=== PATIENT | female | born 1960 | race Caucasian/White ===

== ENCOUNTER 2020-05-02 01:11 | Outpatient (CLI) | payer OTHER, SELFPAY ==
[2020-05-02 18:35] LABS: SARS-CoV-2 RNA PCR Negative
== END 2020-05-02 01:12 | disposition home or self-care (01) ==
LOC: ANHCOVIDDT 01:11
PROVIDERS: PCP Family Medicine; Visit Provider Internal Medicine Gastroenterology
DX: Z01.812 Encounter for preprocedural laboratory examination (principal); Z20.828 Contact with and (suspected) exposure to other viral communicable diseases
CPT/HCPCS: 87635; C9803; U0003

== ENCOUNTER 2020-05-04 01:49 | Day surgery (SDC) | payer OTHER, SELFPAY ==
[2020-04-25 16:12] VITALS: BMI 20.9
[2020-05-04 10:18] VITALS: BP 100/63; PULSE 77; RESP 16; TEMP 36.6; O2SAT 100
--- NOTE | 2020-05-04 10:29 | P.HP_ITS ---
H&P: HPI History of Present Illness Date/Time: 05/04/20 10:29 Chief complaint: Diverticular Disease Of Colon Narrative: Reason for visit is colonoscopy. This very pleasant lady's being seen at the request of the primary physician. The patient examined and chart review. Impression: Colon cancer and polyp screening and surveillance. 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 She is status post resection. Hypertension. Recommendation: Colonoscopy. History: This very pleasant lady presented a year ago with GI bleeding. She was found to have a neuroendocrine tumor of the terminal ileum. She subsequently underwent ileocolonic resection. She had 1 positive lymph node. She is here for screening and surveillance. GI review of systems unremarkable. Physical examination: General: very pleasant patient in no acute distress. HEENT: Head was normocephalic sclerae is clear mouth without masses neck was supple. Heart: Rate rhythm regular without S3 or S4. Lungs: CTA. Abdomen: Soft with no guarding or rigidity. Bowel sounds were active. Neurologic: Cranial nerves 2 through 12 intact. No focal defects. No clonus. Musculoskeletal system: Revealed no joint tenderness or swelling no muscle atrophy. Extremities: Reveal no significant edema. Skin: Warm and dry with normal turgor. Mental status: intact. Patient is alert and oriented. Review of Systems Review of Systems: All systems reviewed & are unremarkable except as noted in HPI and below [facility] Family History Family History (Updated 11/10/18 @ 10:27 by DOCTOR UNKNOWN) Father Family history of malignant neoplasm of kidney Family history of congestive heart failure Other Cerebrovascular accident Family history of liver disease Family history of thyroid disease Hypertension Social History Social History Smoking status: Never smoker Alcohol intake: never Meds Home Medications and Allergies Home Medications Medication Instructions Recorded Confirmed Type biotin 1 mg PO DAILY 04/25/20 05/04/20 History lisinopril 10 mg PO DAILY 04/25/20 05/04/20 History rk-vs-RN-vit X-pobof-wxz-coQ10 1 cap PO DAILY 04/25/20 05/04/20 History [Daily Multivitamin] Allergies Allergy/AdvReac Type Severity Reaction Status Date / Time Iodinated Contrast Media Allergy Unknown VOMITING Verified 05/04/20 10:17 iodine Allergy Unknown Vomiting Verified 05/04/20 10:17 shellfish derived Allergy Unknown Vomiting Verified 05/04/20 10:17 Vital Signs Vital Signs - 24 hr 05/04/20 10:18 Temperature 36.6 C Pulse Rate 77 Respiratory Rate 16 Blood Pressure 100/63 Pulse Oximetry 100
[2020-05-04] MEDS: LACTATED RINGERS 1,000 ML 150 ML IV CONT (10:32)
--- NOTE | 2020-05-04 10:33 | WPDANESEPPF ---
Anes - Initial Pre Proc Eval Procedure: Operation Date: 05/04/20 11:00 Proposed Procedures p Colonoscopy - Marek Hernandes DO Date/Time: 05/04/20 10:33 Surgeon: Marek Hernandes DO Pre Op Diagnosis: Diverticular Disease Of Colon Patient Data Age: 60 Gender: F Height: 5 ft 2 in Weight: 51.9 kg Last Vital Signs Temp 36.6 C 05/04/20 10:18 Pulse 77 05/04/20 10:18 Resp 16 05/04/20 10:18 BP 100/63 05/04/20 10:18 Pulse Ox 100 05/04/20 10:18 Allergies Allergy/AdvReac Type Severity Reaction Status Date / Time Iodinated Contrast Media Allergy Unknown VOMITING Verified 05/04/20 10:17 iodine Allergy Unknown Vomiting Verified 05/04/20 10:17 shellfish derived Allergy Unknown Vomiting Verified 05/04/20 10:17 Home Medications Medication Instructions Recorded Confirmed Type biotin 1 mg PO DAILY 04/25/20 05/04/20 History lisinopril 10 mg PO DAILY 04/25/20 05/04/20 History oa-ng-MT-vit M-mbjav-lyz-coQ10 1 cap PO DAILY 04/25/20 05/04/20 History [Daily Multivitamin] Patient hx anesthesia problems: none Family hx anesthesia problems: none PMFSH Past Medical History Medical History (Updated 05/04/20 @ 10:38 by Parminder Santos MD) Carcinoid tumor of small intestine HTN (hypertension) Surgical History Surgical History (Updated 05/04/20 @ 10:38 by Parminder Santos MD) S/P laparoscopic surgery Family History Family History Father Family history of malignant neoplasm of kidney Family history of congestive heart failure Other Cerebrovascular accident Family history of liver disease Family history of thyroid disease Hypertension Social History Social History Smoking status: Never smoker Alcohol intake: never Anes - Eval Final PreProcedure Day of Procedure 05/04/20 10:33 Patient weight: normal Heart: regular rate and rhythm Lungs: clear to auscultation Airway: Mallampati scale class II Neurological: alert and oriented Last oral intake: >/= 8 hours ASA classification: II Emergent: no Anesthetic plan: proceed Anesthesia type and monitoring: general GIVS and standard monitoring Informed Consent: The patient's anesthetic plan and its attendant risks and benefits were discussed with the patient/family/POA. Questions were solicited and answers provided to the satisfaction of the patient/family/POA.
[2020-05-04 11:35] VITALS: BP 81/51; PULSE 73; RESP 17; O2SAT 99
[2020-05-04 11:45] VITALS: BP 82/55; PULSE 65; RESP 19; O2SAT 100
[2020-05-04 11:55] VITALS: BP 99/67; PULSE 62; RESP 22; O2SAT 100
== END 2020-05-04 12:11 | disposition home or self-care (01) ==
PROVIDERS: PCP Family Medicine; Visit Provider Internal Medicine Gastroenterology
PROC: 0DJD8ZZ Inspection of Lower Intestinal Tract, Via Natural or Artificial Opening Endoscopic (ICD-10-PCS; CPT 45378; principal; 2020-05-04 11:00)
DX: Z12.11 Encounter for screening for malignant neoplasm of colon (principal); K57.30 Diverticulosis of large intestine without perforation or abscess without bleeding; Z85.060 Personal history of malignant carcinoid tumor of small intestine; Z98.0 Intestinal bypass and anastomosis status; Z90.49 Acquired absence of other specified parts of digestive tract; I10 Essential (primary) hypertension
CPT/HCPCS: 45378; J2001; J2704; J7120

== ENCOUNTER 2020-08-15 06:52 | Outpatient (NON) | payer OTHER, SELFPAY ==
[2020-08-16 02:00] LABS: SARS-CoV-2 RNA PCR Positive
== END 2020-08-15 06:53 ==
LOC: ANHCOVIDDT 07:14
PROVIDERS: PCP Family Medicine; Visit Provider Family Medicine
DX: U07.1 COVID-19 (principal)
CPT/HCPCS: 87635; C9803; U0003

== ENCOUNTER 2021-08-02 11:22 | Emergency (ER) | payer OTHER, SELFPAY ==
[2021-08-02 11:28] VITALS: BP 143/97; PULSE 70; RESP 18; TEMP 35.8; O2SAT 100
--- NOTE | 2021-08-02 11:39 | ECG_ITS ---
Measurements Intervals [place] Rate: 63 P: 59 NM: 157 QRS: -15 QRSD: 96 T: 42 QT: 380 QTc: 391 Interpretive Statements SINUS RHYTHM POSSIBLE LEFT ATRIAL ENLARGEMENT INCOMPLETE RIGHT BUNDLE BRANCH BLOCK BASELINE ARTIFACT- I, II, AVR BORDERLINE ECG Electronically Signed On 08-02-2021 19:38:57 ADULT SECONDARY EDUCATION INSTRUCTOR by Antonio Tejada D.O.
[2021-08-02 12:22] LABS: Basophils Percent Auto 0.6 % (0.2-1.2); Eosinophils Absolute Auto 0.1 K/mm3 (0-0.3); Eosinophils Percent Auto 2.2 % (0-4.4); Hematocrit 41.9 % (37.0-47.0); Immature Granulocyte Absolute 0.02 K/mm3 (0.00-0.031); Immature Granulocyte Percent A 0.3 % (0-0.5); Lymphocytes Absolute Auto 1.63 K/mm3 (0.9-3.2); Lymphocytes Percent Auto 25.7 % (18.3-44.2); Mean Corpuscular HGB Conc 33.4 g/dl (32-36); Mean Corpuscular Hemoglobin 30.6 pg (26-34); Mean Corpuscular Volume 91.7 fl (80-100); Mean Platelet Volume 9.5 fl (7.4-10.4); Monocytes Absolute Auto 0.5 K/mm3 (0.1-0.6); Monocytes Percent Auto 7.4 % (2.6-8.5); Neutrophils Percent Auto 63.8 % (45.5-73.1); Platelet Count Result 296 k/mm3 (150-375); Red Blood Count 4.57 M/mm3 (4.2-5.4); Red Cell Distribution Width 12.3 % (11.5-14.5); White Blood Count 6.3 K/mm3 (4.5-10.0)
[2021-08-02 12:36] LABS: Anion Gap 7 mmol/L (8-16); Blood Urea Nitrogen 26 mg/dL (7-17); Calcium 9.6 mg/dL (8.4-10.2); Carbon Dioxide 26 mmol/L (22-30); Chloride 106 mmol/L (98-107); Estimated CRCL calculation 56 ml/min; Estimated Glomerular Filt Rate > 60; Glucose 99 mg/dL (65-110); Potassium 4.2 mmol/L (3.4-5.0); Sodium 139 mmol/L (137-145)
--- NOTE | 2021-08-02 12:54 | PC.NURSE ---
patient refuses iv
--- NOTE | 2021-08-02 12:56 | ED.DIZZY ---
HPI - Dizziness General Chief Complaint: Dizziness Stated Complaint: dizzy Time Seen by Provider: 08/02/21 12:32 Source: patient History of Present Illness HPI Narrative: Patient presents with dizziness and not feeling well. Reports on she was drinking with her and spent some time in the hot tub when going to bed she went to the bathroom felt dizzy and fell to the ground. She does report a history of vertigo she did feel like the room was spinning. Since then she reports she has been feeling a little bit off she has had increased dizziness not completely resolved with vertigo reports some nausea parents she went to work over the past 2 days and today was feeling the worst she has had general to come to the ER for evaluation. She was concerned that her blood pressure was elevated she had intermittent headaches and wanted to be evaluated Related Data Home Medications Medication Instructions Recorded Confirmed biotin 1 mg PO DAILY 04/25/20 05/04/20 lisinopril 10 mg PO DAILY 04/25/20 05/04/20 nx-qs-UP-vit L-fzxmi-rvf-coQ10 1 cap PO DAILY 04/25/20 05/04/20 [Daily Multivitamin] Allergies Allergy/AdvReac Type Severity Reaction Status Date / Time Iodinated Contrast Media Allergy Unknown VOMITING Verified 05/04/20 10:17 iodine Allergy Unknown Vomiting Verified 05/04/20 10:17 shellfish derived Allergy Unknown Vomiting Verified 05/04/20 10:17 Review of Systems Review of Systems: CONSTITUTIONAL: Denies fever, chills, or sweats. EYES: Denies visual changes, redness, or discharge. ENT: Denies rhinorrhea, congestion, sore throat, or otalgia. CARDIOVASCULAR: Denies chest pain, palpitations, or edema. RESPIRATORY: Denies cough or dyspnea. GASTROINTESTINAL: Denies abdominal pain, nausea, vomiting, or diarrhea. GENITOURINARY: Denies dysuria or hematuria. SKIN: Denies rash or itching. MUSCULOSKELETAL: Denies back pain, joint pain, or myalgia. NEUROLOGIC: Denies numbness, or weakness. PSYCHIATRIC: Denies anxiety or depression. All systems reviewed & are unremarkable except as noted in HPI and below PMFSH Past Medical History Medical History Carcinoid tumor of small intestine HTN (hypertension) Surgical History Surgical History S/P laparoscopic surgery Family History Family History Father Family history of malignant neoplasm of kidney Family history of congestive heart failure Other Cerebrovascular accident Family history of liver disease Family history of thyroid disease Hypertension Social History Social History Smoking status: Never smoker Alcohol intake: never Exam Narrative: GENERAL: Well-appearing, well-nourished, and in no acute distress. HEAD: Normocephalic, hematoma noted on the left occiput EYES: PERRLA and EOMI. ENT: Nares clear, no rhinorrhea or epistaxis. Mucous membranes moist. NECK: Supple. No masses. No JVD CHEST: Clear to auscultation. No respiratory distress. No wheezes rales or rhonchi HEART: Regular rate and rhythm. No murmur heard. Normal peripheral pulses. ABDOMEN: Soft, nontender, nondistended, normal active bowel sounds. EXTREMITIES: Normal range of motion. No edema. SKIN: Warm, dry, no rash. NEURO: Cranial nerves II through XII are intact patient has 5 out of 5 strength in all extremities sensation intact to light touch no dysdiadochokinesia. alert and oriented x3. PSYCH: Normal mood and affect. Course Vital Signs Vital signs: Vital Signs Temperature 35.8 C L 08/02/21 11:28 Pulse Rate 70 08/02/21 11:28 Respiratory Rate 18 08/02/21 11:28 Blood Pressure 143/97 H 08/02/21 11:28 Pulse Oximetry 100 08/02/21 11:28 Temperature 35.8 C L 08/02/21 11:28 Pulse Rate 70 08/02/21 11:28 Respiratory Rate 18 08/02/21 11:28 Blood Pre
== END 2021-08-02 13:09 | disposition home or self-care (01) ==
PROVIDERS: Emergency Provider Emergency Medicine; PCP Family Medicine
DX: S06.0X1A Concussion with loss of consciousness of 30 minutes or less, initial encounter (principal); R42 Dizziness and giddiness; I10 Essential (primary) hypertension; W19.XXXA Unspecified fall, initial encounter
CPT/HCPCS: 36415; 80048; 85025; 93005; 99284

== ENCOUNTER → 2021-10-03 15:38 | Outpatient (CLI) | payer OTHER, SELFPAY ==
--- NOTE | ~2021-10-03 | XR_ITS ---
EXAMINATION:XR cervical spine 4-5V DATE: 10/03/2021 16:06 INDICATION: Neck pain TECHNIQUE: AP, lateral in neutral, flexion, and extension, and odontoid views of the cervical spine a re provided. COMPARISON: 12/17/2010 FINDINGS: There are 2 mm of retrolisthesis of C6 on C7. No laxity is present with flexion or extensio n. The odontoid is intact. No fracture is identified. There is severe loss of intervertebral disc spa ce height at C5-6 and moderate loss of intervertebral disc space height at C6-7 with interval worseni ng. Prevertebral soft tissues are normal. There is moderate facet and uncovertebral joint osteoarthri tis at C5-6 and C6-7. IMPRESSION: 1. Severe cervical spondylosis at C5-6 and moderate spondylosis at C6-7 with interval worsening. Reviewed, dictated and finalized at location F. ER PACKER IMPRESSION: 1. Severe cervical spondylosis at C5-6 and moderate spondylosis at C6-7 with in terval worsening.
--- NOTE | ~2021-10-03 | XR_ITS ---
EXAMINATION: XR lumbar spine 2-3V DATE: 10/03/2021 16:06 INDICATION: Low back pain TECHNIQUE: Anteroposterior and lateral views of the lumbar spine, and cone-down lateral view of the l umbosacral junction were obtained. COMPARISON: CT, 11/02/2018 FINDINGS: There is no fracture, dislocation, or subluxation. There is unchanged mild loss of interver tebral disc space height at L1-2 and L2-3. The vertebral body heights are maintained. The bowel gas p attern is normal. IMPRESSION: 1. Mild lumbar spondylosis without acute findings or significant interval change. Reviewed, dictated and finalized at location F. TRUCTION SERVICES TECHNICIAN IMPRESSION: 1. Mild lumbar spondylosis without acute findings or significant interval david dockery
--- NOTE | ~2021-10-03 | XR_ITS ---
EXAMINATION: XR thoracic spine 2V DATE: 10/03/2021 16:06 INDICATION: Back pain TECHNIQUE: AP, lateral and lateral swimmer's views of the thoracic spine were obtained. COMPARISON: 12/17/2010 FINDINGS: There is no fracture, dislocation, or subluxation. The vertebral body heights are maintaine d. There is mild loss of intervertebral disc space height at a few levels in the thoracic spine. IMPRESSION: 1. Mild thoracic spondylosis without acute findings. Reviewed, dictated and finalized at location F. CTOR CPG
== END ==
PROVIDERS: Visit Provider Chiropractor
DX: M47.815 Spondylosis without myelopathy or radiculopathy, thoracolumbar region (principal); M47.813 Spondylosis without myelopathy or radiculopathy, cervicothoracic region
CPT/HCPCS: 72050; 72070; 72100

== ENCOUNTER → 2022-12-04 11:08 | Outpatient (CLI) | payer OTHER, SELFPAY ==
--- NOTE | ~2022-12-04 | DEXA_ITS ---
Bone Density Report Name: LACEY MCDONALD Age: 62 Sex: Female Ethnicity: White Date of : 1960 Indication: postmenopausal; screening for osteoporosis; parental hip fracture; Referring Provider: DAMIAN, ARIEL Rizvi Study: Bone densitometry was performed. Exam Date: December 04, 2022 Accession number: [id number] Bone Density: Region BMD T-score Z-score Classification AP Spine (L1-L4) 0.782 -2.4 -1.0 Osteopenia Femoral Neck (Left) 0.627 -2.0 -0.7 Osteopenia Total Hip (Left) 0.761 -1.5 -0.5 Osteopenia Femoral Neck (Right) 0.626 -2.0 -0.7 Osteopenia Total Hip (Right) 0.804 -1.1 -0.2 Osteopenia Total Hip Mean 0.783 -1.3 -0.4 Osteopenia World Health Organization criteria for BMD impression classify patients as: Normal (T-score at or above -1.0), Osteopenia (T-score between -1.0 and -2.5), or Osteoporosis (T-score at or below -2.5). 10-year Fracture Risk(1): Major Osteoporotic Fracture 18% Hip Fracture 1.2% Reported Risk Factors: [place] (), Neck BMD=0.626, BMI=24.0, parental fracture (1) FRAX(R) Version 3.08. Fracture probability calculated for an untreated patient. Fracture probability may be lower if the patient has received treatment. Clinical Information Provided by Patient: Parent has had a hip fracture Patient maximum height was 61.25 Menopause Age: 52 No regular weight bearing exercise Does not regularly consume dairy products Drinks caffeinated beverages Onset of menses at age 15 Number of children 3 Impression: The patient has low bone mass, based on the Total Spine T-score. The patient has an estimated ten-year risk of hip fracture of 1.2% and an estimated ten-year risk of major fracture of 18%, based on the WHO FRAX algorithm. The patient has risk factors, including: parental hip fracture. Discussion: BONE DENSITY IS LOW AT ONE OR MORE SKELETAL SITES. This patient's lowest T-score is low at one or more skeletal sites. It meets the World Health Organization's (WHO) criteria for ?low bone mass? (T-score between -1.0 and -2.5). The patient's 10-year risk of fracture as calculated by FRAX is less than the threshold where pharmacological therapy is recommended by the National Osteoporosis Foundation (NOF). However, all treatment decisions require clinical judgment and consideration of individual patient factors, including patient preferences, comorbidities, previous drug use, risk factors not captured in the FRAX model (e.g., frailty, falls, vitamin D deficiency, increased bone turnover, interval significant decline in bone density) and possible under or overestimation of fracture risk by FRAX. The patient should follow a healthful lifestyle (good nutrition with adequate calcium and vitamin D, and appropriate weight-bearing exercise). Follow-Up: Consider repeating this study in 2 to 3 ye
== END ==
PROVIDERS: PCP Family Medicine; Visit Provider Nurse Practitioner
DX: Z13.820 Encounter for screening for osteoporosis (principal); Z78.0 Asymptomatic menopausal state; M85.89 Other specified disorders of bone density and structure, multiple sites
CPT/HCPCS: 77080

== ENCOUNTER 2022-12-09 06:49 | Day surgery (SDC) | payer OTHER, SELFPAY ==
[2022-10-21 11:26] VITALS: BMI 23.6
[2022-11-28 11:21] VITALS: BMI 22.8
--- NOTE | 2022-12-06 14:27 | PM.HPGS ---
History of Present Illness History of Present Illness Consent: Risks, benefits, and alternatives have been discussed and questions answered. Patient agrees to proceed with procedure. Chief complaint: Neoplasm Screening Narrative: Aimee Ramon is a 62 year old female who was undergoing colonoscopy for screening because of a 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 Review of Systems Review of Systems: All systems reviewed & are unremarkable except as noted in HPI and below PMFSH Past Medical History Medical History (Updated 12/09/22 @ 07:42 by Aneudy Chavis DO) Carcinoid tumor of small intestine Fibroid HTN (hypertension) PFO (patent foramen ovale) Surgical History Surgical History (Updated 12/09/22 @ 07:43 by Aneudy Chavis DO) History of appendectomy History of bowel resection S/P laparoscopic surgery Family History Family History Father Family history of malignant neoplasm of kidney Family history of congestive heart failure Other Cerebrovascular accident Family history of liver disease Family history of thyroid disease Hypertension Social History Social History Smoking status: Never smoker Alcohol intake: current Drinks per week: 3 Substance use: never Substance use type: does not use Living arrangements: with family Spiritual care concerns: No Meds Home Medications and Allergies Home Medications Medication Instructions Recorded Confirmed Type biotin 1 mg capsule 1 mg PO DAILY 04/25/20 12/09/22 History lisinopril 10 mg tablet 10 mg PO DAILY 04/25/20 12/09/22 History adlfdwri-dgp-LB 200 mcg-vit K 100 1 cap PO DAILY 04/25/20 12/09/22 History mcg-lycop 500 nfg-tnmnbt-C68 capsule (Daily Multivitamin) Allergies Allergy/AdvReac Type Severity Reaction Status Date / Time Iodinated Contrast Media Allergy Unknown VOMITING Verified 12/09/22 07:55 iodine Allergy Unknown Vomiting Verified 12/09/22 07:55 shellfish derived Allergy Unknown Vomiting Verified 12/09/22 07:55 Exam Const: General: alert Orientation/consciousness: patient oriented x3 Resp: Auscultation: clear to auscultation bilaterally Cardio: Rhythm: regular rhythm GI: GI Palp: Yes Soft to palpation and No Tenderness to palpation present (GI) Neuro: General: patient oriented x3 Assessment and Plan Assessment and plan (1) History of malignant neuroendocrine tumor: Code(s): Z85.9 - Personal history of malignant neoplasm, unspecified Status: Acute Assessment and Plan: Colonoscopy with possible biopsy or polypectomy or cautery or injection of substances.
--- NOTE | 2022-12-09 07:41 | WPDANESEPPF ---
Anes - Initial Pre Proc Eval Procedure: Operation Date: 12/09/22 09:00 Proposed Procedures p Screening Colonoscopy - Anthony Yi MD Date/Time: 12/09/22 07:41 Surgeon: Anthony Yi MD Pre Op Diagnosis: Neoplasm Screening Patient Data Age: 62 Gender: F Height: 1.55 m Weight: 55 kg Allergies Allergy/AdvReac Type Severity Reaction Status Date / Time Iodinated Contrast Media Allergy Unknown VOMITING Verified 12/09/22 07:55 iodine Allergy Unknown Vomiting Verified 12/09/22 07:55 shellfish derived Allergy Unknown Vomiting Verified 12/09/22 07:55 Home Medications Medication Instructions Recorded Confirmed Type biotin 1 mg capsule 1 mg PO DAILY 04/25/20 12/09/22 History lisinopril 10 mg tablet 10 mg PO DAILY 04/25/20 12/09/22 History xsqnhsik-kzc-FE 200 mcg-vit K 100 1 cap PO DAILY 04/25/20 12/09/22 History mcg-lycop 500 gtj-tizlye-B03 capsule (Daily Multivitamin) Patient hx anesthesia problems: none Family hx anesthesia problems: none Results Review: All pre-operative results and documents have been reviewed as part of the pre-operative evaluation. [facility] Past Medical History Medical History (Updated 12/09/22 @ 07:42 by Aneudy Chavis DO) Carcinoid tumor of small intestine Fibroid HTN (hypertension) PFO (patent foramen ovale) Surgical History Surgical History (Updated 12/09/22 @ 07:43 by Aneudy Chavis DO) History of appendectomy History of bowel resection S/P laparoscopic surgery Family History Family History Father Family history of malignant neoplasm of kidney Family history of congestive heart failure Other Cerebrovascular accident Family history of liver disease Family history of thyroid disease Hypertension Social History Social History Smoking status: Never smoker Alcohol intake: current Drinks per week: 3 Substance use: never Substance use type: does not use Living arrangements: with family Spiritual care concerns: No Anes - Eval Final PreProcedure Day of Procedure 12/09/22 07:41 Patient weight: normal Heart: regular rate and rhythm Lungs: clear to auscultation and normal air movement Airway: Mallampati scale class II Neurological: alert and oriented Last oral intake: >/= 8 hours ASA classification: III Emergent: no Anesthetic plan: proceed Anesthesia type and monitoring: general GIVS and standard monitoring Results Review: All pre-operative results and documents have been reviewed as part of the pre-operative evaluation. Informed Consent: The patient's anesthetic plan and its attendant risks and benefits were discussed with the patient/family/POA. Questions were solicited and answers provided to the satisfaction of the patient/family/POA.
[2022-12-09 07:50] VITALS: BP 127/90; PULSE 80; RESP 16; TEMP 36.1; O2SAT 99
[2022-12-09] MEDS: LACTATED RINGERS 1,000 ML 150 ML IV CONT (07:58)
[2022-12-09 09:18] VITALS: BP 111/82; PULSE 81; RESP 16; O2SAT 98
[2022-12-09 09:28] VITALS: BP 103/77; PULSE 79; RESP 16; O2SAT 100
[2022-12-09 09:38] VITALS: BP 117/88; PULSE 72; RESP 16; O2SAT 99
--- NOTE | 2022-12-09 09:42 | SUR.PHASEII ---
PT AWAKE AND ALERT. DENIES PAIN. STATES SLIGHT CRAMPING TO LOW ABDOMEN BUT TOLERABLE.
--- NOTE | 2022-12-09 12:04 | WPDANESPN ---
Anes - Prog Note Post-Op Date/Time: 12/09/22 12:04 Cardiovascular status: normal Respiratory status: normal Airway patency: baseline Mental status: baseline Post-Op hydration status: normal Vital Signs: Last Vital Signs Temp 36.1 C L 12/09/22 07:50 Pulse 72 12/09/22 09:38 Resp 16 12/09/22 09:38 BP 117/88 12/09/22 09:38 Pulse Ox 99 12/09/22 09:38 O2 Del Method Room Air 12/09/22 09:38 Pain Score (VAS): 0 I/O: Intake & Output 12/08/22 12/09/22 12/09/22 23:59 07:59 15:59 Intake Total 450 Balance 450 Post-procedural complaints: none Patient Feedback: Patient satisfied with anesthetic care. Other Findings: Patient vital signs back to baseline. Patient denies nausea and vomiting. Patient's pain under control. Patient OK for discharge.
== END 2022-12-09 10:02 | disposition home or self-care (01) ==
PROVIDERS: PCP Family Medicine; Visit Provider Internal Medicine Gastroenterology
PROC: 0DJD8ZZ Inspection of Lower Intestinal Tract, Via Natural or Artificial Opening Endoscopic (ICD-10-PCS; CPT 45378; principal; 2022-12-09 09:00)
DX: K57.30 Diverticulosis of large intestine without perforation or abscess without bleeding (principal)
CPT/HCPCS: 45378

== ENCOUNTER 2022-12-25 02:58 | Inpatient (IN) | payer OTHER, SELFPAY ==
[2022-12-25] VITALS (31 sets, daily range): BP systolic 100–132; BP diastolic 59–85; PULSE 64–112; RESP 12–24; TEMP 36.6–37.2; O2SAT 94–100; BMI 22.4
--- NOTE | ~2022-12-25 | CT_ITS ---
EXAMINATION: CT abdomen pelvis wo con DATE: 12/29/2022 17:45 INDICATION: fever, abdominal pain TECHNIQUE: Computed tomography (CT) of the abdomen and pelvis was performed without intravenous contr ast. Automated exposure control and iterative reconstruction technique were employed. The dose-length product was 248.65 mGy-cm. COMPARISON: 12/25/2022. FINDINGS: Lower thorax: Small bilateral pleural fluid collections. Dependent scar and atelectasis. Small hiatal hernia. Liver: Normal. Biliary/Gallbladder: Gallbladder is normal. No bile duct dilation. Pancreas: No mass or duct dilation. Spleen: Normal. Adrenals:No mass. Kidneys: Bilateral punctate nonobstructing calculi. No suspicious mass or hydronephrosis. GI tract: No small or large bowel dilation. Uncomplicated appearing ileocolic anastomosis. Appendix s urgically absent. Sigmoid diverticulosis. Increasing inflammatory stranding in the deep pelvis and burns rrounding a loop of mid sigmoid colon. There is a thin soft tissue bridge between this loop of colon and the adjacent distal sigmoid colon (sagittal image 69/137). 3.9 x 2.0 cm fluid and gas collection in the right pelvis between the uterus and the involved portion of sigmoid. Several foci of extralumi nal gas in the deep pelvis. Mesentery/Peritoneum: No ascites, mass, or free air. Retroperitoneum: No mass. Pelvis: Inflammatory changes of the urinary bladder likely related to the adjacent inflammatory hernandez es described above. Soft Tissues: Soft tissues and body wall unremarkable. Bones: No acute osseous finding. IMPRESSION: Small bilateral pleural effusions. Complicated sigmoid diverticulosis with evidence of microperforati on and a 3.9 cm abscess in the deep right pelvis. 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 Reviewed, dictated and finalized at location K. IMPRESSION: Small bilateral pleural effusions. Complicated sigmoid diverticulosis with evid ence of microperforation and a 3.9 cm abscess in the deep right pelvis. Possibl e colo-colonic fistula between the involved portion of the mid sigmoid and the distal sigmoid.
--- NOTE | ~2022-12-25 | CT_ITS ---
EXAMINATION: CT abdomen pelvis wo con DATE: 12/25/2022 04:40 INDICATION: Lower abdominal pain. TECHNIQUE: Computed tomography (CT) of the abdomen and pelvis was performed without intravenous contr ast. Automated exposure control and iterative reconstruction technique were employed. The dose-length product was 254.64 mGy-cm. COMPARISON: 11/02/2018 FINDINGS: Mild atelectasis at the basilar lingula and right middle lobe. Heart size is normal. No pericardial o r pleural effusion. Small to moderate-sized sliding-type hiatal hernia. Liver, gallbladder, pancreas, spleen and bilateral adrenal glands are normal. 2 mm nonobstructing stones at the mid left and right kidneys. There is mild sigmoid diverticulosis with inflammatory stranding surrounding a diverticulum at the mid sigmoid colon. There are couple tiny foci of . Be extraluminal gas in the immediately adj acent mesenteric fat consistent with microperforation. No abscess or more remote free intraperitoneal gas or fluid. Postoperative changes in the right lower quadrant suggestive of prior resection of the cecum with ileocolic anastomosis. No dilated bowel to suggest obstruction. Bladder, anteverted uteru s and bilateral adnexa are unremarkable. No pathologically enlarged abdominal or pelvic lymphadenopat hy. Bones are unremarkable. IMPRESSION: 1. Sigmoid diverticulitis with a few tiny foci of likely adjacent extraluminal gas consistent with mi croperforation but without evident abscess or more remote free intraperitoneal gas or fluid. 2. Bilateral nonobstructing nephrolithiasis. 3. Small to moderate-sized sliding-type hiatal hernia. Reviewed, dictated and finalized at location A. IMPRESSION: 1. Sigmoid diverticulitis with a few tiny foci of likely adjacent extraluminal gas consistent with microperforation but without evident abscess or more remote free intraperitoneal gas or fluid. 2. Bilateral nonobstructing nephrolithiasis. 3. Small to moderate-sized sliding-type hiatal hernia.
[2022-12-25 03:18] LABS: Hematocrit 40.9 % (37.0-47.0); Hemoglobin 13.7 g/dL (12.0-15.0); Mean Corpuscular HGB Conc 33.5 g/dl (32-36); Mean Corpuscular Volume 92.5 fl (80-100); Mean Platelet Volume 9.6 fl (7.4-10.4); Platelet Count Result 352 k/mm3 (150-375); Red Blood Count 4.42 M/mm3 (4.2-5.4); Red Cell Distribution Width 12.9 % (11.5-14.5); White Blood Count 22.8 K/mm3 (4.5-10.0)
[2022-12-25 03:31] LABS: Alanine Aminotransferase 22 U/L (6-35); Albumin Level 4.4 g/dL (3.5-5.1); Alkaline Phosphatase 78 U/L (38-126); Anion Gap 13 mmol/L (8-16); Aspartate Amino Transferase 27 U/L (14-36); Bilirubin,Total 0.7 mg/dL (0.2-1.3); Blood Urea Nitrogen 25 mg/dL (7-17); Calcium 9.7 mg/dL (8.4-10.2); Carbon Dioxide 17 mmol/L (22-30); Chloride 107 mmol/L (98-107); Estimated CRCL calculation 56 ml/min; Estimated Glomerular Filt Rate > 60; Glucose 139 mg/dL (65-110); Lipase 74 U/L (23-300); Potassium 3.7 mmol/L (3.4-5.0); Sodium 137 mmol/L (137-145)
[2022-12-25 03:57] LABS: Band Neutrophils Percent 13 % (0-6); Basophils Absolute Manual 0.22 K/mm3 (0.0-0.1); Basophils Percent Manual 1 % (0-1); Large Platelets Present; Lymphocytes Absolute Manual 1.14 K/mm3 (1.1-4.5); Metamyelocytes Percent 1 %; Monocytes Absolute Manual 0.22 K/mm3 (0.1-0.90); Monocytes Percent Manual 1 % (3-9); Neutrophils Absolute Manual 20.97 K/mm3 (1.7-7.2); Neutrophils Percent Manual 79 % (46-73); Platelet Estimate Adequate (Adequate); Poikilocytosis 1+ (NORMAL); Schistocytes 1+ (NORMAL); Total Cells Counted 100
[2022-12-25 03:58] LABS: Crenated RBC 1+ (NORMAL); Smudge Cells PRESENT
--- NOTE | 2022-12-25 04:10 | ED.GENADULT ---
HPI - General Adult General Chief complaint: Abdominal Pain Stated complaint: abd pain Time Seen by Provider: 12/25/22 03:36 History of Present Illness HPI narrative: This is a 8-year-old female presenting to ED with chief complaint of abdominal pain. Pain started approximately 8 hours ago it is a stabbing pain across her lower abdomen that is 10 out 10 intensity and constant. Says she felt this way in the past after she had and abdominal surgery. There are no alleviating or exacerbating factors. Patient last had diarrhea last night. She has not passed gas since then. She denies nausea vomiting fever chills chest pain or difficulty breathing. She denies urinary symptoms. Related Data Home Medications Medication Instructions Recorded Confirmed biotin 1 mg capsule 1 mg PO DAILY 04/25/20 12/09/22 lisinopril 10 mg tablet 10 mg PO DAILY 04/25/20 12/09/22 eqconfix-gqq-KS 200 mcg-vit K 100 1 cap PO DAILY 04/25/20 12/09/22 mcg-lycop 500 lcm-vxumyj-W14 capsule (Daily Multivitamin) Allergies Allergy/AdvReac Type Severity Reaction Status Date / Time Iodinated Contrast Media Allergy Unknown VOMITING Verified 12/09/22 07:55 iodine Allergy Unknown Vomiting Verified 12/09/22 07:55 shellfish derived Allergy Unknown Vomiting Verified 12/09/22 07:55 PMFSH Past Medical History Medical History Carcinoid tumor of small intestine Fibroid HTN (hypertension) PFO (patent foramen ovale) Surgical History Surgical History History of appendectomy History of bowel resection S/P laparoscopic surgery Family History Family History Father Family history of malignant neoplasm of kidney Family history of congestive heart failure Other Cerebrovascular accident Family history of liver disease Family history of thyroid disease Hypertension Social History Social History Smoking status: Never smoker Alcohol intake: current Drinks per week: 3 Substance use: never Substance use type: does not use Living arrangements: with family Spiritual care concerns: No Exam Narrative: APPEARANCE: No apparent distress. Head: atraumatic. EYES: EOMI, NOSE: Atraumatic NECK: Trachea midline RESPIRATORY: No increased rate of breathing , clear to auscultation CARDIOVASCULAR: RRR, peripheral edema ABDOMINAL: Tenderness to palpation in the right lower quadrant, suprapubic area and left lower quadrant. No tenderness in the upper quadrants. No guarding or rebound. No tenderness on percussion of the soles of the feet. MUSCULOSKELETAl: No obvious deformities NEURO: Alert. Moving 4/4 extremities SKIN:: Warm, dry. Normal color PSYCHIATRIC: Normal affect Course Vital Signs Vital signs: Vital Signs Temperature 97.8 F 12/25/22 03:01 Pulse Rate 112 H 12/25/22 03:01 Respiratory Rate 20 12/25/22 03:01 Blood Pressure 100/59 L 12/25/22 03:01 Pulse Oximetry 98 12/25/22 03:01 Temperature 97.8 F 12/25/22 03:01 Pulse Rate 93 12/25/22 05:00 Respiratory Rate 24 H 12/25/22 05:00 Blood Pressure 104/71 12/25/22 04:01 Pulse Oximetry 100 12/25/22 05:15 Medical Decision Making [facility] Narrative Medical decision making narrative: -Presentation: 8-year-old female presenting with abdominal pain. Patient has not had a bowel movement or passed gas since yesterday. 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
[2022-12-25] MEDS: HYDROmorphone HCL INJ (*CRX) 1 MG/ML SYR 0.5 MG IV PUSH ×5 (04:23→20:30)
[2022-12-25] MEDS: SODIUM CHLORIDE 0.9% IV 2,000 ML 999 ML IV CONT (04:24)
[2022-12-25 05:46] LABS: Appearance Urine Cloudy (Clear); Bacteria Urine None Seen /hpf; Bilirubin Urine Negative (Negative); Blood Urine Negative (Negative); Color Urine Yellow (Yellow); Glucose Urine UA Negative (Negative); Ketones Urine Negative (Negative); Leukocyte Esterase Ur 1+ LEU/UL (Negative); Nitrate Urine Negative (Negative); Non Pathogenic Casts 0-2; Protein Urine Negative (Negative); RBC Urine 0-2 /hpf (0-2); Specific Grav Ur 1.015 (1.001-1.035); Squamous Epithelial Cell Urine Few /hpf (Few); Urobilinogen Urine 0.2 mg/dL (<2.0); pH Urine 7.5 (5.0-9.0)
[2022-12-25 06:01] LABS: Add Urine Microscopic? YES
[2022-12-25] MEDS: PIPERACILLN/TAZ 3.375GM/NS50ML 3.375 GM/50 ML BAG IVPB ×3 (06:58→17:00)
[2022-12-25] MEDS: LACTATED RINGERS 1,000 ML 150 ML IV CONT (06:58)
--- NOTE | 2022-12-25 08:27 | ADMGEN ---
This patient, Aimee Ramon, was admitted to Medical Room 340-01. Patient/family oriented to hospital policies and general routines including ID bracelet, bed and alarms, visiting hours, pain management, procedures, bathroom and other care routines, personal items, smoking policy, room service/diet, and visiting hours. Information on how to activate the Rapid Response Team has been discussed. Patient/Family are encouraged to report perceived risks to care and to ask questions if they do not understand what they are told or what they should do.
[2022-12-25] MEDS: PANTOPRAZOLE SODIUM IV 40 MG VIAL IV PUSH (10:18)
--- NOTE | 2022-12-25 12:01 | PM.IMHP ---
H&P: HPI History of Present Illness Date/Time: 12/25/22 12:01 Chief Complaint: This is a 8-year-old female presenting to ED with chief complaint of abdominal pain.? Pain started approximately 8 hours ago it is a stabbing pain across her lower abdomen that is 10 out 10 intensity and constant.? Says she felt this way in the past after she had? and abdominal surgery.? There are no alleviating or exacerbating factors.? Patient last had diarrhea last night.? She has not passed gas since then.? She denies nausea vomiting fever chills chest pain or difficulty breathing.? She denies urinary symptoms. PMF Past Medical History Medical History Carcinoid tumor of small intestine Fibroid HTN (hypertension) PFO (patent foramen ovale) Surgical History Surgical History History of appendectomy History of bowel resection S/P laparoscopic surgery Family History Family History Father Family history of malignant neoplasm of kidney Family history of congestive heart failure Other Cerebrovascular accident Family history of liver disease Family history of thyroid disease Hypertension Social History Social History Smoking status: Never smoker Alcohol intake: current Drinks per week: 2 Substance use: never Substance use type: does not use Lack of Transportation: No Lack of Food: Never True Current Housing: Decline to Answer Concerned About Future Housing: Decline to Answer Difficulty Paying Gas/Electric Bills: Decline to Answer Difficulty Paying for Meds: Decline to Answer Currently Unemployed: Decline to Answer Education: Decline to Answer Difficulty w/ Childcare or Family Care: Decline to Answer Living arrangements: with family Spiritual care concerns: No Meds Home Medications and Allergies Home Medications Medication Instructions Recorded Confirmed Type biotin 1 mg capsule 1 mg PO DAILY 04/25/20 12/25/22 History lisinopril 10 mg tablet 10 mg PO DAILY 04/25/20 12/25/22 History [id number] 200 mcg-vit K 100 1 cap PO DAILY 04/25/20 12/25/22 History mcg-lycop 500 [id number] capsule (Daily Multivitamin) Allergies Allergy/AdvReac Type Severity Reaction Status Date / Time Iodinated Contrast Media Allergy Unknown VOMITING Verified 12/09/22 07:55 iodine Allergy Unknown Vomiting Verified 12/09/22 07:55 shellfish derived Allergy Unknown Vomiting Verified 12/09/22 07:55 Vital Signs Vital Signs - 24 hr 12/25/22 03:01 12/25/22 03:25 12/25/22 03:27 Temperature 97.8 F Pulse Rate 112 H 88 91 Respiratory Rate 20 20 20 Blood Pressure 100/59 L 109/63 Pulse Oximetry 98 98 98 Oxygen Delivery 12/25/22 03:30 12/25/22 03:31 12/25/22 03:45 Temperature Pulse Rate 87 91 84 Respiratory Rate 17 20 Blood Pressure 105/70 Pulse Oximetry 96 96 96 Oxygen Delivery 12/25/22 03:46 12/25/22 04:00 12/25/22 04:01 Temperature Pulse Rate 85 95 87 Respiratory Rate 16 19 19 Blood Pressure 114/63 104/71 Pulse Oximetry 98 98 99 Oxygen Delivery 12/25/22 04:22 12/25/22 04:38 12/25/22 04:49 Temperature Pulse Rate 82 83 91 Respiratory Rate 15 16 17 Blood Pressure Pulse Oximetry 96 94 98 Oxygen Delivery 12/25/22 05:00 12/25/22 05:15 12/25/22 05:33 Temperature Pulse Rate 93 Respiratory Rate 24 H 18 Blood Pressure Pulse Oximetry 99 100 100 Oxygen Delivery 12/25/22 05:45 12/25/22 06:00 12/25/22 06:15 Temperature Pulse Rate 100 97 Respiratory Rate 18 16 14 Blood Pressure Pulse Oximetry 99 96 97 Oxygen Delivery 12/25/22 06:30 12/25/22 06:45 12/25/22 07:00 Temperature Pulse Rate 92 95 88 Respiratory Rate 14 19 18 Blood Pressure Pulse Oximetry 98 100 96 Oxygen Delivery 12/25
--- NOTE | 2022-12-25 15:24 | WPDGICN ---
Assessment and Plan Assessment and plan (1) Diverticulitis: Code(s): K57.92 - Diverticulitis of intestine, part unspecified, without perforation or abscess without bleeding Status: Acute Assessment and Plan: first episode of diverticulitis, CT reviewed and microperforation will consult surgery but most likely medical management will be enough she had a recent colonoscopy by Dr Yi continue with antibiotics (2) Leukocytosis: Code(s): D72.829 - Elevated white blood cell count, unspecified Status: Acute Assessment and Plan: from diverticulitis monitor on abx (3) Nausea: Code(s): R11.0 - Nausea Status: Acute (4) Lower abdominal pain: Code(s): R10.30 - Lower abdominal pain, unspecified Status: Acute Assessment and Plan: requiring pain meds monitor (5) History of malignant neuroendocrine tumor: Code(s): Z85.9 - Personal history of malignant neoplasm, unspecified Status: Acute GI Consult Note Consult date/time: 12/25/22 15:24 Reason for consult: diverticulitis HPI: Aimee Ramon is a 62 year old female who had a colonoscopy 12/09/[address] Yi for screening because of a 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 She was found to have left sided diverticulosis, no colitis, no polyps and recommendation to repeat in 3 years. She came here with new onset of severe lower abdominal pain with cramping, also had diarrhea two times yesterday, had?stabbing pain across her lower abdomen that is 10 out 10 intensity and constant, when pain was severe also had nausea. CT scan reviewed and showed sigmoid diverticulitis with a few tiny foci of likely adjacent extraluminal gas consistent with microperforation but without evident abscess or more remote free intraperitoneal gas or fluid. WBC 22k, started on antibiotics. Review of Systems Constitutional: Constitutional: Denies chills Eyes: Eyes: Denies blurry vision ENT: Reports Normal hearing present Cardiovascular: Cardiovascular: Denies chest pain Respiratory: Respiratory: Denies cough Gastrointestinal: Gastrointestinal: Reports abdominal pain and Reports nausea Genitourinary: Genitourinary: Denies hematuria Musculoskeletal: Musculoskeletal: Denies arthralgias Integumentary/Breasts: Skin/Breast: Denies rash Neurologic: Denies Abnormal speech present Psychiatric: Psychiatric: Denies behavioral changes [facility] Past Medical History Medical History (Updated 12/25/22 @ 15:28 by Stephan Warren MD) Carcinoid tumor of small intestine Fibroid HTN (hypertension) Lower abdominal pain Nausea PFO (patent foramen ovale) Surgical History Surgical History History of appendectomy History of bowel resection S/P laparoscopic surgery Family History Family History Father Family history of malignant neoplasm of kidney Family history of congestive heart failure Other Cerebrovascular accident Family history of liver disease Family history of thyroid disease Hypertension Social History Social History Smoking status: Never smoker Alcohol intake: current Drinks per week: 2 Substance use: never Substance use type: does not use Lack of Transportation: No Lack of Food: Never True Current Housing: Decline to Answer Concerned About Future Housing: Decline to Answer Difficulty Paying Gas/Electric Bills: Decline to Answer Difficulty Paying for Meds: Decline to Answer Currently Unemployed: Decline to Answer Education: Decline to Answer Difficulty w/ Childcare or Family Care: Decline to Answer Living arrangements: with family Spiritual care concerns: No Meds Home Medications and Allergies Home Medications Medication Instructions Recorded Confir
--- NOTE | 2022-12-25 16:08 | PM.CNGS ---
Assessment and Plan Assessment and plan (1) Diverticulitis: Code(s): K57.92 - Diverticulitis of intestine, part unspecified, without perforation or abscess without bleeding Status: Acute Assessment and Plan: CT reviewed and discussed with the patient in detail. There is evidence of sigmoid diverticulitis with micro perforation. No abscess or large amount of free intraperitoneal air. White blood cell count 22,000 on admission. She is still having a fair amount of abdominal pain and tenderness. We would recommend continuing conservative treatment with IV Zosyn, bowel rest, IV fluids, and analgesics. We will keep her NPO with ice chips tonight. Repeat labs tomorrow. I discussed with the patient that hopefully this will continue to improve with IV antibiotics. Although, if the patient worsens with conservative treatment, then she could require surgery in the acute phase, which we try to avoid as it comes with a higher risk of a colostomy. Continue to monitor with serial abdominal exams. (2) History of malignant neuroendocrine tumor: Code(s): Z85.9 - Personal history of malignant neoplasm, unspecified Status: Acute Assessment and Plan: S/p laparoscopic ileocecal resection in 2019. Has followed with Oncology for surveillance since surgery without any evidence of recurrent or metastatic disease. She had an MRI of the abdomen yesterday at [facility] ordered through her oncologist. She has not yet received the results. (3) PFO (patent foramen ovale): Code(s): Q21.12 - Patent foramen ovale Status: Acute (4) HTN (hypertension): Code(s): I10 - Essential (primary) hypertension Status: Acute Plan I have discussed the patient's case and plan of care with Dr. pratt. Thank you for allowing us to see the patient in consultation and we will continue to follow along with you. History of Present Illness Consult details Consult date: 12/25/22 Reason for consult: other (Diverticulitis with microperforation) Requesting physician: Stephan Warren MD Narrative: This is a 62-year-old female who presented to the ER early this morning with complaints of lower abdominal pain. She deals with constipation chronically, but has felt more constipated since having a colonoscopy on 12/09/2022. Her colonoscopy showed diverticulosis and ileocolonic anastomosis without any abnormalities. She has not been taking anything [id number] for her constipation, but states she could go almost a week without a bowel movement. Yesterday, she developed lower abdominal pain that was cramping in nature along with associated bloating. She reports her abdomen became more distended throughout the day and her abdominal pain continued to worsen. She has had associated nausea as her pain became more severe, but no vomiting. Denies any fever or chills. During the day, she began to have diarrhea. Reporting multiple liquid stools yesterday. Denies any blood or mucous in her stool. Her pain kept her awake through the night and got to the point that she was unable to get up on her own due to the severity of her pain. Therefore, she was brought into the ER for evaluation. Labs showed a white blood cell count [id number]. She was tachycardic with a heart rate of 112 on arrival to the ER. CT scan of the abdomen and pelvis showed sigmoid diverticulitis with microperforation. No evidence of abscess. The patient has been admitted to the hospitalist service. She was made NPO. She has been started on IV Zosyn and received IV fluids in the ER. Her tachycardia resolved quickly in the ER after receiving fluids. Our service has been consulted for the diverticulitis with microperforation. She is now seen on the medical floor. She denies a history of diverticulitis or similar pain in the past. 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 She
[2022-12-25] MEDS: LACTATED RINGERS 1,000 ML 100 ML IV CONT (16:56)
[2022-12-26] MEDS: HYDROmorphone HCL INJ (*CRX) 1 MG/ML SYR 0.5 MG IV PUSH ×5 (00:01→21:13)
[2022-12-26] MEDS: PIPERACILLN/TAZ 3.375GM/NS50ML 3.375 GM/50 ML BAG IVPB ×5 (00:01→23:45)
[2022-12-26] MEDS: LACTATED RINGERS 1,000 ML 100 ML IV CONT ×2 (03:54→17:13)
[2022-12-26 05:25] VITALS: BP 105/62; PULSE 90; RESP 18; TEMP 36.5; O2SAT 97
[2022-12-26 05:40] LABS: Basophils Percent Auto 0.3 % (0.2-1.2); Eosinophils Percent Auto 0.3 % (0-4.4); Hematocrit 34.6 % (37.0-47.0); Hemoglobin 11.4 g/dL (12.0-15.0); Immature Granulocyte Absolute 0.04 K/mm3 (0.00-0.031); Immature Granulocyte Percent A 0.3 % (0-0.5); Lymphocytes Percent Auto 9.6 % (18.3-44.2); Mean Corpuscular HGB Conc 32.9 g/dl (32-36); Mean Corpuscular Hemoglobin 31.6 pg (26-34); Mean Corpuscular Volume 95.8 fl (80-100); Mean Platelet Volume 9.3 fl (7.4-10.4); Monocytes Absolute Auto 0.6 K/mm3 (0.1-0.6); Monocytes Percent Auto 4.2 % (2.6-8.5); Neutrophils Absolute Auto 11.6 K/mm3 (1.3-6.7); Neutrophils Percent Auto 85.3 % (45.5-73.1); Platelet Count Result 224 k/mm3 (150-375); Red Blood Count 3.61 M/mm3 (4.2-5.4); White Blood Count 13.6 K/mm3 (4.5-10.0)
[2022-12-26 05:54] LABS: Anion Gap 3 mmol/L (8-16); Blood Urea Nitrogen 11 mg/dL (7-17); Calcium 7.9 mg/dL (8.4-10.2); Carbon Dioxide 26 mmol/L (22-30); Chloride 106 mmol/L (98-107); Estimated CRCL calculation 49 ml/min; Estimated Glomerular Filt Rate > 60; Glucose 91 mg/dL (65-110); Potassium 3.4 mmol/L (3.4-5.0); Sodium 135 mmol/L (137-145)
[2022-12-26] MEDS: PANTOPRAZOLE SODIUM IV 40 MG VIAL IV PUSH (08:10)
--- NOTE | 2022-12-26 10:08 | PM.PNGS ---
Progress Note: A&P Assessment and Plan (1) Diverticulitis: Code(s): K57.92 - Diverticulitis of intestine, part unspecified, without perforation or abscess without bleeding Status: Acute Assessment and Plan: Clinically improving. No diffuse peritoneal signs. WBC down to 13.6 today. Still having a fair amount of abdominal pain, will add ketorolac. Continue IV Zosyn. Advance to clear liquids Repeat labs tomorrow Plan I have discussed the patient's case and plan of care with Dr. Chávez. Subjective Subjective Date/Time Seen: 12/26/22 10:08 Patient reports: no new complaints, still having pain, no flatus, no bowel movement and afebrile Interval history: Patient reports still having lower abdominal pain requiring IV Dilaudid about every 3-4 hours through the night. She feels it has improved slightly since coming into the ER. Still feels bloated, but no nausea or vomiting. She denies any flatus and has not had a BM since 2 days ago. No other acute changes overnight or other complaints. Review of Systems Review of Systems: ROS unchanged Exam Const: General: comfortable, no acute distress and awake Nutritional Appearance: average body habitus Orientation/consciousness: patient oriented x3 GI: Inspection: non-distended GI Palp: Yes Soft to palpation, Yes Tenderness to palpation present (GI) (still with diffuse tenderness but more focally in the lower abdomen today), No Guarding due to palpation present (GI) and No Rebound tenderness present Auscultation: normal bowel sounds Extrem: General: no edema Psych: Mental Status: mental status grossly normal Insight: Good insight present (Psych) Objective Data Vital Signs Vital Signs: Vital Signs - 24 hr 12/25/22 10:39 12/25/22 15:28 12/25/22 16:08 Temperature 97.9 F 99.0 F 99 F Pulse Rate 85 64 Respiratory Rate 18 16 Blood Pressure 120/69 132/85 Pulse Oximetry 97 95 Oxygen Delivery 12/25/22 16:38 12/25/22 20:29 12/25/22 20:30 Temperature 98.4 F 98.1 F Pulse Rate 79 79 Respiratory Rate 18 18 Blood Pressure 109/71 Pulse Oximetry 98 98 Oxygen Delivery Room Air 12/26/22 05:25 Temperature 97.7 F Pulse Rate 90 Respiratory Rate 18 Blood Pressure 105/62 Pulse Oximetry 97 Oxygen Delivery Intake/Output Intake/Output: Intake & Output 12/23/22 12/24/22 12/25/22 12/26/22 23:59 23:59 23:59 23:59 Intake Total 2550 1250 Output Total 1100 900 Balance 1450 350 Meds/Results Medications: Active Medications Generic Name Dose Route Start Last Admin Trade Name Freq PRN Reason Stop Dose Admin Hydromorphone HCl 0.5 mg 12/25/22 16:28 12/26/22 08:11 Hydromorphone Hcl Inj (*Crx) 1 Mg/Ml Syr IV PUSH 0.5 mg Q3H PRN Administration Pain Rated 7-10 Piperacillin/Tazobactam/Dextrose 3.375 gm in 50 mls @ 100 mls/hr 12/25/22 12:00 12/26/22 06:05 Zosyn 3.375 Gm/Ns 50 Ml IVPB Infused Q6HR MAYO Infusion Lactated Ringer's 1,000 mls @ 100 mls/hr 12/25/22 16:30 12/26/22 03:54 Lr - Lactated Ringers Iv IV CONT 100 mls/hr .Q10H MAYO Administration Ondansetron HCl 4 mg 12/25/22 06:49 Ondansetron Inj 4 Mg/2 Ml Vial IV PUSH Q4H PRN Nausea Pantoprazole Sodium 40 mg 12/26/22 09:00 12/26/22 08:10 Pantoprazole Sodium Iv 40 Mg Vial IV PUSH 40 mg QAM MAYO Administration Promethazine HCl 12.5 mg 12/25/22 06:49 Promethazine Hcl 25 Mg/Ml Ampul IV PUSH Q6H PRN Nausea Radiology Results: ITS Impressions Abdomen/Pelvis CT 12/25/22 06:46 IMPRESSION: 1. Sigmoid diverticulitis with a few tiny foci of likely adjacent extraluminal gas consistent with microperforation but without evident abscess or more remote free intraperitoneal gas or fluid. 2. Bilateral nonobstructing nephrolithiasis. 3. Small to moderate-sized sliding-type hiatal hernia. Labs Labs: Laboratory Results - last 24 hr 12/26/22 12/26/22 05:32 05:32 WBC 13.6 H RBC 3.61 L H
--- NOTE | 2022-12-26 10:40 | PM.IMPN ---
Progress Note: A&P Assessment and Plan (1) Diverticulitis: Code(s): K57.92 - Diverticulitis of intestine, part unspecified, without perforation or abscess without bleeding Status: Acute Assessment and Plan: Continue IV antibiotics. Appreciate gi and surgery input feeling better, ? change in diet - defer to surgery (2) Leukocytosis: Code(s): D72.829 - Elevated white blood cell count, unspecified Status: Acute Assessment and Plan: 2/2 above improved Subjective Date/time seen: 12/26/22 10:40 Feeling better Exam Narrative: General: alert and oriented Psych: appropriate mood nad affect Eyes: PERRLA Neck: Trachea midline, no new lesions Skin: no changes Lungs: CTA Cardiac: Normal S1,S2, no MGR ABD: soft, nd, nt, nbs Ext: no new lesions, no cce Vasc: Pulses intact Objective Data Vital Signs Vital Signs: Vital Signs - 24 hr 12/25/22 15:28 12/25/22 16:08 12/25/22 16:38 Temperature 99.0 F 99 F 98.4 F Pulse Rate 64 Respiratory Rate 16 Blood Pressure 132/85 Pulse Oximetry 95 Oxygen Delivery 12/25/22 20:29 12/25/22 20:30 12/26/22 05:25 Temperature 98.1 F 97.7 F Pulse Rate 79 79 90 Respiratory Rate 18 18 18 Blood Pressure 109/71 105/62 Pulse Oximetry 98 98 97 Oxygen Delivery Room Air Intake/Output Intake/Output: Intake & Output 12/23/22 12/24/22 12/25/22 12/26/22 23:59 23:59 23:59 23:59 Intake Total 2550 1250 Output Total 1100 900 Balance 1450 350 Meds/Results Medications: Active Medications Generic Name Dose Route Start Last Admin Trade Name Freq PRN Reason Stop Dose Admin Hydromorphone HCl 0.5 mg 12/25/22 16:28 12/26/22 08:11 Hydromorphone Hcl Inj (*Crx) 1 Mg/Ml Syr IV PUSH 0.5 mg Q3H PRN Administration Pain Rated 7-10 Piperacillin/Tazobactam/Dextrose 3.375 gm in 50 mls @ 100 mls/hr 12/25/22 12:00 12/26/22 06:05 Zosyn 3.375 Gm/Ns 50 Ml IVPB Infused Q6HR MAYO Infusion Lactated Ringer's 1,000 mls @ 100 mls/hr 12/25/22 16:30 12/26/22 03:54 Lr - Lactated Ringers Iv IV CONT 100 mls/hr .Q10H MAYO Administration Acetaminophen 1,000 mg in 100 mls @ 400 mls/hr 12/26/22 10:13 Ofirmev 1,000 Mg Ivpb IVPB 12/27/22 10:12 Q6H PRN Pain Rated 1-3 Ketorolac Tromethamine 15 mg 12/26/22 10:13 Ketorolac 15 Mg/Ml Vial (*Bkc) IV PUSH Q6H PRN Pain Rated 4-6 Ondansetron HCl 4 mg 12/25/22 06:49 Ondansetron Inj 4 Mg/2 Ml Vial IV PUSH Q4H PRN Nausea Pantoprazole Sodium 40 mg 12/26/22 09:00 12/26/22 08:10 Pantoprazole Sodium Iv 40 Mg Vial IV PUSH 40 mg QAM MAYO Administration Promethazine HCl 12.5 mg 12/25/22 06:49 Promethazine Hcl 25 Mg/Ml Ampul IV PUSH Q6H PRN Nausea Radiology Results: ITS Impressions Abdomen/Pelvis CT 12/25/22 06:46 IMPRESSION: 1. Sigmoid diverticulitis with a few tiny foci of likely adjacent extraluminal gas consistent with microperforation but without evident abscess or more remote free intraperitoneal gas or fluid. 2. Bilateral nonobstructing nephrolithiasis. 3. Small to moderate-sized sliding-type hiatal hernia. Labs Labs: Laboratory Results - last 24 hr 12/26/22 12/26/22 05:32 05:32 WBC 13.6 H RBC 3.61 L Hgb 11.4 L Hct 34.6 L MCV 95.8 MCH 31.6 MCHC 32.9 RDW 13.0 Plt Count 224 MPV 9.3 Immature Gran % (Auto) 0.3 Neut % (Auto) 85.3 H Lymph % (Auto) 9.6 L Foard % (Auto) 4.2 Eos % (Auto) 0.3 Baso % (Auto) 0.3 Lymph # (Auto) 1.30 Foard # (Auto) 0.6 Eos # (Auto) 0.0 Baso # (Auto) 0.0 Abs Immat Gran (auto) 0.04 H Absolute Neuts (auto) 11.6 H Absolute Nucleated RBC 0.0 Nucleated RBC % 0.0 Sodium 135 L Potassium 3.4 Chloride 106 Carbon Dioxide 26 Anion Gap 3 L BUN 11 D Creatinine 0.80 Estim Creat Clear Calc 49 Estimated GFR > 60 Glucose 91 Calcium 7.9 L
[2022-12-26] MEDS: KETOROLAC 15 MG/ML VIAL (*BKC) IV PUSH ×2 (11:06→17:12)
--- NOTE | 2022-12-26 13:09 | WPDGIPROGNO ---
Progress Note: A&P Assessment and Plan (1) Diverticulitis: Code(s): K57.92 - Diverticulitis of intestine, part unspecified, without perforation or abscess without bleeding Status: Acute Assessment and Plan: Patient with diverticulitis. Clinically still active. CT scan imaging reveals localized perforation. This appears contain. Plan to continue IV antibiotics. She does not appear to have an ileus. Surgery is following clinically at this time. Agree with allowing liquids and advancing diet as tolerated. Increase activity if possible. Continue to monitor at this point. (2) Leukocytosis: Code(s): D72.829 - Elevated white blood cell count, unspecified Status: Acute Assessment and Plan: Patient remains on antibiotics. White count is decreasing which is encouraging. Continue to monitor closely. (3) History of malignant neuroendocrine tumor: Code(s): Z85.9 - Personal history of malignant neoplasm, unspecified Status: Acute Assessment and Plan: Patient has a history of a bowel resection because of neuroendocrine tumor. Currently felt to be in active in cured. Subjective Date/time seen: 12/26/22 13:09 Interval history: Patient alert this morning. Still complains rather diffuse abdominal pain. Not Hungry. not passing stool. Review of Systems Review of Systems: Review of systems noncontributory. Exam Narrative: Physical exam reveals patient be alert afebrile and anicteric. Vital signs stable. HEENT exam reveals no icterus. Lungs are clear. Heart without murmur. Abdomen bowel sounds are present. abdomen is soft. She has mild diffuse tenderness. Objective Data Vital Signs Vital Signs: Vital Signs - 24 hr 12/25/22 15:28 12/25/22 16:08 12/25/22 16:38 Temperature 99.0 F 99 F 98.4 F Pulse Rate 64 Respiratory Rate 16 Blood Pressure 132/85 Pulse Oximetry 95 Oxygen Delivery 12/25/22 20:29 12/25/22 20:30 12/26/22 05:25 Temperature 98.1 F 97.7 F Pulse Rate 79 79 90 Respiratory Rate 18 18 18 Blood Pressure 109/71 105/62 Pulse Oximetry 98 98 97 Oxygen Delivery Room Air Intake/Output Intake/Output: Intake & Output 12/23/22 12/24/22 12/25/22 12/26/22 23:59 23:59 23:59 23:59 Intake Total 2550 1250 Output Total 1100 900 Balance 1450 350 Meds/Results Medications: Active Medications Generic Name Dose Route Start Last Admin Trade Name Freq PRN Reason Stop Dose Admin Hydromorphone HCl 0.5 mg 12/25/22 16:28 12/26/22 12:41 Hydromorphone Hcl Inj (*Crx) 1 Mg/Ml Syr IV PUSH 0.5 mg Q3H PRN Administration Pain Rated 7-10 Piperacillin/Tazobactam/Dextrose 3.375 gm in 50 mls @ 100 mls/hr 12/25/22 12:00 12/26/22 11:09 Zosyn 3.375 Gm/Ns 50 Ml IVPB 100 mls/hr Q6HR MAYO Administration Lactated Ringer's 1,000 mls @ 100 mls/hr 12/25/22 16:30 12/26/22 03:54 Lr - Lactated Ringers Iv IV CONT 100 mls/hr .Q10H MAYO Administration Acetaminophen 1,000 mg in 100 mls @ 400 mls/hr 12/26/22 10:13 Ofirmev 1,000 Mg Ivpb IVPB 12/27/22 10:12 Q6H PRN Pain Rated 1-3 Ketorolac Tromethamine 15 mg 12/26/22 10:13 12/26/22 11:06 Ketorolac 15 Mg/Ml Vial (*Bkc) IV PUSH 15 mg Q6H PRN Administration Pain Rated 4-6 Ondansetron HCl 4 mg 12/25/22 06:49 Ondansetron Inj 4 Mg/2 Ml Vial IV PUSH Q4H PRN Nausea Pantoprazole Sodium 40 mg 12/26/22 09:00 12/26/22 08:10 Pantoprazole Sodium Iv 40 Mg Vial IV PUSH 40 mg QAM MAYO Administration Promethazine HCl 12.5 mg 12/25/22 06:49 Promethazine Hcl 25 Mg/Ml Ampul IV PUSH Q6H PRN Nausea Radiology Results: ITS Impressions Abdomen/Pelvis CT 12/25/22 06:46 IMPRESSION: 1. Sigmoid diverticulitis with a few tiny foci of likely adjacent extraluminal gas consistent with microperforation but without evident abscess or more remote free intraperitoneal gas or fluid. 2. Bilateral nonobstructing neph
[2022-12-26 14:00] VITALS: BP 113/65; PULSE 77; RESP 16; O2SAT 97
[2022-12-26 19:33] VITALS: BP 114/62; PULSE 75; RESP 18; TEMP 36.8; O2SAT 98
[2022-12-27] MEDS: LACTATED RINGERS 1,000 ML 100 ML IV CONT (05:08)
[2022-12-27] MEDS: HYDROmorphone HCL INJ (*CRX) 1 MG/ML SYR 0.5 MG IV PUSH (05:10)
[2022-12-27 06:03] VITALS: BP 110/57; PULSE 81; RESP 16; TEMP 36.9; O2SAT 97
[2022-12-27] MEDS: PIPERACILLN/TAZ 3.375GM/NS50ML 3.375 GM/50 ML BAG IVPB ×3 (06:06→18:00)
[2022-12-27 06:35] LABS: Hematocrit 32.9 % (37.0-47.0); Hemoglobin 10.6 g/dL (12.0-15.0); Mean Corpuscular HGB Conc 32.2 g/dl (32-36); Mean Corpuscular Hemoglobin 30.7 pg (26-34); Mean Corpuscular Volume 95.4 fl (80-100); Mean Platelet Volume 10.3 fl (7.4-10.4); Platelet Count Result 241 k/mm3 (150-375); Red Blood Count 3.45 M/mm3 (4.2-5.4); Red Cell Distribution Width 12.6 % (11.5-14.5); White Blood Count 12.1 K/mm3 (4.5-10.0)
[2022-12-27 06:41] LABS: Anion Gap 4 mmol/L (8-16); Blood Urea Nitrogen 10 mg/dL (7-17); Calcium 8.1 mg/dL (8.4-10.2); Carbon Dioxide 29 mmol/L (22-30); Chloride 106 mmol/L (98-107); Estimated CRCL calculation 49 ml/min; Estimated Glomerular Filt Rate > 60; Glucose 89 mg/dL (65-110); Potassium 3.6 mmol/L (3.4-5.0); Sodium 139 mmol/L (137-145)
[2022-12-27] MEDS: PANTOPRAZOLE SODIUM IV 40 MG VIAL IV PUSH (08:19)
[2022-12-27 08:20] VITALS: PULSE 81; RESP 16; O2SAT 97
--- NOTE | 2022-12-27 08:43 | PM.PNGS ---
Progress Note: A&P Assessment and Plan (1) Diverticulitis: Code(s): K57.92 - Diverticulitis of intestine, part unspecified, without perforation or abscess without bleeding Status: Acute Assessment and Plan: Clinically improving. WBC trending down. Continue IV Zosyn. Advance diet as tolerated to low fiber Repeat labs tomorrow Plan I have discussed the patient's case and plan of care with Dr. Chávez. Subjective Subjective Date/Time Seen: 12/27/22 08:43 Patient reports: no new complaints, still having pain, flatus and afebrile Interval history: Reports her abdominal pain is slowly improving. SHe is still having some cramping lower abdominal pain that she felt was aggravated by the liquids. This is better today. She is not eating much due to the bloating after eating. No nausea or vomiting. She is passing flatus and had a BM yesterday. Review of Systems Review of Systems: ROS unchanged Exam Const: General: no acute distress and awake Orientation/consciousness: patient oriented x3 GI: Inspection: non-distended GI Palp: Yes Soft to palpation, Yes Tenderness to palpation present (GI) (LLQ, RLQ), No Guarding due to palpation present (GI) and No Rebound tenderness present Auscultation: normal bowel sounds Objective Data Vital Signs Vital Signs: Vital Signs - 24 hr 12/26/22 14:00 12/26/22 19:33 12/26/22 20:00 Temperature 98.2 F Pulse Rate 77 75 Respiratory Rate 16 18 Blood Pressure 113/65 114/62 Pulse Oximetry 97 98 Oxygen Delivery Room Air 12/27/22 06:03 Temperature 98.5 F Pulse Rate 81 Respiratory Rate 16 Blood Pressure 110/57 L Pulse Oximetry 97 Oxygen Delivery Intake/Output Intake/Output: Intake & Output 12/24/22 12/25/22 12/26/22 12/27/22 23:59 23:59 23:59 23:59 Intake Total 2550 5950 1050 Output Total 1100 4000 250 Balance 1450 1950 800 Meds/Results Medications: Active Medications Generic Name Dose Route Start Last Admin Trade Name Freq PRN Reason Stop Dose Admin Hydromorphone HCl 0.5 mg 12/25/22 16:28 12/27/22 05:10 Hydromorphone Hcl Inj (*Crx) 1 Mg/Ml Syr IV PUSH 0.5 mg Q3H PRN Administration Breakthrough Pain Piperacillin/Tazobactam/Dextrose 3.375 gm in 50 mls @ 100 mls/hr 12/25/22 12:00 12/27/22 06:06 Zosyn 3.375 Gm/Ns 50 Ml IVPB 100 mls/hr Q6HR MAYO Administration Acetaminophen 1,000 mg in 100 mls @ 400 mls/hr 12/26/22 10:13 Ofirmev 1,000 Mg Ivpb IVPB 12/27/22 10:12 Q6H PRN Pain Rated 1-3 Ketorolac Tromethamine 15 mg 12/26/22 10:13 12/26/22 17:12 Ketorolac 15 Mg/Ml Vial (*Bkc) IV PUSH 15 mg Q6H PRN Administration Pain Rated 4-10 Ondansetron HCl 4 mg 12/25/22 06:49 Ondansetron Inj 4 Mg/2 Ml Vial IV PUSH Q4H PRN Nausea Pantoprazole Sodium 40 mg 12/26/22 09:00 12/27/22 08:19 Pantoprazole Sodium Iv 40 Mg Vial IV PUSH 40 mg QAM MAYO Administration Promethazine HCl 12.5 mg 12/25/22 06:49 Promethazine Hcl 25 Mg/Ml Ampul IV PUSH Q6H PRN Nausea Radiology Results: ITS Impressions Abdomen/Pelvis CT 12/25/22 06:46 IMPRESSION: 1. Sigmoid diverticulitis with a few tiny foci of likely adjacent extraluminal gas consistent with microperforation but without evident abscess or more remote free intraperitoneal gas or fluid. 2. Bilateral nonobstructing nephrolithiasis. 3. Small to moderate-sized sliding-type hiatal hernia. Labs Labs: Laboratory Results - last 24 hr 12/27/22 12/27/22 05:52 05:52 WBC 12.1 H RBC 3.45 L Hgb 10.6 L Hct 32.9 L MCV 95.4 MCH 30.7 MCHC 32.2 RDW 12.6 Plt Count 241 MPV 10.3 Sodium 139 Potassium 3.6 Chloride 106 Carbon Dioxide 29 Anion Gap 4 L BUN 10 Creatinine 0.80 Estim Creat Clear Calc 49 Estimated GFR > 60 Glucose 89 Calcium 8.1 L
--- NOTE | 2022-12-27 09:48 | PCDIET ---
Physician consult for Low vs high fiber diet education. See Nutritional Teaching Intervention.
--- NOTE | 2022-12-27 11:18 | WPDGIPROGNO ---
Progress Note: A&P Assessment and Plan (1) Diverticulitis: Code(s): K57.92 - Diverticulitis of intestine, part unspecified, without perforation or abscess without bleeding Status: Acute Assessment and Plan: Clinically patient improving. Continue IV antibiotics for now. May advance diet slowly. Continue supportive care for now. (2) History of malignant neuroendocrine tumor: Code(s): Z85.9 - Personal history of malignant neoplasm, unspecified Status: Acute Subjective Date/time seen: 12/27/22 11:18 Interval history: Patient continues to improve clinically. Notes decrease in pain. Passing some flatus and stool. No bleeding noted. No fever noted. Review of Systems Review of Systems: Review of systems noncontributory. Exam Narrative: Physical exam reveals patient to be alert. She is afebrile and anicteric. HEENT exam reveals no icterus. Lungs are clear. Heart without murmur. Abdomen bowel sounds present soft. Mild discomfort present lower abdomen. Objective Data Vital Signs Vital Signs: Vital Signs - 24 hr 12/26/22 14:00 12/26/22 19:33 12/26/22 20:00 Temperature 98.2 F Pulse Rate 77 75 Respiratory Rate 16 18 Blood Pressure 113/65 114/62 Pulse Oximetry 97 98 Oxygen Delivery Room Air 12/27/22 06:03 12/27/22 08:20 Temperature 98.5 F Pulse Rate 81 81 Respiratory Rate 16 16 Blood Pressure 110/57 L Pulse Oximetry 97 97 Oxygen Delivery Room Air Intake/Output Intake/Output: Intake & Output 12/24/22 12/25/22 12/26/22 12/27/22 23:59 23:59 23:59 23:59 Intake Total 2550 5950 1050 Output Total 1100 4000 250 Balance 1450 1950 800 Meds/Results Medications: Active Medications Generic Name Dose Route Start Last Admin Trade Name Freq PRN Reason Stop Dose Admin Hydromorphone HCl 0.5 mg 12/25/22 16:28 12/27/22 05:10 Hydromorphone Hcl Inj (*Crx) 1 Mg/Ml Syr IV PUSH 0.5 mg Q3H PRN Administration Breakthrough Pain Piperacillin/Tazobactam/Dextrose 3.375 gm in 50 mls @ 100 mls/hr 12/25/22 12:00 12/27/22 06:06 Zosyn 3.375 Gm/Ns 50 Ml IVPB 100 mls/hr Q6HR MAYO Administration Ketorolac Tromethamine 15 mg 12/26/22 10:13 12/26/22 17:12 Ketorolac 15 Mg/Ml Vial (*Bkc) IV PUSH 15 mg Q6H PRN Administration Pain Rated 4-10 Ondansetron HCl 4 mg 12/25/22 06:49 Ondansetron Inj 4 Mg/2 Ml Vial IV PUSH Q4H PRN Nausea Pantoprazole Sodium 40 mg 12/26/22 09:00 12/27/22 08:19 Pantoprazole Sodium Iv 40 Mg Vial IV PUSH 40 mg QAM MAYO Administration Promethazine HCl 12.5 mg 12/25/22 06:49 Promethazine Hcl 25 Mg/Ml Ampul IV PUSH Q6H PRN Nausea Radiology Results: ITS Impressions Abdomen/Pelvis CT 12/25/22 06:46 IMPRESSION: 1. Sigmoid diverticulitis with a few tiny foci of likely adjacent extraluminal gas consistent with microperforation but without evident abscess or more remote free intraperitoneal gas or fluid. 2. Bilateral nonobstructing nephrolithiasis. 3. Small to moderate-sized sliding-type hiatal hernia. Labs Labs: Laboratory Results - last 24 hr 12/27/22 12/27/22 05:52 05:52 WBC 12.1 H RBC 3.45 L Hgb 10.6 L Hct 32.9 L MCV 95.4 MCH 30.7 MCHC 32.2 RDW 12.6 Plt Count 241 MPV 10.3 Sodium 139 Potassium 3.6 Chloride 106 Carbon Dioxide 29 Anion Gap 4 L BUN 10 Creatinine 0.80 Estim Creat Clear Calc 49 Estimated GFR > 60 Glucose 89 Calcium 8.1 L Amg [facility]up [facility]illing [facility] Follow-up Hospital Follow-up: [id number] [facility]
--- NOTE | 2022-12-27 12:03 | PM.IMPN ---
Progress Note: A&P Assessment and Plan (1) Diverticulitis: Code(s): K57.92 - Diverticulitis of intestine, part unspecified, without perforation or abscess without bleeding Status: Acute Assessment and Plan: Continue IV antibiotics. Appreciate gi and surgery input feeling better Advance diet slowly. (2) Leukocytosis: Code(s): D72.829 - Elevated white blood cell count, unspecified Status: Acute Assessment and Plan: 2/2 above improved Subjective Date/time seen: 12/27/22 12:03 No complaints Exam Narrative: General: alert and oriented Psych: appropriate mood nad affect Eyes: PERRLA Neck: Trachea midline, no new lesions Skin: no changes Lungs: CTA Cardiac: Normal S1,S2, no MGR ABD: soft, nd, nt, nbs Ext: no new lesions, no cce Vasc: Pulses intact Objective Data Vital Signs Vital Signs: Vital Signs - 24 hr 12/26/22 14:00 12/26/22 19:33 12/26/22 20:00 Temperature 98.2 F Pulse Rate 77 75 Respiratory Rate 16 18 Blood Pressure 113/65 114/62 Pulse Oximetry 97 98 Oxygen Delivery Room Air 12/27/22 06:03 12/27/22 08:20 Temperature 98.5 F Pulse Rate 81 81 Respiratory Rate 16 16 Blood Pressure 110/57 L Pulse Oximetry 97 97 Oxygen Delivery Room Air Intake/Output Intake/Output: Intake & Output 12/24/22 12/25/22 12/26/22 12/27/22 23:59 23:59 23:59 23:59 Intake Total 2550 5950 1050 Output Total 1100 4000 250 Balance 1450 1950 800 Meds/Results Medications: Active Medications Generic Name Dose Route Start Last Admin Trade Name Freq PRN Reason Stop Dose Admin Hydromorphone HCl 0.5 mg 12/25/22 16:28 12/27/22 05:10 Hydromorphone Hcl Inj (*Crx) 1 Mg/Ml Syr IV PUSH 0.5 mg Q3H PRN Administration Breakthrough Pain Piperacillin/Tazobactam/Dextrose 3.375 gm in 50 mls @ 100 mls/hr 12/25/22 12:00 12/27/22 06:06 Zosyn 3.375 Gm/Ns 50 Ml IVPB 100 mls/hr Q6HR MAYO Administration Ketorolac Tromethamine 15 mg 12/26/22 10:13 12/26/22 17:12 Ketorolac 15 Mg/Ml Vial (*Bkc) IV PUSH 15 mg Q6H PRN Administration Pain Rated 4-10 Ondansetron HCl 4 mg 12/25/22 06:49 Ondansetron Inj 4 Mg/2 Ml Vial IV PUSH Q4H PRN Nausea Pantoprazole Sodium 40 mg 12/26/22 09:00 12/27/22 08:19 Pantoprazole Sodium Iv 40 Mg Vial IV PUSH 40 mg QAM MAYO Administration Promethazine HCl 12.5 mg 12/25/22 06:49 Promethazine Hcl 25 Mg/Ml Ampul IV PUSH Q6H PRN Nausea Radiology Results: ITS Impressions Abdomen/Pelvis CT 12/25/22 06:46 IMPRESSION: 1. Sigmoid diverticulitis with a few tiny foci of likely adjacent extraluminal gas consistent with microperforation but without evident abscess or more remote free intraperitoneal gas or fluid. 2. Bilateral nonobstructing nephrolithiasis. 3. Small to moderate-sized sliding-type hiatal hernia. Labs Labs: Laboratory Results - last 24 hr 12/27/22 12/27/22 05:52 05:52 WBC 12.1 H RBC 3.45 L Hgb 10.6 L Hct 32.9 L MCV 95.4 MCH 30.7 MCHC 32.2 RDW 12.6 Plt Count 241 MPV 10.3 Sodium 139 Potassium 3.6 Chloride 106 Carbon Dioxide 29 Anion Gap 4 L BUN 10 Creatinine 0.80 Estim Creat Clear Calc 49 Estimated GFR > 60 Glucose 89 Calcium 8.1 L
[2022-12-27] MEDS: IBUPROFEN IV 800 MG/200 ML 800 MG/200 ML BAG 400 MG IVPB (13:43)
[2022-12-27 14:00] VITALS: BP 131/71; PULSE 74; RESP 20; TEMP 37.1; O2SAT 98
[2022-12-27] MEDS: IBUPROFEN IV 800 MG/200 ML 800 MG/200 ML BAG 200 MG IVPB (18:46)
[2022-12-27 21:20] VITALS: BP 128/70; PULSE 80; RESP 16; TEMP 36.9; O2SAT 98
[2022-12-27 22:00] VITALS: O2SAT 98
[2022-12-28] MEDS: PIPERACILLN/TAZ 3.375GM/NS50ML 3.375 GM/50 ML BAG IVPB ×4 (00:37→17:52)
[2022-12-28] MEDS: IBUPROFEN IV 800 MG/200 ML 800 MG/200 ML BAG 200 MG IVPB ×2 (00:39→06:38)
[2022-12-28 04:53] LABS: Hematocrit 31.8 % (37.0-47.0); Hemoglobin 10.3 g/dL (12.0-15.0); Mean Corpuscular HGB Conc 32.4 g/dl (32-36); Mean Corpuscular Hemoglobin 31.4 pg (26-34); Mean Platelet Volume 10.4 fl (7.4-10.4); Platelet Count Result 237 k/mm3 (150-375); Red Blood Count 3.28 M/mm3 (4.2-5.4); Red Cell Distribution Width 12.7 % (11.5-14.5); White Blood Count 6.4 K/mm3 (4.5-10.0)
[2022-12-28 05:19] LABS: Anion Gap 2 mmol/L (8-16); Blood Urea Nitrogen 5 mg/dL (7-17); Calcium 8.3 mg/dL (8.4-10.2); Carbon Dioxide 30 mmol/L (22-30); Chloride 109 mmol/L (98-107); Estimated CRCL calculation 56 ml/min; Estimated Glomerular Filt Rate > 60; Glucose 96 mg/dL (65-110); Potassium 3.7 mmol/L (3.4-5.0); Sodium 141 mmol/L (137-145)
[2022-12-28 05:58] VITALS: BP 126/71; PULSE 80; RESP 14; TEMP 36.7; O2SAT 98
[2022-12-28 08:00] VITALS: PULSE 80; RESP 14; O2SAT 98
[2022-12-28 08:05] VITALS: O2SAT 98
[2022-12-28] MEDS: PANTOPRAZOLE SODIUM IV 40 MG VIAL IV PUSH (08:25)
--- NOTE | 2022-12-28 08:27 | WPDGIPROGNO ---
Progress Note: A&P Assessment and Plan (1) Diverticulitis: Code(s): K57.92 - Diverticulitis of intestine, part unspecified, without perforation or abscess without bleeding Status: Acute Assessment and Plan: Patient with rather significant diverticulitis. Currently on IV antibiotics. Slowly advancing diet but somewhat hesitant to advance completely at present. Recommend low residue diet for several weeks. In a month or 2 high-fiber diet may be substituted. Continue oral antibiotics 1 week after discharge. (2) History of malignant neuroendocrine tumor: Code(s): Z85.9 - Personal history of malignant neoplasm, unspecified Status: Acute Assessment and Plan: Patient has had previous partial bowel resection currently felt be free of this tumor. Subjective Date/time seen: 12/28/22 08:27 Interval history: Patient alert much more comfortable today. Notes only move minimal low abdominal discomfort. Passing bowel movement without difficulty. Currently alert and oriented. Review of Systems Review of Systems: Review of systems noncontributory. Exam Narrative: Physical exam patient is alert afebrile and anicteric. HEENT exam unremarkable. Lungs clear. Heart without murmur. Abdomen bowel sounds present soft nontender. No significant tenderness at present. Objective Data Vital Signs Vital Signs: Vital Signs - 24 hr 12/27/22 14:00 12/27/22 20:00 12/27/22 21:20 Temperature 98.8 F 98.5 F Pulse Rate 74 80 Respiratory Rate 20 16 Blood Pressure 131/71 128/70 Pulse Oximetry 98 98 Oxygen Delivery Room Air 12/27/22 22:00 12/28/22 05:58 Temperature 98.1 F Pulse Rate 80 Respiratory Rate 14 Blood Pressure 126/71 Pulse Oximetry 98 98 Oxygen Delivery Room Air Intake/Output Intake/Output: Intake & Output 12/25/22 12/26/22 12/27/22 12/28/22 23:59 23:59 23:59 23:59 Intake Total 2550 5950 2200 250 Output Total 1100 4000 250 Balance 1450 1950 1950 250 Meds/Results Medications: Active Medications Generic Name Dose Route Start Last Admin Trade Name Freq PRN Reason Stop Dose Admin Acetaminophen 650 mg 12/27/22 12:58 Acetaminophen 325 Mg Tablet PO Q4H PRN Mild Pain (1-3) or Fever Hydrocodone Bitart/Acetaminophen 1 tab 12/27/22 12:58 Hydrocodone/Acetaminophen (*Crx) 5-325 Mg Tablet PO Q4H PRN Pain Rated 4-6 Hydrocodone Bitart/Acetaminophen 1 tab 12/27/22 12:58 Hydrocodone/Acetaminophen (*Crx) 7.5-325 Mg Tablet PO Q6H PRN Pain Rated 7-10 Hydromorphone HCl 0.5 mg 12/25/22 16:28 12/27/22 05:10 Hydromorphone Hcl Inj (*Crx) 1 Mg/Ml Syr IV PUSH 0.5 mg Q3H PRN Administration Breakthrough Pain Piperacillin/Tazobactam/Dextrose 3.375 gm in 50 mls @ 100 mls/hr 12/25/22 12:00 12/28/22 06:38 Zosyn 3.375 Gm/Ns 50 Ml IVPB 100 mls/hr Q6HR MAYO Administration Ibuprofen 800 mg in 200 mls @ 400 mls/hr 12/27/22 13:00 12/28/22 06:38 Caldolor 800 Mg/200 Ml IVPB 12/28/22 13:00 200 mls/hr Q6H MAYO Administration Ondansetron HCl 4 mg 12/25/22 06:49 Ondansetron Inj 4 Mg/2 Ml Vial IV PUSH Q4H PRN Nausea Pantoprazole Sodium 40 mg 12/26/22 09:00 12/28/22 08:25 Pantoprazole Sodium Iv 40 Mg Vial IV PUSH 40 mg QAM MAYO Administration Promethazine HCl 12.5 mg 12/25/22 06:49 Promethazine Hcl 25 Mg/Ml Ampul IV PUSH Q6H PRN Nausea Radiology Results: ITS Impressions Abdomen/Pelvis CT 12/25/22 06:46 IMPRESSION: 1. Sigmoid diverticulitis with a few tiny foci of likely adjacent extraluminal gas consistent with microperforation but without evident abscess or more remote free intraperitoneal gas or fluid. 2. Bilateral nonobstructing nephrolithiasis. 3. Small to moderate-sized sliding-type hiatal hernia. Labs Labs: Laboratory Results - last 24 hr 12/28/22 12/28/22 04:16 04:16 WBC 6.4 RBC 3.28 L Hgb 10.3 L Hct 31.8 L MCV 97.0 MCH 31
--- NOTE | 2022-12-28 11:29 | PM.PNGS ---
Progress Note: A&P Assessment and Plan (1) Diverticulitis of intestine with perforation without abscess: Code(s): K57.80 - Diverticulitis of intestine, part unspecified, with perforation and abscess without bleeding Status: Acute Assessment and Plan: Greatly improved. Patient having some diarrhea with eating. Hopefully this will resolve. Will advanced to low-fiber diet and give her information regarding low-fiber diet. She will need to go home on this for probably [address] Chance's suggestion. She just had colonoscopy December 09. No need for repeat of that procedure. Continue IV Zosyn. Up walking and doing well. (2) PFO (patent foramen ovale): Code(s): Q21.12 - Patent foramen ovale Status: Chronic (3) History of malignant neuroendocrine tumor: Code(s): Z85.9 - Personal history of malignant neoplasm, unspecified Status: Chronic Subjective Subjective Date/Time Seen: 12/28/22 11:29 Patient reports: feels better, pain is less, tolerating liquids well (Diarrhea but did not exacerbate abdominal pain), diarrhea (Postprandial diarrhea) and afebrile Exam Const: General: comfortable, no acute distress, alert and awake; No confusion Nutritional Appearance: well nourished Orientation/consciousness: patient oriented x3 and No confusion GI: Inspection: non-distended and scaphoid GI Palp: Yes Soft to palpation, No Tenderness to palpation present (GI), No Guarding due to palpation present (GI), No Hepatosplenomegaly present, No Palpable mass present and No Rebound tenderness present Auscultation: normal bowel sounds Neuro: General: patient oriented x3, no focal motor deficits and No confusion Extrem: General: no calf tenderness and no edema Psych: Affect: normal affect Insight: Good insight present (Psych) Judgement: Good judgement present (Psych) Objective Data Vital Signs Vital Signs: Vital Signs - 24 hr 12/27/22 14:00 12/27/22 20:00 12/27/22 21:20 Temperature 37.1 C 36.9 C Pulse Rate 74 80 Respiratory Rate 20 16 Blood Pressure 131/71 128/70 Pulse Oximetry 98 98 Oxygen Delivery Room Air 12/27/22 22:00 12/28/22 05:58 12/28/22 08:05 Temperature 36.7 C Pulse Rate 80 Respiratory Rate 14 Blood Pressure 126/71 Pulse Oximetry 98 98 98 Oxygen Delivery Room Air Room Air 12/28/22 08:00 Temperature Pulse Rate 80 Respiratory Rate 14 Blood Pressure Pulse Oximetry 98 Oxygen Delivery Room Air Intake/Output Intake/Output: Intake & Output 12/25/22 12/26/22 12/27/22 12/28/22 23:59 23:59 23:59 23:59 Intake Total 2550 5950 2200 370 Output Total 1100 4000 250 Balance 1450 1950 1950 370 Meds/Results Medications: Active Medications Generic Name Dose Route Start Last Admin Trade Name Freq PRN Reason Stop Dose Admin Acetaminophen 650 mg 12/27/22 12:58 Acetaminophen 325 Mg Tablet PO Q4H PRN Mild Pain (1-3) or Fever Hydrocodone Bitart/Acetaminophen 1 tab 12/27/22 12:58 Hydrocodone/Acetaminophen (*Crx) 5-325 Mg Tablet PO Q4H PRN Pain Rated 4-6 Hydrocodone Bitart/Acetaminophen 1 tab 12/27/22 12:58 Hydrocodone/Acetaminophen (*Crx) 7.5-325 Mg Tablet PO Q6H PRN Pain Rated 7-10 Piperacillin/Tazobactam/Dextrose 3.375 gm in 50 mls @ 100 mls/hr 12/25/22 12:00 12/28/22 06:38 Zosyn 3.375 Gm/Ns 50 Ml IVPB 100 mls/hr Q6HR MAYO Administration Ibuprofen 800 mg in 200 mls @ 400 mls/hr 12/28/22 11:28 Caldolor 800 Mg/200 Ml IVPB 12/28/22 13:00 Q6H PRN Pain Rated 4-6 Ondansetron HCl 4 mg 12/25/22 06:49 Ondansetron Inj 4 Mg/2 Ml Vial IV PUSH Q4H PRN Nausea Promethazine HCl 12.5 mg 12/25/22 06:49 Promethazine Hcl 25 Mg/Ml Ampul IV PUSH Q6H PRN Nausea Radiology Results: ITS Impressions Abdomen/Pelvis CT 12/25/22 06:46 IMPRESSION: 1. Sigmoid diverticulitis with a few tiny foci of likely adjacent extraluminal gas consistent with micrope
--- NOTE | 2022-12-28 12:24 | PM.IMPN ---
Progress Note: A&P Assessment and Plan (1) Diverticulitis: Code(s): K57.92 - Diverticulitis of intestine, part unspecified, without perforation or abscess without bleeding Status: Deleted Assessment and Plan: Continue IV antibiotics. Appreciate gi and surgery input feeling better Advance diet slowly. (2) Leukocytosis: Code(s): D72.829 - Elevated white blood cell count, unspecified Status: Resolved Assessment and Plan: 2/2 above improved Subjective Date/time seen: 12/28/22 12:24 No complaints Exam Narrative: General: alert and oriented Psych: appropriate mood nad affect Eyes: PERRLA Neck: Trachea midline, no new lesions Skin: no changes Lungs: CTA Cardiac: Normal S1,S2, no MGR ABD: soft, nd, nt, nbs Ext: no new lesions, no cce Vasc: Pulses intact Objective Data Vital Signs Vital Signs: Vital Signs - 24 hr 12/27/22 14:00 12/27/22 20:00 12/27/22 21:20 Temperature 98.8 F 98.5 F Pulse Rate 74 80 Respiratory Rate 20 16 Blood Pressure 131/71 128/70 Pulse Oximetry 98 98 Oxygen Delivery Room Air 12/27/22 22:00 12/28/22 05:58 12/28/22 08:05 Temperature 98.1 F Pulse Rate 80 Respiratory Rate 14 Blood Pressure 126/71 Pulse Oximetry 98 98 98 Oxygen Delivery Room Air Room Air 12/28/22 08:00 Temperature Pulse Rate 80 Respiratory Rate 14 Blood Pressure Pulse Oximetry 98 Oxygen Delivery Room Air Intake/Output Intake/Output: Intake & Output 12/25/22 12/26/22 12/27/22 12/28/22 23:59 23:59 23:59 23:59 Intake Total 2550 5950 2200 370 Output Total 1100 4000 250 Balance 1450 1950 1950 370 Meds/Results Medications: Active Medications Generic Name Dose Route Start Last Admin Trade Name Freq PRN Reason Stop Dose Admin Acetaminophen 650 mg 12/27/22 12:58 Acetaminophen 325 Mg Tablet PO Q4H PRN Mild Pain (1-3) or Fever Hydrocodone Bitart/Acetaminophen 1 tab 12/27/22 12:58 Hydrocodone/Acetaminophen (*Crx) 5-325 Mg Tablet PO Q4H PRN Pain Rated 4-6 Hydrocodone Bitart/Acetaminophen 1 tab 12/27/22 12:58 Hydrocodone/Acetaminophen (*Crx) 7.5-325 Mg Tablet PO Q6H PRN Pain Rated 7-10 Enoxaparin Sodium 40 mg 12/29/22 09:00 Enoxaparin 40 Mg/0.4 Ml Syringe SUB-Q DAILY MAYO Famotidine 20 mg 12/28/22 21:00 Famotidine 20 Mg Tablet PO Q12HR MAYO Hydromorphone HCl 0.5 mg 12/28/22 11:28 Hydromorphone Hcl Inj (*Crx) 1 Mg/Ml Syr IV PUSH Q3H PRN Pain Rated 7-10 Piperacillin/Tazobactam/Dextrose 3.375 gm in 50 mls @ 100 mls/hr 12/25/22 12:00 12/28/22 06:38 Zosyn 3.375 Gm/Ns 50 Ml IVPB 100 mls/hr Q6HR MAYO Administration Ibuprofen 800 mg in 200 mls @ 400 mls/hr 12/28/22 11:28 Caldolor 800 Mg/200 Ml IVPB 12/28/22 13:00 Q6H PRN Pain Rated 4-6 Ondansetron HCl 4 mg 12/25/22 06:49 Ondansetron Inj 4 Mg/2 Ml Vial IV PUSH Q4H PRN Nausea Promethazine HCl 12.5 mg 12/25/22 06:49 Promethazine Hcl 25 Mg/Ml Ampul IV PUSH Q6H PRN Nausea Radiology Results: ITS Impressions Abdomen/Pelvis CT 12/25/22 06:46 IMPRESSION: 1. Sigmoid diverticulitis with a few tiny foci of likely adjacent extraluminal gas consistent with microperforation but without evident abscess or more remote free intraperitoneal gas or fluid. 2. Bilateral nonobstructing nephrolithiasis. 3. Small to moderate-sized sliding-type hiatal hernia. Labs Labs: Laboratory Results - last 24 hr 12/28/22 12/28/22 04:16 04:16 WBC 6.4 RBC 3.28 L Hgb 10.3 L Hct 31.8 L MCV 97.0 MCH 31.4 MCHC 32.4 RDW 12.7 Plt Count 237 MPV 10.4 Sodium 141 Potassium 3.7 Chloride 109 H Carbon Dioxide 30 Anion Gap 2 L BUN 5 L D Creatinine 0.70 Estim Creat Clear Calc 56 Estimated GFR > 60 Glucose 96 Calcium 8.3 L
[2022-12-28] MEDS: ENOXAPARIN 40 MG/0.4 ML SYRINGE SUB-Q (12:41)
[2022-12-28 14:00] VITALS: BP 148/86; PULSE 73; RESP 20; TEMP 36.6; O2SAT 100
[2022-12-28 19:47] VITALS: BP 136/83; PULSE 61; RESP 18; TEMP 36.9; O2SAT 98
[2022-12-28] MEDS: FAMOTIDINE 20 MG TABLET PO (21:18)
[2022-12-28] MEDS: HYDROcodone/acetaminophen (*CRX) 5-325 MG TABLET 1 TAB PO (21:18)
[2022-12-29] MEDS: PIPERACILLN/TAZ 3.375GM/NS50ML 3.375 GM/50 ML BAG IVPB ×4 (00:18→18:00)
[2022-12-29 04:18] VITALS: BP 103/64; PULSE 59; RESP 18; TEMP 36.6; O2SAT 94
[2022-12-29 04:47] LABS: Hematocrit 31.1 % (37.0-47.0); Hemoglobin 10.1 g/dL (12.0-15.0); Mean Corpuscular HGB Conc 32.5 g/dl (32-36); Mean Corpuscular Hemoglobin 30.3 pg (26-34); Mean Corpuscular Volume 93.4 fl (80-100); Mean Platelet Volume 10.1 fl (7.4-10.4); Platelet Count Result 266 k/mm3 (150-375); Red Blood Count 3.33 M/mm3 (4.2-5.4); Red Cell Distribution Width 12.6 % (11.5-14.5)
[2022-12-29 04:58] LABS: Anion Gap 4 mmol/L (8-16); Blood Urea Nitrogen 8 mg/dL (7-17); Calcium 8.1 mg/dL (8.4-10.2); Carbon Dioxide 26 mmol/L (22-30); Chloride 108 mmol/L (98-107); Estimated CRCL calculation 56 ml/min; Estimated Glomerular Filt Rate > 60; Glucose 86 mg/dL (65-110); Potassium 3.2 mmol/L (3.4-5.0); Sodium 138 mmol/L (137-145)
[2022-12-29] MEDS: FAMOTIDINE 20 MG TABLET PO ×2 (08:44→21:29)
[2022-12-29] MEDS: ENOXAPARIN 40 MG/0.4 ML SYRINGE SUB-Q (08:44)
[2022-12-29 08:45] VITALS: PULSE 59; RESP 18; O2SAT 94
--- NOTE | 2022-12-29 10:48 | PM.PNGS ---
Progress Note: A&P Assessment and Plan (1) Diverticulitis of intestine with perforation without abscess: Code(s): K57.80 - Diverticulitis of intestine, part unspecified, with perforation and abscess without bleeding Status: Acute Assessment and Plan: Now having postprandial pain after eating low-fiber diet. Will stop regular low-fiber diet and make NPO except meds and ice chips. White blood cell count remains normal so infection is improving but still not quite ready for oral intake. Continue IV Zosyn. Hopefully try oral intake again in 24-48 hours with more success. (2) Hypokalemia: Code(s): E87.6 - Hypokalemia Status: Acute Assessment and Plan: Will supplement (3) PFO (patent foramen ovale): Code(s): Q21.12 - Patent foramen ovale Status: Chronic (4) History of malignant neuroendocrine tumor: Code(s): Z85.9 - Personal history of malignant neoplasm, unspecified Status: Chronic Subjective Subjective Date/Time Seen: 12/29/22 10:48 Post Op day: 5 (IV antibiotic treatment) Patient reports: still having pain (Had postprandial pain after supper and again this morning with breakfast), diarrhea (After meals, liquid, small amount) and afebrile Review of Systems Review of Systems: All systems reviewed & are unremarkable except as noted in HPI and below (HPI and those items noted below) Constitutional: Constitutional: Denies chills, Denies fever(s) and Denies headache(s) Cardiovascular: Cardiovascular: Denies chest pain, Denies diaphoresis, Denies dyspnea and Denies paroxysmal nocturnal dyspnea Respiratory: Respiratory: Denies chest congestion, Denies cough and Denies dyspnea Gastrointestinal: Gastrointestinal: Reports as per HPI, Reports abdominal pain, Reports bloating and Reports loose stools Integumentary/Breasts: Skin/Breast: Denies lesions and Denies rash Exam Const: General: comfortable and no acute distress; No confusion Orientation/consciousness: patient oriented x3 and No confusion GI: Inspection: non-distended and scaphoid GI Palp: Yes Soft to palpation, Yes Tenderness to palpation present (GI) (Diffuse mild tenderness, no peritoneal signs), No Guarding due to palpation present (GI), No Hepatosplenomegaly present, No Hernia present, No Palpable mass present and No Rebound tenderness present Neuro: General: patient oriented x3, no focal motor deficits and No confusion Extrem: General: no calf tenderness and no edema Psych: Affect: normal affect Insight: Good insight present (Psych) Judgement: Good judgement present (Psych) Objective Data Vital Signs Vital Signs: Vital Signs - 24 hr 12/28/22 14:00 12/28/22 19:47 12/28/22 20:00 Temperature 36.6 C 36.9 C Pulse Rate 73 61 Respiratory Rate 20 18 Blood Pressure 148/86 H 136/83 Pulse Oximetry 100 98 Oxygen Delivery Room Air 12/29/22 04:18 Temperature 36.6 C Pulse Rate 59 L Respiratory Rate 18 Blood Pressure 103/64 Pulse Oximetry 94 Oxygen Delivery Intake/Output Intake/Output: Intake & Output 12/26/22 12/27/22 12/28/22 12/29/22 23:59 23:59 23:59 23:59 Intake Total 5950 2200 1000 300 Output Total 4000 250 3 Balance 1950 1950 997 300 Meds/Results Medications: Active Medications Generic Name Dose Route Start Last Admin Trade Name Freq PRN Reason Stop Dose Admin Acetaminophen 650 mg 12/27/22 12:58 Acetaminophen 325 Mg Tablet PO Q4H PRN Mild Pain (1-3) or Fever Hydrocodone Bitart/Acetaminophen 1 tab 12/27/22 12:58 12/28/22 21:18 Hydrocodone/Acetaminophen (*Crx) 5-325 Mg Tablet PO 1 tab Q4H PRN Administration Pain Rated 4-6 Hydrocodone Bitart/Acetaminophen 1 tab 12/27/22 12:58 Hydrocodone/Acetaminophen (*Crx) 7.5-325 Mg Tablet PO Q6H PRN Pain Rated 7-10 Enoxaparin Sodium 40 mg 12/29/22 09:00 12/29/22 08:44 Enoxaparin 40 Mg/0.4 Ml Syringe SUB-Q 40 mg DAILY MAYO Administration Famotidine 20 mg 12/28
[2022-12-29] MEDS: POTASSIUM CHLORIDE 20 MEQ TABLET 40 MEQ PO (11:41)
--- NOTE | 2022-12-29 11:41 | PM.IMPN ---
Progress Note: A&P Assessment and Plan (1) Diverticulitis: Code(s): K57.92 - Diverticulitis of intestine, part unspecified, without perforation or abscess without bleeding Status: Deleted Assessment and Plan: Continue IV antibiotics. Appreciate gi and surgery input Having pain after eating. Keep NPO for now. (2) Leukocytosis: Code(s): D72.829 - Elevated white blood cell count, unspecified Status: Resolved Assessment and Plan: 2/2 above improved Subjective Date/time seen: 12/29/22 11:41 Still having complaints of abdominal pain after eating. Exam Narrative: General: alert and oriented Psych: appropriate mood nad affect Eyes: PERRLA Neck: Trachea midline, no new lesions Skin: no changes Lungs: CTA Cardiac: Normal S1,S2, no MGR ABD: soft, nd, nt, nbs Ext: no new lesions, no cce Vasc: Pulses intact Objective Data Vital Signs Vital Signs: Vital Signs - 24 hr 12/28/22 14:00 12/28/22 19:47 12/28/22 20:00 Temperature 97.8 F 98.4 F Pulse Rate 73 61 Respiratory Rate 20 18 Blood Pressure 148/86 H 136/83 Pulse Oximetry 100 98 Oxygen Delivery Room Air 12/29/22 04:18 12/29/22 08:45 Temperature 98 F Pulse Rate 59 L 59 L Respiratory Rate 18 18 Blood Pressure 103/64 Pulse Oximetry 94 94 Oxygen Delivery Room Air Intake/Output Intake/Output: Intake & Output 12/26/22 12/27/22 12/28/22 12/29/22 23:59 23:59 23:59 23:59 Intake Total 5950 2200 1000 540 Output Total 4000 250 3 Balance 1950 1950 997 540 Meds/Results Medications: Active Medications Generic Name Dose Route Start Last Admin Trade Name Freq PRN Reason Stop Dose Admin Acetaminophen 650 mg 12/27/22 12:58 Acetaminophen 325 Mg Tablet PO Q4H PRN Mild Pain (1-3) or Fever Hydrocodone Bitart/Acetaminophen 1 tab 12/27/22 12:58 12/28/22 21:18 Hydrocodone/Acetaminophen (*Crx) 5-325 Mg Tablet PO 1 tab Q4H PRN Administration Pain Rated 4-6 Hydrocodone Bitart/Acetaminophen 1 tab 12/27/22 12:58 Hydrocodone/Acetaminophen (*Crx) 7.5-325 Mg Tablet PO Q6H PRN Pain Rated 7-10 Enoxaparin Sodium 40 mg 12/29/22 09:00 12/29/22 08:44 Enoxaparin 40 Mg/0.4 Ml Syringe SUB-Q 40 mg DAILY MAYO Administration Famotidine 20 mg 12/28/22 21:00 12/29/22 08:44 Famotidine 20 Mg Tablet PO 20 mg Q12HR MAYO Administration Hydromorphone HCl 0.5 mg 12/28/22 11:28 Hydromorphone Hcl Inj (*Crx) 1 Mg/Ml Syr IV PUSH Q3H PRN Pain Rated 7-10 Piperacillin/Tazobactam/Dextrose 3.375 gm in 50 mls @ 100 mls/hr 12/25/22 12:00 12/29/22 06:54 Zosyn 3.375 Gm/Ns 50 Ml IVPB 100 mls/hr Q6HR MAYO Administration Potassium Chloride/Dextrose/Sod Cl 1,000 mls @ 100 mls/hr 12/29/22 10:40 Kcl 20 Meq/D5/0.9% Sod Chl IV CONT .Q10H MAYO Loperamide HCl 2 mg 12/29/22 10:35 Loperamide Hcl 2 Mg Capsule PO PRN PRN Diarrhea Ondansetron HCl 4 mg 12/25/22 06:49 Ondansetron Inj 4 Mg/2 Ml Vial IV PUSH Q4H PRN Nausea Potassium Chloride 40 meq 12/30/22 08:00 Potassium Chloride 20 Meq Tablet.Er PO DAILY@0800 [facility] Promethazine HCl 12.5 mg 12/25/22 06:49 Promethazine Hcl 25 Mg/Ml Ampul IV PUSH Q6H PRN Nausea Radiology Results: ITS Impressions Abdomen/Pelvis CT 12/25/22 06:46 IMPRESSION: 1. Sigmoid diverticulitis with a few tiny foci of likely adjacent extraluminal gas consistent with microperforation but without evident abscess or more remote free intraperitoneal gas or fluid. 2. Bilateral nonobstructing nephrolithiasis. 3. Small to moderate-sized sliding-type hiatal hernia. Labs Labs: Laboratory Results - last 24 hr 12/29/22 12/29/22 04:14 04:14 WBC 7.0 RBC 3.33 L Hgb 10.1 L Hct 31.1 L MCV 93.4 MCH 30.3 MCHC 32.5 RDW 12.6 Plt Count 266 MPV 10.1 Sodium 138 Potassium 3.2 L Chloride 108 H Carbon Dioxide 26 Anion Gap 4 L BUN 8 Crea
[2022-12-29] MEDS: KCL 20 MEQ/D5/0.9% SOD CHL 1,000 ML 100 ML IV CONT (11:42)
[2022-12-29 14:22] VITALS: TEMP 37.4
[2022-12-29] MEDS: ACETAMINOPHEN 325 MG TABLET 650 MG PO ×2 (14:22→21:27)
[2022-12-29 15:20] VITALS: TEMP 37.7
[2022-12-29 16:15] VITALS: BP 135/62; PULSE 71; RESP 18; TEMP 37.7; O2SAT 96
[2022-12-29 19:45] VITALS: BP 128/75; PULSE 61; RESP 18; TEMP 37.1; O2SAT 98
[2022-12-30] MEDS: PIPERACILLN/TAZ 3.375GM/NS50ML 3.375 GM/50 ML BAG IVPB ×4 (00:48→17:21)
[2022-12-30] MEDS: KCL 20 MEQ/D5/0.9% SOD CHL 1,000 ML 100 ML IV CONT ×3 (01:08→20:24)
[2022-12-30] MEDS: ACETAMINOPHEN 325 MG TABLET 650 MG PO ×3 (03:25→15:13)
[2022-12-30 04:31] VITALS: BP 129/71; PULSE 74; RESP 18; TEMP 37.2; O2SAT 96
--- NOTE | 2022-12-30 07:51 | WPDGIPROGNO ---
Progress Note: A&P Assessment and Plan (1) Diverticulitis of intestine with perforation without abscess: Code(s): K57.80 - Diverticulitis of intestine, part unspecified, with perforation and abscess without bleeding Status: Acute Assessment and Plan: clinically patient improving. Abdomen is soft flat nontender. But she was placed NPO status yesterday. Plan to start liquids and advance as tolerated. Increase activity strongly encouraged. Anticipate oral antibiotics 1 week after discharge. Surgery is following as well. Clinically she is improved quite significantly. (2) History of malignant neuroendocrine tumor: Code(s): Z85.9 - Personal history of malignant neoplasm, unspecified Status: Chronic Subjective Date/time seen: 12/30/22 07:51 Interval history: Patient alert comfortable this morning. Denies abdominal pain today. Had some nausea and discomfort Friday night and yesterday morning. Patient was subsequently placed on NPO status allowed only ice chips. She remains somewhat anxious this morning but pain-free. Review of Systems Review of Systems: Review of systems noncontributory. Exam Narrative: Physical exam reveals patient be alert. Vital signs stable. She is anicteric. Afebrile. HEENT exam reveals no icterus. Lungs are clear. Heart without murmur. Abdomen bowel sounds present soft nontender. No masses. No tenderness. Objective Data Vital Signs Vital Signs: Vital Signs - 24 hr 12/29/22 08:45 12/29/22 14:22 12/29/22 15:20 Temperature 99.3 F 99.9 F H Pulse Rate 59 L Respiratory Rate 18 Blood Pressure Pulse Oximetry 94 Oxygen Delivery Room Air 12/29/22 16:15 12/29/22 19:45 12/29/22 20:00 Temperature 99.9 F H 98.8 F Pulse Rate 71 61 Respiratory Rate 18 18 Blood Pressure 135/62 128/75 Pulse Oximetry 96 98 Oxygen Delivery Room Air 12/30/22 04:31 Temperature 99 F Pulse Rate 74 Respiratory Rate 18 Blood Pressure 129/71 Pulse Oximetry 96 Oxygen Delivery Intake/Output Intake/Output: Intake & Output 12/27/22 12/28/22 12/29/22 12/30/22 23:59 23:59 23:59 23:59 Intake Total 2200 9448 508 3419 Output Total 250 3 Balance 1950 307 966 9369 Meds/Results Medications: Active Medications Generic Name Dose Route Start Last Admin Trade Name Freq PRN Reason Stop Dose Admin Acetaminophen 650 mg 12/27/22 12:58 12/30/22 03:25 Acetaminophen 325 Mg Tablet PO 650 mg Q4H PRN Administration Mild Pain (1-3) or Fever Hydrocodone Bitart/Acetaminophen 1 tab 12/27/22 12:58 12/28/22 21:18 Hydrocodone/Acetaminophen (*Crx) 5-325 Mg Tablet PO 1 tab Q4H PRN Administration Pain Rated 4-6 Hydrocodone Bitart/Acetaminophen 1 tab 12/27/22 12:58 Hydrocodone/Acetaminophen (*Crx) 7.5-325 Mg Tablet PO Q6H PRN Pain Rated 7-10 Enoxaparin Sodium 40 mg 12/29/22 09:00 12/29/22 08:44 Enoxaparin 40 Mg/0.4 Ml Syringe SUB-Q 40 mg DAILY MAYO Administration Famotidine 20 mg 12/28/22 21:00 12/29/22 21:29 Famotidine 20 Mg Tablet PO 20 mg Q12HR MAYO Administration Hydromorphone HCl 0.5 mg 12/28/22 11:28 Hydromorphone Hcl Inj (*Crx) 1 Mg/Ml Syr IV PUSH Q3H PRN Pain Rated 7-10 Piperacillin/Tazobactam/Dextrose 3.375 gm in 50 mls @ 100 mls/hr 12/25/22 12:00 12/30/22 06:21 Zosyn 3.375 Gm/Ns 50 Ml IVPB 100 mls/hr Q6HR MAYO Administration Potassium Chloride/Dextrose/Sod Cl 1,000 mls @ 100 mls/hr 12/29/22 10:40 12/30/22 01:08 Kcl 20 Meq/D5/0.9% Sod Chl IV CONT 100 mls/hr .Q10H MAYO Administration Loperamide HCl 2 mg 12/29/22 10:35 Loperamide Hcl 2 Mg Capsule PO PRN PRN Diarrhea Ondansetron HCl 4 mg 12/25/22 06:49 Ondansetron Inj 4 Mg/2 Ml Vial IV PUSH Q4H PRN Nausea Potassium Chloride 40 meq 12/30/22 08:00 Potassium Chloride 20 Meq Tablet.Er PO DAILY@0800 COUNTS INCLUDE 234 BEDS AT [facility] Promethazine HCl 12.5 mg 12/25/22 06:49 Prom
[2022-12-30 08:40] LABS: Basophils Percent Auto 0.5 % (0.2-1.2); Eosinophils Absolute Auto 0.1 K/mm3 (0-0.3); Eosinophils Percent Auto 1.6 % (0-4.4); Hematocrit 33.9 % (37.0-47.0); Hemoglobin 10.9 g/dL (12.0-15.0); Immature Granulocyte Absolute 0.01 K/mm3 (0.00-0.031); Immature Granulocyte Percent A 0.1 % (0-0.5); Lymphocytes Absolute Auto 1.16 K/mm3 (0.9-3.2); Lymphocytes Percent Auto 15.8 % (18.3-44.2); Mean Corpuscular HGB Conc 32.2 g/dl (32-36); Mean Corpuscular Hemoglobin 30.8 pg (26-34); Mean Corpuscular Volume 95.8 fl (80-100); Mean Platelet Volume 9.9 fl (7.4-10.4); Monocytes Absolute Auto 0.7 K/mm3 (0.1-0.6); Monocytes Percent Auto 9.5 % (2.6-8.5); Neutrophils Absolute Auto 5.3 K/mm3 (1.3-6.7); Neutrophils Percent Auto 72.5 % (45.5-73.1); Platelet Count Result 294 k/mm3 (150-375); Red Blood Count 3.54 M/mm3 (4.2-5.4); Red Cell Distribution Width 12.7 % (11.5-14.5); White Blood Count 7.4 K/mm3 (4.5-10.0)
[2022-12-30 08:53] LABS: Anion Gap 7 mmol/L (8-16); Blood Urea Nitrogen 5 mg/dL (7-17); Calcium 8.2 mg/dL (8.4-10.2); Carbon Dioxide 23 mmol/L (22-30); Chloride 109 mmol/L (98-107); Estimated CRCL calculation 56 ml/min; Estimated Glomerular Filt Rate > 60; Glucose 113 mg/dL (65-110); Potassium 3.8 mmol/L (3.4-5.0); Sodium 139 mmol/L (137-145)
[2022-12-30] MEDS: FAMOTIDINE 20 MG TABLET PO ×2 (09:14→20:22)
[2022-12-30] MEDS: ONDANSETRON INJ 4 MG/2 ML VIAL IV PUSH (09:14)
[2022-12-30] MEDS: LOPERAMIDE HCL 2 MG CAPSULE PO (09:14)
[2022-12-30] MEDS: POTASSIUM CHLORIDE 20 MEQ TABLET.ER 40 MEQ PO (09:15)
[2022-12-30] MEDS: ENOXAPARIN 40 MG/0.4 ML SYRINGE SUB-Q (09:16)
--- NOTE | 2022-12-30 11:45 | PM.IMPN ---
Progress Note: A&P Assessment and Plan (1) Diverticulitis: Code(s): K57.92 - Diverticulitis of intestine, part unspecified, without perforation or abscess without bleeding Status: Deleted Assessment and Plan: Continue IV antibiotics. Appreciate gi and surgery input Having pain after eating. \ Low-grade temp yesterday and overnight, CT scan ordered. Small abscess noted. Small fistula also noted. Will defer to surgery for any plans. (2) Leukocytosis: Code(s): D72.829 - Elevated white blood cell count, unspecified Status: Resolved Assessment and Plan: 2/2 above improved Subjective Date/time seen: 12/30/22 11:45 Still complaining of lower abdominal pain. CT scan noted. Low-grade temp overnight. Cultures negative so far. Exam Narrative: General: alert and oriented Psych: appropriate mood nad affect Eyes: PERRLA Neck: Trachea midline, no new lesions Skin: no changes Lungs: CTA Cardiac: Normal S1,S2, no MGR ABD: soft, nd, nt, nbs Ext: no new lesions, no cce Vasc: Pulses intact Objective Data Vital Signs Vital Signs: Vital Signs - 24 hr 12/29/22 14:22 12/29/22 15:20 12/29/22 16:15 Temperature 99.3 F 99.9 F H 99.9 F H Pulse Rate 71 Respiratory Rate 18 Blood Pressure 135/62 Pulse Oximetry 96 Oxygen Delivery 12/29/22 19:45 12/29/22 20:00 12/30/22 04:31 Temperature 98.8 F 99 F Pulse Rate 61 74 Respiratory Rate 18 18 Blood Pressure 128/75 129/71 Pulse Oximetry 98 96 Oxygen Delivery Room Air 12/30/22 08:45 Temperature Pulse Rate Respiratory Rate Blood Pressure Pulse Oximetry Oxygen Delivery Room Air Intake/Output Intake/Output: Intake & Output 12/27/22 12/28/22 12/29/22 12/30/22 23:59 23:59 23:59 23:59 Intake Total 2200 1760 590 7861 Output Total 250 3 Balance 1950 270 352 8800 Meds/Results Medications: Active Medications Generic Name Dose Route Start Last Admin Trade Name Freq PRN Reason Stop Dose Admin Acetaminophen 650 mg 12/27/22 12:58 12/30/22 09:14 Acetaminophen 325 Mg Tablet PO 650 mg Q4H PRN Administration Mild Pain (1-3) or Fever Hydrocodone Bitart/Acetaminophen 1 tab 12/27/22 12:58 12/28/22 21:18 Hydrocodone/Acetaminophen (*Crx) 5-325 Mg Tablet PO 1 tab Q4H PRN Administration Pain Rated 4-6 Hydrocodone Bitart/Acetaminophen 1 tab 12/27/22 12:58 Hydrocodone/Acetaminophen (*Crx) 7.5-325 Mg Tablet PO Q6H PRN Pain Rated 7-10 Enoxaparin Sodium 40 mg 12/29/22 09:00 12/30/22 09:16 Enoxaparin 40 Mg/0.4 Ml Syringe SUB-Q 40 mg DAILY MAYO Administration Famotidine 20 mg 12/28/22 21:00 12/30/22 09:14 Famotidine 20 Mg Tablet PO 20 mg Q12HR MAYO Administration Hydromorphone HCl 0.5 mg 12/28/22 11:28 Hydromorphone Hcl Inj (*Crx) 1 Mg/Ml Syr IV PUSH Q3H PRN Pain Rated 7-10 Piperacillin/Tazobactam/Dextrose 3.375 gm in 50 mls @ 100 mls/hr 12/25/22 12:00 12/30/22 06:21 Zosyn 3.375 Gm/Ns 50 Ml IVPB 100 mls/hr Q6HR MAYO Administration Potassium Chloride/Dextrose/Sod Cl 1,000 mls @ 100 mls/hr 12/29/22 10:40 12/30/22 09:14 Kcl 20 Meq/D5/0.9% Sod Chl IV CONT 100 mls/hr .Q10H MAYO Administration Loperamide HCl 2 mg 12/29/22 10:35 12/30/22 09:14 Loperamide Hcl 2 Mg Capsule PO 2 mg PRN PRN Administration Diarrhea Ondansetron HCl 4 mg 12/25/22 06:49 12/30/22 09:14 Ondansetron Inj 4 Mg/2 Ml Vial IV PUSH 4 mg Q4H PRN Administration Nausea Potassium Chloride 40 meq 12/30/22 08:00 12/30/22 09:15 Potassium Chloride 20 Meq Tablet.Er PO 40 meq DAILY@0800 MAYO Administration Promethazine HCl 12.5 mg 12/25/22 06:49 Promethazine Hcl 25 Mg/Ml Ampul IV PUSH Q6H PRN Nausea Radiology Results: ITS Impressions Abdomen/Pelvis CT 12/29/22 17:51 IMPRESSION: Small bilateral pleural effusions. Complicated sigmoid diverticulosis with evidence of microperforation and a 3.9
[2022-12-30 15:01] VITALS: BP 122/86; PULSE 67; RESP 18; TEMP 36.8; O2SAT 98
--- NOTE | 2022-12-30 15:31 | PM.PNGS ---
Progress Note: A&P Assessment and Plan (1) Diverticulitis of intestine with abscess: Code(s): K57.80 - Diverticulitis of intestine, part unspecified, with perforation and abscess without bleeding Status: Acute Assessment and Plan: clinically improved today, loretta clears, cont IV abx, may need perc drainage if worsens Subjective Subjective Date/Time Seen: 12/30/22 15:31 feels better today, loretta clears Review of Systems Review of Systems: All systems reviewed & are unremarkable except as noted in HPI and below Exam Const: General: cooperative, comfortable and no acute distress Resp: Auscultation: clear to auscultation bilaterally Cardio: Rate: regular rate Rhythm: regular rhythm GI: Inspection: normal to inspection and non-distended GI Palp: Yes abdominal tenderness, Yes Soft to palpation, Yes Tenderness to palpation present (GI), No Guarding due to palpation present (GI) and No Rigid due to palpation Objective Data Vital Signs Vital Signs: Vital Signs - 24 hr 12/29/22 16:15 12/29/22 19:45 12/29/22 20:00 Temperature 37.7 C H 37.1 C Pulse Rate 71 61 Respiratory Rate 18 18 Blood Pressure 135/62 128/75 Pulse Oximetry 96 98 Oxygen Delivery Room Air 12/30/22 04:31 12/30/22 08:45 12/30/22 15:01 Temperature 37.2 C 36.8 C Pulse Rate 74 67 Respiratory Rate 18 18 Blood Pressure 129/71 122/86 Pulse Oximetry 96 98 Oxygen Delivery Room Air Intake/Output Intake/Output: Intake & Output 12/27/22 12/28/22 12/29/22 12/30/22 23:59 23:59 23:59 23:59 Intake Total 2200 0822 645 5026 Output Total 250 3 Balance 1950 445 365 7726 Meds/Results Medications: Active Medications Generic Name Dose Route Start Last Admin Trade Name Freq PRN Reason Stop Dose Admin Acetaminophen 650 mg 12/27/22 12:58 12/30/22 15:13 Acetaminophen 325 Mg Tablet PO 650 mg Q4H PRN Administration Mild Pain (1-3) or Fever Hydrocodone Bitart/Acetaminophen 1 tab 12/27/22 12:58 12/28/22 21:18 Hydrocodone/Acetaminophen (*Crx) 5-325 Mg Tablet PO 1 tab Q4H PRN Administration Pain Rated 4-6 Hydrocodone Bitart/Acetaminophen 1 tab 12/27/22 12:58 Hydrocodone/Acetaminophen (*Crx) 7.5-325 Mg Tablet PO Q6H PRN Pain Rated 7-10 Enoxaparin Sodium 40 mg 12/29/22 09:00 12/30/22 09:16 Enoxaparin 40 Mg/0.4 Ml Syringe SUB-Q 40 mg DAILY MAYO Administration Famotidine 20 mg 12/28/22 21:00 12/30/22 09:14 Famotidine 20 Mg Tablet PO 20 mg Q12HR MAYO Administration Hydromorphone HCl 0.5 mg 12/28/22 11:28 Hydromorphone Hcl Inj (*Crx) 1 Mg/Ml Syr IV PUSH Q3H PRN Pain Rated 7-10 Piperacillin/Tazobactam/Dextrose 3.375 gm in 50 mls @ 100 mls/hr 12/25/22 12:00 12/30/22 13:05 Zosyn 3.375 Gm/Ns 50 Ml IVPB Infused Q6HR MAYO Infusion Potassium Chloride/Dextrose/Sod Cl 1,000 mls @ 100 mls/hr 12/29/22 10:40 12/30/22 09:14 Kcl 20 Meq/D5/0.9% Sod Chl IV CONT 100 mls/hr .Q10H MAYO Administration Loperamide HCl 2 mg 12/29/22 10:35 12/30/22 09:14 Loperamide Hcl 2 Mg Capsule PO 2 mg PRN PRN Administration Diarrhea Ondansetron HCl 4 mg 12/25/22 06:49 12/30/22 09:14 Ondansetron Inj 4 Mg/2 Ml Vial IV PUSH 4 mg Q4H PRN Administration Nausea Potassium Chloride 40 meq 12/30/22 08:00 12/30/22 09:15 Potassium Chloride 20 Meq Tablet.Er PO 40 meq DAILY@0800 MAYO Administration Promethazine HCl 12.5 mg 12/25/22 06:49 Promethazine Hcl 25 Mg/Ml Ampul IV PUSH Q6H PRN Nausea Radiology Results: ITS Impressions Abdomen/Pelvis CT 12/29/22 17:51 IMPRESSION: Small bilateral pleural effusions. Complicated sigmoid diverticulosis with evidence of microperforation and a 3.9 cm abscess in the deep right pelvis. 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 Labs Labs: Laboratory Results - last 24 hr 12/30/22 12/30/22 08:36
[2022-12-30 22:31] VITALS: BP 111/60; PULSE 62; RESP 16; TEMP 37; O2SAT 98
[2022-12-31] MEDS: PIPERACILLN/TAZ 3.375GM/NS50ML 3.375 GM/50 ML BAG IVPB ×4 (00:13→17:14)
[2022-12-31 06:05] VITALS: BP 123/68; PULSE 73; RESP 16; TEMP 36.5; O2SAT 97
[2022-12-31] MEDS: KCL 20 MEQ/D5/0.9% SOD CHL 1,000 ML 100 ML IV CONT (06:57)
--- NOTE | 2022-12-31 07:39 | PM.PNGS ---
Progress Note: A&P Assessment and Plan (1) Diverticulitis of intestine with abscess: Code(s): K57.80 - Diverticulitis of intestine, part unspecified, with perforation and abscess without bleeding Status: Acute Assessment and Plan: exam benign, loretta clears, will ADAT to low fiber, cont abx Subjective Subjective Date/Time Seen: 12/31/22 07:39 feels good this am, loretta clears, some mild crampy LLQ pain c BMs, no N/V Review of Systems Review of Systems: All systems reviewed & are unremarkable except as noted in HPI and below Exam Const: General: cooperative, comfortable and no acute distress Resp: Auscultation: clear to auscultation bilaterally Cardio: Rate: regular rate Rhythm: regular rhythm GI: Inspection: normal to inspection and non-distended GI Palp: No abdominal tenderness, Yes Soft to palpation, No Firmness to palpation present (GI), No Tenderness to palpation present (GI), No Guarding due to palpation present (GI) and No Rigid due to palpation Objective Data Vital Signs Vital Signs: Vital Signs - 24 hr 12/30/22 08:45 12/30/22 15:01 12/30/22 22:31 Temperature 36.8 C 37.0 C Pulse Rate 67 62 Respiratory Rate 18 16 Blood Pressure 122/86 111/60 Pulse Oximetry 98 98 Oxygen Delivery Room Air 12/31/22 06:05 Temperature 36.5 C Pulse Rate 73 Respiratory Rate 16 Blood Pressure 123/68 Pulse Oximetry 97 Oxygen Delivery Intake/Output Intake/Output: Intake & Output 12/28/22 12/29/22 12/30/22 12/31/22 23:59 23:59 23:59 23:59 Intake Total 0509 384 2332 1200 Output Total 3 Balance 773 429 4363 1200 Meds/Results Medications: Active Medications Generic Name Dose Route Start Last Admin Trade Name Freq PRN Reason Stop Dose Admin Acetaminophen 650 mg 12/27/22 12:58 12/30/22 15:13 Acetaminophen 325 Mg Tablet PO 650 mg Q4H PRN Administration Mild Pain (1-3) or Fever Hydrocodone Bitart/Acetaminophen 1 tab 12/27/22 12:58 12/28/22 21:18 Hydrocodone/Acetaminophen (*Crx) 5-325 Mg Tablet PO 1 tab Q4H PRN Administration Pain Rated 4-6 Hydrocodone Bitart/Acetaminophen 1 tab 12/27/22 12:58 Hydrocodone/Acetaminophen (*Crx) 7.5-325 Mg Tablet PO Q6H PRN Pain Rated 7-10 Enoxaparin Sodium 40 mg 12/29/22 09:00 12/30/22 09:16 Enoxaparin 40 Mg/0.4 Ml Syringe SUB-Q 40 mg DAILY MAYO Administration Famotidine 20 mg 12/28/22 21:00 12/30/22 20:22 Famotidine 20 Mg Tablet PO 20 mg Q12HR MAYO Administration Hydromorphone HCl 0.5 mg 12/28/22 11:28 Hydromorphone Hcl Inj (*Crx) 1 Mg/Ml Syr IV PUSH Q3H PRN Pain Rated 7-10 Piperacillin/Tazobactam/Dextrose 3.375 gm in 50 mls @ 100 mls/hr 12/25/22 12:00 12/31/22 06:01 Zosyn 3.375 Gm/Ns 50 Ml IVPB Infused Q6HR MAYO Infusion Potassium Chloride/Dextrose/Sod Cl 1,000 mls @ 100 mls/hr 12/29/22 10:40 12/31/22 06:57 Kcl 20 Meq/D5/0.9% Sod Chl IV CONT 100 mls/hr .Q10H MAYO Administration Loperamide HCl 2 mg 12/29/22 10:35 12/30/22 09:14 Loperamide Hcl 2 Mg Capsule PO 2 mg PRN PRN Administration Diarrhea Ondansetron HCl 4 mg 12/25/22 06:49 12/30/22 09:14 Ondansetron Inj 4 Mg/2 Ml Vial IV PUSH 4 mg Q4H PRN Administration Nausea Potassium Chloride 40 meq 12/30/22 08:00 12/30/22 09:15 Potassium Chloride 20 Meq Tablet.Er PO 40 meq DAILY@0800 MAYO Administration Promethazine HCl 12.5 mg 12/25/22 06:49 Promethazine Hcl 25 Mg/Ml Ampul IV PUSH Q6H PRN Nausea Radiology Results: ITS Impressions Abdomen/Pelvis CT 12/29/22 17:51 IMPRESSION: Small bilateral pleural effusions. Complicated sigmoid diverticulosis with evidence of microperforation and a 3.9 cm abscess in the deep right pelvis. 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 Labs Labs: Laboratory Results - last 24 hr 12/30/22 12/30/22 08:36 08:36 WBC 7.4 RBC
[2022-12-31] MEDS: ENOXAPARIN 40 MG/0.4 ML SYRINGE SUB-Q (10:24)
[2022-12-31] MEDS: FAMOTIDINE 20 MG TABLET PO ×2 (10:24→20:14)
[2022-12-31] MEDS: POTASSIUM CHLORIDE 20 MEQ TABLET.ER 40 MEQ PO (10:24)
[2022-12-31] MEDS: LOPERAMIDE HCL 2 MG CAPSULE PO (10:30)
--- NOTE | 2022-12-31 11:29 | PM.IMPN ---
Progress Note: A&P Assessment and Plan (1) Diverticulitis: Code(s): K57.92 - Diverticulitis of intestine, part unspecified, without perforation or abscess without bleeding Status: Deleted Assessment and Plan: Continue IV antibiotics. CT scan reviewed. Small abscess noted. Appreciate gi and surgery input Having pain after eating. Overall improved. Advance diet as tolerated. Once eating more she can be discharged Likely discharge tomorrow. (2) Leukocytosis: Code(s): D72.829 - Elevated white blood cell count, unspecified Status: Resolved Assessment and Plan: 2/2 above improved Subjective Date/time seen: 12/31/22 11:29 Abdominal cramping is improved. Tolerating liquids. Exam Narrative: General: alert and oriented Psych: appropriate mood nad affect Eyes: PERRLA Neck: Trachea midline, no new lesions Skin: no changes Lungs: CTA Cardiac: Normal S1,S2, no MGR ABD: soft, nd, nt, nbs Ext: no new lesions, no cce Vasc: Pulses intact Objective Data Vital Signs Vital Signs: Vital Signs - 24 hr 12/30/22 15:01 12/30/22 22:31 12/31/22 06:05 Temperature 98.2 F 98.6 F 97.7 F Pulse Rate 67 62 73 Respiratory Rate 18 16 16 Blood Pressure 122/86 111/60 123/68 Pulse Oximetry 98 98 97 Oxygen Delivery 12/31/22 08:00 Temperature Pulse Rate Respiratory Rate Blood Pressure Pulse Oximetry Oxygen Delivery Room Air Intake/Output Intake/Output: Intake & Output 12/28/22 12/29/22 12/30/22 12/31/22 23:59 23:59 23:59 23:59 Intake Total 2850 686 8513 1440 Output Total 3 Balance 015 010 9913 1440 Meds/Results Medications: Active Medications Generic Name Dose Route Start Last Admin Trade Name Freq PRN Reason Stop Dose Admin Acetaminophen 650 mg 12/27/22 12:58 12/30/22 15:13 Acetaminophen 325 Mg Tablet PO 650 mg Q4H PRN Administration Mild Pain (1-3) or Fever Hydrocodone Bitart/Acetaminophen 1 tab 12/27/22 12:58 12/28/22 21:18 Hydrocodone/Acetaminophen (*Crx) 5-325 Mg Tablet PO 1 tab Q4H PRN Administration Pain Rated 4-6 Hydrocodone Bitart/Acetaminophen 1 tab 12/27/22 12:58 Hydrocodone/Acetaminophen (*Crx) 7.5-325 Mg Tablet PO Q6H PRN Pain Rated 7-10 Enoxaparin Sodium 40 mg 12/29/22 09:00 12/31/22 10:24 Enoxaparin 40 Mg/0.4 Ml Syringe SUB-Q 40 mg DAILY MAYO Administration Famotidine 20 mg 12/28/22 21:00 12/31/22 10:24 Famotidine 20 Mg Tablet PO 20 mg Q12HR MAYO Administration Hydromorphone HCl 0.5 mg 12/28/22 11:28 Hydromorphone Hcl Inj (*Crx) 1 Mg/Ml Syr IV PUSH Q3H PRN Pain Rated 7-10 Piperacillin/Tazobactam/Dextrose 3.375 gm in 50 mls @ 100 mls/hr 12/25/22 12:00 12/31/22 06:01 Zosyn 3.375 Gm/Ns 50 Ml IVPB Infused Q6HR MAYO Infusion Potassium Chloride/Dextrose/Sod Cl 1,000 mls @ 100 mls/hr 12/29/22 10:40 12/31/22 06:57 Kcl 20 Meq/D5/0.9% Sod Chl IV CONT 100 mls/hr .Q10H MAYO Administration Loperamide HCl 2 mg 12/29/22 10:35 12/31/22 10:30 Loperamide Hcl 2 Mg Capsule PO 2 mg PRN PRN Administration Diarrhea Ondansetron HCl 4 mg 12/25/22 06:49 12/30/22 09:14 Ondansetron Inj 4 Mg/2 Ml Vial IV PUSH 4 mg Q4H PRN Administration Nausea Potassium Chloride 40 meq 12/30/22 08:00 12/31/22 10:24 Potassium Chloride 20 Meq Tablet.Er PO 40 meq DAILY@0800 MAYO Administration Promethazine HCl 12.5 mg 12/25/22 06:49 Promethazine Hcl 25 Mg/Ml Ampul IV PUSH Q6H PRN Nausea Radiology Results: ITS Impressions Abdomen/Pelvis CT 12/29/22 17:51 IMPRESSION: Small bilateral pleural effusions. Complicated sigmoid diverticulosis with evidence of microperforation and a 3.9 cm abscess in the deep right pelvis. 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
[2022-12-31 14:00] VITALS: BP 129/72; PULSE 87; RESP 20; TEMP 36.3; O2SAT 98
--- NOTE | 2022-12-31 15:06 | WPDGIPROGNO ---
Progress Note: A&P Assessment and Plan (1) Diverticulitis of intestine with abscess: Code(s): K57.80 - Diverticulitis of intestine, part unspecified, with perforation and abscess without bleeding Status: Acute Assessment and Plan: responding to medical therapy advancing diet slowly to low fiber on iv abx, anticipate will need another week of oral probably home tomorrow she just had a colonoscopy by Dr Yi (2) Lower abdominal pain: Code(s): R10.30 - Lower abdominal pain, unspecified Status: Acute Assessment and Plan: significantly improved (3) Leukocytosis: Code(s): D72.829 - Elevated white blood cell count, unspecified Status: Resolved Assessment and Plan: resolved (4) History of malignant neuroendocrine tumor: Code(s): Z85.9 - Personal history of malignant neoplasm, unspecified Status: Chronic Subjective Date/time seen: 12/31/22 15:06 Interval history: she is eating more and had diarrhea but she improved with less discomfort Review of Systems Review of Systems: All systems reviewed & are unremarkable except as noted in HPI and below Exam Const: General: cooperative, comfortable and no acute distress HENMT: Face/Nose/Sinus: Normal nares present Eyes: General: appearance normal, both eyes and all related structures Neck: Neck: supple Resp: Auscultation: clear to auscultation bilaterally Cardio: Rate: regular rate Rhythm: regular rhythm GI: Inspection: normal to inspection and non-distended GI Palp: No abdominal tenderness, Yes Soft to palpation, No Firmness to palpation present (GI), No Tenderness to palpation present (GI), No Guarding due to palpation present (GI) and No Rigid due to palpation Skin: General skin exam: normal color Neuro: Speech: normal speech Motor exam (neuro): 5/5 motor strength present throughout Extrem: General: normal to inspection Psych: Mental Status: mental status grossly normal Objective Data Vital Signs Vital Signs: Vital Signs - 24 hr 12/30/22 22:31 12/31/22 06:05 12/31/22 08:00 Temperature 98.6 F 97.7 F Pulse Rate 62 73 Respiratory Rate 16 16 Blood Pressure 111/60 123/68 Pulse Oximetry 98 97 Oxygen Delivery Room Air 12/31/22 14:00 Temperature 97.4 F L Pulse Rate 87 Respiratory Rate 20 Blood Pressure 129/72 Pulse Oximetry 98 Oxygen Delivery Intake/Output Intake/Output: Intake & Output 12/28/22 12/29/22 12/30/22 12/31/22 23:59 23:59 23:59 23:59 Intake Total 1239 178 1982 1440 Output Total 3 Balance 601 423 6576 1440 Meds/Results Medications: Active Medications Generic Name Dose Route Start Last Admin Trade Name Freq PRN Reason Stop Dose Admin Acetaminophen 650 mg 12/27/22 12:58 12/30/22 15:13 Acetaminophen 325 Mg Tablet PO 650 mg Q4H PRN Administration Mild Pain (1-3) or Fever Hydrocodone Bitart/Acetaminophen 1 tab 12/27/22 12:58 12/28/22 21:18 Hydrocodone/Acetaminophen (*Crx) 5-325 Mg Tablet PO 1 tab Q4H PRN Administration Pain Rated 4-6 Hydrocodone Bitart/Acetaminophen 1 tab 12/27/22 12:58 Hydrocodone/Acetaminophen (*Crx) 7.5-325 Mg Tablet PO Q6H PRN Pain Rated 7-10 Enoxaparin Sodium 40 mg 12/29/22 09:00 12/31/22 10:24 Enoxaparin 40 Mg/0.4 Ml Syringe SUB-Q 40 mg DAILY MAYO Administration Famotidine 20 mg 12/28/22 21:00 12/31/22 10:24 Famotidine 20 Mg Tablet PO 20 mg Q12HR MAYO Administration Hydromorphone HCl 0.5 mg 12/28/22 11:28 Hydromorphone Hcl Inj (*Crx) 1 Mg/Ml Syr IV PUSH Q3H PRN Pain Rated 7-10 Piperacillin/Tazobactam/Dextrose 3.375 gm in 50 mls @ 100 mls/hr 12/25/22 12:00 12/31/22 13:22 Zosyn 3.375 Gm/Ns 50 Ml IVPB 100 mls/hr Q6HR MAYO Administration Potassium Chloride/Dextrose/Sod Cl 1,000 mls @ 100 mls/hr 12/29/22 10:40 12/31/22 06:57 Kcl 20 Meq/D5/0.9% Sod Chl IV CONT 100 mls/hr .Q10H MAYO Administration Loperamide HCl
--- NOTE | 2022-12-31 18:02 | PC.NURSE ---
Per , ok to DC fluids.
[2022-12-31 20:00] VITALS: PULSE 87; RESP 20; O2SAT 98
[2022-12-31 20:59] VITALS: BP 136/74; PULSE 64; RESP 14; TEMP 37; O2SAT 98
[2023-01-01] MEDS: PIPERACILLN/TAZ 3.375GM/NS50ML 3.375 GM/50 ML BAG IVPB ×3 (00:36→12:40)
--- NOTE | 2023-01-01 01:33 | PC.NURSE ---
From start of shift on 12/31/22 till midnight, charting was accidentally done on Sloane Estes RN (day shift nurse) profile. Correction to be made that all charting and medication administration was done by shift production associate nurse Ricky Mcclendon RN.
[2023-01-01 06:00] VITALS: BP 130/74; PULSE 66; RESP 16; TEMP 36.9; O2SAT 98
[2023-01-01] MEDS: FAMOTIDINE 20 MG TABLET PO (08:23)
[2023-01-01] MEDS: POTASSIUM CHLORIDE 20 MEQ TABLET.ER 40 MEQ PO (08:23)
[2023-01-01] MEDS: ENOXAPARIN 40 MG/0.4 ML SYRINGE SUB-Q (08:23)
--- NOTE | 2023-01-01 12:11 | PM.PNGS ---
Progress Note: A&P Assessment and Plan (1) Diverticulitis of intestine with abscess: Code(s): K57.80 - Diverticulitis of intestine, part unspecified, with perforation and abscess without bleeding Status: Acute Assessment and Plan: much improved, loretta low fiber diet, ok to dc home c po abx and f/u 2 wks Subjective Subjective Date/Time Seen: 01/01/23 12:11 feels much better, loretta low fiber diet Review of Systems Review of Systems: All systems reviewed & are unremarkable except as noted in HPI and below Exam Const: General: cooperative, comfortable and no acute distress Resp: Auscultation: clear to auscultation bilaterally Cardio: Rate: regular rate Rhythm: regular rhythm GI: GI Palp: No abdominal tenderness, Yes Soft to palpation, No Tenderness to palpation present (GI), No Guarding due to palpation present (GI) and No Rigid due to palpation Objective Data Vital Signs Vital Signs: Vital Signs - 24 hr 12/31/22 14:00 12/31/22 20:00 12/31/22 20:59 Temperature 36.3 C L 37.0 C Pulse Rate 87 87 64 Respiratory Rate 20 20 14 Blood Pressure 129/72 136/74 Pulse Oximetry 98 98 98 Oxygen Delivery Room Air 01/01/23 06:00 01/01/23 08:00 Temperature 36.9 C Pulse Rate 66 Respiratory Rate 16 Blood Pressure 130/74 Pulse Oximetry 98 Oxygen Delivery Room Air Intake/Output Intake/Output: Intake & Output 12/29/22 12/30/22 12/31/22 01/01/23 23:59 23:59 23:59 23:59 Intake Total 690 3920 3160 340 Balance 690 3920 3160 340 Meds/Results Medications: Active Medications Generic Name Dose Route Start Last Admin Trade Name Freq PRN Reason Stop Dose Admin Acetaminophen 650 mg 12/27/22 12:58 12/30/22 15:13 Acetaminophen 325 Mg Tablet PO 650 mg Q4H PRN Administration Mild Pain (1-3) or Fever Hydrocodone Bitart/Acetaminophen 1 tab 12/27/22 12:58 12/28/22 21:18 Hydrocodone/Acetaminophen (*Crx) 5-325 Mg Tablet PO 1 tab Q4H PRN Administration Pain Rated 4-6 Hydrocodone Bitart/Acetaminophen 1 tab 12/27/22 12:58 Hydrocodone/Acetaminophen (*Crx) 7.5-325 Mg Tablet PO Q6H PRN Pain Rated 7-10 Enoxaparin Sodium 40 mg 12/29/22 09:00 01/01/23 08:23 Enoxaparin 40 Mg/0.4 Ml Syringe SUB-Q 40 mg DAILY MAYO Administration Famotidine 20 mg 12/28/22 21:00 01/01/23 08:23 Famotidine 20 Mg Tablet PO 20 mg Q12HR MAYO Administration Hydromorphone HCl 0.5 mg 12/28/22 11:28 Hydromorphone Hcl Inj (*Crx) 1 Mg/Ml Syr IV PUSH Q3H PRN Pain Rated 7-10 Piperacillin/Tazobactam/Dextrose 3.375 gm in 50 mls @ 100 mls/hr 12/25/22 12:00 01/01/23 05:51 Zosyn 3.375 Gm/Ns 50 Ml IVPB Infused Q6HR MAYO Infusion Loperamide HCl 2 mg 12/29/22 10:35 12/31/22 10:30 Loperamide Hcl 2 Mg Capsule PO 2 mg PRN PRN Administration Diarrhea Ondansetron HCl 4 mg 12/25/22 06:49 12/30/22 09:14 Ondansetron Inj 4 Mg/2 Ml Vial IV PUSH 4 mg Q4H PRN Administration Nausea Potassium Chloride 40 meq 12/30/22 08:00 01/01/23 08:23 Potassium Chloride 20 Meq Tablet.Er PO 40 meq DAILY@0800 MAYO Administration Promethazine HCl 12.5 mg 12/25/22 06:49 Promethazine Hcl 25 Mg/Ml Ampul IV PUSH Q6H PRN Nausea Radiology Results: ITS Impressions Abdomen/Pelvis CT 12/29/22 17:51 IMPRESSION: Small bilateral pleural effusions. Complicated sigmoid diverticulosis with evidence of microperforation and a 3.9 cm abscess in the deep right pelvis. 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
--- NOTE | 2023-01-01 12:42 | WPDGIPROGNO ---
Progress Note: A&P Assessment and Plan (1) Diverticulitis of intestine with abscess: Code(s): K57.80 - Diverticulitis of intestine, part unspecified, with perforation and abscess without bleeding Status: Acute Assessment and Plan: responding to medical therapy tolerating low fiber home today and follow-up with surgery in 2 weeks (2) Lower abdominal pain: Code(s): R10.30 - Lower abdominal pain, unspecified Status: Acute Assessment and Plan: resolved (3) Leukocytosis: Code(s): D72.829 - Elevated white blood cell count, unspecified Status: Resolved Assessment and Plan: resolved (4) History of malignant neuroendocrine tumor: Code(s): Z85.9 - Personal history of malignant neoplasm, unspecified Status: Chronic Subjective Date/time seen: 01/01/23 12:42 Interval history: no pain, doing well and tolerating diet Review of Systems Review of Systems: All systems reviewed & are unremarkable except as noted in HPI and below Exam Const: General: comfortable and no acute distress HENMT: Face/Nose/Sinus: Normal nares present Eyes: General: appearance normal, both eyes and all related structures Neck: Neck: no JVD Resp: Auscultation: clear to auscultation bilaterally Cardio: Rate: regular rate Rhythm: regular rhythm GI: Inspection: non-distended GI Palp: Yes Soft to palpation, No Tenderness to palpation present (GI) and No Guarding due to palpation present (GI) Auscultation: normal bowel sounds Skin: General skin exam: normal color Neuro: General: gait normal Speech: normal speech Extrem: General: normal to inspection Psych: Mental Status: mental status grossly normal Objective Data Vital Signs Vital Signs: Vital Signs - 24 hr 12/31/22 14:00 12/31/22 20:00 12/31/22 20:59 Temperature 97.4 F L 98.6 F Pulse Rate 87 87 64 Respiratory Rate 20 20 14 Blood Pressure 129/72 136/74 Pulse Oximetry 98 98 98 Oxygen Delivery Room Air 01/01/23 06:00 01/01/23 08:00 Temperature 98.5 F Pulse Rate 66 Respiratory Rate 16 Blood Pressure 130/74 Pulse Oximetry 98 Oxygen Delivery Room Air Intake/Output Intake/Output: Intake & Output 12/29/22 12/30/22 12/31/22 01/01/23 23:59 23:59 23:59 23:59 Intake Total 690 3920 3160 340 Balance 690 3920 3160 340 Meds/Results Medications: Active Medications Generic Name Dose Route Start Last Admin Trade Name Freq PRN Reason Stop Dose Admin Acetaminophen 650 mg 12/27/22 12:58 12/30/22 15:13 Acetaminophen 325 Mg Tablet PO 650 mg Q4H PRN Administration Mild Pain (1-3) or Fever Hydrocodone Bitart/Acetaminophen 1 tab 12/27/22 12:58 12/28/22 21:18 Hydrocodone/Acetaminophen (*Crx) 5-325 Mg Tablet PO 1 tab Q4H PRN Administration Pain Rated 4-6 Hydrocodone Bitart/Acetaminophen 1 tab 12/27/22 12:58 Hydrocodone/Acetaminophen (*Crx) 7.5-325 Mg Tablet PO Q6H PRN Pain Rated 7-10 Enoxaparin Sodium 40 mg 12/29/22 09:00 01/01/23 08:23 Enoxaparin 40 Mg/0.4 Ml Syringe SUB-Q 40 mg DAILY MAYO Administration Famotidine 20 mg 12/28/22 21:00 01/01/23 08:23 Famotidine 20 Mg Tablet PO 20 mg Q12HR MAYO Administration Hydromorphone HCl 0.5 mg 12/28/22 11:28 Hydromorphone Hcl Inj (*Crx) 1 Mg/Ml Syr IV PUSH Q3H PRN Pain Rated 7-10 Piperacillin/Tazobactam/Dextrose 3.375 gm in 50 mls @ 100 mls/hr 12/25/22 12:00 01/01/23 12:40 Zosyn 3.375 Gm/Ns 50 Ml IVPB 100 mls/hr Q6HR MAYO Administration Loperamide HCl 2 mg 12/29/22 10:35 12/31/22 10:30 Loperamide Hcl 2 Mg Capsule PO 2 mg PRN PRN Administration Diarrhea Ondansetron HCl 4 mg 12/25/22 06:49 12/30/22 09:14 Ondansetron Inj 4 Mg/2 Ml Vial IV PUSH 4 mg Q4H PRN Administration Nausea Potassium Chloride 40 meq 12/30/22 08:00 01/01/23 08:23 Potassium Chloride 20 Meq Tablet.Er PO 40 meq DAILY@0800 MAYO Administration Prome
--- NOTE | 2023-01-01 12:46 | PM.DS ---
DS: Admitting Diagnosis Discharge Date 01/01/2023 Admitting Diagnosis Abdominal pains DS: Discharge Diagnosis Discharge Diagnosis (1) Leukocytosis: Code(s): D72.829 - Elevated white blood cell count, unspecified Status: Resolved Assessment and Plan: 2/2 to below improved (2) Diverticulitis of intestine with abscess: Code(s): K57.80 - Diverticulitis of intestine, part unspecified, with perforation and abscess without bleeding Status: Acute Assessment and Plan: (1) Diverticulitis: ?Code(s): K57.92 - Diverticulitis of intestine, part unspecified, without perforation or abscess without bleeding ?Status:?Deleted ?Assessment and Plan: Continue IV antibiotics. CT scan reviewed.? Small abscess noted. Appreciate gi and surgery input Having pain after eating. Overall improved.? Advance diet as tolerated.? Once eating more she can be discharged Likely discharge tomorrow. DS: Summary Hospital Course Hospital Course: 62year-old female presenting to ED with chief complaint of abdominal pain.? Pain started approximately 8 hours ago it is a stabbing pain across her lower abdomen that is 10 out 10 intensity and constant.? Says she felt this way in the past after she had? and abdominal surgery.??CT reviewed and discussed with the patient in detail.? There is evidence of sigmoid diverticulitis with micro perforation.? No abscess or large amount of free intraperitoneal air.? White blood cell count 22,000 on admission.? She is still having a fair amount of abdominal pain and tenderness.? We would recommend continuing conservative treatment with IV Zosyn, bowel rest, IV fluids, and analgesics.? responding to medical therapy tolerating low fiber home today and follow-up with surgery in 2 weeks S/p laparoscopic ileocecal resection in 2019.? Has followed with Oncology for surveillance since surgery without any evidence of recurrent or metastatic disease. She had an MRI of the abdomen yesterday at [facility] ordered through her oncologist Time Spent with Patient Time attestation: Total time spent providing and/or coordinating discharge services:38 minutes on day of DC Exam Narrative: General: alert and oriented Psych: appropriate mood nad affect Eyes: PERRLA Neck: Trachea midline, no new lesions Skin: no changes Lungs: CTA Cardiac: Normal S1,S2, no MGR ABD: soft, nd, nt, nbs Ext: no new lesions Vasc: Pulses intact DS: Data Data Completed and Pending Labs on day of discharge: Preliminary micro results at discharge 12/29/22 17:49 Blood Culture - Preliminary Blood 12/29/22 17:49 Blood Culture - Preliminary Blood Discharge Plan Discharge Attending physician on discharge: Cindy Humphrey Consulting providers: Stephan Warren ; Ольга Chávez ; Inez Waters ; Torres Cabello ; Marek Chance ; Samson Wilson ; Cameron Blackman ; Obed Hoyt Discharging Clinician: Cindy Humphrey Anticipated Discharge Date/Time: 01/01/23 12:41 Patient Disposition: Home, Self-Care Activity: as tolerated Diet: low fiber Discharge Instructions: Pt to continue low fiber diet for 2 weeks and then change to high fiber diet Pt off work from 12/25 to 01/05 return to work on 01/06 please provide sick note on discharge for her work Patient Instructions: Antibiotic Form, Diverticulosis (DC), High Fiber Diet (DC), Low Fiber Diet (DC) Stand Alone Forms: General Discharge Information Follow-up/Referrals: Ольга Chávez MD [Physician] - 2 Weeks Discharge Medications: New loperamide 2 mg Capsule 2 mg PO PRN PRN (Reason: Diarrhea) Qty: 30 0RF famotidine 20 mg Tablet 20 mg PO Q12HR Qty: 60 0RF amoxicillin-pot clavulanate [Augmentin] 500-125 mg tablet 1 tablet PO Q12H Qty: 28 0RF Continued lisinopril 10 mg tablet 10 mg PO DAILY biotin 1 mg Capsule 1 mg PO DAILY Daily Multivitamin 200-100-500 mcg Capsule
== END 2023-01-01 15:17 | disposition home or self-care (01) | DRG 392 ==
LOC: ANHED 06:52 → ANH3MED 07:04
PROVIDERS: Chiropractor; Nurse Practitioner Family; Surgery; Admitting Provider Internal Medicine; Emergency Provider Emergency Medicine; PCP Family Medicine; Visit Provider Family Medicine
DX: K57.20 Diverticulitis of large intestine with perforation and abscess without bleeding (principal); Q21.12 Patent foramen ovale; E87.6 Hypokalemia; I10 Essential (primary) hypertension; Z85.060 Personal history of malignant carcinoid tumor of small intestine
CPT/HCPCS: 36415; 74176; 80048; 80053; 81001; 83690; 85025; 85027; 87040; 87086; 96365; 96375; 99285; A9270; C9113; J0131; J1170; J1650; J1741; J1885; J2405; J2543; J3480; J7030; J7120

== ENCOUNTER 2023-01-11 00:44 | Emergency (ER) | payer OTHER, SELFPAY ==
[2023-01-11] VITALS (27 sets, daily range): BP systolic 88–129; BP diastolic 57–82; PULSE 67–94; RESP 9–25; TEMP 36.4; O2SAT 92–100
--- NOTE | ~2023-01-11 | CT_ITS ---
EXAMINATION: CT abdomen pelvis wo con DATE: 01/11/2023 01:30 INDICATION: Abdominal pain TECHNIQUE: Computed tomography (CT) of the abdomen and pelvis was performed without intravenous contr ast. The dose-length product (DLP) was 229.48 mGy-cm. Automated exposure control and iterative recons truction technique were employed. COMPARISON: 12/29/2022 FINDINGS: Minimal dependent atelectasis is present in the lung bases. The heart size is normal. There is a moderate size sliding hiatal hernia. The liver, spleen, pancreas, gallbladder, and adrenal glan ds are normal. There are punctate nonobstructing stones of the otherwise normal kidneys. No pathologi alicia enlarged abdominal or pelvic lymph nodes are identified. There are changes of right hemicolecto my. There is colonic diverticulosis. There is persistent perisigmoid and perirectal inflammatory horner ge with interval improvement. There is a 2.3 x 1.4 cm abscess situated between the sigmoid colon and rectum in the right pelvis which is decreased in size. There are small umbilical and supraumbilical h ernias containing fat. There is mild lumbar spondylosis. IMPRESSION: 1. Mildly improved sigmoid diverticulitis and decrease in size of a perisigmoid abscess. Reviewed, dictated and finalized at location A.
--- NOTE | 2023-01-11 01:07 | PC.NURSE ---
Patient's flagged down staff to inform us patient was having a pain episode. Patient presents with thrashing and unbearable pain. Notified Dr. Moreland.
--- NOTE | 2023-01-11 01:12 | ED.ABDPAIN ---
HPI - Abdominal Pain General Chief Complaint: Abdominal Pain Stated Complaint: abdominal pain following perf bowel Time Seen by Provider: 01/11/23 00:51 History of Present Illness HPI narrative: Patient is a 62-year-old female presenting with abdominal pain. Patient states that she was recently admitted here for diverticulitis. States that she had a bowel perforation. States that she was discharged a few days ago. States that she has been taking the antibiotics as prescribed. Tonight, she again developed severe abdominal pain associated with nausea and vomiting. States that she tried to take her antibiotics at 11 PM but she just threw them up. States that the pain feels similarly to when she initially presented here. She denies fevers or chills, headache, numbness or weakness, chest pain, shortness of breath, cough, dysuria, hematuria, flank pain, leg swelling. Related Data Home Medications Medication Instructions Recorded Confirmed biotin 1 mg capsule 1 mg PO DAILY 04/25/20 01/15/23 lisinopril 10 mg tablet 10 mg PO DAILY 04/25/20 01/15/23 [id number] 200 mcg-vit K 100 1 cap PO DAILY 04/25/20 01/15/23 mcg-lycop 500 [id number] capsule (Daily Multivitamin) Allergies Allergy/AdvReac Type Severity Reaction Status Date / Time Iodinated Contrast Media Allergy Unknown VOMITING Verified 01/15/23 10:54 iodine Allergy Unknown Vomiting Verified 01/15/23 10:54 shellfish derived Allergy Unknown Vomiting Verified 01/15/23 10:54 Review of Systems Review of Systems: All systems reviewed & are unremarkable except as noted in HPI and below PMFSH Past Medical History Medical History Carcinoid tumor of small intestine Fibroid HTN (hypertension) Lower abdominal pain PFO (patent foramen ovale) Surgical History Surgical History History of appendectomy Exploratory laparotomy in her 20's that resulted in an appendectomy History of bowel resection Laparoscopic ileocecal resection with ileocolonic anastomosis on 11/13/[address] Mathews Family History Family History Father Family history of malignant neoplasm of kidney Family history of congestive heart failure Other Cerebrovascular accident Family history of liver disease Family history of thyroid disease Hypertension Social History Social History Smoking status: Never smoker Alcohol intake: current Drinks per week: 2 Substance use: never Substance use type: does not use Lack of Transportation: No Lack of Food: Never True Current Housing: Decline to Answer Concerned About Future Housing: Decline to Answer Difficulty Paying Gas/Electric Bills: Decline to Answer Difficulty Paying for Meds: Decline to Answer Currently Unemployed: Decline to Answer Education: Decline to Answer Difficulty w/ Childcare or Family Care: Decline to Answer Living arrangements: with family Spiritual care concerns: No Exam Narrative: GENERAL: Moderately distressed secondary to pain HEAD: Normocephalic, atraumatic. EYES: PERRLA and EOMI. ENT: Nares clear, no rhinorrhea or epistaxis. Mucous membranes moist. NECK: Supple. CHEST: Clear to auscultation. No respiratory distress. HEART: Regular rate and rhythm. Normal peripheral pulses. ABDOMEN: Soft, diffusely tender with voluntary guarding, no rebound EXTREMITIES: Normal range of motion. No edema. SKIN: Warm, dry, no rash. NEURO: No focal deficits. Alert and oriented x3. PSYCH: Normal mood and affect. Course Vital Signs Vital signs: Vital Signs Pulse Rate 83 01/11/23 00:46 Respiratory Rate 22 H 01/11/23 00:46 Blood Pressure 115/67 01/11/23 00:46 Pulse Oximetry 100 01/11/23 00:46 Oxygen Delivery Room Air 01/11/23 00:46 Temperature 97.
[2023-01-11] MEDS: ONDANSETRON INJ 4 MG/2 ML VIAL IV PUSH (01:14)
[2023-01-11] MEDS: HYDROmorphone HCL INJ (*CRX) 1 MG/ML SYR IV PUSH (01:17)
[2023-01-11] MEDS: SODIUM CHLORIDE 0.9% IV 1,000 ML 999 ML IV CONT ×2 (01:35→03:03)
[2023-01-11 01:38] LABS: Alanine Aminotransferase 20 U/L (6-35); Albumin Level 4.6 g/dL (3.5-5.1); Alkaline Phosphatase 72 U/L (38-126); Anion Gap 10 mmol/L (8-16); Aspartate Amino Transferase 24 U/L (14-36); Bilirubin,Total 0.9 mg/dL (0.2-1.3); Blood Urea Nitrogen 20 mg/dL (7-17); Calcium 9.7 mg/dL (8.4-10.2); Carbon Dioxide 24 mmol/L (22-30); Chloride 103 mmol/L (98-107); Estimated Glomerular Filt Rate > 60; Glucose 135 mg/dL (65-110); Lipase 76 U/L (23-300); Potassium 3.6 mmol/L (3.4-5.0); Sodium 137 mmol/L (137-145)
[2023-01-11 01:43] LABS: Basophils Absolute Auto 0.1 K/mm3 (0.0-0.1); Basophils Percent Auto 0.5 % (0.2-1.2); Eosinophils Absolute Auto 0.2 K/mm3 (0-0.3); Eosinophils Percent Auto 1.6 % (0-4.4); Hematocrit 39.7 % (37.0-47.0); Hemoglobin 13.1 g/dL (12.0-15.0); Immature Granulocyte Absolute 0.05 K/mm3 (0.00-0.031); Immature Granulocyte Percent A 0.3 % (0-0.5); Lymphocytes Absolute Auto 1.38 K/mm3 (0.9-3.2); Lymphocytes Percent Auto 9.2 % (18.3-44.2); Mean Corpuscular Hemoglobin 30.4 pg (26-34); Mean Corpuscular Volume 92.1 fl (80-100); Mean Platelet Volume 9.8 fl (7.4-10.4); Monocytes Absolute Auto 0.8 K/mm3 (0.1-0.6); Monocytes Percent Auto 5.5 % (2.6-8.5); Neutrophils Absolute Auto 12.4 K/mm3 (1.3-6.7); Neutrophils Percent Auto 82.9 % (45.5-73.1); Platelet Count Result 416 k/mm3 (150-375); Red Blood Count 4.31 M/mm3 (4.2-5.4); Red Cell Distribution Width 12.4 % (11.5-14.5)
[2023-01-11 01:48] LABS: Lactic Acid Reflex 1.1 mmol/L (0.7-2.0)
[2023-01-11 02:51] LABS: Appearance Urine Clear (Clear); Bacteria Urine None Seen /hpf; Bilirubin Urine Negative (Negative); Blood Urine Negative (Negative); Color Urine Dark Yellow (Yellow); Glucose Urine UA Negative (Negative); Ketones Urine 1+ mg/dL (Negative); Leukocyte Esterase Ur Trace LEU/UL (Negative); Nitrate Urine Negative (Negative); Non Pathogenic Casts 0-2; Protein Urine Negative (Negative); RBC Urine 0-2 /hpf (0-2); Specific Grav Ur 1.023 (1.001-1.035); Squamous Epithelial Cell Urine Few /hpf (Few); pH Urine 5.5 (5.0-9.0)
[2023-01-11 02:54] LABS: Add Urine Microscopic? YES
--- NOTE | 2023-01-11 03:00 | PC.NURSE ---
Patient BP began running low. Notified Dr. Moreland who advised to hang another liter of NS.
[2023-01-11 03:15] LABS: Pregnancy On Board Control Positive; Urine Pregnancy Test Negative
[2023-01-11] MEDS: AMOXICILLIN/CLAVULANATE K 875-125 MG TAB 1 TABLET PO (04:05)
[2023-01-11] MEDS: HYDROcodone/acetaminophen (*CRX) 5-325 MG TABLET 1 TAB PO (05:35)
[2023-01-11] MEDS: ONDANSETRON HCL ODT 4 MG TABLET PO (05:36)
== END 2023-01-11 05:40 | disposition home or self-care (01) ==
PROVIDERS: Emergency Provider Emergency Medicine; PCP Family Medicine
DX: K51.00 Ulcerative (chronic) pancolitis without complications (principal); K57.90 Diverticulosis of intestine, part unspecified, without perforation or abscess without bleeding; I10 Essential (primary) hypertension; Z85.060 Personal history of malignant carcinoid tumor of small intestine; Z90.49 Acquired absence of other specified parts of digestive tract; K63.0 Abscess of intestine; K57.32 Diverticulitis of large intestine without perforation or abscess without bleeding
CPT/HCPCS: 36415; 74176; 80053; 81001; 81025; 83605; 83690; 85025; 87086; 96361; 96374; 96375; 99284; A9270; J1170; J2405; J7030

== ENCOUNTER → 2023-02-03 08:11 | Outpatient (CLI) | payer OTHER, SELFPAY ==
--- NOTE | ~2023-02-03 | CT_ITS ---
EXAMINATION: CT abdomen pelvis w con DATE: 02/03/2023 08:47 INDICATION: Diverticulitis with abscess. Generalized abdominal pain. TECHNIQUE: Computed tomography (CT) of the abdomen and pelvis was performed with 100 mL Omnipaque 350 intravenous contrast. Automated exposure control and iterative reconstruction technique were employe d. The dose-length product was 332.31 mGy-cm. COMPARISON: CT abdomen and pelvis 01/11/2023 FINDINGS: The visualized portions of the lung bases demonstrate mild atelectasis. No pleural effusion . The heart size is normal. No pericardial effusion. There is a small sliding hiatal hernia. The live r, gallbladder, spleen, pancreas, adrenal glands, and left kidney are normal. There is a 5 mm cyst in right kidney. There is diverticulosis of the colon without evidence of diverticulitis. There are leroy gical changes of the right colon. There are no pathologically enlarged lymph nodes. There is an umbil ical hernia containing fat. There is no free intraperitoneal fluid. There is mild lumbar spondylosis. IMPRESSION: 1. No abscess. 2. Small sliding hiatal hernia. 3. Umbilical hernia containing fat. Reviewed, dictated and finalized at location A.
[2023-02-03 08:38] LABS: Estimated Glomerular Filt Rate > 60
== END ==
PROVIDERS: Visit Provider Surgery
DX: K57.80 Diverticulitis of intestine, part unspecified, with perforation and abscess without bleeding (principal); K44.9 Diaphragmatic hernia without obstruction or gangrene; K42.9 Umbilical hernia without obstruction or gangrene
CPT/HCPCS: 74177; Q9967

== ENCOUNTER 2023-02-26 09:59 | Outpatient (CLI) | payer OTHER, SELFPAY ==
--- NOTE | 2023-02-26 11:09 | ECG_ITS ---
Measurements Intervals [place] Rate: 58 P: 48 LA: 165 QRS: -32 QRSD: 104 T: 12 QT: 422 QTc: 417 Interpretive Statements SINUS BRADYCARDIA MARKED LEFT AXIS DEVIATION [QRS AXIS < -30] INCOMPLETE RIGHT BUNDLE BRANCH BLOCK [90+ ms QRS DURATION, TERMINAL R IN V1/V2, 40+ ms S IN I/aVL/V4/V5/V6] ABNORMAL ECG COMPARED TO ECG 08/02/2021 11:34:28 SINUS BRADYCARDIA NOW PRESENT LEFT-AXIS DEVIATION NOW PRESENT Electronically Signed On 02-26-2023 12:07:53 CDT by Drake Peace M.D.
== END 2023-02-26 10:00 | disposition home or self-care (01) ==
LOC: ANHSURGERY 10:06
PROVIDERS: PCP Family Medicine; Visit Provider Surgery
DX: K57.80 Diverticulitis of intestine, part unspecified, with perforation and abscess without bleeding (principal); I10 Essential (primary) hypertension; Z01.818 Encounter for other preprocedural examination; I45.10 Unspecified right bundle-branch block
CPT/HCPCS: 36415; 86850; 86900; 86901; 93005

== ENCOUNTER 2024-03-29 08:18 | Outpatient (CLI) | payer OTHER, SELFPAY ==
--- NOTE | 2024-03-29 08:43 | ECG_ITS ---
Test Date: 2024-03-29 09:00:57 Measurements Intervals [place] Rate: 56 P: 50 HI: 167 QRS: -28 QRSD: 106 T: 30 QT: 398 QTc: 385 Interpretive Statements SINUS BRADYCARDIA INCOMPLETE RIGHT BUNDLE BRANCH BLOCK BORDERLINE ECG No previous ECG available for comparison Electronically Signed On 03-29-2024 10:15:04 CDT by Antonio Tejada D.O.
== END 2024-03-29 08:19 | disposition home or self-care (01) ==
LOC: ANHIMG 08:20 → ANHCARD 08:21
PROVIDERS: PCP Family Medicine; Visit Provider Anesthesiology
DX: Z01.818 Encounter for other preprocedural examination (principal); I45.10 Unspecified right bundle-branch block
CPT/HCPCS: 93005

== ENCOUNTER 2024-03-31 05:50 | Day surgery (SDC) | payer OTHER, SELFPAY ==
[2024-03-19 08:15] VITALS: BMI 23.7
--- NOTE | 2024-03-30 13:52 | WPDANESEPPF ---
Anes - Initial Pre Proc Eval Procedure: Operation Date: 03/31/24 07:30 Proposed Procedures p Abdominoplasty with Liposuction - Tao Torres MD Date/Time: 03/30/24 13:52 Surgeon: Tao Torres MD Pre Op Diagnosis: Skin Laxity Patient Data Age: 63 Gender: F Height: 1.55 m Weight: 57 kg Allergies Allergy/AdvReac Type Severity Reaction Status Date / Time Iodinated Contrast Media AdvReac Unknown VOMITING Verified 03/31/24 06:19 iodine AdvReac Unknown Vomiting Verified 03/31/24 06:19 shellfish derived AdvReac Unknown Vomiting Verified 03/31/24 06:19 Home Medications Medication Instructions Recorded Confirmed Type lisinopril 10 mg tablet 10 mg PO DAILY 04/25/20 03/31/24 History alprazolam 0.25 mg tablet 0.25 mg PO BID PRN Anxiety 02/26/23 03/31/24 History cholecalciferol (vitamin D3) 50 100 mcg PO DAILY 02/26/23 03/31/24 History mcg (2,000 unit) capsule famotidine 20 mg tablet 20 mg PO Q12HR PRN Indigestion 02/26/23 03/31/24 History Patient hx anesthesia problems: none Family hx anesthesia problems: none Results Review: All pre-operative results and documents have been reviewed as part of the pre-operative evaluation. [facility] Past Medical History Medical History Carcinoid tumor of small intestine Fibroid HTN (hypertension) Lower abdominal pain PFO (patent foramen ovale) Surgical History Surgical History History of appendectomy Exploratory laparotomy in her 20's that resulted in an appendectomy History of bowel resection Laparoscopic ileocecal resection with ileocolonic anastomosis on 11/13/[address] Mathews Family History Family History Father Family history of malignant neoplasm of kidney Family history of congestive heart failure Other Cerebrovascular accident Family history of liver disease Family history of thyroid disease Hypertension Social History Social History Smoking status: Never smoker Second hand tobacco smoke exposure: Yes Alcohol intake: current Drinks per week: 2 Substance use: never Substance use type: does not use Lack of Transportation: No Lack of Food: Never True Current Housing: Decline to Answer Concerned About Future Housing: Decline to Answer Difficulty Paying Gas/Electric Bills: Decline to Answer Difficulty Paying for Meds: Decline to Answer Currently Unemployed: Decline to Answer Education: Decline to Answer Difficulty w/ Childcare or Family Care: Decline to Answer Living arrangements: with family Additional living arrangements comments: [facility] Spiritual care concerns: No Anes - Eval Final PreProcedure Day of Procedure 03/30/24 13:52 Patient weight: normal Heart: regular rate and rhythm Lungs: clear to auscultation Airway: Mallampati scale class II Neurological: alert and oriented Last oral intake: >/= 8 hours ASA classification: III Emergent: no Anesthetic plan: proceed Anesthesia type and monitoring: general ETT and standard monitoring Results Review: All pre-operative results and documents have been reviewed as part of the pre-operative evaluation. Informed Consent: The patient's anesthetic plan and its attendant risks and benefits were discussed with the patient/family/POA. Questions were solicited and answers provided to the satisfaction of the patient/family/POA.
[2024-03-31] VITALS (9 sets, daily range): BP systolic 85–119; BP diastolic 44–87; PULSE 59–86; RESP 13–18; TEMP 35.5–36.5; O2SAT 96–100; BMI 25.4
--- NOTE | 2024-03-31 07:02 | SUR.PREOP ---
FEMALE STAFF IN ROOM WHILE DR VILLEGAS MARKED PT. PT'S SPOUSE IN ROOM ALSO.
--- NOTE | 2024-03-31 07:06 | WPDHPUPDATE1 ---
History and Physical Update Update Date/Time: 03/31/24 07:06 History and Physical has been reviewed, including an updated exam of the patient. There are NO changes in the patient's condition. Risks, benefits, and alternatives have been discussed and questions answered. Patient agrees to proceed with procedure.
--- NOTE | 2024-03-31 07:06 | W.PM.PROC2 ---
Procedure Note - Detailed Date of Procedure 03/31/24 Pre-op Diagnosis Skin Laxity Post-op Diagnosis Same Procedure Performed Progressive tension abdominoplasty with suction lipectomy Surgeon Tao Torres MD Anesthesia General Findings Tissue removed: 835 grams Lipoaspirate: 1,800 cc Description of Procedure They are here today for the above procedures. Previously and again today the risks, benefits, alternatives were discussed in extensive detail. I wanted them to be very realistic about the risks involved as well as expectations. We discussed aftercare and what to monitor for. I was very upfront about the risks of wound breakdown leading to loss of skin, open wounds, and need for additional procedures with permanent abdominal deformity. We discussed DVT/PE risks and management. Made sure answered all of their questions to their satisfaction today and consent was obtained. They were marked in the preoperative holding area with their verification. The patient was taken to the operating room. Anesthesia was provided by anesthesiology. A Musa catheter was started. Placed prone on the operating room table with care taken to protect from injury. Prepped and draped in a standard sterile fashion. A surgical time-out was taken. Stab incisions were made and tumescent solution was infiltrated. Once adequate time was allowed for hemostasis a 5mm basket and 3mm multi hole cannula were utilized to complete suction lipectomy based on S.A.F.E. technique in multiple planes and passes. Suction lipectomy continued to result based on pre-operative planning, intra-operative observation, and rolling pinch test which were in full agreement. Patient was then placed supine with care taken to protect from injury. I placed the patient in a flexed position to verify the upper and lower markings would reach. I then placed supine. A thorough abdominal examination was completed. Stab incisions were made and tumescent solution infiltrated. Stab incisions were made and tumescent solution was infiltrated. Once adequate time was allowed for hemostasis a 5mm basket and 3mm multi hole cannula were utilized to complete suction lipectomy based on S.A.F.E. technique in multiple planes and passes. Suction lipectomy continued to result based on pre-operative planning, intra-operative observation, and rolling pinch test which were in full agreement. A 10 blade was used to make the upper incision. I continued dissection down to the level of fascia. Elevated just what was necessary for repair of the diastasis. I then again flexed the bed to verify the upper skin flap would reach the lower markings without tension. Once verified I placed her supine once again and a 10 blade used to make the lower incision. I elevated up to level the umbilicus and left the umbilicus intact on a well-vascularized stalk. The intervening tissue was removed. A 2 mm blunt cannula with 0.5% bupivacaine was injected deep to the fascia bilaterally. I plicated the diastasis recti using 0 PDO Stratafix barbed suture. This was in 2 separate layers using 2 separate sutures as well. I also repaired lateral to the rectus using two layers of 0 PDO Stratafix. After the patient was flexed (below) plicated the fascia with 0 PDO Stratafix in two separate layers. The patient was flexed and starting from superior to inferior began plication using 2-0 Vicryl to obliterate all space in a standard progressive tension fashion. At the umbilicus I marked out the location of the skin and inset this with 3-0 Monocryl and 4-0 Vicryl. I continued the remainder of the plication using 2-0 Vicryl until I reached my lower planned scar line. I trimmed any excess skin of the upper flap making sure this was a tension-free closure. 15 Jonathan drain was placed. I then approximated using a 3 point suture with 2-0 Vicryl followed by 2-0 PDO Stratafix, 3-0 Stratafix ,running subcuticular 4-0 Monocryl, and tissu
[2024-03-31] MEDS: LACTATED RINGERS 1,000 ML 30 ML IV CONT ×2 (07:14→11:57)
[2024-03-31] MEDS: SCOPOLAMINE 1 MG PATCH 1 PATCH TRANSDERM (07:15)
[2024-03-31] MEDS: TRANEXAMIC ACID 1,000 MG/10 ML AMPUL 1000 MG IV PUSH (07:20)
[2024-03-31] MEDS: ceFAZolin SODIUM 2 GM/20 ML SW SYRINGE IV PUSH (07:20)
--- NOTE | 2024-03-31 07:21 | SUR.PREOP ---
500CC IVF BOLUS INFUSING PER DR VILLEGAS ORDERS
[2024-03-31] MEDS: LACTATED RINGERS IRRIG 1,000 ML, LIDOCAINE HCL 1% LOCAL INJ 50 ML, EPINEPHrine HCL INJ ... INFILTRATE (09:02)
[2024-03-31] MEDS: BUPIVACAINE/EPINEPHRINE 0.5% 50 ML VIAL 60 ML INFILTRATE (09:36)
[2024-03-31] MEDS: fentaNYL CITRATE INJ (*CRX) 100 MCG/2 ML VIAL 25 MCG IV PUSH ×6 (12:20→12:50)
[2024-03-31] MEDS: oxyCODONE HCL (*CRX) 5 MG TAB IR PO (14:13)
--- NOTE | 2024-03-31 15:08 | WPDANESPN ---
Anes - Prog Note Post-Op Date/Time: 03/31/24 15:08 Cardiovascular status: normal Respiratory status: normal Airway patency: baseline Mental status: baseline Post-Op hydration status: normal Vital Signs: Last Vital Signs Temp 36.1 C L 03/31/24 12:55 Pulse 59 L 03/31/24 14:01 Resp 14 03/31/24 14:01 BP 103/59 L 03/31/24 14:01 Pulse Ox 98 03/31/24 14:01 O2 Del Method Room Air 03/31/24 14:01 O2 Flow Rate 6 03/31/24 12:25 Pain Score (VAS): 3 I/O: Intake & Output 03/30/24 03/31/24 03/31/24 23:59 07:59 15:59 Intake Total 500 250 Output Total 18 Balance 500 232 Post-procedural complaints: none Patient Feedback: Patient satisfied with anesthetic care. Other Findings: Patient vital signs back to baseline. Patient denies nausea and vomiting. Patient's pain under control. Patient OK for discharge.
== END 2024-03-31 14:25 | disposition home or self-care (01) ==
PROVIDERS: PCP Family Medicine; Visit Provider Surgery Plastic and Reconstructive Surgery
PROC: (CPT 15830; principal; 2024-03-31 07:30)
DX: L98.7 Excessive and redundant skin and subcutaneous tissue (principal)
CPT/HCPCS: 15830

== ENCOUNTER 2024-07-08 06:34 | Outpatient (CLI) | payer OTHER, SELFPAY ==
--- NOTE | ~2024-07-08 | CT_ITS ---
Non-contrast CT scan of the Abdomen and Pelvis Clinical indication: Abdominal bulge Technique: 2.5 mm axial scans were obtained through the abdomen and pelvis without intravenous or or al contrast. Dose reduction technique was used on this scan by utilizing automated exposure control a nd iterative reconstruction technique. The dose-length product (DLP) was 215.13 mGy-cm. COMPARISON: 02/03/2023 Findings: Images through the lung bases reveal no abnormalities. There is no evidence of renal or ureteral calculi. The kidneys and the ureters are nondilated. The liver, spleen, pancreas, gallbladder, and adrenals appear normal. There is no aortic aneurysm. There is no evidence of bowel obstruction. Suture line noted at the right colon. There are postsurgic al changes in the anterior abdominal wall without distinct hernia. Images through the pelvis were performed. There is no evidence of ascites or lymphadenopathy. Urinary bladder unremarkable. No pelvic mass seen. Impression: Postoperative changes at the anterior abdominal wall without distinct hernia. Reviewed, dictated and finalized at [facility]. Impression: Postoperative changes at the anterior abdominal wall without distinct hernia.
== END 2024-07-08 06:35 | disposition home or self-care (01) ==
PROVIDERS: Visit Provider Surgery Plastic and Reconstructive Surgery
DX: R19.07 Generalized intra-abdominal and pelvic swelling, mass and lump (principal); Z98.890 Other specified postprocedural states
CPT/HCPCS: 74176

== ENCOUNTER 2024-11-10 05:53 | Day surgery (SDC) | payer OTHER, SELFPAY ==
[2024-11-10] VITALS (10 sets, daily range): BP systolic 93–134; BP diastolic 66–85; PULSE 66–95; RESP 12–19; TEMP 35.9–36.3; O2SAT 96–100
--- OUTSIDE RECORDS SUMMARY | 2024-11-10 06:00 | XMS_ITS | Clinical Summary ---
Author Organization [facility] gloria Kelly Address [address] [place] [address] Phone Care Team Providers Care [employer] Equipment Servicer Name Role Phone Mariah Collier MD Primary Care Provider + Allergies No known active allergies Medications ERGOCALCIFEROL, VITAMIN D2, (VITAMIN D ORAL)Indications :Breast mass Take by mouth. Active MULTIVITAMINS WITH FLUORIDE (MULTI-VITAMIN ORAL)Indications :Breast mass Take by mouth. Active TAMIFLU 75 mg capsuleIndicatio ns:Visit for screening mammogram 09/02/2013 Active Active Problems Patient Care Coordination No te Formatting of this note migh t be different from the original. Primary Care: No primary provider on file. Referring Provider: Araceli Rome MD [address] [place] [address] Other: Problem Noted Date Diagnosed Date Hay fever Encounters Date Type Department Care Team Description 10/13/2024 External Device Data [facility] ABSTRACTION Provider, Abstract 10/13/2024 External Device Data [facility] Provider, Abstract 10/05/2024 External Device Data [facility]STRA[facility] Provider, Abstract 10/02/2024 8:55 AM [facility] - 10/02/2024 11:59 PM [facility] Hospital Encounter [facility] [address] [place] [address] Magalie Cheema FNP Discharge Disposition: Home or Self Care from Last 3 Months Family History Medical History Relation Name Comments Cancer Father kidney Stroke Father Breast Cancer Neg Hx Ovarian Cancer Neg Hx Relation Name Status Comments Father Social History Tobacco Use Types Packs/Day Years Used Date Smoking Tobacco: Never Smokeless Tobacco: Never Alcohol Use Standard Drinks/Week Comments Yes 0 (1 standard drink = 0.6 oz pur e alcohol) moderate Comments No Sex and Gender Information Value Date Recorded Sex Assigned at Not on file Legal Sex Female 10:44 AM CDT Gender Identity Not on file Sexual Orientation Not on file Occupation Industry Job Start Date Job End Date Not on file Not on file Not on file Not on file Last Filed Vital Signs Vital Sign Reading Time Taken Comments Blood Pressure 136/74 10/14/2013 1:32 PM [facility] Pulse 72 10/14/2013 1:32 PM [facility] Temperature - - Respiratory Rate - - Oxygen Saturation - - Inhaled Oxygen Concentration - - Weight 51.7 kg (114 lb) 10/14/2013 1:32 PM [facility] Height 154.9 cm (5' 1 ) 10/14/2013 1:32 PM [facility] Body Mass Index 21.54 10/14/2013 1:32 PM [facility] Plan of Treatment Health Maintenance Due Date Last Done Comments FIT-DNA Q 3 years 2007 FIT/FOBT Q 1 year 2007 Flex Sig/CT Colonography Q 5 years 2007 ZOSTER VACCINE (1 of 2) 2012 INFLUENZA VACCINE (#1) 2024 COVID-19 Vaccine (2023-2 5 season) 2024 11/27/2020, 10/30/2020 BREAST CANCER SCREENING 10/02/2025 10/02/19, 09/27/2023, 09/03/2022, Additional history exists CERVICAL CANCER SCREENING 09/01/20272023, 10/01/2022, 02/14/2022, Additional history exists DTAP/TDAP/TD VACCINES (2 - T d or Tdap) 01/12/2029 01/12/2019 COLORECTAL SCREENING 12/09/2032 12/09/2022, 05/04/20 Colorectal Cancer Screening 12/09/2032 RSV VACCINE (60+ or ) (1 - 1-dose 75+ series) 2037 Procedures Procedure Name Priority Date/Time Associated Diagnosis Comments MAMMO 3D DANNY SCREEN BILAT W OR WO CAD Routine 10/02/2024 9:05 AM [facility] Visit for screening mammogram from Last 3 Months Results * MAMMO 3D DANNY SCREEN BILAT W OR WO CAD (10/02/2024 9:05 AM [facility]ER) Anatomical Region Laterality Modality Breast Bilateral Mammography 10/02/2024 9:06 AM [facility]ER Impressions 10/02/2024 12:09 PM [facility]ER IMPRESSION: No suspicious findings to suggest malignancy in either breast. Annual mammography is recommended. OVERALL FINAL ASSESSMENT: BI-RADS CATEGORY 1: Negative DICTATION LOCATION: [facility] 10/02/2024 12:09 PM [facility] BILATERAL SCREENING DIGITAL MAMMOGRAM WITH 3D TOMOSYNTHESIS AND CAD DATE: 10/02/2024 9:05 AM HISTORY: Routine screening. TECHNIQUE: Full-field digital craniocaudal and mediolateral oblique projections of both breasts were obtained. Low-dose full-field digital breast tomosynthesis examination was performed with 2D and 3D acquisitions. Examination is read in conjunction with computer aided detection. COMPARISON: 09/27/2023 and older BREAST COMPOSITION: The breasts are almost entirely fatty. FINDINGS: No suspicious mass, suspicious microcalcifications, or architectural distortion is identified in either breast. Computer aided detection was used in the interpretation of this examination. Magalie Deni [facility] MAMMO ORDERABLES Final Result from Last 3 Months Insurance [facility] [id number] Care Teams [employer] Equipment Servicer Relationship Specialty Start Date End Date Mariah Collier MD [address] [place] [address] PCP - General Family Practice 06/26/22
--- OUTSIDE RECORDS SUMMARY | 2024-11-10 06:01 | XMS_ITS | Data Portability ---
Author Organization [facility] Address [address] [place] [address] Care Team Providers Care Professional Fee Coder Name Role Phone ASHLIE SLAUGHTER Primary Care Provider [phone] Assessment Encounter Date Assessment Date Assessment LastModified by Organization Details LastModified Time 09/26/2021 09/26/2021 pt loretta well, f/u pending pathology, pt would prefer a phone call instead of portal [email or web address] Not available 09/26/2021 17:06:45 10/01/2022 10/01/2022 Annual gynecological exam performed. Patient will come back in a year unless there are new symptoms. [email or web address] Not available 10/01/2022 16:40:46 Plan of Treatment Reminders Order Date Submit Date Provider Last Modified By Organization Details Last Modified Time Details Appointments None recorded. Lab pap, IG + HR HPV - HPV regardless but if HPV is positive need subtyping 16,18/45 2023 024 [facility] (Lab), [address], [place], [address], 4 13:01:56 hsv (1+2) igm, serum 2021 022 [facility] (Lab), [address], [place], [address], 2 17:22:44 hsv-1 igg Ab, serum 2021 022 [facility] (Lab), [address] [place], [address], 17:22:42 hsv-2 igg Ab, serum 2021 [facility] (Lab), [address], [place], [address], 17:22:43 hbcab (hepatitis B core Ab) igm, serum 2021 [facility] (Lab), [address], [place], [address], 17:22:42 HBsAg (hepatitis B surface Ag), serum 2021 [facility] (Lab), [address], [place], [address], 17:22:41 hepatitis C virus Ab, serum 2021 [facility] (Lab), [address], [place], [address], 17:22:42 unlisted lab - HIV 1/2 antigen/ant ibody, reflex confirmatio n 2021 [facility] (Lab), [address], [place], [address], 17:22:43 RPR (rapid plasma reagin), serum 2021 [facility] (Lab), [address], [place], [address], 17:22:44 Referral None recorded. Procedures None recorded. Surgeries None recorded. Imaging MAMMO, screening, digital, bilateral 2023 024 [facility], [address], [place], [address], 5 12:44:10 DEXA, axial skeleton + vertebral fracture assessment 2022 023 [facility], [address], [facility] [address], [place], [address], 3 16:37:08 Medication Orders estradiol 0.01% (0.1 mg/gram) vaginal cream 2023 024 [email or web address] [id number], [address], [place], [place], [id number], 4 17:54:01 Valtrex 500 mg tablet 2021 022 [email or web address] [facility] #[id number], [address], [place], [place], [id number], 4 17:22:41 Patient TargetsNo targets recorded. Patient InstructionsNo instructions recorded. Reason for Referral None Reported. Results Created Date Observation Date Name Description Value Unit Range Abnormal Flag Note LastModifiedBy Organization Detail LastModifiedTime 09/26/19 22 09/26/2021 SURGI ROBERTO PATHO LOGY surgical pathology SEE RESULT S BELOW CASE REPOR T: Surgi roberto Patho logy Repor t Case: [id number] Autho tarun aviles Provi rigo: Kacy Champagne TENTER FEEDER Colle cted: 09/26 1744 Order ing Locat ion: [place] Patho logy Recei pietro: 09/27 0026 Patho logis t: Julio C [address] rd, MD Speci mens: A) - Endoc ervix , ECC [place] Bx B) - Cervi x, Cervi roberto Spira brush Bx FINAL DIAGN OSIS: A. Endoc ervix ; brush biops y: -Steven gn endoc ervic al and squam ous epith elium , negat kip for dyspl stephen B. Cervi x; spira brush biops y: -Steven gn ectoc ervic al epith elium , negat kip for dyspl stephen Elect janina malhotra d by Julio C [address] rd, MD on 022 at 12:24 PM ----- ----- ----- ----- ----- ----- ----- ----- ----- ----- ----- ----- ----- ----- ----- ----- ----- ---- CLINI ROBERTO INFOR MATIO N: NOT PROVI DED MICRO SCOPI C DESCR IPTIO N: A micro scopi c exami natio n was perfo rmed. GROSS DESCR IPTIO N: A. Endoc ervix . The speci men is label ed with the patie nt's name, ozzieog raphi cs and ECC . Recei pietro in forma gigi is a 1.0 x 1.0 x 0.2 cm aggre gate of mucus and minut e white -law tissu e. The entir e speci men is submi tted in one casse tte. Gross ed by César burnett B. Cervi x. The speci men is label ed with the patie nt's name, demog raphi cs and cerv ical Spira brush . Recei pietro in forma gigi is a 0.5 x 0.5 x 0.1 cm aggre gate of mucus and minut e white -law tissu e. The entir e speci men is submi tted in one casse tte. Gross ed by César burnett Not Available [facility] (Lab) [address], [place], [address], 09/27/2021 13:27:53 09/26/19 22 09/26/2021 pregn tian test, urine HCG negati ve Not Available [facility] [address], [place], [address], 09/26/2021 19:34:55 06/24/20 22 06/24/2022 HEPAT ITIS B SURFA CE ANTIG EN hepatitis B surface antigen Non-re active non-re active This assay was perfo rmed using [employer] ratio n reage nts and test kits. Value s obtai bonnie with other assay metho ds or kits canno t be used inter hernandez eably . Not Available [facility] [address] [place], [place] [address], [place], [address], 06/28/2022 17:22:41 06/24/2006/24/2022 HEPAT ITIS C ANTIB ANTHONY SCREE N, REFLE X TO CONFI RMATI ON hepatitis C antibody Non-re active non-re active Antib odies to HCV Not Detec pal, does not exclu de the possi bilit y of expos ure to HCV. Not Available [facility] [address] [place] [address], [address], 06/28/2022 17:22:42 06/24/20 22 06/24/2022 HEPAT ITIS B CORE, IGM hepatitis B core IgM antibody Negati ve negati ve Not Available [facility] [address] [place] [address], [address], 06/28/2022 17:22:42 06/24/20 22 06/24/2022 HERPE S SMPLE X VIRUS TYPE 1 SPECI FIC AB, IGG herpes simplex virus 1 IgG Positi ve negati ve abnormal Not Available [facility] [address] [place] [address], [address], 06/28/2022 17:22:42 06/24/20 22 06/24/2022 HERPE S SMPLE X VIRUS TYPE 1 SPECI FIC AB, IGG herpes simplex virus 1 IgG, quant 2.4 ai 0.0-0. 8 high Not Available [facility] [address] [place] [address], [address], 06/28/2022 17:22:42 06/24/20 22 06/24/2022 HERPE S SIMPL EX VIRUS TYPE 2 SPECI FIC AB, IGG herpes simplex virus 2 IgG Negati ve negati ve Not Available [facility] [address] [place], [place] [address], [place], [address], 06/28/2022 17:22:43 06/24/2006/24/2022 HERPE S SIMPL EX VIRUS TYPE 2 SPECI FIC AB, IGG herpes simples virus 2 IgG, quant <0.2 ai 0.0-0. 8 Not Available [facility] [address] [place], [place] [address], [place], [address], 06/28/2022 17:22:43 06/24/20 22 06/24/2022 HIV 1/2 ANTIG EN/AN TIBOD Y, REFLE X CONFI RMATI ON HIV Ag-Ab total quant 0.12 idx <1.00 Not Available [facility] Infect[facility] Disease [address] [place], [place] [address], [place], [address], 06/28/2022 17:22:43 06/24/20 22 06/24/2022 HIV 1/2 ANTIG EN/AN TIBOD Y, REFLE X CONFI RMATI ON HIV Ag-Ab total Non-re active non-re active Not Available [facility] [address] [place], [place] [address], [place], [address], 06/28/2022 17:22:43 06/24/20 22 06/24/2022 HIV 1/2 ANTIG EN/AN TIBOD Y, REFLE X CONFI RMATI ON HIV-1 antibody quant 0.06 idx <1.00 Not Available [facility] [address] [place], [place] [address], [place], [address], 06/28/2022 17:22:43 06/24/20 22 06/24/2022 HIV 1/2 ANTIG EN/AN TIBOD Y, REFLE X CONFI RMATI ON HIV-1 antibody Non-re active non-re active Not Available [facility] [address] [place], [place] [address], [place], [address], 06/28/2022 17:22:43 06/24/20 22 06/24/2022 HIV 1/2 ANTIG EN/AN TIBOD Y, REFLE X CONFI RMATI ON HIV-1 antigen (P24) quant 0.12 idx <1.00 Not Available [facility] [address] [place] [address], [address], 06/28/2022 17:22:43 06/24/20 22 06/24/2022 HIV 1/2 ANTIG EN/AN TIBOD Y, REFLE X CONFI RMATI ON HIV-1 antigen (P24) Non-re active non-re active Not Available [facility] [address] [place] [address], [address], 06/28/2022 17:22:43 06/24/20 22 06/24/2022 HIV 1/2 ANTIG EN/AN TIBOD Y, REFLE X CONFI RMATI ON HIV-2 antibody quant 0.12 idx <1.00 Not Available [facility] [address] [place] [address], [address], 06/28/2022 17:22:43 06/24/20 22 06/24/2022 HIV 1/2 ANTIG EN/AN TIBOD Y, REFLE X CONFI RMATI ON HIV-2 antibody Non-re active non-re active HIV testi ng is perfo rmed using [employer] oassa y techn ology . The final overa ll HIV Ag-Ab resul t is deter mined based on the final resul t for each indiv idual joel te. If any of the joel frankie has 2 or more repli cates that are REACT KIP, the final overa ll HIV Ag-Ab resul t is also React kip. A Non-R eacti ve test resul t at any point in the inves tigat ion of indiv idual subje cts does not precl ude the possi bilit y of expos ure to or infec tion with HIV-1 and/o r HIV-2 . Non-R eacti ve resul ts can occur if the quant ity of marke r prese nt in the sampl e is below the detec tion limit s of the assay . React kip speci mens must be inves tigat ed by addit ional , more speci fic suppl ement al tests . Speci men confi rmati on will be perfo rmed by the [employer] HIV 1/2 Suppl ement al Assay . The perfo rmanc e of this assay has not been estab lishe d for neona frankie and the assay shoul d not be used in indiv idual s young er than 2 years of age. Not Available [facility] [address] [place], [address], 06/28/2022 17:22:43 06/24/20 22 06/24/2022 RPR SCREE N/REF JIM TITER /FTA RPR screen Nonrea ctive nonrea ctive Not Available [facility] [address] [place], [address], 06/28/2022 17:22:44 06/24/20 22 06/24/2022 HERPE S SIMPL EX VIRUS , 1 AND 2 IGM, IFA hsv 1 IgM screen NEGATI VE Not Available [facility] [address] [place], [address], 06/28/2022 17:22:44 06/24/20 22 06/24/2022 HERPE S SIMPL EX VIRUS , 1 AND 2 IGM, IFA hsv 2 IgM screen NEGATI VE REFER ENCE RANGE : NEGAT KIP HSV IgM is detec table in serum from >90% of patie nts with prima ry HSV infec tion. Howev er, HSV IgM canno t be relia augusta used to diagn ose acute /rece nt infec tion as it is also found in 30% of patie nts with react ivate d HSV. This test may not disti nguis h betwe en HSV-1 IgM and HSV-2 IgM due to cross -reac tivit y. To diagn ose acute genit al or mucos al HSV infec tion, direc t detec tion from a lesio n by cultu re or jordan collins ds is prefe rred. HSV IgM posit ivity shoul d be confi rmed by HSV-1 /2 type- speci fic IgG testi ng. This test was devel oped and its joel tical perfo rmanc e antionette cteri stics have been deter mined by [employer]. It has not been clear ed or appro pietro by FDA. This assay has been valid ated pursu ant to the CLIA regul ation s and is used for clini roberto purpo ses. Perfo rming Organ izati on Infor matsuzi n: Site ID: [id number] Name: [employer]/Rowdy langley [facility] , Addre ss: [id number] [place] [address] Direc tor: Trinidad perez MD,Ph D,NONA Not Available [facility] [address] [place], [address], 06/28/2022 17:22:44 06/24/20 22 06/24/2022 VAGIN ITIS/ VAGIN OSIS, DNA PROBE marcia sp. detection, direct probe Negati ve negati ve Not Available [facility] [address] [place], [address], 06/28/2022 21:43:03 06/24/20 22 06/24/2022 VAGIN ITIS/ VAGIN OSIS, DNA PROBE gardnerella vag. detection, direct probe Positi ve negati ve abnormal Not Available [facility] [address] [place], [address], 06/28/2022 21:43:03 06/24/20 22 06/24/2022 VAGIN ITIS/ VAGIN OSIS, DNA PROBE trichomonas vag. detection, direct probe Negati ve negati ve Not Available [facility] [address] [place], [address], 06/28/2022 21:43:03 06/24/20 22 06/24/2022 CT/GC AND TRICH [place] (RRNA ), SWAB chlamydia trachomatis, PCR Negati ve negati ve Not Available [facility] [address] [place] [address], [address], 06/28/2022 21:43:04 06/24/20 22 06/24/2022 CT/GC AND TRICH [place] (RRNA ), SWAB neisseria gonorrhoeae, PCR Negati ve negati ve Not Available [facility] [address] [place] [address], [address], 06/28/2022 21:43:04 06/24/20 22 06/24/2022 CT/GC AND TRICH [place] (RRNA ), SWAB trichomonas vaginalis ribosomal RNA (rrna) Negati ve negati ve Not Available [facility] [address] [place] [address], [address], 06/28/2022 21:43:04 06/24/20 22 06/24/2022 CULTU RE: HERPE S SIMPL EX VIRUS (HSV) , REFLE X TYPIN G source RT LABIA MAJORA Not Available [facility] [address] [place] [address], [address], 06/28/2022 21:43:04 06/24/20 22 06/24/2022 CULTU RE: HERPE S SIMPL EX VIRUS (HSV) , REFLE X TYPIN G hsv culture, body fluid NOT ISOLAT ED REFER ENCE RANGE : NOT ISOLA PAL right labia major a Perfo rming Organ izati on Infor matio n: Site ID: [id number] Name: [facility]dy [facility]ols [facility] , Addre ss: [address] [place] [address] Direc tor: Trinidad perez MD,Ph D,NONA Not Available [facility] [address], [place], [address], 06/28/2022 21:43:04 10/01/19 23 10/01/2022 IMAGE GUIDE D PAP AND HPV REGAR DLESS image guided Pap, HPV regardless of Pap result SEE RESULT S BELOW CASE REPOR T: Cytol ogy Gynec ologi roberto Repor t Case: [id number] Autho rikemaln g Provi rigo: Brigid Nair, TENTER FEEDER Colle cted: 10/01 1728 Order ing Locat ion: [place] Patho logy Recei pietro: 10/02 0639 First Scree n: Darlyn Kim, CT Speci men: Scree amado Pap - Image d, Cervi x STATE MENT OF ADEQU ACY: Satis facto ry for evalu ation Trans forma tion zone compo nent prese nt FINAL DIAGN OSIS: Negat kip for Intra epith elial Lesio n or Jason reynolds (NIL) . Elect janina malhotra d by Darlyn Kim, CT on 2022 at 11:08 AM ----- ----- ----- ----- ----- ----- ----- ----- ----- ----- ----- ----- ----- ----- ----- ----- ----- ---- HPV RESUL TS: HPV mRNA E6/E7 : No HPV mRNA Detec pal NOTE: This high risk HPV mRNA assay detec ts fourt een high- risk HPV types (16, 18, 31, 33, 35, 39, 45, 51, 52, 56, 58, 59, 66, 68) witho ut diffe renti ation . COMME NT: Note: This speci men was revie wed by a Cytot echno logis t and/o r Patho logis t (as indic ated in this repor t) after evalu ation using the Thinp rep Imagi ng Syste m. CLINI ROBERTO INFOR MATIO N: Menst rual Statu s: LMP (if appli cable ): Clini roberto Histo ry/Pr eviou s Pap: Type of Neopl stephen (if appli cable ): Signi fican t Clini roberto Findi ngs: Other Histo ry: Hormo maria luz (if appli cable ): PAP EDUCA MADELIN L NOTE: The Pap Test is a scree amado test with an inher ent false negat kip rate. Liqui d-bas ed sampl ing may decre ase, but will not elimi keshawn, false negat kip resul ts. A negat kip resul t does not precl ude the prese nce and/o r devel opmen t of disea se, since the prese nce of abnor mal cells in the sampl e depen ds on the locat ion of the lesio n and sampl ing techn ique. Gaby nued regul ar scree amado is the best metho d of cance r preve ntion . If repor pal cytol ogic findi ng do not corre late with physi roberto and/o r histo rical findi ngs, furth er inves tigat ion is recom toni d, as clini alicia rodriguez nted. Not Available [facility] (Lab) [address], [place], [address], 10/03/2022 12:11:31 09/01/20 24 09/01/2024 IMAGE GUIDE D PAP AND HPV REGAR DLESS image guided Pap, HPV regardless of Pap result SEE RESULT S BELOW CASE REPOR T: Cytol ogy Gynec ologi roberto Repor t Case: [id number] Autho tarun aviles Provi rigo: Dermravinder marti, Rosina , ANP, INSERTER Colle cted: 09/01 1707 Order ing Locat ion: [place] Patho logy Recei pietro: 09/02 0144 First Scree n: Strut z, Willi am, CT Rescr een: DeLuc a, Araceli, CT Speci men: Scree amado Pap - Image d, Cervi x STATE MENT OF ADEQU ACY: Satis facto ry for evalu ation Trans forma tion zone compo nent canno t be defin itive ly ident ified due to the prese nce of atrop hy or other hormo nal hernandez es Parti ally obscu ring infla mmati on prese nt. ----- ----- ----- ----- ----- ----- ----- ----- ----- ----- ----- ----- ----- ----- ----- ----- ----- ---- FINAL DIAGN OSIS: Negat kip for Intra epith elial Lessuzi n or Jason reynolds ([facility]) . Atrop hic cell aleena rn. Elect janina malhotra d by Araceli agge, CT on 09/13 at 1158 DISTRIBUTION ENGINEERING TECHNOLOGIST ----- ----- ----- ----- ----- ----- ----- ----- ----- ----- ----- ----- ----- ----- ----- ----- ----- ---- HPV RESUL TS: HPV mRNA E6/E7 : No HPV mRNA Detec pal NOTE: This high risk HPV mRNA assay detec ts fourt een high- risk HPV types (16, 18, 31, 33, 35, 39, 45, 51, 52, 56, 58, 59, 66, 68) witho ut diffe renti ation . COMME NT: This speci men was revie wed by a Cytot echno logis t and/o r Patho logis t (as indic ated in this repor t) after evalu ation using the Thinp rep Imagi ng Syste m. CLINI ROBERTO INFOR MATIO N: Menst rual Statu s: LMP (if appli cable ): Clini roberto Histo ry/Pr eviou s Pap: Type of Neopl stephen (if appli cable ): Signi fican t Clini roberto Findi ngs: Other Histo ry: Hormo maria luz (if appli cable ): PAP EDUCA MADELIN L NOTE: The Pap Test is a scree amado test with an inher ent false negat kip rate. Liqui d-bas ed sampl ing may decre ase, but will not elimi keshawn, false negat kip resul ts. A negat kip resul t does not precl ude the prese nce and/o r devel opmen t of disea se, since the prese nce of abnor mal cells in the sampl e depen ds on the locat ion of the lesio n and sampl ing techn ique. Gaby nued regul ar scree amado is the best metho d of cance r preve ntion . If repor pal cytol ogic findi ng do not corre late with physi roberto and/o r histo rical findi ngs, furth er inves tigat ion is recom toni d, as clini alicia warrmerari nted. Not Available [facility] (Lab) [address], [place], [address], 09/13/2024 13:01:56 09/03/20 21 09/03/2021 MAMMO , scree amado, tomos ynthe sis, bilat eral, w/ CAD No observ ation record ed. layran [facility] Records [address], [place], [address], 09/04/2021 09:51:09 12/24/19 23 DEXA, axial skele ton + verte bral fract ure asses sment No observ ation record ed. [email or web address] [facility] [address], [place], [address], 01/01/2023 10:01:22 10/04/19 25 10/02/2024 MAMMO , scree amado, digit al, bilat eral No observ ation record ed. [email or web address] [facility] [address], [place], [address], 10/04/2024 13:01:54 Result Notes None recorded. Problems Name Problem SNOMED Code Status Onset Date Resolution Date Notes Provider Name and Address Organization Details Recorded Time Screenin g for malignan t neoplasm of rectum Completed 201810/30/2020 Encounte r for screenin g for malignan t neoplasm of rectum;P ractice ID: 0001 Karley castanon [facility] 12:52:[address] Concept Completed 201810/30/2020 Encntr for piling setter exam (general ) (routine ) w/o abn findings ;Practic e ID: 0001 Karley Jean Baptiste [facility] 12:52:53 Evaluati on finding Completed 201810/30/2020 Hematuri a, unspecif ied;Prac josh ID: 0001 Karley Jean [facility]iste [facility] 12:52:33 Urinary tract infectio us disease [id number] Completed 201810/30/2020 Urinary tract infectio n, site not specifie d;Practi ce ID: 0001 Karley Jean [facility]iste [facility] 12:52:[address] Concept Completed 201510/30/2020 Encntr for general adult medical exam w/o abnormal findings ;Practic e ID: 0001 Karley castanon [facility] 12:52:52 Screenin g for malignan t neoplasm of cervix Completed 201210/30/2020 Pap Smear;Pr actice ID: 0001 Karley Jean Baptiste [facility] 12:52:50 Dysfunct ional uterine bleeding Completed 201210/30/2020 DUB;Prac josh ID: 0001 Karley Fernándezan [facility] 12:52:31 Uterine leiomyom a [id number] Completed 201210/30/2020 Leiomyom a of uterus, unspecif ied;Prac johs ID: 0001 Karley castanon, [facility] 12:52:58 Menstrua tion finding Completed 201210/30/2020 Menorrha jose Excessiv e Menstrua tion;Pra ctice ID: 0001 Karley castanon, [facility] 12:52:40 Premenop ausal menorrha jose Completed 201310/30/2020 Premenop ausal menorrha jose;Prac josh ID: 0001 Karley castanon, [facility] 12:52:47 Insertio n of intraute rine contrace ptive device Completed 201310/30/2020 INSERTIO N OF IUD;Prac josh ID: 0001 Karley castanon, [facility] 12:52:37 Pregnanc y test negative [id number] Completed 201310/30/2020 Negative Pregnanc y Test;Pra ctice ID: 0001 Karley castanon, [facility] 12:52:44 Family planning surveill ance Completed 201310/30/2020 Contrace ptive surveill ance, unspecif ied;Prac josh ID: 0001 Karley castanon, [facility] 12:52:34 Adult health examinat ion Completed 201310/30/2020 Routine general medical examinat ion at a health care facility ;Practic e ID: 0001 Karley castanon, [facility] 12:52:29 Speciali zed medical examinat ion Completed 201310/30/2020 Routine gynecolo gical examinat ion;Prac josh ID: 0001 Karley castanon [facility] 12:52:55 Pregnanc y test positive [id number] Completed 201310/30/2020 Positive Pregnanc y Test;Pra ctice ID: 0001 Karley castanon [facility] 12:52:45 Postoper ative follow-u p visit Completed 201310/30/2020 Follow Up Surgery; Practice ID: 0001 Karley castanon [facility] 12:52:41 Menopaus al symptom [id number] Completed 201410/30/2020 Menopaus al or female climacte keyon states;P ractice ID: 0001 Karley castanon [facility] 12:52:[address] Concept Completed 201610/30/2020 Encounte r for general adult medical exam w abnormal findings ;Practic e ID: 0001 Karley castanon [facility] 12:52:48 Acute vaginiti s [id number] Completed 201710/30/2020 Acute vaginiti s;Practi ce ID: 0001 Karley castanon [facility] 12:52:27 Herpes simplex [id number] Completed 201710/30/2020 Herpesvi ral infectio n, unspecif ied;Prac josh ID: 0001 Karley castanon [facility] 12:52:36 Pre-surg ashley evaluati on Completed 201310/30/2020 Pre-oper ative examinat ion, unspecif ied;Aiden rded Elsewher e: No Locat ion: Jenny ayala [facility] S ource: EHR Bench Shear Operator rowdy: N Practi ce ID: 0001 Frank lable Time: 02:00:00 PM Karley castanon [facility] 12:52:43 Problem Notes None recorded. Procedures Surgical History Date Name Laterality Status Provider Name and Address Organization Details Recorded Time 03/22/20 24 Abdominoplasty completed Avani [facility] 09/01/2024 17:23:39 10/01/19 23 Date of Last Pap Smear completed [facility]vani [facility] 09/01/2024 17:23:03 09/22/19 23 Date of Last Mammogram completed [facility] 09/01/2024 17:25:13 09/26/19 22 Colposcopy completed Kacy Higuera CNM [address], [place], [address], [facility] 09/26/2021 17:06:03 09/26/19 22 Colposcopy completed Sanam Ro [facility] 09/26/2021 19:44:23 09/26/19 22 Colposcopy completed Sanam Ro [facility] 09/26/2021 19:45:47 10/23/19 19 repair of small intestine completed Sanam Ro [facility] 10/25/2021 13:23:13 09/22/19 14 Hysteroscopy completed Sanam Ro [facility] 10/25/2021 13:22:19 09/22/19 13 completed Karley Jean Baptiste [facility] 10/30/2020 15:12:14 09/22/18 87 Appendectomy completed Karley Jean Baptiste [facility] 10/30/2020 15:16:04 09/22/18 66 tonsillectomy completed Karley Jean Baptiste [facility] 10/30/2020 15:15:51 Hysteroscopy completed Johanne Wayne [facility] 06/24/2022 16:09:40 Imaging Results Imaging Date Name Status LastModified by Organiz ation Details LastModified Time 09/03/2021 MAMMO, screening, tomosynthesis, bilateral, w/ CAD completed [facility] [address], [place], [address], 09/04/2021 09:51:09 12/23/2022 DEXA, axial skeleton + vertebral fracture assessment completed [email or web address] [facility] [address] [address], [place], [address], 01/01/2023 10:01:22 10/02/2024 MAMMO, screening, digital, bilateral completed [email or web address] [facility] [address] [facility], [place], [address], 10/04/2024 13:01:54 Procedure Notes None recorded. Medical Equipment None Reported. Allergies Allergen ID Allergen Name Allergen Category Reaction Reaction Severity Criticality Documentation Date Start Date Code Code System Note Provider Name and Address Organization Details Recorded Time 87814 iodine medicatio n Not available Not available Not available 09/08/2020 5933 RxNorm Karley castanon, [facility] 15:10:10 Medications Name Sig Start Date Stop Date Status Note LastModified by Organization Details LastModified Time azithromy shaun 250 mg tablet 06/24 completed Not Available Not Available Not Available fluconazo le 150 mg tablet TAKE 1 TABLET BY MOUTH EVERY DAY FOR 1 DAY 06/24 completed Not Available Not Available Not Available metronida zole 0.75 % (37.5 mg/5 gram) vaginal gel INSERT ONE APPLICAT ORFUL VAGINALL Y AT BEDTIME FOR 5 NIGHTS 07/24 completed Not Available Not Available Not Available prednison e 20 mg tablet TAKE 2 TABLETS BY MOUTH EVERY DAY WITH FOOD FOR 5 DAYS 06/24 completed Not Available Not Available Not Available valacyclo vir 500 mg tablet TAKE 1 TABLET BY MOUTH TWICE DAILY FOR 3 DAYS 09/01 completed Not Available Not Available Not Available amoxicill in 875 mg tablet TAKE 1 TABLET BY MOUTH EVERY 12 HOURS FOR 7 DAYS 06/24 completed Not Available Not Available Not Available alprazola m 0.25 mg tablet TAKE 1 TABLET BY MOUTH EVERY DAY NEEDED FOR STRESS 09/01 completed Not Available Not Available Not Available Depo-Prov era 150 mg/mL intramusc ular suspensio n inject 1 millilit er by intramus cular route every 3 months 12/06 completed Prescrib ed Elsewher e: No Locat ion: [facility] odify By: amksherri ernandezunter DateTime : 06/02/20 14 03:00:00 PM Not Available Not Available Not Available meclizine 25 mg tablet TAKE 1 TABLET BY MOUTH THREE TIMES DAILY NEEDED 10/01 completed Not Available Not Available Not Available lisinopri l 10 mg tablet active Not Available Not Available Not Available lisinopri l 30 mg tablet take 1 tablet by oral route every day 10/30 completed Prescrib ed Elsewher e: Yes Loca tion: [facility] odify By: marianne saldana DateTime : 08/05/20 17 03:15:00 PM Not Available Not Available Not Available diclofena c sodium 75 mg tablet,de layed release TAKE 1 TABLET BY MOUTH TWICE DAILY NEEDED 09/01 completed Not Available Not Available Not Available estradiol 0.01% (0.1 mg/gram) vaginal cream Insert 1 applicat orful vaginall y 2 times per week 2023 active Not Available Not Available Not Avai lable Vitamin D2 1,250 mcg (50,000 unit) capsule take 1 capsule by oral route every week 10/30 completed Prescrib ed Elsewher e: No Locat ion: [facility] odify By: lory ernandezuntmark DateTime : 06/13/20 15 04:30:40 PM Not Available Not Available Not Available fluticaso ne propionat e 50 mcg/actua tion nasal spray,oksana pension USE 2 SPRAYS BY INTRANAS AL ROUTE ONCE A DAY active Not Available Not Available No t Available Bactrim DS 800 mg-160 mg tablet take 1 tablet by oral route every 12 hours 10/30 completed Prescrib ed Elsewher e: No Locat ion: [facility] odify By: luis daniel joaquin DateTime : 09/20/20 19 10:45:00 AM Not Available Not Available Not Available Vitamins and Minerals tablet 10/30 completed Prescrib ed Elsewher e: Yes Loca tion: [facility] odify By: gallito gonzalez DateTime : 05/31/20 13 01:00:00 PM Not Available Not Available Not Available Vitamin B-12 50 mcg lozenges 05/31 completed Prescrib ed Elsewher e: Yes Loca tion: [facility] odify By: gallito gonzalez DateTime : 12/26/19 12 03:30:00 PM Not Available Not Available Not Available Vitamin D3 25 mcg (1,000 unit) tablet 10/30 completed Prescrib ed Elsewher e: Yes Loca tion: [facility] odify By: gallito gonzalez DateTime : 05/31/20 13 01:00:00 PM Not Available Not Available Not Available nitrofura ntoin monohydra te/macroc rystals 100 mg capsule TAKE 1 CAPSULE BY MOUTH TWICE DAILY FOR 7 DAYS 06/24 completed Not Available Not Available Not Available Calcio Johnathan 500 mg tablet 10/30 completed Prescrib ed Elsewher e: Yes Loca tion: [facility] odify By: lory saldana DateTime : 12/26/19 12 03:30:00 PM Not Available Not Available Not Available Lysteda 650 mg tablet take 2 tablet (1300MG) by oral route 3 times every day during menses 12/06 completed Prescrib ed Elsewher e: No Locat ion: [facility] odify By: christopher saldana DateTime : 12/04/19 13 02:00:00 PM Not Available Not Available Not Available Vitals Date Recorded Body weight Body mass index (BMI) Body height Systolic blood pressure Diastolic blood pressure Provider Name and Address Organization Details Last Updated DateTime 09/26/2021 85445.45 g 23.4 kg/m2 154.94 cm 132 mm[Hg] 84 mm[Hg] Sanam Ro [facility] 2 16:43:34 Date Recorded Body height Body mass index (BMI) Body weight Systolic blood pressure Diastolic blood pressure Provider Name and Address Organization Details Last Updated DateTime 06/24/2022 154.94 cm 24.4 kg/m2 11848.13 g 125 mm[Hg] 83 mm[Hg] [facility] 2 16:09:36 Date Recorded Body height Body mass index (BMI) Body weight Systolic blood pressure Diastolic blood pressure Provider Name and Address Organization Details Last Updated DateTime 07/24/2022 154.94 cm 24.4 kg/m2 12082.13 g 104 mm[Hg] 72 mm[Hg] [facility] 2 16:42:47 Date Recorded Body height Body mass index (BMI) Body weight Systolic blood pressure Diastolic blood pressure Provider Name and Address Organization Details Last Updated DateTime 10/01/2022 154.94 cm 24.7 kg/m2 73515.16 g 121 mm[Hg] 77 mm[Hg] [facility] 3 16:41:16 Date Recorded Body height Body mass index (BMI) Body weight Systolic blood pressure Diastolic blood pressure Provider Name and Address Organization Details Last Updated DateTime 09/01/2024 154.94 cm 23.4 kg/m2 37223.45 g 113 mm[Hg] 79 mm[Hg] Avani Malou [facility] 4 17:22:02 Social History Question Answer Notes LastModified by Organizat ion Details LastModified Time Tobacco Smoking Status Never [facility] 10/01/2022 16:25:12 Do You Have An Advance Directive? No [email or web address] Information not available 09/26/2021 What Is Your Level Of Alcohol Consumption? Occasional [email or web address] Information not available 09/26/2021 Are You Blind Or Do You Have Difficulty Seeing? No Information not available 09/26/2021 What Is Your Level Of Caffeine Consumption? Moderate [email or web address] Information not available 09/26/2021 How Much Tobacco Do You Chew? None [email or web address] Information not available 09/26/2021 In The 14 Days Before Symptom Onset, Have You Had Close Contact With A Laboratory-confir med COVID-19 While That Case Was Ill? No [email or web address] Information not available 09/26/2021 In The 14 Days Before Symptom Onset, Have You Had Close Contact With A Person Who Is Under Investigation For COVID-19 While That Person Was Ill? No [email or web address] Information not available 09/26/2021 Have You Been To An Area Known To Be High Risk For COVID-19? No [email or web address] Information not available 09/26/2021 Are You Deaf Or Do You Have Serious Difficulty Hearing? No [email or web address] Information not available 09/26/2021 What Type Of Diet Are You Following? REGULAR [email or web address] Information not available 10/01/2022 What Is The Highest Grade Or Level Of School You Have Completed Or The Highest Degree You Have Received? 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 Yes [email or web address] Information not available 09/26/2021 Do You Use Protection During Sex? No [email or web address] Information not available 09/26/2021 Do You Use Your Seat Belt Or Car Seat Routinely? Yes [email or web address] Information not available 09/26/2021 Do You Have Smoke And Carbon Monoxide Detectors In Your Home? Yes [email or web address] Information not available 09/26/2021 How Much Tobacco Do You Smoke? No [email or web address] Information not available 09/26/2021 Do You Feel Stressed (tense, Restless, Nervous, Or Anxious, Or Unable To Sleep At Night)? MU1065-5 [email or web address] Information not available 09/26/2021 Do You Use Any Illicit Or Recreational Drugs? No [email or web address] Information not available 10/30/2020 Do You Use Sunscreen Routinely? Yes [email or web address] Information not available 09/26/2021 Has Tobacco Cessation Counseling Been Provided? No [email or web address] Information not available 10/01/2022 Have You Used IV Drugs? No [email or web address] Information not available 09/26/2021 Do You Or Have You Ever Used Any Other Forms Of Tobacco Or Nicotine? No [email or web address] Information not available 10/01/2022 Sex: Unknown Functional Status Question Answer Note LastModified by Organizat ion Details LastModified Time Do you have difficulty walking or climbing stairs? No [email or web address] Information not available 10/01/2022 Are you able to walk? YESWOREST [email or web address] Information not available 09/26/2021 Are you able to care for yourself? Yes [email or web address] Information not available 10/01/2022 Do you have difficulty dressing or bathing? No [email or web address] Information not available 10/01/2022 What is your exercise level? Occasional [email or web address] Information not available 09/26/2021 Mental Status None recorded. Family History Relationship Description Onset Age of this Age Resolved Age Notes LastModified by Organization Details LastModified Time Brother Asthma [email or web address] Not available 10/30/2020 15:15:22 Medical History Condition Response Allergies (Food, seasonal, environmental ) N Other N Breast Cancer N Drug/Latex Allergies/Reactions N Blood Transfusion N Dermatologic Disorders N Lung Disease N Defects or Inherited Disease N Breast Problem N Gestational Diabetes N Hematologic disorders N Anesthesia Complications N History of STI Y Deep Vein Thrombosis N Polycystic ovary syndrome N Anxiety Disorder N Autoimmune disease N Arthritis N Infertility N Polyps N Acid Reflux (GERD) N History of abnormal pap Y Cancer Y Stroke N Varicosities N Neurologic/Epilepsy N Endometriosis N High Cholesterol N Headaches N Fibromyalgia N Kidney Disease N Heart Problems Y Kidney or Bladder Problems N Thyroid Problems N GI Problems Y Eating Disorder N Anemia N Art (IVF or FET) N Psychiatric Illness N Ovarian Cancer N Diabetes N Pulmonary (TB, Asthma) N Hepatitis/Liver Disease N Eczema N Urinary Tract Infection N Abuse/Domestic Violence N Asthma N Trauma/Violence N Depression/ depression N Heart Disease Y Pre-Eclampsia N Hypertension N Osteoporosis N Thrombophilias N Gynecological History Statement/Question Response Abnormal Pap Y Date of Last Mammogram 09/22/2022 Date of LMP 09/22/2013 STIs/STDs Y HPV Vaccine N Colposcopy 09/26/2021 Current Control Method Menopause Sexually Active? Y Date of Last Pap Smear 10/01/2022 Sexual Problems? N Desired Control Method Ablation LMP Definite 09/22/2012 Obstetrics History GPAL:G 3 P 3 0 0 3 Type Value Full Term 3 Living 3 Total 3 Past Encounters Encounter ID Performer Location Encounter Start Date Encounter Closed Date Diagnosis/Indication Diagnosis SNOMED-CT Code Diagnosis ICD10 Code Diagnosis Note [id number] Kacy Higuera [facility] [address],[place] [address] 09/26/2021 16:25:24 09/26/2021 17:41:49 Atypical squamous cells of undetermined significance on cervical Papanicolaou smear 685789895 R87.610 Human jaquelin llomavirus deoxyribonucleic acid detected, high risk on cervical specimen 339220540 R87.810 [id number] Brigid Nair [facility] [address],[place] [address] 06/24/2022 15:55:16 06/24/2022 17:28:17 Lesion of vulva 165273289 N90.89 Highly suspect HSV outbreak given symptoms and hx of HSVHSV PCR collectedB lood STI panel orderedVag initis panel sentWe agreed to treat for HSV, RTC in 2 weeks for f/uR/B of medication discussed and accepted by patient Time spent in visit is a total of 30 mins with at least 50% of visit consisting of counseling and review of plan of care. Venereal d isease screening 807261404 Z11.3 Sexually t ransmitted infectious disease 8340330 A64 Genital he rpes simplex 26235621 A60.9 [id number] JERI Wallace [facility] [address],[place] [address] 07/24/2022 16:36:20 07/24/2022 17:02:26 Lesion of vulva 569774742 N90.89 Symptoms resolved after valtrex courseWe discussed negative HSV PCR, (+) HSV 1 AntibodyWe discussed likely HSV lesion given response to valtrex courseCan call if office if this occurs again for valtrex course Vaginitis 95127772 N76.0 Vaginitis symptoms resolved with metronidaz ole vaginal gel courseVulv ar care guidelines discussed in-depthHa ndout given to patientRTC for WWE in September as she is due for a repeat pap [id number] JERI Wallace [facility] [address] [address] 10/01/2022 16:23:30 10/01/2022 17:19:27 Screening for osteoporosis 476983080 Z13.820 Gynecologi c examination 04885303 Z01.419 Take Calcium with Vitamin D 12-1500mg daily. Do monthly self breast exams. It is advised to get annual flu shot in the fall and she could obtain at [facility] or [facility] care clinic. If you haven't received the Tdap vaccine in the last 10 years you should obtain one as well. Have mammogram yearly, bone density every 2-3 years and colonoscop y every 5-10 years depending on findings and history. Engage in daily exercise of low impact aerobic exercise 45-60 minutes 4-5 times weekly. Avoid tobacco and illicit drugs as well as using moderation with alcohol intake less than 1-2 8 oz beverages daily. This lifestyle behavior pattern will lead to less health conditions and longer life span. If BMI greater than 25 weight watchers or dietary consult advised. Questions have been answered. Patient appears to understand instructio ns, but if you have any further questions call or respond to this email WWEHx of neuroendoc rine cancer, with partial bowel dissection . Currently in remission, follows with oncology yearly.Pos tmenopausa lAbnormal pap hx08/21/21 ASCUS, HPV (+)09/26/20 colpo, (-)Pap done todaySTI testing declinedDr yness with IC. We discussed crisco twice daily to vulva as moisturize r. Use crisco as lubricatio n with IC. If no improvemen t, may consider vaginal estrogen.U TD with mammogramF ollowing with oncology for colonoscop yDexa order givenRTC in 1 year or sooner if needed Dyspareunia 20192486 N94 .10 [id number] ROSINA MYLES, JAELYN [facility] [address] [address] 09/01/2024 17:17:52 09/01/2024 17:59:37 Gynecologic examination 74437745 Z01.419 Annual gynecologi roberto exam performed. Patient will come back in a year unless there are new symptoms. Suggest Calcium with Vitamin D if not eating in diet. Patient advised to get annual flu shot. Recommend yearly physicals and perform monthly breast exams. Genetic testing is available for patients with family history of cancer. Engage in safe sexual practices, use condoms. Encouraged to have daily exercise. Avoid tobacco and illicit drugs, moderation of alcohol. If BMI greater than 25 dietary consult advised. If you have any questions please call or email. mammogram- Due; order given, pt to schedule colon cancer screening - MRI/CT scan yearly - followed by oncologist d/t cancer hx DEXA scan- UTD (2022) - followed by endocrinol ogist Pap smear - pap w/ HPV collected laboratory evaluation - PCP STI testing - declined Screening mammography 24 471685 Z12.31 Vaginal dryness 69397337 N89.8 Rx sent for vaginal estradiol cream to insert vaginally once nightly for 2 weeks, then twice weekly. Risks/bene fits reviewed.P atient to call with any questions or concerns.C ontinue using crisco or coconut oil as lubricant during intercours e. Counseled on the following: Vaginal Dryness: Bothersome symptoms of the vagina and vulva (outer lips of the vagina) increase during and after the menopause transition or may start several years after menopause. The decrease in estrogen with menopause is a major contributo r to vaginal dryness, itching, burning, discomfort , and pain during intercours e or other sexual activity. Vaginal atrophy is the medical term that describes these changes. The genitourin edmar syndrome of menopause includes bothersome vaginal atrophy often combined with urinary symptoms. Vaginal atrophy may significan tly affect your quality of life, sexual satisfacti on, and relationsh ip with your partner. Unlike hot flashes, which generally improve with time, vaginal symptoms typically worsen with time because of aging and a prolonged lack of estrogen. Vaginal estrogen therapy An effective and safe treatment, low-dose local estrogen is applied directly to the vagina to restore vaginal health and relieve vaginal dryness and discomfort with sexual activity. Improvemen ts usually occur within a few weeks, although complete relief may take several months. This even may be an option for women with a history of breast or uterine cancer but only after careful considerat ion of risks and benefits with a healthcare provider and oncologist . Governmen t-approved low-dose vaginal estrogen products are available by prescripti on as vaginal creams (used two or three nights/wee k), a vaginal estradiol tablet (used twice/week ), and an estradiol vaginal ring (changed every 3 months). All are highly effective. You may wish to try several different forms and choose the one you prefer. Standard doses of estrogen therapy provided to treat hot flashes also treat vaginal dryness, although some women still benefit from additional low-dose vaginal estrogen treatment. If only vaginal symptoms are present, low doses of estrogen applied to the vagina are recommende d. Resources: https://burke w.[employer]/docs /default-s ource/for- women/mn-v aginal-dry ness.pdf Dyspareunia [id number] N94 .10 Health Concerns Section Related Observation LastModified by Organization Detai ls LastModified Time None Recorded Concern Status LastModified by Organization Details LastModified Time None Recorded Advance Directives Directive N: Payers Encounter Date Sequence Insurance Name Policy Number Policy Palomares Covered Member ID Palomares Member ID Guarantor Name 09/26/[address] [facility] (O) [id number] Aimee Rosario [id number] Aimee Rosario 06/24/[address] [facility] (O) [id number] Aimee Rosario [id number] Aimee Rosario 07/24/[address] [facility] (O) [id number] Aimee Rosario [id number] Aimee Rosario 10/01/[address] [facility] (O) [id number] Aimee Rosario [id number] Aimee Rosario 09/01/[address] [facility] ([facility]) [id number] Aimee Rosario [id number] Aimee Rosario Notes Date Note Type Note Provider Name and Address Organization Details Recorded Time 09/26/2021 text/html pap at hs, asc us +HPV, no hx abnl pap, reviewed pap, pathology, hpv, colposcopy risks including bleeding and infection upt neg and consent signed Kacy Higuera CNM [address], [place], [address], [facility] 09/26/2021 17:07:24 06/24/2022 text/html 62yo presents fo r vulvar irritation for the past 5 days. She has noticed sores around the vaginal opening.SA with steady male partner x 4-5 yearsShe has a hx of HSV 4 years ago. Was treated and symptoms went away. Has not had symptoms again until now.She has a hx of neuroendocrine cancer, with partial bowel dissection. Currently in remission, f/u with oncology yearly. JERI Wallace [address], [place], [address], [facility] 06/24/2022 17:21:17 07/24/2022 text/html 62yo Presents fo r f/u on labs/lesionSymptoms resolved after valtrex course and metronidazole vaginal gelNo symptoms today, feeling well JERI Wallace [address], [place], [address], [facility] 07/24/2022 16:59:38 10/01/2022 text/html Annual Doctor Of Chiropractic Post-MenopausalRepor pal bypatient.Menopausal Symptoms:no menopausal symptoms; normal vaginal lubrication Vaginal Bleeding:history of menopause having occurred; no history of post menopausal bleeding Urinary Symptoms:no hematuria; no incontinence; no nocturia; no urinary frequency Vulva:no genital lesion; no vulvar atrophy Vagina:normal vaginal discharge; no vaginal atrophy Breast:no breast lump; no nipple discharge; no breast pain Sexual Complaints:no sexual complaints Psychological Symptoms:no depression; no anxiety Preventive Measures:encourage regular mammograms starting age 40; encourage self breast examination; encourage regular exercise; encourage no tobacco use; mammogram performed within the past year JERI Wallace [address], [place], [address], [facility] 10/01/2022 17:15:37 09/01/2024 text/html Annual Doctor Of Chiropractic Post-MenopausalRepor pal bypatient.Menopausal Symptoms:no menopausal symptoms;inadequacy of lubrication of vaginal mucosa Vaginal Bleeding:history of menopause having occurred; no history of post menopausal bleeding Urinary Symptoms:no hematuria; no incontinence; no nocturia; no urinary frequency Vulva:no genital lesion; no vulvar atrophy Vagina:normal vaginal discharge; no vaginal atrophy Breast:no breast lump; no nipple discharge; no breast pain Sexual Complaints:no sexual complaints;pain during intercourse Psychological Symptoms:no depression; no anxiety WWEHx of neuroendocrine cancer, with partial bowel dissection. Currently in remission, follows with oncology yearly.Post-menopaus al, denies abnormal bleeding.Patient reports dryness and pain with IC. Patient used vaginal estrogen in the past and did well. Patient states that she asked her oncologist about safety vaginal estrogen use and they said she could use it. Patient uses crisco as lubrication as needed. ROSINA MYLES NP [address], [place], [address], [facility] 09/01/2024 17:55:14 OBGyn Episode Ob Episode Information Episode Created Date Number of Fetuses Patient Bloodtype Patient rh Status Prepregnancy Weight lbs Domestic Partner Domestic Partner Phone Father Name Real Estate Intern Status 10/30/19 21 1 CLOSED Fetus Data First Name Last Name Admitted to NICU Weight (g) Sex Living Outcome Pediatric Complications Fetus ID Race Codes Race Delivery Type 3430.06 2704 M Full Term [id number] Vaginal Delivery Yair Calculation Initial Yair Date Initial Exam Date Initial Exam Provider Initial Ultrasound Date Last Menstrual Period Date Ultra Sound Weeks Gestation 0 Eighteen To Twenty Week Yair Update Ultra Sound Date Fundal Height At Umbil Quickening Date Ultra Sound Latest Weeks Gestation Final Yair Confirmed By Final Yair Confirmed Date Final Yair Date Ultra Sound Latest Days Gestation 0 0 Menstrual History Last Menstrual Date Menses Monthly On Bcp Conception Prior Menses Frequency Hcg Plus Date Menarche Onset Age Delivery Information Delivery Date Delivery Type Labor Anesthesia Weeks Gestation Incision Type Labor Labor Length Hrs Delivered By Post Complications Tubal Sterilization Discharge Date Comments 4 40 Discharge Information Feeding Method Contraceptive Method Maternal HG B and HCT Levels Ob Episode Information Episode Created Date Number of Fetuses Patient Bloodtype Patient rh Status Prepregnancy Weight lbs Domestic Partner Domestic Partner Phone Father Name Real Estate Intern Status 10/30/19 21 1 CLOSED Fetus Data First Name Last Name Admitted to NICU Weight (g) Sex Living Outcome Pediatric Complications Fetus ID Race Codes Race Delivery Type [id number] M Full Term [id number] Vaginal Delivery Yair Calculation Initial Yair Date Initial Exam Date Initial Exam Provider Initial Ultrasound Date Last Menstrual Period Date Ultra Sound Weeks Gestation 0 Eighteen To Twenty Week Yair Update Ultra Sound Date Fundal Height At Umbil Quickening Date Ultra Sound Latest Weeks Gestation Final Yair Confirmed By Final Yair Confirmed Date Final Yair Date Ultra Sound Latest Days Gestation 0 0 Menstrual History Last Menstrual Date Menses Monthly On Bcp Conception Prior Menses Frequency Hcg Plus Date Menarche Onset Age Delivery Information Delivery Date Delivery Type Labor Anesthesia Weeks Gestation Incision Type Labor Labor Length Hrs Delivered By Post Complications Tubal Sterilization Discharge Date Comments 8 40 Discharge Information Feeding Method Contraceptive Method Maternal HG B and HCT Levels Ob Episode Information Episode Created Date Number of Fetuses Patient Bloodtype Patient rh Status Prepregnancy Weight lbs Domestic Partner Domestic Partner Phone Father Name Real Estate Intern Status 10/30/19 21 1 CLOSED Fetus Data First Name Last Name Admitted to NICU Weight (g) Sex Living Outcome Pediatric Complications Fetus ID Race Codes Race Delivery Type [id number] F Full Term [id number] Vaginal Delivery Yair Calculation Initial Yair Date Initial Exam Date Initial Exam Provider Initial Ultrasound Date Last Menstrual Period Date Ultra Sound Weeks Gestation 0 Eighteen To Twenty Week Yair Update Ultra Sound Date Fundal Height At Umbil Quickening Date Ultra Sound Latest Weeks Gestation Final Yair Confirmed By Final Yair Confirmed Date Final Yair Date Ultra Sound Latest Days Gestation 0 0 Menstrual History Last Menstrual Date Menses Monthly On Bcp Conception Prior Menses Frequency Hcg Plus Date Menarche Onset Age Delivery Information Delivery Date Delivery Type Labor Anesthesia Weeks Gestation Incision Type Labor Labor Length Hrs Delivered By Post Complications Tubal Sterilization Discharge Date Comments 1 41 Discharge Information Feeding Method Contraceptive Method Maternal HG B and HCT Levels
--- OUTSIDE RECORDS SUMMARY | 2024-11-10 06:01 | XMS_ITS | Referral Summary ---
Author Organization [facility] [place] [address] [address] Address [address] [place] [address] Care Team Providers Care Chair Frame Builder Name Role Phone Manas Mathews MD Unavailable [phone] Marek Hernandes DO Unavailable [phone] Marce Manriquez MD Unavailable [phone] Mariah Collier MD Primary Care Provider + Tez Sweet MD Unavailable [phone] Encounters Date Type Department Care Team Description 10/19/2024 4:40 PM [facility] Telemedicine [facility] Endocrinology Metabolism and Lipid [address] [facility] [address] [place] [address] Taqueria Garcia MD Thyroid nodule (Primary Dx); Gastroesophageal reflux disease without esophagitis; Obstructive sleep apnea syndrome 09/23/2024 Orders Only [facility] Endocrinology Metabolism and Lipid [address] [facility] [address] [place] [address] [place] [address] Lety Stevenson RN 09/23/2024 Orders Only [facility] Endocrinology Metabolism and Lipid [address] [facility] [address] [place] [address] [place] [address] Lety Stevenson, RN 09/23/2024 Telephone [facility] Endocrinology Metabolism and Lipid [address] [facility] [address] [place] [address] [place] [address] Lety Stevenson, TOÑO from Last 3 Months Allergies Active Allergy Reactions Criticality Noted Date Comments Iodinated Contrast Media Nausea only Low 09/11/2017 Iodine Nausea only Low 01/06/2023 Shellfish Containing Products Nausea only Low 09/11 Medications lisinopril (PRINIVIL,ZESTR IL) 10 mg tablet Take 1.5 tablets (15 mg total) by mouth daily Active ergocalciferol (VITAMIN D) 50,000 unit capsule Take 1 capsule (50,000 Units total) by mouth once a week 5 Active multivitamin with minerals (Multiple Vitamin-Mineral s) tablet Active pantoprazole DR (PROTONIX) 20 mg EC tablet Take 1 tablet (20 mg total) by mouth daily 90 tablet 3 5 10/19/19 26 Active ALPRAZolam (XANAX) 0.25 mg tablet as needed 1 9 10/19/19 25 Discontinu ed(Therapy completed) Flowflex COVID-19 Ag Home Test kit 3 10/19/19 25 Discontinu ed(Alterna te therapy) albuterol HFA (PROVENTIL HFA,VENTOLIN HFA,PROAIR HFA) 90 mcg/actuation inhaler 3 10/19/19 25 Discontinu ed(Therapy completed) Active Problems Problem Noted Date Diagnosed Date Bowel perforation 03/11/2023 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 Patent foramen ovale 09/11/2017 Immunizations Immunization Administration Dates Next Due Tdap 01/12/2019 Social History Tobacco Use Types Packs/Day Years Used Date Smoking Tobacco: Never Passive Smoke Exposure: Never Smokeless Tobacco: Never Tobacco Cessation:Counseling Given: Not Answered Alcohol Use Standard Drinks/Week Comments Yes 2 (1 standard drink = 0.6 oz pur e alcohol) Comments No Sex and Gender Information Value Date Recorded Sex Assigned at Not on file Legal Sex Female 8:22 PM [facility] Gender Identity Not on file Sexual Orientation Not on file Last Filed Vital Signs Vital Sign Reading Time Taken Comments Blood Pressure 137/89 05/26/2024 3:40 PM CDT Pulse 86 05/26/2024 3:40 PM CDT Temperature 36.8 C (98.2 F) 05/26/2024 3:40 PM CDT Respiratory Rate 18 03/08/2024 10:04 AM CDT Oxygen Saturation 98% 03/08/2024 10:04 AM CDT Inhaled Oxygen Concentration - - Weight 57 kg (125 lb 9.6 oz) 05/26/2024 3:40 PM CDT Height 154.9 cm (5' 1 ) 05/26/2024 3:40 PM CDT Body Mass Index 23.73 05/26/2024 3:40 PM CDT Plan of Treatment Not on file Procedures Procedure Name Priority Date/Time Associated Diagnosis Comments CORTISOL Routine 10/05/2024 8:29 AM [facility] ESTRADIOL Routine 10/05/2024 8:29 AM [facility] T4, FREE Routine 10/05/2024 8:29 AM [facility] DEXAMETHASONE Routine 10/05/2024 8:29 AM [facility] Weight gain THYROID PEROXIDASE ANTIBODY Routine 10/05/2024 8:29 AM [facility] Weight gain TSH Routine 10/05/2024 8:29 AM [facility] Weight gain from Last 3 Months Results * Dexamethasone (10/05/2024 8:29 AM [facility]) DEXAMETHASONE 222 ng/dL [facility], Comment: Reference Ranges for Dexamethasone: Baseline: Less than 20 ng/dL 1 mg dexamethasone overnight: 180-550 ng/dL (8:00-10:00 AM) This test was developed and its analytical performance characteristics have been determined by [facility]. It has not been cleared or approved by FDA. This assay has been validated pursuant to the CLIA regulations and is used for clinical purposes. Blood 10/05/2024 8:29 AM [facility] 10/05/2024 8:30 AM [facility] us Taqueria Garcia MD LAB BLOOD ORDERABLES Final Resu lt Performing Organization Address City/[facility]/ZIP Co de Phone Number [facility], [address] [place] [address] * Thyroid peroxidase antibody (TPO) (10/05/2024 8:29 AM [facility]) Thyroperoxidase ab 1 <9 IU/mL [facility] Blood 10/05/2024 8:29 AM [facility] 10/05/2024 8:30 AM [facility] us Taqueria Garcia MD LAB BLOOD ORDERABLES Final Resu lt Performing Organization Address [facility] Co de Phone Number [facility] [place] [address] * Estradiol (10/05/2024 8:29 AM [facility]) Estradiol 15 pg/mL [facility] Comment: Reference Range Follicular Phase: 19-144 Mid-Cycle: 64-357 Luteal Phase: 56-214 Postmenopausal: < or = 31 Reference range established on post-pubertal patient population. No pre-pubertal reference range established using this assay. For any patients for whom low Estradiol levels are anticipated (e.g. males, pre-pubertal children and hypogonadal/post-menopausal females), the [facility] Estradiol, Ultrasensitive, LCMSMS assay is recommended (order code 12268). Please note: patients being treated with the drug fulvestrant (Faslodex(R)) have demonstrated significant interference in immunoassay methods for estradiol measurement. The cross reactivity could lead to falsely elevated estradiol test results leading to an inappropriate clinical assessment of estrogen status. [facility] order code [id number], Ultrasensitive LC/MS/MS demonstrates negligible cross reactivity with fulvestrant. 10/05/2024 8:29 AM [facility] 10/05/2024 8:30 AM [facility] us Taqueria Garcia MD LAB BLOOD ORDERABLES Final Resu lt Performing Organization Address City/[facility] Co de Phone Number [facility] [address] [address] [place] [phone] * TSH (10/05/2024 8:29 AM [facility]) TSH 0.58 0.40 - 4.50 mIU/L [facility] Blood 10/05/2024 8:29 AM [facility] 10/05/2024 8:30 AM [facility] Taqueria Garcia MD LAB BLOOD ORDERABLES Final Resu lt Performing Organization Address [facility] Co de Phone Number [facility] [place] [address] [address] [place] [phone] * T4, free (10/05/2024 8:29 AM [facility]) Free T4 1.3 0.8 - 1.8 ng/dL [facility] 10/05/2024 8:29 AM [facility] 10/05/2024 8:30 AM [facility] Taqueria Garcia MD LAB BLOOD ORDERABLES Final Resu lt Performing Organization Address [facility] de Phone Number [facility] [address] [place] [address] * (ABNORMAL) Cortisol (10/05/2024 8:29 AM [facility]) Cortisol 1.4(L) mcg/dL [facility] Comment: Reference Range: For 8 a.m.(7-9 a.m.) Specimen: 4.0-22.0 Reference Range: For 4 p.m.(3-5 p.m.) Specimen: 3.0-17.0 * Please interpret above results accordingly * 10/05/2024 8:29 AM [facility] 10/05/2024 8:30 AM [facility] Taqueria Garcia MD LAB BLOOD ORDERABLES Final Resu lt Performing Organization Address [facility]/ZIP Co de Phone Number [facility] [address] [address] [phone] from Last 3 Months [id number] PL[facility] Care Teams Chair Frame Builder Relationship Specialty Start Date End Date Mariah Collier MD [address] [place] [address] PCP - General Family Medicine 12/31/21 Manas Mathews MD General Surgery 12/02/18 Marek Hernandes DO Hvac Sales Representative Gastroenterology 12/22/20 Marce Manriquez MD [address] [facility], [facility] [address] [place] [address] Medical Oncologist Medical Oncology 12/25/20 Tez Sweet MD [phone] [place] [address] Surgeon Colon and Rectal Surgery 03/11/23
--- OUTSIDE RECORDS SUMMARY | 2024-11-10 06:01 | XMS_ITS | Data Portability ---
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 Plan of Treatment Reminders Order Date Submit Date Provider Last Modified By Organization Details Last Modified Time Details Appointments None recorded. Lab vitamin D, 25-hydroxy, total, serum 2022 024 [email or web address] [id number] Not available 4 08:51:50 BMP, serum or plasma 2022 024 [email or web address] Not available 4 08:51:50 lipid panel, serum 2022 024 [email or web address] Not available 4 08:51:50 hepatic function panel, serum 2022 024 [email or web address] Not available 4 08:51:50 vitamin B12, serum 2022 024 [email or web address] Not available 4 08:51:50 folate, serum 2022 024 [email or web address] Not available 4 08:51:50 CBC w/ auto diff 2022 024 [email or web address] Not available 4 08:51:50 celiac disease comprehensi ve panel, serum 2022 023 [facility], [address], [address], [place], [address], 3 16:06:15 pancreatic elastase, stool 2022 023 [facility], [address], [address], [place], [address], 3 16:06:21 fecal fat, qualitative , stool 2022 023 [facility], [address], [address], [place], [address], 3 16:06:13 PTH (parathyroi d hormone), intact + calcium, serum or plasma 2022 023 [facility], [address], [address], [place], [address], 3 16:06:09 TSH + free T4, serum 2022 023 [facility], [address], [address], [place], [address], 3 16:06:20 calcium/cre atinine, ratio, 24h urine 2022 023 [facility], [address], [address], [place], [address], 3 16:06:12 dexamethaso ne, serum 2022 023 [facility], [address], [address] [address], [place], [address], 3 14:05:02 cortisol, am, serum 2022 023 [facility], [address], [address] [address], [place], [address], 3 14:05:03 CMP, serum or plasma 2022 023 [employer] [facility][1], [address], [address] [address], [place], [address], 3 16:06:11 vitamin D, 25-hydroxy, total, serum 2022 023 [employer] [facility][1], [address], [address] [address], [place], [address], 3 16:06:19 vitamin B12 + folate, serum or blood 2022 023 [employer] [facility][1], [address], [address], [place], [address], 3 16:06:18 thyroid peroxidase (tpo) Ab, serum 2022 023 [employer] [facility][1], [address], [address] [address], [place], [address], 3 16:06:17 iron + total iron-bindin g capacity (TIBC), serum 2022 023 [employer] [facility][1], [address], [address] [address], [place], [address], 3 16:06:10 JEFFREY (antinuclea r antibodies) screen, ifa, serum 2022 023 [employer] [facility][1], [address], [place], [address], 3 16:06:16 CBC w/ auto diff 2022 023 [employer] [facility][1], [address], [place], [address], 3 16:06:14 Referral None recorded. Procedures None recorded. Surgeries None recorded. Imaging None recorded. Medication Orders pantoprazol e 40 mg tablet,kaila trevizod release 2022 023 BERT[facility] #[id number], [address] [facility], [place], [place], [id number], 3 15:53:09 cyanocobala min (vit B-12) 1,000 mcg/mL injection solution 2022 023 [email or web address] [facility] #50708, [address] [facility], [place], [place], [id number], 3 21:04:08 folic acid 1 mg tablet 2022 023 [facility] #86486, [address] [facility], [place], [place], [id number], 3 21:04:08 dexamethaso ne 1 mg tablet 2022 023 [email or web address] [facility] #[id number], [address] [facility], [place], [place], [id number], 3 15:35:10 Patient TargetsNo targets recorded. Patient InstructionsNo instructions recorded. Reason for Referral None Reported. Results Created Date Observation Date Name Description Value Unit Range Abnormal Flag Note LastModifiedBy Organization Detail LastModifiedTime 11/11/19 23 11/14/2022 [facility]UR ED(TM ) 25 HYDRO XYVIT BAILEY D(D2, D3) vitamin D, 25-oh, total 21 NG/mL 30-100 low (Note ) Vitam in D, 25-Hy droxy repor ts elmira ntrat ions of two commo n forms , 25-OH D2 and 25-OH D3. 25-OH D3 indic ates both endog enous produ ction and suppl ement ation . 25-OH D2 is an indic ator of exoge nous sourc es such as diet or suppl ement ation . Thera py is based on measu remen t of Total 25-OH D, with level s <20 ng/mL indic ative of Vitam in D defic iency , while level s betwe en 20 ng/mL and 30 ng/mL sugge st insuf ficie ncy. Optim al level s are > or = 30 ng/mL . Vitam in D is fat-s olubl e and there fore inadv erten t or inten richard l inges tion of exces sivel y high amoun ts could be toxic . Studi es in child deepa and adult s sugge st blood level s would need to excee d 150 ng/mL befor e there is any elmira rn. Best escoto MF, Emmett abdalla [place], Shar off-f errar i SMITH, et al. Evalu ation , treat ment and preve ntion of vitam in D defic iency : an Endoc rine Socie ty clini asaf pract ice guide line. J Clin Endoc rinol Metab . 2011; 96(7) :1911 -30. For addit ional infor kem glover refer to http: //sri piper.Que stDia gnost ics.c om/fa q/FAQ 199 Not Available [facility] [address] [address] [place], [address], 11/14/2022 16:57:02 11/11/19 23 11/14/2022 [facility] ASSUR ED(TM ) 25 HYDRO XYVIT BAILEY D(D2, D3) vitamin D, 25-oh, D3 21 NG/mL Refer ence range : Not estab lishe d Not Available [facility] [address] [place], [address], 11/14/2022 16:57:02 11/11/19 23 11/14/2022 [facility] ASSUR ED(TM ) 25 HYDRO XYVIT BAILEY D(D2, D3) vitamin D, 25-oh, D2 <4.0 NG/mL (Note ) Refer ence range : Not estab lishe d This test was devel oped and its joel tical perfo rmanc e antionette cteri stics have been deter mined by [facility]. It has not been clear ed or appro pietro by the [place] Food and Drug Admin istra tion. This assay has been valid ated pursu ant to the CLIA regul ation and is used for Clini asaf purpo ses. [facility] med fusio n [address] [facility] [address] [place] [address] [phone] Gaston gil MD See Note 1 Note 1 For addit ional infor may piper, kem e refer to http: //[facility] brenda joyceQue stDia gnost ics.c om/fa q/FAQ 199 (This link is being provi ded for infor may reis/ rox estrella only. ) Not Available [address] [address] [place], [address], 11/14/2022 16:57:02 11/11/1911/14/2022 VITAM IN B12 vitamin B12 250 pg/mL 200-11 00 normal Pleas e Note: Altho ugh the refer ence range for vitam in B12 is 200-1 100 pg/mL , it has been repor pal that betwe en 5 and 10% of patie nts with value s betwe en 200 and 400 pg/mL may exper ience neuro psych iatri c and hemat ologi c abnor malit ies due to occul t B12 defic iency ; less than 1% of patie nts with value s above 400 pg/mL will have sympt oms. Not Available [address] [address] [place], [address], 11/14/2022 16:57:02 11/11/19 23 11/14/2022 CBC (INCL UDES DIFF/ PLT) white blood cell count 5.3 thous and/u L 3.8-10 .8 normal Not Available [facility] [address] [address] [place], [address], 11/14/2022 16:57:01 11/11/1911/14/2022 CBC (INCL UDES DIFF/ PLT) red blood cell count 4.13 roberta on/uL 3.80-5 .10 normal Not Available [facility] [address] [address] [place], [address], 11/14/2022 16:57:01 11/11/19 23 11/14/2022 CBC (INCL UDES DIFF/ PLT) hemoglobin 12.5 g/dL 11.7-1 5.5 normal Not Available [address], [address], 11/14/2022 16:57:01 11/11/19 23 11/14/2022 CBC (INCL UDES DIFF/ PLT) hematocrit 37.3 % 35.0-4 5.0 normal Not Available [address], [address], 11/14/2022 16:57:01 11/11/1911/14/2022 CBC (INCL UDES DIFF/ PLT) MCV 90.3 fL 80.0-1 00.0 normal Not Available [address], [address], 11/14/2022 16:57:01 11/11/19 23 11/14/2022 CBC (INCL UDES DIFF/ PLT) MCH 30.3 pg 27.0-3 3.0 normal Not Available [address], [address], 11/14/2022 16:57:01 11/11/19 23 11/14/2022 CBC (INCL UDES DIFF/ PLT) MCHC 33.5 g/dL 32.0-3 6.0 normal Not Available [address], [address], 11/14/2022 16:57:01 11/11/19 23 11/14/2022 CBC (INCL UDES DIFF/ PLT) RDW 12.0 % 11.0-1 5.0 normal Not Available [address], [address], 11/14/2022 16:57:01 11/11/19 23 11/14/2022 CBC (INCL UDES DIFF/ PLT) platelet count 343 thous and/u L 140-40 0 normal Not Available [address] [place], [address], 11/14/2022 16:57:01 11/11/1911/14/2022 CBC (INCL UDES DIFF/ PLT) MPV 10.2 fL 7.5-12 .5 normal Not Available [address], [address], 11/14/2022 16:57:01 11/11/1911/14/2022 CBC (INCL UDES DIFF/ PLT) absolute neutrophils 3270 cells /uL 1500-7 800 normal Not Available [address], [address], 11/14/2022 16:57:01 11/11/19 23 11/14/2022 CBC (INCL UDES DIFF/ PLT) absolute lymphocytes 1526 cells /uL 850-39 00 normal Not Available [address], [address], 11/14/2022 16:57:01 11/11/19 23 11/14/2022 CBC (INCL UDES DIFF/ PLT) absolute monocytes 371 cells /uL 200-95 0 normal Not Available [address], [address], 11/14/2022 16:57:01 11/11/1911/14/2022 CBC (INCL UDES DIFF/ PLT) absolute eosinophils 90 cells /uL 15-500 normal Not Available [address], [address], 11/14/2022 16:57:01 11/11/1911/14/2022 CBC (INCL UDES DIFF/ PLT) absolute basophils 42 cells /uL 0-200 normal Not Available [address], [address], 11/14/2022 16:57:01 11/11/19 23 11/14/2022 CBC (INCL UDES DIFF/ PLT) neutrophils 61.7 % normal Not Available [facility] [address], [address], 11/14/2022 16:57:01 11/11/19 23 11/14/2022 CBC (INCL UDES DIFF/ PLT) lymphocytes 28.8 % normal Not Available [facility] [address], [address], 11/14/2022 16:57:01 11/11/19 23 11/14/2022 CBC (INCL UDES DIFF/ PLT) monocytes 7.0 % normal Not Available [facility] [address], [address], 11/14/2022 16:57:01 11/11/19 23 11/14/2022 CBC (INCL UDES DIFF/ PLT) eosinophils 1.7 % normal Not Available [address], [address], 11/14/2022 16:57:01 11/11/19 23 11/14/2022 CBC (INCL UDES DIFF/ PLT) basophils 0.8 % normal Not Available [address], [address], 11/14/2022 16:57:01 11/11/19 23 11/14/2022 BASIC METAB OLIC PANEL glucose 91 mg/dL 65-99 normal Fasti ng refer ence inter meagan Not Available [address], [address], 11/14/2022 16:57:01 11/11/19 23 11/14/2022 BASIC METAB OLIC PANEL urea nitrogen (BUN) 30 mg/dL 7-25 high Not Available [address], [address], 11/14/2022 16:57:01 11/11/19 23 11/14/2022 BASIC METAB OLIC PANEL creatinine 0.72 mg/dL 0.50-1 .05 normal Not Available [address], [address], 11/14/2022 16:57:01 11/11/19 23 11/14/2022 BASIC METAB OLIC PANEL eGFR 96 mL/mi n/1.7 3m2 > or = 60 normal The eGFR is based on the CKD-E PI 2020 equat ion. To calcu late the new eGFR from a previ ous Creat inine or Cysta tin C resul t, go to https ://burke w.tracy ortegay.o elisha/darshana ofess mandaal s/ kdoqi /gfr% 5Fcal culat or Not Available [address], [address], 11/14/2022 16:57:01 11/11/1911/14/2022 BASIC METAB OLIC PANEL BUN/creatini ne ratio 42 (calc ) 6-22 high Not Available [address], [address], 11/14/2022 16:57:01 11/11/1911/14/2022 BASIC METAB OLIC PANEL sodium 138 mmol/ L 135-14 6 normal Not Available [address], [address], 11/14/2022 16:57:01 11/11/1911/14/2022 BASIC METAB OLIC PANEL potassium 4.2 mmol/ L 3.5-5. 3 normal Not Available [facility] [address], [address], 11/14/2022 16:57:01 11/11/1911/14/2022 BASIC METAB OLIC PANEL chloride 106 mmol/ L 98-110 normal Not Available [address], [address], 11/14/2022 16:57:01 11/11/19 23 11/14/2022 BASIC METAB OLIC PANEL carbon dioxide 23 mmol/ L 20-32 normal Not Available [address], [address], 11/14/2022 16:57:01 11/11/19 23 11/14/2022 BASIC METAB OLIC PANEL calcium 9.3 mg/dL 8.6-10 .4 normal Not Available [address], [address], 11/14/2022 16:57:01 11/11/19 23 11/14/2022 LIPID PANEL , STAND CLAUDIA triglyceride s 47 mg/dL <150 normal Not Available [address], [address], 11/14/2022 16:57:00 11/11/19 23 11/14/2022 LIPID PANEL , STAND CLAUDIA cholesterol, total 185 mg/dL <200 normal Not Available [address], [address], 11/14/2022 16:57:00 11/11/19 23 11/14/2022 LIPID PANEL , STAND CLAUDIA HDL cholesterol 87 mg/dL > or = 50 normal Not Available [address], [address], 11/14/2022 16:57:00 11/11/1911/14/2022 LIPID PANEL , STAND CLAUDIA LDL-choleste rol 85 mg/dL _(asaf c) normal Refer ence range : <100 Jules able range <100 mg/dL for prima ry preve ntion ; <70 mg/dL for patie nts with CHD or diabe tic patie nts with > or = 2 CHD risk facto rs. LDL-C is now calcu lated using the Pamela n-Hop kins calcu latsuzi n, which is a valid ated novel metho d provi anastasiia beth r accur acy than the Fried amy equat ion in the estim ation of LDL-C . Pamela n SS et al. MICHAEL. 2013; 310(1 9): 2061- 2068 (http ://ed ucati on.Qu meeraDi jocelynParadigms. com/f aq/FA Q164) Not Available [facility] [address] [address] [address], [place], [address], 11/14/2022 16:57:00 11/11/19 23 11/14/2022 LIPID PANEL , STAND CLAUDIA chol/HDLC ratio 2.1 (calc ) <5.0 normal Not Available [facility] [address] [address] [address], [place], [address], 11/14/2022 16:57:00 11/11/1911/14/2022 LIPID PANEL , STAND CLAUDIA non HDL cholesterol 98 mg/dL _(asaf c) <130 normal For patie nts with diabe frankie plus 1 major ASCVD risk facto r, treat ing to a non-H DL-C goal of <100 mg/dL (LDL- C of <70 mg/dL ) is consi dered a thera peuti c keshawno n. Not Available [facility] [address] [address] [address], [place], [address], 11/14/2022 16:57:00 03/03/20 23 03/12/2023 DEXAM ETHAS ONE dexamethason e 250 NG/dL Refer ence Range s for Dexam ethas one: Basel ine: Less than 20 ng/dL 1 mg dexam ethas one overn ight: 180-5 50 ng/dL (8:00 -10:0 0 AM) This test was devel oped and its joel tical perfo rmanc e antionette cteri stics have been deter mined by [facility] ostjoanna s [place] Pavoni felix Velazquez . It has not been clear ed or appro pietro by FDA. This assay has been valid ated pursu ant to the CLIA regul ation s and is used for clini asaf purpo ses. Not Available [facility] [address] [address] [place], [address], 03/12/2023 14:05:02 03/03/2003/12/2023 CORTI RACHNA, A.M. cortisol, A.M. 0.9 mcg/d L low Refer ence Range 8 a.m. (7-9 a.m.) Speci men: 4.0-2 2.0 Not Available [address], [address], 03/12/2023 14:05:03 03/04/2003/12/2023 PTH, INTAC T AND CALCI UM parathyroid hormone, intact 46 pg/mL 16-77 normal Inter preti ve Guide Intac t PTH Calci um ----- ----- ----- --- ----- ----- ----- -- Zena l Parat hyroi d Zena l Zena l Hypop jasmyne yroid ism Low or Low Zena l Low Hyper parat hyroi dism Prima ry Zena l or High High Secon lucas High Zena l or Low Terti edmar High High Non-P jasmyne yroid Hyper calce bhavna Low or Low Zena l High Not Available [address], [address], 03/12/2023 16:06:09 03/04/20 23 03/12/2023 PTH, INTAC T AND CALCI UM calcium 8.9 mg/dL 8.6-10 .4 normal Not Available [facility] [address], [address], 03/12/2023 16:06:09 03/04/20 23 03/12/2023 IRON AND TOTAL IRON TJEAS NG CAPAC ITY iron, total 87 mcg/d L 45-160 normal Not Available [facility] [address], [address], 03/12/2023 16:06:10 03/04/20 23 03/12/2023 IRON AND TOTAL IRON TEJAS NG CAPAC ITY iron binding capacity 304 mcg/d L_(ca lc) 250-45 0 normal Not Available [address] [address] [place], [address], 03/12/2023 16:06:10 03/04/20 23 03/12/2023 IRON AND TOTAL IRON TEJAS NG CAPAC ITY % saturation 29 %_(ca lc) 16-45 normal Not Available [address], [address], 03/12/2023 16:06:10 03/04/20 23 03/12/2023 COMPR EHENS KIP METAB OLIC PANEL glucose 86 mg/dL 65-139 normal Non-f astin g refer ence inter meagan Not Available [address], [address], 03/12/2023 16:06:11 03/04/20 23 03/12/2023 COMPR EHENS KIP METAB OLIC PANEL urea nitrogen (BUN) 23 mg/dL 7-25 normal Not Available [address], [address], 03/12/2023 16:06:11 03/04/20 23 03/12/2023 COMPR EHENS KIP METAB OLIC PANEL creatinine 0.81 mg/dL 0.50-1 .05 normal Not Available [address], [address], 03/12/2023 16:06:11 03/04/20 23 03/12/2023 COMPR EHENS KIP METAB OLIC PANEL eGFR 83 mL/mi n/1.7 3m2 > or = 60 normal The eGFR is based on the CKD-E PI 2020 amritaat ion. To calcu late the new eGFR from a previ ous Creat inine or Cysta jacob C kimberly t, go to https ://burke iglesias.ravinder tello/darshana pitts s/ kdoqi /gfr% 5Fcal culat or Not Available [address], [address], 03/12/2023 16:06:11 03/04/20 23 03/12/2023 COMPR EHENS KIP METAB OLIC PANEL BUN/creatini ne ratio NOT APPLIC ABLE (calc ) 6-22 Not Available [address], [address], 03/12/2023 16:06:11 03/04/20 23 03/12/2023 COMPR EHENS KIP METAB OLIC PANEL sodium 142 mmol/ L 135-14 6 normal Not Available [address], [address], 03/12/2023 16:06:11 03/04/20 23 03/12/2023 COMPR EHENS KIP METAB OLIC PANEL potassium 3.8 mmol/ L 3.5-5. 3 normal Not Available [address], [address], 03/12/2023 16:06:11 03/04/20 23 03/12/2023 COMPR EHENS KIP METAB OLIC PANEL chloride 107 mmol/ L 98-110 normal Not Available [address], [address], 03/12/2023 16:06:11 03/04/20 23 03/12/2023 COMPR EHENS KIP METAB OLIC PANEL carbon dioxide 27 mmol/ L 20-32 normal Not Available [address], [address], 03/12/2023 16:06:11 03/04/20 23 03/12/2023 COMPR EHENS KIP METAB OLIC PANEL calcium 8.9 mg/dL 8.6-10 .4 normal Not Available [address], [address], 03/12/2023 16:06:11 03/04/20 23 03/12/2023 COMPR EHENS KIP METAB OLIC PANEL protein, total 6.6 g/dL 6.1-8. 1 normal Not Available [address] [address] [place], [address], 03/12/2023 16:06:11 03/04/20 23 03/12/2023 COMPR EHENS KIP METAB OLIC PANEL albumin 4.2 g/dL 3.6-5. 1 normal Not Available [address] [address] [place], [address], 03/12/2023 16:06:11 03/04/20 23 03/12/2023 COMPR EHENS KIP METAB OLIC PANEL globulin 2.4 g/dL_ (calc ) 1.9-3. 7 normal Not Available [address], [address], 03/12/2023 16:06:11 03/04/20 23 03/12/2023 COMPR EHENS KIP METAB OLIC PANEL albumin/glob ulin ratio 1.8 (calc ) 1.0-2. 5 normal Not Available [address] [address] [place], [address], 03/12/2023 16:06:11 03/04/20 23 03/12/2023 COMPR EHENS KIP METAB OLIC PANEL bilirubin, total 0.6 mg/dL 0.2-1. 2 normal Not Available [address] [address] [place], [address], 03/12/2023 16:06:11 03/04/20 23 03/12/2023 COMPR EHENS KIP METAB OLIC PANEL alkaline phosphatase 43 U/L 37-153 normal Not Available [facility] [employer] [address] [address] [place], [address], 03/12/2023 16:06:11 03/04/20 23 03/12/2023 COMPR EHENS KIP METAB OLIC PANEL AST 13 U/L 10-35 normal Not Available [address] [address] [place], [address], 03/12/2023 16:06:11 03/04/20 23 03/12/2023 COMPR EHENS KIP METAB OLIC PANEL ALT 13 U/L 6-29 normal Not Available [address], [address], 03/12/2023 16:06:11 03/04/20 23 03/12/2023 CALCI UM, 24 HOUR URINE (W/ CREAT ININE ) calcium/crea tinine ratio 139 mg/g_ creat 30-275 normal Not Available [address], [address], 03/12/2023 16:06:12 03/04/20 23 03/12/2023 CALCI UM, 24 HOUR URINE (W/ CREAT ININE ) calcium, 24 hour urine 158 mg/24 _h normal Refer ence Range 35-25 0 Low calci um diet 35-20 0 Not Available [address], [address], 03/12/2023 16:06:12 03/04/20 23 03/12/2023 CALCI UM, 24 HOUR URINE (W/ CREAT ININE ) creatinine, 24 hour urine 1.14 g/24_ h 0.50-2 .15 normal Not Available [address], [address], 03/12/2023 16:06:12 03/04/20 23 03/12/2023 FECAL FAT, QUALI TATIV E fecal fat, qualitative NORMAL normal Not Available [facility] [employer] [address], [address], 03/12/2023 16:06:13 03/04/20 23 03/12/2023 DEXAM ETHAS ONE dexamethason e <20 NG/dL Refer ence Range s for Dexam ethas one: Basel ine: Less than 20 ng/dL 1 mg dexam ethas one overn ight: 180-5 50 ng/dL (8:00 -10:0 0 AM) This test was nasir gunn and its joel tical perfo rmanc e antionette cteri stics have been deter mined by [facility]esio Velazquez . It has not been clear ed or appro pietro by FDA. This assay has been valid ated pursu ant to the CLIA regul ation s and is used for clini asaf purpo ses. Not Available [employer] [address], [address], 03/12/2023 16:06:13 03/04/20 23 03/12/2023 CBC (INCL UDES DIFF/ PLT) white blood cell count 4.3 thous and/u L 3.8-10 .8 normal Not Available [facility] [address], [address], 03/12/2023 16:06:14 03/04/20 23 03/12/2023 CBC (INCL UDES DIFF/ PLT) red blood cell count 4.28 roberta on/uL 3.80-5 .10 normal Not Available [facility] [address], [address], 03/12/2023 16:06:14 03/04/20 23 03/12/2023 CBC (INCL UDES DIFF/ PLT) hemoglobin 12.9 g/dL 11.7-1 5.5 normal Not Available [facility] [address], [address], 03/12/2023 16:06:14 03/04/20 23 03/12/2023 CBC (INCL UDES DIFF/ PLT) hematocrit 38.6 % 35.0-4 5.0 normal Not Available [facility] [address], [address], 03/12/2023 16:06:14 03/04/20 23 03/12/2023 CBC (INCL UDES DIFF/ PLT) MCV 90.2 fL 80.0-1 00.0 normal Not Available [address], [address], 03/12/2023 16:06:14 03/04/20 23 03/12/2023 CBC (INCL UDES DIFF/ PLT) MCH 30.1 pg 27.0-3 3.0 normal Not Available [address], [address], 03/12/2023 16:06:14 03/04/20 23 03/12/2023 CBC (INCL UDES DIFF/ PLT) MCHC 33.4 g/dL 32.0-3 6.0 normal Not Available [address], [address], 03/12/2023 16:06:14 03/04/20 23 03/12/2023 CBC (INCL UDES DIFF/ PLT) RDW 12.3 % 11.0-1 5.0 normal Not Available [address], [address], 03/12/2023 16:06:14 03/04/20 23 03/12/2023 CBC (INCL UDES DIFF/ PLT) platelet count 280 thous and/u L 140-40 0 normal Not Available [address], [address], 03/12/2023 16:06:14 03/04/20 23 03/12/2023 CBC (INCL UDES DIFF/ PLT) MPV 9.9 fL 7.5-12 .5 normal Not Available [address], [address], 03/12/2023 16:06:14 03/04/20 23 03/12/2023 CBC (INCL UDES DIFF/ PLT) absolute neutrophils 1075 cells /uL 1500-7 800 low Not Available [address], [address], 03/12/2023 16:06:14 06/13/20 23 03/12/2023 CBC (INCL UDES DIFF/ PLT) absolute lymphocytes 2842 cells /uL 850-39 00 normal Not Available [address], [address], 03/12/2023 16:06:14 03/04/20 23 03/12/2023 CBC (INCL UDES DIFF/ PLT) absolute monocytes 271 cells /uL 200-95 0 normal Not Available [address] [place], [address], 03/12/2023 16:06:14 03/04/2003/12/2023 CBC (INCL UDES DIFF/ PLT) absolute eosinophils 82 cells /uL 15-500 normal Not Available [address], [address], 03/12/2023 16:06:14 03/04/2003/12/2023 CBC (INCL UDES DIFF/ PLT) absolute basophils 30 cells /uL 0-200 normal Not Available [address], [address], 03/12/2023 16:06:14 03/04/20 23 03/12/2023 CBC (INCL UDES DIFF/ PLT) neutrophils 25 % normal Not Available [address], [address], 03/12/2023 16:06:14 03/04/20 23 03/12/2023 CBC (INCL UDES DIFF/ PLT) lymphocytes 66.1 % normal Not Available [address], [id number], 03/12/2023 16:06:14 03/04/20 23 03/12/2023 CBC (INCL UDES DIFF/ PLT) monocytes 6.3 % normal Not Available [address], [id number], 03/12/2023 16:06:14 03/04/20 23 03/12/2023 CBC (INCL UDES DIFF/ PLT) eosinophils 1.9 % normal Not Available [address], [address], 03/12/2023 16:06:14 03/04/20 23 03/12/2023 CBC (INCL UDES DIFF/ PLT) basophils 0.7 % normal Not Available [address], [address], 03/12/2023 16:06:14 03/04/20 23 03/12/2023 NARDA C DISEA SE COMPR EHENS KIP PANEL interpretati on No serol ogica l evide nce for narda c disea se is prese nt. Consi rigo IgA defic iency . Not Available [address], [address], 03/12/2023 16:06:15 03/04/20 23 03/12/2023 NARDA C DISEA SE COMPR EHENS KIP PANEL tissue transglutami nase Ab, IgA <1.0 U/mL Value Inter preta tion ----- ----- ----- ---- <15.0 Antib abraham not detec pal > or = 15.0 Antib abraham detec pal Not Available [address], [id number], 03/12/2023 16:06:15 03/04/20 23 03/12/2023 NARDA C DISEA SE COMPR EHENS KIP PANEL immunoglobul in A 17 mg/dL 47-310 low Not Available [address], [address], 03/12/2023 16:06:15 03/04/20 23 03/12/2023 TISSU E TRANS GLUTA LELIA E AB, IGG tissue transglutami nase Ab, IgG <1.0 U/mL Value Inter preta tion ----- ----- ----- ---- <15.0 Antib abraham not detec pal > or = 15.0 Antib abraham detec pal Not Available [address] [address] [place], [address], 03/12/2023 16:06:16 03/04/20 23 03/12/2023 JEFFREY SCR, IFA, W/REF L TITER /DORCAS FRANSISCA/R HEUMA TOID ARTHR ITIS PANEL 1 JEFFREY screen, ifa NEGATI VE negati ve normal JEFFREY IFA is a first line scree n for detec ting the prese nce of up to appro ximat tc 150 autoa ntibo dies in vario us autoi mmune disea ses. A negat kip JEFFREY IFA resul t sugge sts an JEFFREY-a ssoci ated autoi mmune disea se is not prese nt at this time, but is not defin itive . If there is high clini asaf suspi cion for Sjogr en's syndr ome, testi ng for anti- SS-A/ Ro antib abraham shoul d be consi dered . Anti- Nessa-1 antib abraham shoul d be consi dered for clini alicia suspe cted infla mmato ry myopa rolly . AC-0: Negat kip Inter natio nal Conse nsus on JEFFREY Patte rns (http s://d oi.or g/10. 1515/ ccl- 2017- 0052) For addit ional infor kem glover refer to http: //sri Gil stDia gnost ics.c om/fa q/FAQ 177 (This link is being provi ded for infor may nal/ educa richard l purpo ses only. ) Not Available [facility] [address] [place], [address], 03/12/2023 16:06:16 03/04/20 23 03/12/2023 JEFFREY SCR, IFA, W/REF L TITER /DORCAS FRANSISCA/R HEUMA TOID ARTHR ITIS PANEL 1 rheumatoid factor <14 IU/mL <14 normal Not Available [address], [address], 03/12/2023 16:06:16 03/04/20 23 03/12/2023 JEFFREY SCR, IFA, W/REF L TITER /DORCAS FRANSISCA/R HEUMA TOID ARTHR ITIS PANEL 1 cyclic citrullinate d peptide (ccp) Ab (IgG) <16 units normal Refer ence Range Negat kip: <20 Weak Posit kip: 20-39 Moder ate Posit kip: 40-59 Stron g Posit kip: >59 Not Available [address], [address], 03/12/2023 16:06:16 03/04/20 23 03/12/2023 JEFFREY SCR, IFA, W/REF L TITER /DORCAS FRANSISCA/R HEUMA TOID ARTHR ITIS PANEL 1 interpretati on There is no serol ogic evide nce for rheum atoid arthr itis. The RF and CCP tests each have a sensi tivit y for estab lishe d rheum atoid arthr itis of appro ximat tc 65-70 %. Not Available [address], [address], 03/12/2023 16:06:16 03/04/20 23 03/12/2023 THYRO ID PEROX IDASE ANTIB ODIES thyroid peroxidase antibodies 1 IU/mL <9 Not Available [address], [address], 03/12/2023 16:06:17 03/04/20 23 03/12/2023 CORTI RACHNA, A.M. cortisol, A.M. 9.9 mcg/d L normal Refer ence Range 8 a.m. (7-9 a.m.) Speci men: 4.0-2 2.0 Not Available [address], [address], 03/12/2023 16:06:18 03/04/20 23 03/12/2023 VITAM IN B12/F OLATE , SERUM PANEL vitamin B12 286 pg/mL 200-11 00 normal Plesadaf ayala Note: Altho ugh the refer ence range for vitam in B12 is 200-1 100 pg/mL , it has been repor pal that betwe en 5 and 10% of patie nts with value s betwe en 200 and 400 pg/mL may exper ience neuro psych iatri c and hemat ologi c abnor malit ies due to occul t B12 defic iency ; less than 1% of patie nts with value s above 400 pg/mL will have sympt oms. Not Available [facility] [address] [place], [address], 03/12/2023 16:06:18 03/04/20 23 03/12/2023 VITAM IN B12/F OLATE , SERUM PANEL folate, serum 7.6 NG/mL normal Refer ence Range Low: <3.4 Borde rline : 3.4-5 .4 Zena l: >5.4 Not Available [facility] [address] [place], [address], 03/12/2023 16:06:18 03/04/20 23 03/12/2023 VITAM IN D,25- OH,TO EDUARDO,I A vitamin D,25-oh,tota l,ia 36 NG/mL 30-100 normal Vitam in D Statu s 25-OH Vitam in D: Defic iency : <20 ng/mL Insuf ficie ncy: 20 - 29 ng/mL Optim al: > or = 30 ng/mL For 25-OH Vitam in D testi ng on patie nts on D2-burns pplem entat ion and patie nts for whom quant itati on of D2 and D3 fract ions is requi red, the [facility] Assur eD(TM ) 25-OH VIT D, (D2,D 3), LC/MS /MS is recom toni d: order code 24113 (gabriel ents >2yrs ). See Note 1 Note 1 For addit ional infor kem glover refer to http: //edu brenda Vela gnost ics.c om/fa q/FAQ 199 (This link is being provi ded for infor may reis/ rox belcher purpo ses only. ) Not Available [facility] [address] [address] [place], [address], 03/12/2023 16:06:19 03/04/20 23 03/12/2023 TSH+F REE T4 TSH 2.59 mIU/L 0.40-4 .50 normal Not Available [facility] [address] [address] [place], [address], 03/12/2023 16:06:20 03/04/20 23 03/12/2023 TSH+F REE T4 T4, free 1.2 NG/dL 0.8-1. 8 normal Not Available [facility] [address] [address] [place], [address], 03/12/2023 16:06:20 03/04/20 23 03/12/2023 PANCR EATIC ELAST ASE-1 pancreatic elastase-1 >500 mcg/g Adult and Pedia tric Refer ence Range s for Pancr eatic Elast ase-1 : Zena l: >200 mcg/g Moder ate Pancr eatic Insuf ficie ncy: 100-2 00 mcg/g Sever e Pancr eatic Insuf ficie ncy: <100 mcg/g Elast ase-1 (E-1) assay resul ts are expre ssed in mcg/g , which repre sent mcg E1/g feces . It is not neces primitivo to inter rupt enzym e subst ituti on thera py. Not Available [facility] [address] [address] [place], [address], 03/12/2023 16:06:20 10/28/19 24 10/28/2023 rapid strep group A, throa t STREP A negati ve Not Available [facility] [address], [place], [address], 10/28/2023 17:06:30 02/06/20 24 10/28/2023 rapid flu (A+B) Flu A negati ve Not Available [facility] [address], [place], [address], 10/28/2023 17:06:07 10/28/19 24 10/28/2023 rapid flu (A+B) Flu B negati ve Not Available [facility] [address], [place], [address], 10/28/2023 17:06:07 12/06/19 23 12/04/2022 DEXA No observ ation record ed. [address], [place], [address], 12/09/2022 09:23:54 12/26/19 23 12/25/2022 CT, abdom en + pelvi s, w/o contr ast No observ ation record ed. [address], [place], [address], 12/25/2022 08:00:33 12/30/19 23 12/29/2022 CT, abdom en + pelvi s, w/o contr ast No observ ation record ed. [address], [place], [address], 12/30/2022 07:46:12 01/12/20 23 01/11/2023 CT, abdom en + pelvi s, w/o contr ast No observ ation record ed. [address], [place], [address], 01/13/2023 07:48:25 Result Notes None recorded. 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 3 09:24:03 Loose stool 684357874 Active 2022 Blessing Hillman MD [address], [place], [address] , [employer] [facility] [employer] [facility] 3 12:29:03 Fatigue 84510928 Active 2022 Blessing Hillman MD [address], [place], [address] , [employer] [facility] 3 12:31:48 Vitamin B12 deficienc y (non anemic) 49221281 Active 2022 Blessing Hillman MD [address], [place], [address] , [employer] [facility] 3 15:38:48 Cobalamin deficienc y 954562949 Active 2022 Mariah Collier MD [address], [place], [address] , [facility] [employer] [facility] 3 15:36:17 Vitamin D deficienc y 51975371 Active 2022 Mariah Collier MD [address], [place], [address] , [facility] [employer] [facility] 3 15:45:27 Gastroeso phageal reflux disease without esophagit is 127939913 Active 2022 Mariah Collier MD [address], [facility] [address], [place], [address] , [facility] [employer] [facility] 3 15:48:36 Generaliz ed acute body pains 487741178 Active 2023 FILI Mitchell, [facility] [employer] [facility] 4 17:06:25 Sore throat 598358980 Active 2023 FILI Mitchell, [facility] 4 17:06:34 Acute conjuncti vitis of left eye 14463185176 9105 Active 2023 Mariah Collier MD [address], [facility] [address], [place], [address] , [facility] [employer] [facility] 4 11:08:22 Notes:Some problems listed i n Document: #[id number] could not be added to this patient's chart. Please review this document and add these problems to the patient's chart manually as needed. Problem Notes None recorded. Procedures Surgical History Date Name Laterality Status Provider Name and Address Organization Details Recorded Time 12/10/19 23 colonoscopy completed Gabriella Saab LPN [facility] [employer] [facility] 12/11/2022 11:44:34 tonsilectomy/john oids completed Not Available [facility] 11/20/2022 22:43:30 resection of intestine for interposition completed Not Available [facility] 11/20/2022 22:43:30 Appendectomy completed Not Available [facility] 11/20/2022 22:43:30 Imaging Results Imaging Date Name Status LastModified by Organiz ation Details LastModified Time 12/04/2022 DEXA completed [email or web address] [facility] [address], [place], [address], 12/09/2022 09:23:54 12/25/2022 CT, abdomen + pelvis, w/o contrast completed [address], [address], 12/25/2022 08:00:33 12/29/2022 CT, abdomen + pelvis, w/o contrast completed [address], [address], 12/30/2022 07:46:12 01/11/2023 CT, abdomen + pelvis, w/o contrast completed [address], [address], 01/13/2023 07:48:25 Procedure Notes None recorded. Medical Equipment None Reported. Allergies Allergen ID Allergen Name Allergen Category Reaction Reaction Severity Criticality Documentation Date Start Date Code Code System Note Provider Name and Address Organization Details Recorded Time 88013 Iodinated contrast media (substanc e) medicatio n Not available Not available Not available 02/24/2023 57440 2003 SNLAW Marks null, [place] [facility] [employer] 12:09:13 Medications Name Sig Start Date Stop Date Status Note LastModified by Organization Details LastModified Time prednisone 10 mg tablet 02/24 completed Not Available Not Available Not Available azithromyci n 250 mg tablet 02/24 completed Not Available Not Available Not Available ofloxacin 0.3 % eye drops 05/22 completed Not Available Not Available Not Available fluconazole 150 mg tablet Take 1 tablet every day by oral route for 1 day. active Not Available Not Available No t Available hydrocodone 5 mg-acetamin ophen 325 mg tablet TAKE 1 TABLET BY MOUTH EVERY 8 HOURS NEEDED FOR PAIN 02/24 completed Not Available Not Available Not Available metronidazo le 0.75 % (37.5 mg/5 gram) vaginal gel INSERT ONE APPLICATO RFUL VAGINALLY AT BEDTIME FOR 5 NIGHTS 08/05 completed Not Available Not Available Not Available prednisone 20 mg tablet 2 po qday x 5 days with food 02/24 completed Not Available Not Available Not Available metronidazo le 500 mg tablet 08/21 completed Not Available Not Available Not Available valacyclovi r 500 mg tablet TAKE 1 TABLET BY MOUTH TWICE DAILY FOR 3 DAYS 08/05 completed Not Available Not Available Not Available ciprofloxac in 500 mg tablet TAKE 1 TABLET BY MOUTH AT 2 PM 08/21 completed Not Available Not Available Not Available prednisone 10 mg tablets in a dose pack Take 1 tab by mouth, 3 times a day for 3 daysTake 1 tab by mouth 2 times a day for 2 daysTake 1 tab by mouth once a day for 1 day 02/24 completed Not Available Not Available Not Available amoxicillin 875 mg tablet Take 1 tablet every 12 hours by oral route for 7 days. 02/24 completed Not Available Not Available Not Available alprazolam 0.25 mg tablet TAKE 1 TABLET BY MOUTH EVERY DAY NEEDED FOR STRESS 02/24 completed Not Available Not Available Not Available Kenalog 10 mg/mL suspension for injection In office injection administe red by the provider 05/22 completed [facility]NOTE 2]: 0003- [id number] 20 Not Available Not Available Not Available dexamethaso ne 1 mg tablet TAKE 1 TABLET BY MOUTH AT 10PM THE NIGHT BEFORE 8AM CORTISOL 05/22 completed Not Available Not Available Not Available meclizine 25 mg tablet Take 1 tablet 3 times a day by oral route as needed. 02/24 completed Not Available Not Available Not Available pantoprazol e 40 mg tablet,kaila yed release TAKE 1 TABLET BY MOUTH EVERY DAY 2023 active Not Available Not Available Not Avai lable erythromyci n 5 mg/gram (0.5 %) eye ointment 05/22 completed Not Available Not Available Not Available cyanocobala min (vit B-12) 1,000 mcg/mL injection solution inject 1000 mcg SQ once weekly x 90 days active Not Available Not Available No t Available neomycin-po lymyxin-dex ameth 3.5 mg/mL-10,00 0 unit/mL-0.1 % eye drops 05/22 completed Not Available Not Available Not Available lisinopril 10 mg tablet TAKE 1 TABLET DAILY active Not Available Not Available No t Available prednisone 50 mg tablet 02/24 completed Not Available Not Available Not Available polymyxin B sulfate 10,000 unit-trimet hoprim 1 mg/mL eye drops INSTILL 1 DROP INTO AFFECTED EYE(S) BY OPHTHALMI C ROUTE EVERY 6 HOURS x 7 days 2023 active Not Available Not Available Not Avai lable Banophen 25 mg capsule TAKE 2 CAPSULES BY MOUTH 1 HOUR BEFORE CONTRAST MEDIA INJECTION 02/24 completed Not Available Not Available Not Available diclofenac sodium 75 mg tablet,kaila yed release Take 1 tablet twice a day by oral route as needed. 02/24 completed Not Available Not Available Not Available folic acid 1 mg tablet TAKE ONE TABLET EVERY DAY BY ORAL ROUTE IN THE MORNING active Not Available Not Available No t Available estradiol 0.01% (0.1 mg/gram) vaginal cream INSERT 1 APPLICATO RFUL VAGINALLY 2 TIMES A WEEK active Not Available Not Available No t Available albuterol sulfate HFA 90 mcg/actuati on aerosol inhaler active Not Available Not Available Not Available ondansetron 4 mg disintegrat ing tablet DISSOLVE 1 TABLET ON THE TONGUE EVERY 8 HOURS NEEDED FOR NAUSEA OR VOMITING 02/24 completed Not Available Not Available Not Available fluticasone propionate 50 mcg/actuati on nasal spray,suspe nsion USE 2 SPRAYS BY INTRANASA L ROUTE ONCE A DAY active Not Available Not Available No t Available amoxicillin 500 mg-potassiu m clavulanate 125 mg tablet TAKE 1 TABLET BY MOUTH EVERY 12 HOURS 02/24 completed Not Available Not Available Not Available nitrofurant oin monohydrate /macrocryst als 100 mg capsule TAKE 1 CAPSULE BY MOUTH TWICE DAILY FOR 7 DAYS 08/05 completed Not Available Not Available Not Available alprazolam 08/21 completed Not Available Not Available Not Available ropivacaine (PF) 5 mg/mL (0.5 %) injection solution Take 20 mg by injection route. 05/22 completed [facility]NOTE 2] [phone] -[phone] Not Available Not Available Not Available BD Insulin Syringe Ultra-Fine 1 mL 31 gauge x 5/16 INJECT B12 SUBCUTANE OUS ONCE WEEKLY FOR 90 DAYS active Not Available Not Available No t Available [employer] COVID-19 Antigen Home Test kit active Not Available Not Available Not Available Vitals Date Recorded Body mass index (BMI) Body height Body weight Provider Name and Address Organization Details Last Updated DateTime 11/20/2022 23.6 kg/m2 154.94 cm 00730.05 g Not Available [facility] 11/20/2022 22:45:01 Date Recorded Body height Body mass index (BMI) Body weight Body temperature Respiratory rate Heart rate Systolic blood pressure Diastolic blood pressure Provider Name and Address Organization Details Last Updated DateTime 3 154.94 cm 23.5 kg/m2 28650.1 7 g 97.6 [degF] 18 /min 69 /min 135 mm[Hg] 77 mm[Hg] LAW Dailey [facility] [employer] [facility] 3 12:08:53 Date Recorded Body height Body mass index (BMI) Body weight Heart rate Systolic blood pressure Diastolic blood pressure Provider Name and Address Organization Details Last Updated DateTime 3 154.94 cm 24.3 kg/m2 76932.2 6 g 64 /min 110 mm[Hg] 75 mm[Hg] Karen Miranda [facility] [employer] [facility] 3 15:34:53 Date Recorded Body height Body mass index (BMI) Body weight Body temperature Heart rate Oxygen saturation Oxygen saturation in Arterial blood by Pulse oximetry Systolic blood pressure Diastolic blood pressure Provider Name and Address Organization Details Last Updated DateTime 3 154.94 cm 23.4 kg/m2 88610.4 5 g 97.2 [degF] 87 /min 98 % 98 % 110 mm[Hg] 64 mm[Hg] Aki Mathews RN [facility] [employer] [facility] 3 15:26:15 Date Recorded Body height Provider Name an d Address Organization Details Last Updated DateTime 10/28/2023 154.94 cm Isamar Vigil RN [facility] [employer] [facility] 10/28/2023 17:47:43 Social History Question Answer Notes LastModified by Organizat ion Details LastModified Time Tobacco Smoking Status Never Smoker Hilary castanon [facility] [employer] [facility] 08/21/2023 15:22:57 Do You Have An Advance Directive? No [id number] Information not available 11/20/2022 What Is Your Level Of Alcohol Consumption? Occasional [id number] Information not available 11/20/2022 What Is Your Level Of Caffeine Consumption? Moderate [id number] Information not available 11/20/2022 What Type Of Diet Are You Following? REGULAR [id number] Information not available 11/20/2022 Are There Any Guns Present In Your Home? No Information not available 08/21/2023 What Was The Date Of Your Most Recent Tobacco Screening? 01/25/2021 Information not available 08/21/2023 Do You Use Sunscreen Routinely? Yes Information not available 08/21/2023 Sex: Unknown Functional Status None recorded. Mental Status None recorded. Family History Relationship Description Onset Age of this Age Resolved Age Notes LastModified by Organization Details LastModified Time Mother Disorder of thyroid gland [id number] Not available 11/20/2022 22:43:31 Mother Heart disease [id number] Not available 11/20/2022 22:43:32 Mother Cirrhosis of liver frivastorres Not available 15:22:54 Father Malignant tumor of kidney frivastorres Not available 15:22:54 Father Essential hypertension frivastorres Not available 08/21/2023 15:22:54 Father Heart disease [id number] Not available 11/20/2022 22:43:32 Sister Cerebrovascu lar accident 72 frivastorres Not available 08/21/2023 15:22:54 Brother Asthma [id number] Not available 11/20/2022 22:43:32 Brother Alzheimer's disease frivastorres Not available 15:22:54 Medical History Condition Response BLINDNESS N RHEUMATIC FEVER N BLADDER PROBLEMS N KIDNEY STONES N MRSA N OTHER # 1 N POLIO N LUNG DISEASE/DISORDER N RADIATION / CHEMOTHERAPY N COPD N Other # 2 N BLOOD DISEASES N SURGERY N EAR OR HEARING PROBLEMS N MUMPS N FEMALE PROBLEMS / INFECTIONS N DEPRESSION (INCLUDING POST ) N BOWEL PROBLEMS N STROKE/TIA N THYROID DISEASE N ULCERS N BENIGN PROSTATIC HYPERPLASIA N MEASLES N CERVICALGIA N TB SKIN TEST N MYOCARDIAL INFARCTION N PARAPELGIA N OBESITY N GERD/NAUSEA N ANEURYSM N URINARY/BLADDER/KIDNEY PROBLEMS N CORONARY ARTERY DISEASE (CAD) N MENIERE'S DISEASE N ADDICTION CONCERNS N ENDOMETRIOSIS N USE OF BLOOD THINNERS N SKIN PROBLEMS N EMPHYSEMA N GASTROINTESTINAL DISORDER N MUSCLE,JOINT OR BONE PROBLEMS N GASTROINTESTINAL BLEEDING N BLOOD CLOTS N ASTHMA N CATARACTS N ERECTILE DYSFUNCTION N GI PROBLEMS N CHF N Low Testosterone N NEUROPATHY N INFERTILITY N AIDS/HIV N FRACTURES N CHEMOTHERAPY / RADIATION N VISION/EYE PROBLEMS N LIVER DISEASE N MALE HYPOGONADISM N HYPERTENSION N TOURETTE'S N ANXIETY DISORDER N BLOOD TRANSFUSION N ANEMIA/BLOOD DISORDER N CHRONIC EAR INFECTIONS N BRONCHITIS N TUBERCULOSIS N GLAUCOMA N FOOT PROBLEM N DIVERTICULITIS N SLEEP APNEA N CHICKENPOX N ALLERGIES/HAYFEVER N INFECTIOUS DISEASE N PROSTATE N HEART ARRHYTHMIA N INSOMNIA N HIGH CHOLESTEROL / HYPERLIPIDEMIA N EYE PROBLEMS N HYPERTHYROIDISM N EATING DISORDER N EDEMA N CHRONIC PAIN SYNDROME N CAROTID BLOCKAGE N CONSTIPATION N BACK / NECK PROBLEMS N HAVE YOU BEEN HOSPITALIZED OR SEEN IN [facility] IN THE PAST YEAR ? N ATHEROSCLEROSIS N BREAST PROBLEMS N DIALYSIS N ECZEMA N FIBROMYALGIA N OSTEOPOROSIS N ARTHRITIS N NO SIGNIFICANT PAST MEDICAL HISTORY N APPENDICITIS N DIABETES, TYPE N BAD TEETH N HEARTBURN / REFLUX N ADD/ADHD N AUTISM SPECTRUM DISORDER (ASD) N HEPATITIS / LIVER DISEASE N PULMONARY DISEASE N GOUT N SLEEP DISORDER N ALZHEIMER'S DISEASE N PAIN N DEMENTIA N HERPES N SEIZURES/EPILEPSY N HEADACHES/MIGRAINES N VASCULAR DISEASE N PACEMAKER N DIZZINESS N HEART DISEASE/HEART PROBLEMS N KIDNEY DISEASE N SCARLET FEVER N MULTIPLE SCLEROSIS N DEVELOPMENTAL OR BEHAVIORAL DISORDERS N MENTAL DISORDER/ILLNESS N CANCER: SPECIFY Y CARDIAC ARRHYTHMIA N PNEUMONIA N ATRIAL FIBRILLATION N Gall Stones N PULMONARY EMBOLISM N AUTOIMMUNE DISEASE N Gynecological HistoryNo gynecological history recorded. Obstetrics History GPAL:G 0 P 0 0 0 0 Past Encounters Encounter ID Performer Location Encounter Start Date Encounter Closed Date Diagnosis/Indication Diagnosis SNOMED-CT Code Diagnosis ICD10 Code Diagnosis Note [id number] [facility] [address] [place] [address] 01/25/2021 00:00:00 01/29/2021 17:37:48 [id number] [facility] [address] [address] 02/12/2021 00:00:00 02/12/2021 19:06:53 [id number] [facility] [address] [address] 08/05/2022 00:00:00 08/06/2022 08:10:19 [id number] [facility] Ortho [facility] [place] [address] [facility] [address] [place] [address] 10/10/2022 00:00:00 10/10/2022 13:45:14 [id number] [facility] Ortho Bobby [place] [address] [place] [address] 11/12/2022 00:00:00 11/12/2022 16:02:47 [id number] Blessing Hillman MD [facility] [place] [address] [place] [address] 02/24/2023 11:58:43 02/24/2023 12:38:29 Osteopenia [id number] M85.80 Send for full parathyroi d and thyroid panel to screen for secondary causes of bone loss. Send for 24 hour urinary calcium to screen for hypercalci uria. Will send for low dose dexa suppressio n testing to screen for hypercorti solic state. Send for vitamin D level as she is taking a low dose daily form to assess need to modify therapy further as goal 50 ng/ML to optimize bone and immune health. Loose stool [id number] R1 9.5 Send for elastase and fecal fat to screen for EPI and malabsorpt ion. Fatigue 57113377 R53.83 Will send for thyroid antibodies to screen for autoimmune thyroid disease in addition to CBC, CMP, ferritin,A NA and B12/folate to screen for other potential secondary causes of fatigue. Spent up to 45 minutes preparing to see the patient (eg, review of tests), obtaining and/or reviewing separately obtained history, performing a medically appropriat e examinatio n and evaluation , counseling and educating the patient, ordering medication s, tests, along with documentin g clinical informatio n in the electronic health record, independen tly interpreti ng results and communicat ing results to the patient. RTC in 3 months. Patient was provided a handwritte n lab order which contains our fax number. If she chooses to go outside of the [facility] system to obtain labwork she was advised to provide our fax number and my informatio n to the lab she will be obtaining labwork from in order to have her labs properly forwarded over for me to review so there is no loss of follow up due to use of outside network. She was also advised to contact our clinic informing us that she has completed her labwork so we are aware we will need to reach out to the appropriat e laboratory to request her results be forwarded to us so I might have the ability to review and make further medical decision making in her case. She voiced understand ing. Thank you for this consultati on. [id number] Blessing Hillman MD [facility] [place] [address] [place] [address] 05/22/2023 15:24:58 05/22/2023 15:55:16 Osteopenia [id number] M85.80 Parathyroi d and thyroid panel all normal and 24 hour urinary calcium did not suggest hypercalci uria. Vit D in range- recommende d 1200 mg of calcium in addition to 800 IU of vitamin D 3 for bone health in addition to daily weight bearing exercise. Vitamin B1 2 deficiency (non anemic) [id number] E53.8 Trial on B12 injections as patient does have fatigue along with folic acid 1 mg daily. recommende d high protein / low carb diet to help with further weight loss- she desires to lose up to 10 pounds. Recommende d she consider a protein shake plan as option for weight loss due to busy schedule and inability to eat adequate amounts of protein/ up to 110 grams daily along with 120 grams of carbs or less daily at 1200 calories. Spent up to 25 minutes preparing to see the patient (eg, review of tests), obtaining and/or reviewing separately obtained history, performing a medically appropriat e examinatio n and evaluation , counseling and educating the patient, ordering medication s, tests, along with documentin g clinical informatio n in the electronic health record, independen tly interpreti ng results and communicat ing results to the patient. Patient can be followed by PCP - she/he is aware of my resignatio n and last day of July 04. If needed his/her PCP can refer patient to another endocrinol ogist in the area. All questions /concerns answered and refills necessary at visit today. [id number] Mariah Collier MD [facility] Primary Care Rosalio isidro [address] [place] [address] [address] [place] [address] 08/21/2023 15:20:42 08/21/2023 15:57:18 Cobalamin deficiency [id number] E53.8 Adult heal th examination [id number] Z00.00 Z13.220 Z79.899 Sees hand turner for paps Mammogram is upcoming DEXA 12/12-osteo penia repeat 2024 declines flu vaccine recommend covid booster recommend shingrix vaccine Fasting labs Essential hypertension [id number] I10 stable Vitamin D deficiency 347 70300 E55.9 Gastroesop hageal reflux disease without esophagitis [id number] K21.9 Avoid greasy/spi cy/acidic foodEat small, frequent mealsCall if any worsening symptoms including increased pain or blood in stools or if symptoms do not resolve in 14 daysok to continue famotidine 20 mg bidplan 90 day course of pantoprazo le [id number] Mariah Collier MD [facility] Primary Care [facility] [address] [facility] [address] [place] [address] 10/28/2023 17:33:24 12/03/2023 17:38:48 Health Concerns Section Related Observation LastModified by Organization Detai ls LastModified Time None Recorded Concern Status LastModified by Organization Details LastModified Time None Recorded Advance Directives Directive N: Payers Encounter Date Sequence Insurance Name Policy Number Policy Palomares Covered Member ID Palomares Member ID Guarantor Name 02/24/2023 1 [facility] [id number] Aimee Ramon [id number] Aimee Ramon 05/22/[address] [place] [address] [id number] Aimee Ramon [id number] Aimee Ramon 08/21/2023 1 [facility] [id number] Aimee Ramon [id number] Aimee Ramon 10/28/[address] [place] [address] [id number] Aimee Ramon [id number] Aimee Ramon Notes Date Note Type Note Provider Name and Address Organization Details Recorded Time 11/12/2022 text/html ShoulderReported bypatient.Hand Dominance:right Location:right; anterior; lateral Quality:throbbing; frequent Severity:moderate Timing:recurrent; occasional Duration:continuous since onset Aggravating Factors:pushing/pulli ng; throwing; damp weather Alleviating Factors:rest; elevation; stretching; NSAIDs Associated Symptoms:no weakness; no numbness; no tingling; no redness; no ecchymosis; no catching/locking; no popping/clicking; no buckling; no grinding; no instability; no radiation down arm; no drainage; no fever; no chills; no weight loss; no change in bowel/bladder habits;swelling;warmt h Not Available [employer] 11/12/2022 16:02:47 02/24/2023 text/html 62 yo female com es in as referral by courtesy of Dr. Collier for management and evaluation of osteopenia. To note patient has mild weight gain, fatigue and loose stools. bone density from 12/12:T score of -2.4 of LST score of -2.0 of right and left femoral necks FRAX score of 18% for major osteoporotic fracture risk and 1.2% for hip fracture risk vit D 21 ng/ML from 11/14 labs She has never had a bone fracture in her life. She has no bone pain or joint pain. She did mess up her shoulder helping with Mozy and she went for therapy for a few months and still having pain- cortisone shot given at that time on one occasion. She hasn't had to get any more steroid shots. She did start vitamin D3 2000 IU daily. 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 She has no known thyroid disease- she is putting weight on her midsection. Blessing Hillman MD [address] [place] [address], [place], [address], [employer] 02/24/2023 13:15:38 05/22/2023 text/html 63 yo female com es in for follow up in management of osteopenia and vit B12 def. last seen in February/initial visit at that time we sent for full workup for bone loss. bone density from 12/12:T score of -2.4 of LST score of -2.0 of right and left femoral necks She has no hx of falls or fractures. She is active and exercises regularly. She would like to lose 10 pounds and inquiring on weight loss options. 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 labs from February:glucose 86 mg/dLcalcium 8.9 mg/dLCr normallft normalPTH 46 pg/mLiron sat 29%elastase normalTSH of 2.59 uIU/mlFT4 of 1.2 ng/dLvit D 36 ng/MLB12 286 pg/mLfolate normalTPO 1 IU/mlANA/RF negceliac negfecal fat tpcoer26 hour urine calcium normal at 158 mg/24 hour Blessing Hillman MD [address], [facility] [address], [place], [address], [facility] [employer] [facility] 05/22/2023 21:04:20 08/21/2023 text/html Here for dana s Had c-scope in November, in December had diverticulitis with perforation. She was scheduled for partial colectomy which was canceled. She had second opinion with Stephie Morrissey who recommended no surgery. Currently treated with metronidazole and ciprofloxacin (last day). She was also recently dx with covid. Having daily heartburn, taking otc famotidine 20 mg bid, but has daily breakthrough reflux Mariah Collier MD [address], [facility] [address], [place], [address], [facility] [employer] [facility] 08/21/2023 19:40:59 OBGyn Episode No OBEpisode recorded.
--- OUTSIDE RECORDS SUMMARY | 2024-11-10 06:01 | XMS_ITS | Clinical Summary ---
Author Organization [facility] [address] [address] Address [address] [place] [address] Care Team Providers Care Digital Publishing Specialist Name Role Phone Manas Mathews MD Unavailable [phone] Marek Hernandes DO Unavailable [phone] Marce Manriquez MD Unavailable [phone] Mariah Collier MD Primary Care Provider + Tez Sweet MD Unavailable [phone] Allergies Active Allergy Reactions Criticality Noted Date [...] ph node 12/09/2018 Patent foramen ovale 09/11/2017 Encounters Date Type Department Care Team Description 10/19/2024 4:40 PM EQUIPMENT TECHNICIAN Telemedicine [facility] Endocrinology Metabolism and Lipid [address] [facility] [address] [place] [address] Taqueria Garcia MD Thyroid nodule (Primary Dx); Gastroesophageal reflux disease without esophagitis; Obstructive sleep apnea syndrome 09/23/2024 Orders Only [facility] Endocrinology Metabolism and Lipid [address] [facility] [address] [place] [address] [place] [address] Lety Stevenson, TOÑO 09/23/2024 Orders Only [facility] Endocrinology Metabolism and Lipid [address] [facility] [address] [place] [address] [place] [address] Lety Stevenson, RN 09/23/2024 Telephone [facility] Endocrinology Metabolism and Lipid [address] [facility] 13th [place] [address] [place] [address] Lety Stevenson, RN from Last 3 Months Immunizations Immunization Administration Dates Next Due Tdap 01/12/2019 Surgical History Surgery Date Site/Laterality Comments TONSILLECTOMY APPENDECTOMY BOWEL RESECTION BREAST BIOPSY 04/08/2013 Right ABDOMINAL SURGERY 03/22/2024 - 04/21/2024 Medical History Medical History Date Comments Hypertension Cronin's palsy Neuroendocrine tumor Family History Medical History Relation Name Comments Asthma Brother 1 Alzheimer's disease Brother 2 Heart failure Father Kidney cancer Father Liver disease Mother No Known Problems Sister Relation Name Status Comments Brother 1 (Age 44) Brother 2 (Age 65) Father (Age 92) Mother (Age 86) Sister Alive Social History Tobacco Use Types Packs/Day Years Used Date Smoking Tobacco: Never Passive Smoke Exposure: Never Smokeless Tobacco: Never Tobacco Cessation:Counseling Given: Not Answered Alcohol Use Standard Drinks/Week Comments Yes 2 (1 standard drink = 0.6 oz pur e alcohol) Comments No Sex and Gender Information Value Date Recorded Sex Assigned at Not on file Legal Sex Female 8:22 PM EQUIPMENT TECHNICIAN Gender Identity Not on file Sexual Orientation Not on file Obstetrics History Last Filed Vital Signs Vital Sign Reading [...] 05/26/2024 3:40 PM CDT Plan of Treatment Health Maintenance Due Date Last Done Comments Cervical Cancer Screening 1962 Colon Cancer Screening-Colonoscopy 1962 Depression Screening 1962 Hepatitis C Screening 1962 Pneumococcal vaccine <65 (1 of 2 - PCV) 1968 Hepatitis B Screening 1980 Regular Well Visit/Exam 18-64 1980 Zoster Vaccine (1 of 2) 1981 Covid-19 Vaccine (3 - Pfizer risk series) 12/25/2020 11/27/2020, 10/30/2020 Influenza Vaccine (#1) 2024 Breast Cancer Screening-Mammogram 10/02/2025 10/02/2024, 10/02/2024, 09/27/2023, Additional history exists DTaP/Tdap/Td Vaccine (2 - Td or Tdap) 01/12/2029 01/12/2019 Procedures Procedure Name Priority Date/Time Associated Diagnosis Comments CORTISOL Routine 10/05/2024 8:29 AM EQUIPMENT TECHNICIAN ESTRADIOL Routine 10/05/2024 8:29 AM EQUIPMENT TECHNICIAN T4, FREE Routine 10/05/2024 8:29 AM EQUIPMENT TECHNICIAN DEXAMETHASONE Routine 10/05/2024 8:29 AM EQUIPMENT TECHNICIAN Weight gain THYROID PEROXIDASE ANTIBODY Routine 10/05/2024 8:29 AM EQUIPMENT TECHNICIAN Weight gain TSH Routine 10/05/2024 8:29 AM EQUIPMENT TECHNICIAN Weight gain from Last 3 Months Results * Dexamethasone (10/05/2024 8:29 AM EQUIPMENT TECHNICIAN) DEXAMETHASONE 222 ng/dL [facility]Abimael navarrete [facility], Comment: Reference Ranges for Dexamethasone: Baseline: Less than 20 ng/dL 1 mg dexamethasone overnight: 180-550 ng/dL (8:00-10:00 AM) This test was developed and its analytical performance characteristics have been determined by [employer]. It has not been cleared or approved by FDA. This assay has been validated pursuant to the CLIA regulations and is used for clinical purposes. Blood 10/05/2024 8:29 AM EQUIPMENT TECHNICIAN 10/05/2024 8:30 AM EQUIPMENT TECHNICIAN Taqueria Garcia MD LAB BLOOD ORDERABLES Final Resu lt Performing Organization Address [facility]/ZIP Co de Phone Number [email or web address]Tony [facility], [address] [place] [address] * Thyroid peroxidase antibody (TPO) (10/05/2024 8:29 AM EQUIPMENT TECHNICIAN) Thyroperoxidase ab 1 <9 IU/mL [facility] Blood 10/05/2024 8:29 AM EQUIPMENT TECHNICIAN 10/05/2024 8:30 AM EQUIPMENT TECHNICIAN us Taqueria Garcia MD LAB BLOOD ORDERABLES Final Resu lt [facility] [address] [place] [address] * Estradiol (10/05/2024 8:29 AM EQUIPMENT TECHNICIAN) [facility] Estradiol 15 pg/mL [facility] mikel [place] Comment: Reference Range Follicular Phase: 19-144 Mid-Cycle: 64-357 Luteal Phase: 56-214 Postmenopausal: < or = 31 Reference range established on post-pubertal patient population. No pre-pubertal reference range established using this assay. For any patients for whom low Estradiol levels are anticipated (e.g. males, pre-pubertal children and hypogonadal/post-menopausal females), the [facility] Estradiol, Ultrasensitive, LCMSMS assay is recommended (order code 28002). Please note: patients being treated with the drug fulvestrant (Faslodex(R)) have demonstrated significant interference in immunoassay methods for estradiol measurement. The cross reactivity could lead to falsely elevated estradiol test results leading to an inappropriate clinical assessment of estrogen status. [facility] order code [id number], Ultrasensitive LC/MS/MS demonstrates negligible cross reactivity with fulvestrant. 10/05/2024 8:29 AM EQUIPMENT TECHNICIAN 10/05/2024 8:30 AM EQUIPMENT TECHNICIAN Taqueria Garcia MD LAB BLOOD ORDERABLES Final Resu lt Performing Organization Address [facility] Co de Phone Number [facility] [address] [place] [address] * TSH (10/05/2024 8:29 AM EQUIPMENT TECHNICIAN) [facility] TSH 0.58 0.40 - 4.50 mIU/L [facility] Blood 10/05/2024 8:29 AM EQUIPMENT TECHNICIAN 10/05/2024 8:30 AM EQUIPMENT TECHNICIAN Taqueria Garcia MD LAB BLOOD ORDERABLES Final Resu lt Performing Organization Address [facility]/ZIP Co de Phone Number [facility] [address] [place] [address] * T4, free (10/05/2024 8:29 AM EQUIPMENT TECHNICIAN) Free T4 1.3 0.8 - 1.8 ng/dL [email or web address] 10/05/2024 8:29 AM EQUIPMENT TECHNICIAN 10/05/2024 8:30 AM EQUIPMENT TECHNICIAN us Taqueria Garcia MD LAB BLOOD ORDERABLES Final Resu lt [email or web address] [address] [place] [address] * (ABNORMAL) Cortisol (10/05/2024 8:29 AM EQUIPMENT TECHNICIAN) Cortisol 1.4(L) mcg/dL [facility] Comment: Reference Range: For 8 a.m.(7-9 a.m.) Specimen: 4.0-22.0 Reference Range: For 4 p.m.(3-5 p.m.) Specimen: 3.0-17.0 * Please interpret above results accordingly * 10/05/2024 8:29 AM EQUIPMENT TECHNICIAN 10/05/2024 8:30 AM EQUIPMENT TECHNICIAN us Taqueria Garcia MD LAB BLOOD ORDERABLES Final Resu lt [email or web address] [address] [address] [place] [address] from Last 3 Months Insurance [facility] [place] [address] [place] [id number]US [facility] [address] [place], [place] [id number] CHOICE PLUS Care Teams Digital Publishing Specialist Relationship Specialty Start Date End Date Mariah Collier MD [address] [place] [id number] PCP - General Family Medicine 12/31/21 Manas Mathews MD General Surgery 12/02/18 Marek Hernandes DO Tray Line Worker Gastroenterology 12/22/20 Marce Manriquez MD [address] [facility]ICAL ONCOLOGY, [address] [place] [address] Medical Oncologist Medical Oncology 12/25/20 Tez Sweet MD [phone] [place] [address] Surgeon Colon and Rectal Surgery 03/11/23
[2024-11-10] MEDS: LACTATED RINGERS 1,000 ML 30 ML IV CONT ×3 (06:40→09:29)
[2024-11-10] MEDS: TRANEXAMIC ACID 1,000 MG/10 ML AMPUL 1000 MG IV PUSH (06:47)
--- NOTE | 2024-11-10 06:59 | P.PNAN_ITS ---
Anes - Initial Pre Proc Eval Procedure: Operation Date: 11/10/24 07:30 Proposed Procedures p Abdominal Fascial Repair and Reinforcement using Galaflex - Tao Torres MD Date/Time: 11/10/24 06:59 Surgeon: Tao Torres MD Pre Op Diagnosis: History of Abdominoplasty Patient Data Age: 64 Gender: F Height: 1.55 m Weight: 55.2 kg Last Vital Signs Temp 36.3 C L 11/10/24 06:27 Pulse 66 11/10/24 06:27 Resp 16 11/10/24 06:27 BP 134/85 11/10/24 06:27 Pulse Ox 99 11/10/24 06:27 O2 Del Method Room Air 11/10/24 06:27 Allergies Allergy/AdvReac Type Severity Reaction Status Date / Time Iodinated Contrast Media AdvReac Unknown VOMITING Verified 11/10/24 06:29 iodine AdvReac Unknown Vomiting Verified 11/10/24 06:29 shellfish derived AdvReac Unknown Vomiting Verified 11/10/24 06:29 Home Medications ?Medication ?Instructions ?Recorded ?Confirmed ?Type lisinopril 10 mg tablet 10 mg PO DAILY 04/25/20 11/10/24 History cholecalciferol (vitamin D3) 50 100 mcg PO DAILY 02/26/23 11/10/24 History mcg (2,000 unit) capsule famotidine 20 mg tablet 20 mg PO Q12HR PRN Indigestion 02/26/23 11/10/24 History folic acid 5 mg-vitamin B complex 1 tablet PO DAILY 10/21/24 11/10/24 History with C no.17 tablet Patient hx anesthesia problems: none Family hx anesthesia problems: none Results Review: All pre-operative results and documents have been reviewed as part of the pre- operative evaluation. [facility] Past Medical History Medical History Lower abdominal pain Fibroid PFO (patent foramen ovale) Carcinoid tumor of small intestine HTN (hypertension) Surgical History Surgical History History of bowel resection Laparoscopic ileocecal resection with ileocolonic anastomosis on 11/13/[address] Mathews History of appendectomy Exploratory laparotomy in her 20's that resulted in an appendectomy Family History Family History Father Family history of malignant neoplasm of kidney Family history of congestive heart failure Other Cerebrovascular accident Family history of liver disease Family history of thyroid disease Hypertension Social History Social History Smoking status: Never smoker Second hand tobacco smoke exposure: No Alcohol intake: current Drinks per week: 2 Substance use: never Substance use type: does not use Lack of Transportation: No Lack of Food: Never True Current Housing: Decline to Answer Concerned About Future Housing: Decline to Answer Difficulty Paying Gas/Electric Bills: Decline to Answer Difficulty Paying for Meds: Decline to Answer Currently Unemployed: Decline to Answer Education: Decline to Answer Difficulty w/ Childcare or Family Care: Decline to Answer Living arrangements: with family Additional living arrangements comments: [facility] Spiritual care concerns: No Anes - Eval Final PreProcedure Day of Procedure 11/10/24 06:59 Patient weight: normal Heart: regular rate and rhythm Lungs: clear to auscultation Airway: Mallampati scale class II Neurological: alert and oriented Last oral intake: >/= 8 hours ASA classification: II Emergent: no Anesthetic plan: proceed Anesthesia type and monitoring: general LMA and standard monitoring Results Review: All pre-operative results and documents have been reviewed as part of the pre- operative evaluation. Informed Consent: The patient's anesthetic plan and its attendant risks and benefits were discussed with the patient/family/POA. Questions were solicited and answers provided to the satisfaction of the patient/family/POA.
--- NOTE | 2024-11-10 06:59 | WPDHPUPDATE1 ---
History and Physical Update Update Date/Time: 11/10/24 06:59 History and Physical has been reviewed, including an updated exam of the patient. There are NO changes in the patient's condition. Risks, benefits, and alternatives have been discussed and questions answered. Patient agrees to proceed with procedure.
--- NOTE | 2024-11-10 06:59 | W.PM.PROC2 ---
Procedure Note - Detailed Date of Procedure 11/10/24 Pre-op Diagnosis History of Abdominoplasty Post-op Diagnosis Same Procedure Performed Repair left abdominal fascial weakness Surgeon Tao Torres MD Anesthesia General Findings Left fascia laxity easily verified on examination. Repaired and galaflex placed over repair. Description of Procedure They are here today for the above procedures. Previously and again today the risks, benefits, alternatives were discussed in extensive detail. I wanted them to be very realistic about the risks involved as well as expectations. Again toay I was very clear about the complexity of her concerns and the risk this will not improve (and could worsen) her concerns. We discussed aftercare and what to monitor for. I was very upfront about the risks of wound breakdown leading to loss of skin, open wounds, and need for additional procedures with permanent abdominal deformity. We discussed DVT/PE risks and management. Made sure answered all of their questions to their satisfaction today and consent was obtained. They were marked in the preoperative holding area with their verification. The patient was taken to the operating room. Anesthesia was provided by anesthesiology. Stab incisions were made and tumescent solution was infiltrated. Once adequate time was allowed for hemostasis A 10 blade was used to excise the previous abdominoplasty scar. I continued dissection down to the level of fascia. Elevated just what was necessary for repair of the concern. This was based on preoperative planning (marked in a sitting position) review of the CT scan, and intraoperative ultrasound. The area of concern was repaired with 0 PDO Quill in several layers. Then secured with Galaflex. The galaflex was soaking on the back table in a Betadine solution. Trimmed and sutured into place with 2-0 Vicryl. 2-0 Vicryl to obliterate all space I reached the lower scar line. 15 Jonathan drain was placed and secured with 3-0 Nylon. I then approximated using a 3 point suture with 2-0 Vicryl followed by 2-0 PDO Stratafix, 3-0 Stratafix ,running subcuticular 4-0 Monocryl, and tissue glue. Fluffs and an abdominal binder were placed. The patient was transferred to the bed in a flexed position. Awoken and taken to the PACU without difficulty. All instrument and sponge counts were correct at the end of the case. Estimated Blood Loss 20 Drains Yes (15 Jonathan) Packing No Pathology None sent Complications No immediate complications Condition Stable Disposition PACU
[2024-11-10] MEDS: SCOPOLAMINE 1 MG PATCH 1 PATCH TRANSDERM (07:11)
[2024-11-10] MEDS: ceFAZolin SODIUM 2 GM/20 ML SW SYRINGE IV PUSH (07:28)
[2024-11-10] MEDS: NACL 0.9% IRRIG POUR BOTTLE 900 ML, GENTAMICIN SULFATE INJ 160 MG, ceFAZolin 2 GM, POVI... IRRIGATION (07:50)
[2024-11-10] MEDS: LACTATED RINGERS IRRIG 1,000 ML, LIDOCAINE 1% LOCAL INJ 50 ML, EPINEPHrine HCL INJ 1 MG... INFILTRATE (08:45)
--- NOTE | 2024-11-10 09:47 | WPDANESPN ---
Anes - Prog Note Post-Op Date/Time: 11/10/24 09:47 Cardiovascular status: normal Respiratory status: normal Airway patency: baseline Mental status: baseline Post-Op hydration status: normal Vital Signs: Last Vital Signs Temp 36.3 C L 11/10/24 09:21 Pulse 83 11/10/24 09:40 Resp 19 11/10/24 09:40 BP 111/7 L 11/10/24 09:40 Pulse Ox 96 11/10/24 09:40 O2 Del Method Room Air 11/10/24 09:40 O2 Flow Rate 8 11/10/24 09:10 Pain Score (VAS): 0/10 I/O: Intake & Output 11/09/24 11/10/24 11/10/24 23:59 07:59 15:59 Intake Total 500 1500 Balance 500 1500 Patient Feedback: Patient satisfied with anesthetic care.
[2024-11-10] MEDS: oxyCODONE HCL (*CRX) 5 MG TAB IR PO (10:45)
== END 2024-11-10 11:00 | disposition home or self-care (01) ==
PROVIDERS: Visit Provider Surgery Plastic and Reconstructive Surgery
PROC: (CPT 12032; principal; 2024-11-10 07:30)
DX: T81.89XA Other complications of procedures, not elsewhere classified, initial encounter (principal); M62.89 Other specified disorders of muscle; Y83.8 Other surgical procedures as the cause of abnormal reaction of the patient, or of later complication, without mention of misadventure at the time of the procedure
CPT/HCPCS: 12032; 15777

== ENCOUNTER 2025-06-22 18:05 | Emergency (ER) | payer OTHER, SELFPAY ==
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
--- OUTSIDE RECORDS SUMMARY | 2025-06-22 18:08 | XMS_ITS | Clinical Summary ---
Author Organization [facility] Address [address] [place] [address] Phone Care Team Providers Care Wool Fleece Grader Name Role Phone Mariah Collier MD Primary [...] on file. Referring Provider: Araceli Rome MD [address] [facility] [place] [address] Other: Problem Noted Date Diagnosed Date Hay fever Encounters Date Type Department Care Team Description 04/26/2025 External Device Data [facility] ABSTRACTION Provider, Abstract from Last 3 Months Family History Medical [...] Comments Blood Pressure 136/74 10/14/2013 1:32 PM INDUSTRIAL PHARMACIST Pulse 72 10/14/2013 1:32 PM INDUSTRIAL PHARMACIST Temperature - - Respiratory Rate - - Oxygen Saturation - - Inhaled Oxygen Concentration - - Weight 51.7 kg (114 lb) 10/14/2013 1:32 PM INDUSTRIAL PHARMACIST Height 154.9 cm (5' 1) 10/14/2013 1:32 PM INDUSTRIAL PHARMACIST Body Mass Index 21.54 10/14/2013 1:32 PM INDUSTRIAL PHARMACIST Plan of Treatment Health Maintenance Due Date Last Done Comments HPV/Cotest (21-29) 1983 HPV/Cotest (30-65) 1992 FIT-DNA Q 3 years 2007 FIT/FOBT Q 1 year 2007 Flex Sig/CT Colonography Q 5 years 2007 ZOSTER VACCINE (1 of 2) 2012 INFLUENZA VACCINE (#1) 2025 COVID-19 Vaccine (2024-2 6 season) 2025 11/27/2020, 10/30/2020 BREAST CANCER SCREENING 10/02/2025 10/02/19 25, 09/27/2023, 09/03/2022, Additional history exists CERVICAL CANCER SCREENING 09/01/2027 PAP SMEAR 09/01/2027 09/01/2024, 09/22, 02/14/2022, Additional history exists DTAP/TDAP/TD VACCINES (2 - T d or Tdap) 01/12/2029 01/12/2019 COLORECTAL SCREENING 12/09/2032 12/09/2022, 05/04/20 Colorectal Cancer Screening 12/09/2032 RSV VACCINE (60+ or ) (1 - 1-dose 75+ series) 2037 Procedures Procedure Name Priority Date/Time Associated Diagnosis Comments MAMMO 3D DANNY SCREEN BILAT W OR WO CAD Routine 10/02/2024 9:05 AM INDUSTRIAL PHARMACIST Visit for screening mammogram from Last 3 Months or Most Recently Relevant to Health Maintenance Results * MAMMO 3D DANNY SCREEN BILAT W OR WO CAD (10/02/2024 9:05 AM INDUSTRIAL PHARMACIST) Anatomical Region Laterality Modality Breast Bilateral Mammography 10/02/2024 9:06 AM INDUSTRIAL PHARMACIST Impressions 10/02/2024 12:09 PM INDUSTRIAL PHARMACIST IMPRESSION: No suspicious findings to suggest malignancy in either breast. Annual mammography is recommended. OVERALL FINAL ASSESSMENT: BI-RADS CATEGORY 1: Negative DICTATION LOCATION: [facility] 10/02/2024 12:09 PM INDUSTRIAL PHARMACIST BILATERAL SCREENING DIGITAL MAMMOGRAM WITH 3D TOMOSYNTHESIS [...] in the interpretation of this examination. Magalie Cheema OPERATIONS MANAGER STATION MAMMO ORDERABLES Final Result from Last 3 Months or Most Recently Relevant to Health Maintenance [place] [address] [place] [address] Digital Message Display [facility] [id number] Care Teams Wool Fleece Grader Relationship Specialty Start Date End Date Mariah Collier MD [address] [phone] PCP - General Family Practice 06/26/22
--- OUTSIDE RECORDS SUMMARY | 2025-06-22 18:08 | XMS_ITS | Data Portability ---
Author Organization [facility] Address [address] [place] [address] Care Team Providers Care Rfid Engineer Name Role Phone ASHLIE SLAUGHTER Primary Care Provider [phone] Assessment Encounter Date Assessment Date Assessment LastModified by Organization Details LastModified Time 09/26/2021 09/26/2021 pt loretta well, f/u pending pathology, pt would prefer a phone call instead of portal [email or web address] Not available 09/26/2021 17:06:45 10/01/2022 10/01/2022 Annual [...] is positive need subtyping 16,18/45 2023 024 [facility] (Lab), [address], [place], [address], 4 13:01:56 hsv (1+2) igm, serum 2021 022 [facility] (Lab), [address], [place], [address], 2 17:22:44 hsv-1 igg Ab, serum 2021 022 [facility] (Lab), [address] [place], [address], 17:22:42 hsv-2 igg Ab, serum 2021 [facility] (Lab), [address] [facility], [place], [address], 17:22:43 hbcab (hepatitis B core Ab) igm, serum 2021 [facility] (Lab), [address] [facility], [place], [address], 17:22:42 HBsAg (hepatitis B surface Ag), serum 2021 [facility] (Lab), [address] [facility], [place], [address], 17:22:41 hepatitis C virus Ab, serum 2021 [facility] (Lab), [address] [facility], [place], [address], 17:22:42 unlisted lab - HIV 1/2 antigen/ant ibody, reflex confirmatio n 2021 [facility] (Lab), [address] [place], [address], 17:22:43 RPR (rapid plasma reagin), serum 2021 [facility] (Lab), [address] [facility], [place], [address], 17:22:44 Referral None recorded. Procedures None recorded. Surgeries None recorded. Imaging MAMMO, screening, digital, bilateral 2023 024 [facility] [address], [address], [place], [address], 5 12:44:10 DEXA, axial skeleton + vertebral fracture assessment 2022 023 [facility], [address], [place], [address], 3 16:37:08 Medication Orders estradiol 0.01% (0.1 mg/gram) vaginal cream 2023 024 [email or web address] [id number], [address] [facility], [place], [place], [id number], 4 17:54:01 Valtrex 500 mg tablet 2021 022 [email or web address] [facility] #[id number], [address] [facility], [place], [place], [id number], 4 17:22:41 Patient TargetsNo targets recorded. Patient [...] Autho tarun aviles Provi rigo: Kacy Champagne NP Colle cted: 09/26 1744 Order ing Locat ion: [place] Patho logy Recei pietro: 09/27 0026 Patho logis t: Julio C Conrad rd, MD Speci mens: A) - Endoc ervix , ECC [place] Bx B) - Cervi x, Cervi roberto Spira brush Bx FINAL DIAGN OSIS: A. Endoc ervix ; brush biops y: -Steven gn endoc ervic al and squam ous epith elium , negat kip for dyspl stephen B. Cervi x; spira brush biops y: -Steven gn ectoc ervic al epith elium , negat kip for dyspl stephen Elect janina sifuentes roscoe d by Julio C Conrad rd, MD [...] patie nt's name, demog raphi cs and ECC . Recei pietro [...] Gross ed by César burnett Not Available [facility] (Lab) [address], [place], [address], 09/27/2021 13:27:53 09/26/19 22 09/26/2021 pregn tian test, urine HCG negati ve Not Available [facility] [address], [place], [address], 09/26/2021 19:34:55 06/24/20 22 06/24/2022 HEPAT ITIS B SURFA CE ANTIG EN hepatitis B surface antigen Non-re active non-re active This assay was perfo rmed using [employer] ratio n reage nts and test kits. Value s obtai bonnie with other assay metho ds or kits canno t be used inter hernandez eably . Not Available [facility] [address] [place] [address], [address], 06/28/2022 17:22:41 06/24/2006/24/2022 HEPAT ITIS C ANTIB ANTHONY SCREE N, REFLE X TO CONFI RMATI ON hepatitis C antibody Non-re active non-re active Antib odies to HCV Not Detec pal, does not exclu de the possi bilit y of expos ure to HCV. Not Available [facility] [address] [place] [address], [address], 06/28/2022 17:22:42 06/24/20 22 06/24/2022 HEPAT ITIS B CORE, IGM hepatitis B core IgM antibody Negati ve negati ve Not Available [facility] [address] [place] [address], [address], 06/28/2022 17:22:42 06/24/20 22 06/24/2022 HERPE S SMPLE X VIRUS TYPE 1 SPECI FIC AB, IGG herpes simplex virus 1 IgG Positi ve negati ve abnormal Not Available [facility] [address] [place] [address], [address], 06/28/2022 17:22:42 06/24/20 22 06/24/2022 HERPE S SMPLE X VIRUS TYPE 1 SPECI FIC AB, IGG herpes simplex virus 1 IgG, quant 2.4 ai 0.0-0. 8 high Not Available [facility] [address] [place] [address], [address], 06/28/2022 17:22:42 06/24/20 22 06/24/2022 HERPE S SIMPL EX VIRUS TYPE 2 SPECI FIC AB, IGG herpes simplex virus 2 IgG Negati ve negati ve Not Available [facility] [address] [place] [address], [address], 06/28/2022 17:22:43 06/24/20 22 06/24/2022 HERPE S SIMPL EX VIRUS TYPE 2 SPECI FIC AB, IGG herpes simples virus 2 IgG, quant <0.2 ai 0.0-0. 8 Not Available [facility] [address] [place] [address], [address], 06/28/2022 17:22:43 06/24/20 22 06/24/2022 HIV 1/2 ANTIG EN/AN TIBOD Y, REFLE X CONFI RMATI ON HIV Ag-Ab total quant 0.12 idx <1.00 Not Available [facility] [address] [place] [address], [address], 06/28/2022 17:22:43 06/24/20 22 06/24/2022 HIV 1/2 ANTIG EN/AN TIBOD Y, REFLE X CONFI RMATI ON HIV Ag-Ab total Non-re active non-re active Not Available [facility] [address] [place] [address], [address], 06/28/2022 17:22:43 06/24/20 22 06/24/2022 HIV 1/2 ANTIG EN/AN TIBOD Y, REFLE X CONFI RMATI ON HIV-1 antibody quant 0.06 idx <1.00 Not Available [facility] [address] [place] [address], [address], 06/28/2022 17:22:43 06/24/20 22 06/24/2022 HIV 1/2 ANTIG EN/AN TIBOD Y, REFLE X CONFI RMATI ON HIV-1 antibody Non-re active non-re active Not Available [facility] [address] [place] [address], [address], 06/28/2022 17:22:43 06/24/20 22 06/24/2022 HIV 1/2 ANTIG EN/AN TIBOD Y, REFLE X CONFI RMATI ON HIV-1 antigen (P24) quant 0.12 idx <1.00 Not Available [facility] [address] [place] [address], [address], 06/28/2022 17:22:43 06/24/20 22 06/24/2022 HIV 1/2 ANTIG EN/AN TIBOD Y, REFLE X CONFI RMATI ON HIV-1 antigen (P24) Non-re active non-re active Not Available [facility] [address] [place] [address], [address], 06/28/2022 17:22:43 06/24/20 22 06/24/2022 HIV 1/2 ANTIG EN/AN TIBOD Y, REFLE X CONFI RMATI ON HIV-2 antibody quant 0.12 idx <1.00 Not Available [facility] [address] [place], [address], 06/28/2022 17:22:43 06/24/20 22 06/24/2022 HIV 1/2 [...] on will be perfo rmed by the [employer] HIV 1/2 Suppl ement al Assay . The perfo rmanc e of this assay has not been estab lishe d for neona frankie and the assay shoul d not be used in indiv idual s young er than 2 years of age. Not Available [facility] [address] [place], [address], 06/28/2022 17:22:43 06/24/20 22 06/24/2022 RPR SCREE N/REF JIM TITER /FTA RPR screen Nonrea ctive nonrea ctive Not Available [facility] [address] [place], [address], 06/28/2022 17:22:44 06/24/20 22 06/24/2022 HERPE S SIMPL EX VIRUS , 1 AND 2 IGM, IFA hsv 1 IgM screen NEGATI VE Not Available [facility] [address] [place], [address], 06/28/2022 17:22:44 06/24/20 22 06/24/2022 HERPE S [...] d HSV. This test may not disti bria conn en HSV-1 IgM and HSV-2 IgM due [...] have been deter mined by [facility]. It has not been clear ed or appro pietro by FDA. This assay has been valid ated pursu ant to the CLIA regul ation s and is used for clini roberto purpo ses. Perfo rming Organ izati on Infor matio n: Site ID: EZ Name: [facility]Rowdy [facility] , Addre ss: [id number] [place] [address] Direc tor: Trinidad perez MD,Ph D,NOAN Not Available [facility] [address] [place], [address], 06/28/2022 17:22:44 06/24/20 22 06/24/2022 VAGIN ITIS/ VAGIN OSIS, DNA PROBE marcia sp. detection, direct probe Negati ve negati ve Not Available [facility] [address] [place], [address], 06/28/2022 21:43:03 06/24/20 22 06/24/2022 VAGIN ITIS/ VAGIN OSIS, DNA PROBE gardnerella vag. detection, direct probe Positi ve negati ve abnormal Not Available [facility] [address] [place], [address], 06/28/2022 21:43:03 06/24/20 22 06/24/2022 VAGIN ITIS/ VAGIN OSIS, DNA PROBE trichomonas vag. detection, direct probe Negati ve negati ve Not Available [facility] [address], [place], [address], 06/28/2022 21:43:03 06/24/20 22 06/24/2022 CT/GC AND TRICH [place] (RRNA ), SWAB chlamydia trachomatis, PCR Negati ve negati ve Not Available [facility] [address] [place] [address], [address], 06/28/2022 21:43:04 06/24/20 22 06/24/2022 CT/GC AND TRICH [place] (RRNA ), SWAB neisseria gonorrhoeae, PCR Negati ve negati ve Not Available [facility] [address] [place] [address], [address], 06/28/2022 21:43:04 06/24/20 22 06/24/2022 CT/GC AND TRICH [place] (RRNA ), SWAB trichomonas vaginalis ribosomal RNA (rrna) Negati ve negati ve Not Available [facility] [address] [place] [address], [address], 06/28/2022 21:43:04 06/24/20 22 06/24/2022 CULTU RE: HERPE S SIMPL EX VIRUS (HSV) , REFLE X TYPIN G source RT LABIA MAJORA Not Available [facility] [address] [place] [address], [address], 06/28/2022 21:43:04 06/24/20 22 06/24/2022 CULTU RE: HERPE S SIMPL EX VIRUS (HSV) , REFLE X TYPIN G hsv culture, body fluid NOT ISOLAT ED REFER ENCE RANGE : NOT ISOLA PAL right labia major a Perfo rming Organ izati on Infor matio n: Site ID: EZ Name: [facility]Rowdy korin [facility] [place] ss: [address] [place] [address] Direc tor: Trinidad perez MD,Ph D,NONA Not Available [facility] [address], [place], [address], 06/28/2022 21:43:04 10/01/19 23 10/01/2022 IMAGE GUIDE D PAP AND HPV REGAR DLESS image guided Pap, HPV regardless of Pap result SEE RESULT S BELOW CASE REPOR T: Cytol ogy Gynec ologi roberto Repor t Case: [id number] Autho tarun g Provi rigo: Brigid Nair, ACCOUNT RESOLUTION ANALYST Colle cted: 10/01 1728 Order ing Locat ion: [place] Patho logy Recei pietro: 10/02 0639 First Scree n: Darlyn Kim, CT Speci men: Screlucy fischer Pap - Image d, Cervi x STATE MENT OF ADEQU ACY: Satis facto ry for evalu ation Trans forma tion zone compo nent prese nt FINAL DIAGN OSIS: Negat kip for Intra epith elial Lesio n or Jason reynolds (NIL) . Ashley malhotra d by Darlyn Kim, CT on [...] as clini alicia warrmerari nted. Not Available [facility] (Lab) [address] [facility], [place], [address], 10/03/2022 12:11:31 09/01/20 24 09/01/2024 IMAGE GUIDE D PAP AND HPV REGAR DLESS image guided Pap, HPV regardless of Pap result SEE RESULT S BELOW CASE REPOR T: Cytol ogy Gynec ologi roberto Repor t Case: [id number] Autho tarun aviles Provi rigo: Dermravinder marti, Rosina , ANP, CONTACT LENS BLOCKER AND CUTTER Colle cted: 09/01 1707 Order ing Locat [...] epith elial Lesio n or Jason reynolds ([facility]) . Atrop hic cell aleena bryant. 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 Not Available [facility] (Lab) [address] [facility], [place], [address], 09/13/2024 13:01:56 09/03/20 21 09/03/2021 MAMMO , scree amado, tomos ynthe sis, bilat eral, w/ CAD No observ ation record ed. layran [facility] [address] [facility] [address] , [place], [address], 09/04/2021 09:51:09 12/24/19 23 DEXA, axial skele ton + verte bral fract ure asses sment No observ ation record ed. [email or web address] [facility] [address], [place], [address], 01/01/2023 10:01:22 10/04/19 25 10/02/2024 MAMMO , scree amado, digit al, bilat eral No observ ation record ed. [email or web address] [facility] [address] [facility], [place], [address], 10/04/2024 13:01:54 Result Notes None recorded. Problems Name Problem SNOMED Code Status Onset Date Resolution Date Notes Provider Name and Address Organization Details Recorded Time Screenin g for malignan t neoplasm of cervix Completed 201210/30/2020 Pap Smear;Pr actice ID: 0001 Karley Jean Baptiste lg, [facility] 12:52:50 Dysfunct ional uterine bleeding Completed 201210/30/2020 DUB;Prac josh ID: 0001 Karley Jean Baptiste lg, [facility] 12:52:31 Uterine leiomyom a [id number] Completed 201210/30/2020 Leiomyom a of uterus, unspecif ied;Prac josh ID: 0001 Karley Markel castanon, [facility] 12:52:58 Menstrua tion finding Completed 201210/30/2020 Menorrha jose Excessiv e Menstrua tion;Pra ctice ID: 0001 Karley [place] lg, [facility] 12:52:40 Premenop ausal menorrha jose Completed 201310/30/2020 Premenop ausal menorrha jose;Prac josh ID: 0001 Karley Jean Baptiste lg, [facility] 12:52:47 Insertio n of intraute rine contrace ptive device Completed 201310/30/2020 INSERTIO N OF IUD;Prac josh ID: 0001 Karley Markel castanon, [facility] 12:52:37 Pregnanc y test negative [id number] Completed 201310/30/2020 Negative Pregnanc y Test;Pra ctice ID: 0001 Karley Markel castanon, [facility] 12:52:44 Family planning surveill ance Completed 201310/30/2020 Contrace ptive surveill ance, unspecif ied;Prac josh ID: 0001 Karleynicci Jean Baptiste lg [facility] 12:52:34 Adult health examinat ion Completed 201310/30/2020 Routine general medical examinat ion at a health care facility ;Practic e ID: 0001 Karley Fernándezrosi castanon [facility] 12:52:29 Speciali zed medical examinat ion Completed 201310/30/2020 Routine gynecolo gical examinat ion;Prac josh ID: 0001 Karley Markelrosi castanon [facility] 12:52:55 Pre-surg ashley evaluati on Completed 201310/30/2020 Pre-oper ative examinat ion, unspecif ied;Aiden rded Elsewher e: No Locat ion: [facility] S ource: EHR Tobacco Farmworker rowdy: N Practi ce ID: 0001 Frank lable Time: 02:00:00 PM Karleynicci castanon [facility] 12:52:43 Pregnanc y test positive [id number] Completed 201310/30/2020 Positive Pregnanc y Test;Pra ctice ID: 0001 Karley castanon [facility] 12:52:45 Postoper ative follow-u p visit Completed 201310/30/2020 Follow Up Surgery; Practice ID: 0001 Karley castanon [facility] 12:52:41 Menopaus al symptom [id number] Completed 201410/30/2020 Menopaus al or female climacte keyon states;P ractice ID: 0001 Karley castanon [facility] 12:52:[address] Concept Completed 201510/30/2020 Encntr for general adult medical exam w/o abnormal findings ;Practic e ID: 0001 Karley castanon [facility] 12:52:[address] Concept Completed 201610/30/2020 Encounte r for general adult medical exam w abnormal findings ;Practic e ID: 0001 Karley castanon [facility] 12:52:48 Acute vaginiti s 31274068 Completed 201710/30/2020 Acute vaginiti s;Practi ce ID: 0001 Karley castanon [facility] 12:52:27 Herpes simplex 21711525 Completed 201710/30/2020 Herpesvi ral infectio n, unspecif ied;Prac josh ID: 0001 Karley castanon [facility] 12:52:36 Urinary tract infectio us disease 09438544 Completed 201810/30/2020 Urinary tract infectio n, site not specifie d;Practi ce ID: 0001 Karley castanon [facility] 12:52:56 Screenin g for malignan t neoplasm of rectum Completed 201810/30/2020 Encounte r for screenin g for malignan t neoplasm of rectum;P ractice ID: 0001 Karley castanon [facility] 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 12:52:53 Evaluati on finding Completed 201810/30/2020 Hematuri a, unspecif ied;Prac josh ID: 0001 Karley castanon, [facility] 12:52:33 Problem Notes None recorded. Procedures Surgical History Date Name Laterality Status Provider Name and Address Organization Details Recorded Time 03/22/20 24 Abdominoplasty completed [facility] 09/01/2024 17:23:39 10/01/19 23 Date of Last Pap Smear completed [facility] 09/01/2024 17:23:03 09/22/19 23 Date of Last Mammogram completed [facility] 09/01/2024 17:25:13 09/26/19 22 Colposcopy completed Kacy Higuera CNM [address], [place], [address], [facility] 09/26/2021 17:06:03 09/26/19 22 [facility] 19:44:23 09/26/19 22 Colposcopy completed [facility] 09/26/2021 19:45:47 10/23/19 19 repair of small intestine [facility]/25/2021 13:23:13 09/22/19 14 Hysteroscopy completed Sanam Ro [facility] 10/25/2021 13:22:19 09/22/19 13 completed Karley Jean Baptiste [facility] 10/30/2020 15:12:14 09/22/18 87 Appendectomy completed Karley Jean Baptiste [facility] 10/30/2020 15:16:04 09/22/18 66 tonsillectomy completed Karley Jean Baptiste [facility] 10/30/2020 15:15:51 Hysteroscopy completed Johanne Wayne [facility] 06/24/2022 16:09:40 Imaging Results None recorded. Procedure Notes None recorded. Medical Equipment None Reported. Allergies Allergen ID Allergen Name Allergen Category Reaction Reaction Severity Criticality Documentation Date Start Date Code Code System Note Provider Name and Address Organization Details Recorded Time 32191 iodine medicatio n Not available Not available Not available 09/08/2020 5933 RxNorm Karley Jean Baptiste lg, [facility] 15:10:10 Medications Name Sig Start [...] route every 3 months 12/06 completed Prescrib christiano Olsen e: No Locat ion: Jenny ayala [facility] M odify By: amksherri saldana DateTime : 06/02/20 14 03:00:00 PM Not [...] Elsewher e: Yes Loca tion: Jenny ayala [facility] odify By: marianne saldana DateTime : 08/05/20 17 03:15:00 PM Not Available Not Available Not Available diclofena c sodium 75 mg tablet,de layed release TAKE 1 TABLET BY MOUTH TWICE DAILY NEEDED 09/01 completed Not Available Not Available Not Available estradiol 0.01% (0.1 mg/gram) vaginal cream Insert 1 applicat orful vaginall y 2 times per week 2024 active Not Available Not Available Not Avai lable Vitamin D2 1,250 mcg (50,000 unit) capsule take 1 capsule by oral route every week 10/30 completed Prescrib ed Elsewher e: No Locat ion: Jenny ayala [facility] odify By: lory saldana DateTime : 06/13/20 15 04:30:40 PM Not [...] Elsewher e: No Locat ion: Jenny ayala [facility] odify By: luis daniel joaquin DateTime : 09/20/20 19 10:45:00 AM Not Available Not Available Not Available Vitamins and Minerals tablet 10/30 completed Prescrib ed Elsewher e: Yes Loca tion: Jenny ayala [facility] odify By: gallito gonzalez DateTime : 05/31/20 13 01:00:00 PM Not Available Not Available Not Available Vitamin B-12 50 mcg lozenges 05/31 completed Prescrib ed Elsewher e: Yes Loca tion: Zoedarline ayala [facility] odify By: gallito gonzalez DateTime : 12/26/19 12 03:30:00 PM Not Available Not Available Not Available Vitamin D3 25 mcg (1,000 unit) tablet 10/30 completed Prescrib ed Elsewher e: Yes Loca tion: [facility] odify By: gallito gonzalez DateTime : 05/31/20 13 01:00:00 PM Not Available Not Available Not Available nitrofura ntoin monohydra te/macroc rystals 100 mg capsule TAKE 1 CAPSULE BY MOUTH TWICE DAILY FOR 7 DAYS 06/24 completed Not Available Not Available Not Available Calcio Johnathan 500 mg tablet 10/30 completed Prescrib ed Elsewher e: Yes Loca tion: [facility] odify By: lory saldana DateTime : 12/26/19 12 03:30:00 PM Not Available Not Available Not Available Lysteda 650 mg tablet take 2 tablet (1300MG) by oral route 3 times every day during menses 12/06 completed Prescrib ed Elsewher e: No Locat ion: [facility] odify By: christopher saldana DateTime : 12/04/19 13 02:00:00 PM Not Available Not Available Not Available Vitals Date Recorded Body weight Body mass index (BMI) Body height Systolic And Diastolic Provider Name and Address Organization Details Last Updated DateTime 09/26/2021 47816.45 g 23.4 kg/m2 154.94 cm 132/84 mm[Hg] Sanam Ro [facility] 09/26/2021 16:43:34 Date Recorded Body height Body mass index (BMI) Body weight Systolic And Diastolic Provider Name and Address Organization Details Last Updated DateTime 10/01/2022 154.94 cm 24.7 kg/m2 56445.16 g 121/77 mm[Hg] Johanne Wayne [facility] 10/01/2022 16:41:16 Date Recorded Body height Body mass index (BMI) Body weight Systolic And Diastolic Provider Name and Address Organization Details Last Updated DateTime 06/24/2022 154.94 cm 24.4 kg/m2 14953.13 g 125/83 mm[Hg] Johanne Wayne [facility] 06/24/2022 16:09:36 Date Recorded Body height Body mass index (BMI) Body weight Systolic And Diastolic Provider Name and Address Organization Details Last Updated DateTime 07/24/2022 154.94 cm 24.4 kg/m2 34684.13 g 104/72 mm[Hg] Johanne Wayne [facility] 07/24/2022 16:42:47 Date Recorded Body height Body mass index (BMI) Body weight Systolic And Diastolic Provider Name and Address Organization Details Last Updated DateTime 09/01/2024 154.94 cm 23.4 kg/m2 64724.45 g 113/79 mm[Hg] Avani Maneton [facility] 09/01/2024 17:22:02 Social History Question Answer Notes LastModified by Organizat ion Details LastModified Time Tobacco Smoking Status Never Smoker Patsy Jay lg, [facility] 10/01/2022 16:25:12 Do You Have An Advance Directive? No [email or web address] Information n ot available 09/26/2021 Are You Blind Or Do You Have Difficulty Seeing? No [email or web address] Information n ot available 09/26/2021 What Is Your Level Of Caffeine Consumption? Moderate [email or web address] Information not available 09/26/2021 How Much Tobacco Do You Chew? None [email or web address] Information not available 09/26/2021 In The 14 Days Before Symptom Onset, Have You Had Close Contact With A Laboratory-confirm ed COVID-19 While That Case Was Ill? No [email or web address] Information n ot available 09/26/2021 In The 14 Days Before Symptom Onset, Have You Had Close Contact With A Person Who Is Under Investigation For COVID-19 While That Person Was Ill? No [email or web address] Information not available 09/26/2021 Have You Been To An Area Known To Be High Risk For COVID-19? No [email or web address] Information not available 09/26/2021 Are You Deaf Or Do You Have Serious Difficulty Hearing? No [email or web address] Information not available 09/26/2021 What Type Of Diet Are You Following? REGULAR [email or web address] Information n ot available 10/01/2022 What Is The Highest Grade Or Level Of School You Have Completed Or The Highest Degree You Have Received? [id number] Information not available 09/26/2021 Are There Any Guns Present In Your Home? Yes [email or web address] Information not available 09/26/2021 Do You Use Protection During Sex? No Information not available 09/26/2021 Do You Use Your Seat Belt Or Car Seat Routinely? Yes [email or web address] Information not available 09/26/2021 Do You Have Smoke And Carbon Monoxide Detectors In Your Home? Yes [email or web address] Information not available 09/26/2021 How Much Tobacco Do You Smoke? No [email or web address] Information not available 09/26/2021 Do You Use Sunscreen Routinely? Yes Information not available 09/26/2021 Has Tobacco Cessation Counseling Been Provided? No [email or web address] Information not available 10/01/2022 Have You Used IV Drugs? No [email or web address] Information not available 09/26/2021 Do You Have Difficulty Walking Or Climbing Stairs? No [email or web address] Information not available 10/01/2022 Sex: Unknown Functional Status Question Answer Note LastModified by Organizat ion Details LastModified Time Do you use any illicit or recreational drugs? No [email or web address] Information not available 10/30/2020 Do you or have you ever used any other forms of tobacco or nicotine? No [email or web address] Information not available 10/01/2022 What is your level of alcohol consumption? Occasional [email or web address] Information not available 09/26/2021 Are you able to walk independently without assistance or assistive devices? YESWOREST [email or web address] Information not available 09/26/2021 Are you able to care for yourself independently? 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 No [email or web address] Information not available 10/01/2022 What is your exercise level? Occasional [email or web address] Information not available 09/26/2021 Mental Status Question Answer Note LastModified by Organization D etails LastModified Time Do you feel stressed (tense, restless, nervous, or anxious, or unable to sleep at night)? [id number] [email or web address] Information not available 09/26/2021 Family History Relationship Description Onset Age of this Age Resolved Age Notes LastModified by Organization Details LastModified Time Brother Asthma [email or web address] Not available 10/30/2020 15:15:22 Medical History Condition [...] Diagnosis SNOMED-CT Code Diagnosis ICD10 Code Diagnosis IMO Codes Diagnosis Note [id number] Kacy Higuera CNM [facility] [address] [address] 09/26/2021 16:25:24 09/26/2021 17:41:49 Atypical squamous cells of undetermined significance on cervical Papanicolaou smear 155663468 R87.610 Human jaquelin llomavirus deoxyribonucleic acid detected, high risk on cervical specimen [id number] R87.810 [id number] JERI Wallace [facility] [address],[place] [address] 06/24/2022 15:55:16 06/24/2022 17:28:17 Lesion of vulva [id number] N90.89 Highly suspect HSV outbreak given symptoms [...] plan of care. Venereal d isease screening 810117240 Z11.3 Sexually t ransmitted infectious disease 0644785 A64 Genital he rpes simplex 34592220 A60.9 [id number] JERI Wallace [facility] [address],[place] [address] 07/24/2022 16:36:20 07/24/2022 17:02:26 Lesion of vulva 633277917 N90.89 Symptoms resolved after valtrex courseWe discussed negative HSV PCR, (+) HSV 1 AntibodyWe discussed likely HSV lesion given response to valtrex courseCan call if office if this occurs again for valtrex course Vaginitis 01449050 N76.0 Vaginitis symptoms resolved with metronidaz ole vaginal gel courseVulv ar care guidelines discussed in-depthHa ndout given to patientRT for WWE in September as she is due for a repeat pap [id number] Brigid Nair JAELYN [facility] [address],[place] [address] 10/01/2022 16:23:30 10/01/2022 17:19:27 Screening for osteoporosis 219171147 Z13.820 Gynecologi c examination 70765121 Z01.419 Take Calcium with Vitamin D 12-1500mg daily. Do monthly self breast exams. It is advised to get annual flu shot in the fall and she could obtain at [facility] or [facility] take care clinic. If you haven't received the [...] 1 year or sooner if needed Dyspareunia 44123638 N94 .10 [id number] Royce Hunt MD [facility] [address] [address] 09/01/2024 17:17:52 09/01/2024 17:59:37 Gynecologic examination 95207448 Z01.419 Annual gynecologi roberto exam performed. Patient [...] STI testing - declined Screening mammography 24 149914 Z12.31 Vaginal dryness 51090022 N89.8 Rx sent for vaginal estradiol cream [...] with a healthcare provider and oncologist . Government -approved low-dose vaginal estrogen products are available by [...] the vagina are recommende d. Resources: https://burke ocasio.[employer] e.org/docs /default-s ource/for- women/mn-v aginal-dry ness.pdf Dyspareunia [id number] N94 .10 Health Concerns Section Related Observation LastModified by Organization Detai ls LastModified Time None Recorded Concern Status LastModified by Organization Details LastModified Time None Recorded Advance Directives Directive N: Payers Insurance Date Sequence Insurance Name Policy Number Policy Palomares Covered Member ID Palomares Member ID Guarantor Name 09/24/2021 1 *SELF PAY* ginna Rosario 09/06/[address] [facility] [id number] Aimee Ayala Skylerrosi [id number] Aimee Rosario Notes Date Note Type Note Provider Name and Address Organization Details Recorded Time 2 text/html ROS as noted in the HPI pap at [facility], ascus +HPV, no hx abnl pap, reviewed pap, pathology, hpv, colposcopy risks including bleeding and infection upt neg and consent signed Kacy Higuera CNM [address], [place], [address], [facility] 09/26/2021 17:07:24 2 text/html Vaginal/Vulvar ProblemReported by Patient 62yo presents for vulvar irritation for the past 5 days. [...] oncology yearly. JERI Wallace [address], [place], [address], [facility] 06/24/2022 17:21:17 2 text/html 62yo Presents for f/u on labs/lesionSymptoms resolved after valtrex course and metronidazole vaginal gelNo symptoms today, feeling well JERI Wallace [address], [place], [address], [facility] 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 For vaginal bleeding, patient reportshistory of menopause having occurredandno history of post menopausal bleeding. For urinary symptoms, patient reportsno hematuria,no incontinence,no nocturia, andno urinary frequency. For vulva, patient reportsno genital lesionandno vulvar atrophy. For vagina, patient reportsnormal vaginal dischargeandno vaginal atrophy.Breast symptomsFor breast, patient reportsno breast lump,no nipple discharge, andno breast pain.Psychological symptomsFor sexual complaints, patient reportsno sexual complaints. For psychological symptoms, patient reportsno depressionandno anxiety.Preventative measuresFor preventive measures, patient reportsencourage regular mammograms starting age 40,encourage self breast examination,encourage regular exercise,encourage no tobacco use, andmammogram performed within the past year. JERI Wallace [address], [place], [address], [facility] 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 For vaginal bleeding, patient reportshistory of menopause having occurredandno history of post menopausal bleeding. For urinary symptoms, patient reportsno hematuria,no incontinence,no nocturia, andno urinary frequency. For vulva, patient reportsno genital lesionandno vulvar atrophy. For vagina, patient reportsnormal vaginal dischargeandno vaginal atrophy.Breast symptomsFor breast, patient reportsno breast lump,no nipple discharge, andno breast pain.Psychological symptomsFor sexual complaints, patient reportspain during intercoursebut reportsno sexual complaints. For psychological symptoms, patient reportsno depressionandno anxiety. WWEHx of neuroendocrine cancer, with partial bowel dissection. Currently in remission, follows with oncology yearly.Post-menopausal, denies abnormal bleeding.Patient reports dryness and pain with IC. Patient used vaginal estrogen in the past and did well. Patient states that she asked her oncologist about safety vaginal estrogen use and they said she could use it. Patient uses crisco as lubrication as needed. ROSINA MYLES NP [address], [place], [address], [facility] 09/01/2024 17:55:14 OBGyn Episode Ob Episode Information Episode Created Date Number of Fetuses Patient Bloodtype Patient rh Status Prepregnancy Weight lbs Domestic Partner Domestic Partner Phone Father Name Power Barker Operator Status 10/30/19 21 1 CLOSED Fetus Data [...] Domestic Partner Domestic Partner Phone Father Name Power Barker Operator Status 10/30/19 21 1 CLOSED Fetus Data [...] Domestic Partner Domestic Partner Phone Father Name Power Barker Operator Status 10/30/19 21 1 CLOSED Fetus Data [...]
--- OUTSIDE RECORDS SUMMARY | 2025-06-22 18:08 | XMS_ITS | Data Portability ---
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 Plan of Treatment [...] disease comprehensi ve panel, serum 2022 023 [facility], [address], Yoav [address]esteros, [place], [address], 3 16:06:15 pancreatic elastase, stool 2022 023 [facility], [address], [address], [place], [address], 3 16:06:21 fecal fat, qualitative , stool 2022 023 [facility], [address], [address], [place], [address], 3 16:06:13 PTH (parathyroi d hormone), intact + calcium, serum or plasma 2022 023 [facility], [address], [address]os, [place], [address], 3 16:06:09 TSH + free T4, serum 2022 023 [facility], [address], [address], [place], [address], 3 16:06:20 calcium/cre atinine, ratio, 24h urine 2022 023 [facility], [address], [address]os, [place], [address], 3 16:06:12 dexamethaso ne, serum 2022 023 [facility], [address], [address], [place], [address], 3 14:05:02 cortisol, am, serum 2022 023 [facility], [address], [address], [place], [address], 3 14:05:03 CMP, serum or plasma 2022 023 [facility], [address], [address], [place], [address], 3 16:06:11 vitamin D, 25-hydroxy, total, serum 2022 023 [facility], [address], [address], [place], [address], 3 16:06:19 vitamin B12 + folate, serum or blood 2022 023 [place] [facility], [address], [place], [address], 3 16:06:18 thyroid peroxidase (tpo) Ab, serum 2022 023 [facility], [address], Yo[address], [place], [address], 3 16:06:17 iron + total iron-bindin g capacity (TIBC), serum 2022 023 [facility], [address], Yo[address]ester[place], [place], [address], 3 16:06:10 JEFFREY (antinuclea r antibodies) screen, ifa, serum 2022 023 [facility], [address], Yoav [address]esteros, [place], [address], 3 16:06:16 CBC w/ auto diff 2022 023 [facility], [place], [address], 3 16:06:14 Referral None recorded. Procedures None recorded. Surgeries None recorded. Imaging None recorded. Medication Orders pantoprazol e 40 mg tablet,kaila trevizod release 2022 023 BERTA [facility], [address], [place], [place], [id number], 3 15:53:09 cyanocobala min (vit B-12) 1,000 mcg/mL injection solution 2022 023 [email or web address] [facility]03394, [address], [place], [place], [id number], 3 21:04:08 folic acid 1 mg tablet 2022 023 [facility] #99606, [address], [place], [place], [id number], 3 21:04:08 dexamethaso ne 1 mg tablet 2022 023 [email or web address] [facility] #59735, [address], [place], [place], [id number], 3 15:35:10 Patient TargetsNo targets recorded. Patient [...] ional infor kem glover refer to http: //[facility] brenda piper.Que stDia gnost ics.c om/fa q/FAQ 199 Not Available [facility] [address] [address] [place], [address], 11/14/2022 16:57:02 11/11/19 23 11/14/2022 QUEST ASSUR ED(TM ) 25 HYDRO XYVIT BAILEY D(D2, D3) vitamin D, 25-oh, D3 21 NG/mL Refer ence range : Not estab lishe d Not Available [facility] [address] [place], [address], 11/14/2022 16:57:02 11/11/19 23 11/14/2022 QUEST ASSUR ED(TM ) 25 HYDRO XYVIT ABILEY D(D2, D3) vitamin D, 25-oh, D2 <4.0 NG/mL (Note ) Refer ence range : Not estab lishe d This test was devel oped and its joel tical perfo rmanc e antionette cteri stics have been deter mined by [employer]. It has not been clear ed or appro pietro by the [place] Food and Drug Admin istra tion. This assay has been valid ated pursu ant to the CLIA regul ation and is used for Clini asaf purpo ses. LUIS med nemesio n [address] [facility] [address] [place] [address] [phone] Gaston gil MD See Note 1 Note 1 For addit ional infor may piper, kem e refer to http: //[facility] brenda joyceQue stDia gnost ics.c om/fa q/FAQ 199 (This link is being provi ded for infor may reis/ educmerari andersono ses only. ) Not Available [facility] [address] [address] [place], [address], 11/14/2022 16:57:02 11/11/1911/14/2022 VITAM IN B12 vitamin [...] pg/mL will have sympt oms. Not Available [address] [address] [place], [address], 11/14/2022 16:57:02 11/11/19 23 11/14/2022 CBC (INCL UDES DIFF/ PLT) white blood cell count 5.3 thous and/u L 3.8-10 .8 normal Not Available [facility] [address] [address] [place], [address], 11/14/2022 16:57:01 11/11/1911/14/2022 CBC (INCL UDES DIFF/ PLT) red blood cell count 4.13 roberta on/uL 3.80-5 .10 normal Not Available [facility] [address] [address] [place], [address], 11/14/2022 16:57:01 11/11/1911/14/2022 CBC (INCL UDES DIFF/ PLT) hemoglobin 12.5 g/dL 11.7-1 5.5 normal Not Available [address], [address], 11/14/2022 16:57:01 11/11/1911/14/2022 CBC (INCL UDES DIFF/ PLT) hematocrit 37.3 % 35.0-4 5.0 normal Not Available [address], [address], 11/14/2022 16:57:01 11/11/1911/14/2022 CBC (INCL UDES DIFF/ PLT) MCV 90.3 fL 80.0-1 00.0 normal Not Available [address], [address], 11/14/2022 16:57:01 11/11/19 23 11/14/2022 CBC (INCL UDES DIFF/ PLT) MCH 30.3 pg 27.0-3 3.0 normal Not Available [address], [address], 11/14/2022 16:57:01 11/11/1911/14/2022 CBC (INCL UDES DIFF/ PLT) MCHC 33.5 g/dL 32.0-3 6.0 normal Not Available [address], [address], 11/14/2022 16:57:01 11/11/1911/14/2022 CBC (INCL UDES DIFF/ PLT) RDW 12.0 % 11.0-1 5.0 normal Not Available [address], [address], 11/14/2022 16:57:01 11/11/19 23 11/14/2022 CBC (INCL UDES DIFF/ PLT) platelet count 343 thous and/u L 140-40 0 normal Not Available [address], [address], 11/14/2022 16:57:01 11/11/19 23 11/14/2022 CBC (INCL UDES DIFF/ PLT) MPV 10.2 fL 7.5-12 .5 normal Not Available [address], [address], 11/14/2022 16:57:01 11/11/1911/14/2022 CBC (INCL UDES DIFF/ PLT) absolute neutrophils 3270 cells /uL 1500-7 800 normal Not Available [address], [address], 11/14/2022 16:57:01 11/11/1911/14/2022 CBC (INCL UDES DIFF/ PLT) absolute lymphocytes 1526 cells /uL 850-39 00 normal Not Available [address], [address], 11/14/2022 16:57:01 11/11/19 23 11/14/2022 CBC (INCL UDES DIFF/ PLT) absolute monocytes 371 cells /uL 200-95 0 normal Not Available [address], [address], 11/14/2022 16:57:01 11/11/19 23 11/14/2022 CBC (INCL UDES DIFF/ PLT) absolute eosinophils 90 cells /uL 15-500 normal Not Available [address], [address], 11/14/2022 16:57:01 11/11/19 23 11/14/2022 CBC (INCL UDES DIFF/ PLT) absolute basophils 42 cells /uL 0-200 normal Not Available [address], [address], 11/14/2022 16:57:01 11/11/19 11/14/2022 CBC (INCL UDES DIFF/ PLT) neutrophils 61.7 % normal Not Available [facility] [address], [address], 11/14/2022 16:57:01 11/11/19 23 11/14/2022 CBC (INCL UDES DIFF/ PLT) lymphocytes 28.8 % normal Not Available [facility] [address], [address], 11/14/2022 16:57:01 11/11/19 23 11/14/2022 CBC (INCL UDES DIFF/ PLT) monocytes 7.0 % normal Not Available [facility] [address], [address], 11/14/2022 16:57:01 11/11/19 23 11/14/2022 CBC (INCL UDES DIFF/ PLT) eosinophils 1.7 % normal Not Available [facility] [address], [address], 11/14/2022 16:57:01 11/11/19 23 11/14/2022 CBC (INCL UDES DIFF/ PLT) basophils 0.8 % normal Not Available [facility] [address], [address], 11/14/2022 16:57:01 11/11/19 23 11/14/2022 BASIC METAB OLIC PANEL glucose 91 mg/dL 65-99 normal Fasti ng refer ence inter meagan Not Available [facility] [address], [address], 11/14/2022 16:57:01 11/11/1911/14/2022 BASIC METAB OLIC PANEL urea nitrogen (BUN) 30 mg/dL 7-25 high Not Available [facility] [address], [address], 11/14/2022 16:57:01 02/20/11/14/2022 BASIC METAB OLIC PANEL creatinine 0.72 mg/dL 0.50-1 .05 normal Not Available [address] [place], [address], 11/14/2022 16:57:01 11/11/1911/14/2022 BASIC METAB OLIC PANEL eGFR 96 mL/mi n/1.7 3m2 > or = 60 normal The eGFR is based on the CKD-E PI 2020 equat ion. To calcu late the new eGFR from a previ ous Creat inine or Cysta tin C resul t, go to https ://burke w.tracy iglesias.o elisha/darshana pitts s/ kdoqi /gfr% 5Fcal culat or Not Available [address] [address] [place], [address], 11/14/2022 16:57:01 11/11/1911/14/2022 BASIC METAB OLIC PANEL BUN/creatini ne ratio 42 (calc ) 6-22 high Not Available [address] [address] [place], [address], 11/14/2022 16:57:01 11/11/1911/14/2022 BASIC METAB OLIC PANEL sodium 138 mmol/ L 135-14 6 normal Not Available [address] [address] [place], [address], 11/14/2022 16:57:01 11/11/1911/14/2022 BASIC METAB OLIC PANEL potassium 4.2 mmol/ L 3.5-5. 3 normal Not Available [facility] [address] [address] [place], [address], 11/14/2022 16:57:01 11/11/19 23 11/14/2022 BASIC METAB OLIC PANEL chloride 106 mmol/ L 98-110 normal Not Available [address] [address] [place], [address], 11/14/2022 16:57:01 11/11/1911/14/2022 BASIC METAB OLIC PANEL carbon dioxide 23 mmol/ L 20-32 normal Not Available [address], [address], 11/14/2022 16:57:01 11/11/1911/14/2022 BASIC METAB OLIC PANEL calcium 9.3 mg/dL 8.6-10 .4 normal Not Available [address], [address], 11/14/2022 16:57:01 11/11/1911/14/2022 LIPID PANEL , STAND CLAUDIA triglyceride s 47 mg/dL <150 normal Not Available [address], [address], 11/14/2022 16:57:00 11/11/19 23 11/14/2022 LIPID PANEL , STAND CLAUDIA cholesterol, total 185 mg/dL <200 normal Not Available [address], [address], 11/14/2022 16:57:00 11/11/1911/14/2022 LIPID PANEL , STAND CLAUDIA HDL cholesterol 87 mg/dL > or = 50 normal Not Available [address], [address], 11/14/2022 16:57:00 11/11/1911/14/2022 LIPID PANEL , STAND CLAUDIA LDL-choleste rol 85 mg/dL _(asaf c) normal Refer ence range : <100 Jules able range <100 mg/dL for prima ry preve ntion ; <70 mg/dL for patie nts with CHD or diabe tic patie nts with > or = 2 CHD risk facto rs. LDL-C is now calcu lated using the Pamela n-Hop kins calcu britton n, which is a valid ated novel metho d davidi anastasiia campos r accur acy than the Fried amy equat ion in the estim ation of LDL-C . Pamela n SS et al. MICHAEL. 2013; 310(1 9): 2061- 2068 (http ://ed ucati on.Qu Laron blanco [employer]. com/f aq/FA Q164) Not Available [facility] [address] [address] [address] , [place], [address], 11/14/2022 16:57:00 11/11/19 23 11/14/2022 LIPID PANEL , STAND CLAUDIA chol/HDLC ratio 2.1 (calc ) <5.0 normal Not Available [facility] [address] [address] [address], [place], [address], 11/14/2022 16:57:00 11/11/19 23 11/14/2022 LIPID PANEL , STAND CLAUDIA non HDL cholesterol 98 mg/dL _(asaf c) <130 normal For patie nts with diabe frankie plus 1 major ASCVD risk facto r, treat ing to a non-H DL-C goal of <100 mg/dL (LDL- C of <70 mg/dL ) is consi dered a thera peuti c optio n. Not Available [facility] [address] [address] [facility] [place], [address], 11/14/2022 16:57:00 03/03/20 23 03/12/2023 DEXAM ETHAS [...] mined by [facility] [place] [facility] [employer] [facility] . It has not been clear ed or appro pietro by FDA. This assay has been valid ated pursu ant to the CLIA regul ation s and is used for clini asaf purpo ses. Not Available [facility] [address] [address] [place], [address], 03/12/2023 14:05:02 03/03/20 23 03/12/2023 CORTI RACHNA, A.M. cortisol, A.M. 0.9 mcg/d L low Refer ence Range 8 a.m. (7-9 a.m.) Speci men: 4.0-2 2.0 Not Available [address], [address], 03/12/2023 14:05:03 03/04/2003/12/2023 PTH, INTAC T AND [...] or Low Zena l High Not Available [address], [address], 03/12/2023 16:06:09 03/04/20 23 03/12/2023 PTH, INTAC T AND CALCI UM calcium 8.9 mg/dL 8.6-10 .4 normal Not Available [facility] [address], [address], 03/12/2023 16:06:09 03/04/20 23 03/12/2023 IRON AND TOTAL IRON TEJAS NG CAPAC ITY iron, total 87 mcg/d L 45-160 normal Not Available [facility] [address], [address], 03/12/2023 16:06:10 03/04/20 23 03/12/2023 IRON AND TOTAL IRON TEJAS NG CAPAC ITY iron binding capacity 304 mcg/d L_(ca lc) 250-45 0 normal Not Available [address], [address], 03/12/2023 16:06:10 03/04/20 23 03/12/2023 IRON AND TOTAL IRON TEJAS NG CAPAC ITY % saturation 29 %_(ca lc) 16-45 normal Not Available [address], [address], 03/12/2023 16:06:10 03/04/20 23 03/12/2023 COMPR EHENS KIP METAB OLIC PANEL glucose 86 mg/dL 65-139 normal Non-f astin g refer ence inter meagan Not Available [address], [address], 03/12/2023 16:06:11 03/04/20 23 03/12/2023 COMPR EHENS KIP METAB OLIC PANEL urea nitrogen (BUN) 23 mg/dL 7-25 normal Not Available [address], [address], 03/12/2023 16:06:11 03/04/20 23 03/12/2023 COMPR EHENS KIP METAB OLIC PANEL creatinine 0.81 mg/dL 0.50-1 .05 normal Not Available [address], [address], 03/12/2023 16:06:11 03/04/20 23 03/12/2023 COMPR EHENS KIP METAB OLIC PANEL eGFR 83 mL/mi n/1.7 3m2 > or = 60 normal The eGFR is based on the CKD-E PI 2020 equat ion. To calcu late the new eGFR from a previ ous Creat inine or Cysta jacob C resul t, go to https ://burke iglesias.ravinder tello/darshana pitts s/ kdoqi /gfr% 5Fcal culat or Not Available [address], [address], 03/12/2023 16:06:11 03/04/20 23 03/12/2023 COMPR EHENS KIP METAB OLIC PANEL BUN/creatini ne ratio NOT APPLIC ABLE (calc ) 6-22 Not Available [address], [address], 03/12/2023 16:06:11 03/04/20 23 03/12/2023 COMPR EHENS KIP METAB OLIC PANEL sodium 142 mmol/ L 135-14 6 normal Not Available [address], [address], 03/12/2023 16:06:11 03/04/20 23 03/12/2023 COMPR EHENS KIP METAB OLIC PANEL potassium 3.8 mmol/ L 3.5-5. 3 normal Not Available [address], [address], 03/12/2023 16:06:11 03/04/20 23 03/12/2023 COMPR EHENS KIP METAB OLIC PANEL chloride 107 mmol/ L 98-110 normal Not Available [address], [address], 03/12/2023 16:06:11 03/04/20 23 03/12/2023 COMPR EHENS KIP METAB OLIC PANEL carbon dioxide 27 mmol/ L 20-32 normal Not Available [address], [address], 03/12/2023 16:06:11 03/04/20 23 03/12/2023 COMPR EHENS KIP METAB OLIC PANEL calcium 8.9 mg/dL 8.6-10 .4 normal Not Available [address], [address], 03/12/2023 16:06:11 03/04/20 23 03/12/2023 COMPR EHENS KIP METAB OLIC PANEL protein, total 6.6 g/dL 6.1-8. 1 normal Not Available [address], [address], 03/12/2023 16:06:11 03/04/20 23 03/12/2023 COMPR EHENS KIP METAB OLIC PANEL albumin 4.2 g/dL 3.6-5. 1 normal Not Available [address], [address], 03/12/2023 16:06:11 03/04/20 23 03/12/2023 COMPR EHENS KIP METAB OLIC PANEL globulin 2.4 g/dL_ (calc ) 1.9-3. 7 normal Not Available [address], [address], 03/12/2023 16:06:11 03/04/20 23 03/12/2023 COMPR EHENS KIP METAB OLIC PANEL albumin/glob ulin ratio 1.8 (calc ) 1.0-2. 5 normal Not Available [address], [address], 03/12/2023 16:06:11 03/04/20 23 03/12/2023 COMPR EHENS KIP METAB OLIC PANEL bilirubin, total 0.6 mg/dL 0.2-1. 2 normal Not Available [address], [address], 03/12/2023 16:06:11 03/04/20 23 03/12/2023 COMPR EHENS KIP METAB OLIC PANEL alkaline phosphatase 43 U/L 37-153 normal Not Available [address], [address], 03/12/2023 16:06:11 03/04/20 23 03/12/2023 COMPR EHENS KIP METAB OLIC PANEL AST 13 U/L 10-35 normal Not Available [address], [address], 03/12/2023 16:06:11 03/04/20 23 03/12/2023 COMPR EHENS KIP METAB OLIC PANEL ALT 13 U/L 6-29 normal Not Available [address], [address], 03/12/2023 16:06:11 03/04/20 23 03/12/2023 CALCI UM, 24 HOUR URINE (W/ CREAT ININE ) calcium/crea tinine ratio 139 mg/g_ creat 30-275 normal Not Available [address], [address], 03/12/2023 16:06:12 03/04/20 23 03/12/2023 CALCI UM, 24 HOUR URINE (W/ CREAT ININE ) calcium, 24 hour urine 158 mg/24 _h normal Refer ence Range 35-25 0 Low calci um diet 35-20 0 Not Available [address], [address], 03/12/2023 16:06:12 03/04/20 23 03/12/2023 CALCI UM, 24 HOUR URINE (W/ CREAT ININE ) creatinine, 24 hour urine 1.14 g/24_ h 0.50-2 .15 normal Not Available [address], [address], 03/12/2023 16:06:12 03/04/20 23 03/12/2023 FECAL FAT, QUALI TATIV E fecal fat, qualitative NORMAL normal Not Available [facility] [address], [address], 03/12/2023 16:06:13 03/04/20 23 03/12/2023 DEXAM ETHAS [...] for clini asaf purpo ses. Not Available [facility] [address], [address], 03/12/2023 16:06:13 03/04/20 23 03/12/2023 CBC (INCL UDES DIFF/ PLT) white blood cell count 4.3 thous and/u L 3.8-10 .8 normal Not Available [facility] [address], [address], 03/12/2023 16:06:14 03/04/20 23 03/12/2023 CBC (INCL UDES DIFF/ PLT) red blood cell count 4.28 roberta on/uL 3.80-5 .10 normal Not Available [facility] [address], [address], 03/12/2023 16:06:14 03/04/20 23 03/12/2023 CBC (INCL UDES DIFF/ PLT) hemoglobin 12.9 g/dL 11.7-1 5.5 normal Not Available [facility] [address], [address], 03/12/2023 16:06:14 03/04/20 23 03/12/2023 CBC (INCL UDES DIFF/ PLT) hematocrit 38.6 % 35.0-4 5.0 normal Not Available [facility] [address], [address], 03/12/2023 16:06:14 03/04/20 23 03/12/2023 CBC (INCL UDES DIFF/ PLT) MCV 90.2 fL 80.0-1 00.0 normal Not Available [address], [address], 03/12/2023 16:06:14 03/04/20 23 03/12/2023 CBC (INCL UDES DIFF/ PLT) MCH 30.1 pg 27.0-3 3.0 normal Not Available [address], [address], 03/12/2023 16:06:14 03/04/20 23 03/12/2023 CBC (INCL UDES DIFF/ PLT) MCHC 33.4 g/dL 32.0-3 6.0 normal Not Available [address], [address], 03/12/2023 16:06:14 03/04/20 23 03/12/2023 CBC (INCL UDES DIFF/ PLT) RDW 12.3 % 11.0-1 5.0 normal Not Available [address], [address], 03/12/2023 16:06:14 03/04/20 23 03/12/2023 CBC (INCL UDES DIFF/ PLT) platelet count 280 thous and/u L 140-40 0 normal Not Available [address], [address], 03/12/2023 16:06:14 03/04/20 23 03/12/2023 CBC (INCL UDES DIFF/ PLT) MPV 9.9 fL 7.5-12 .5 normal Not Available [address], [address], 03/12/2023 16:06:14 03/04/20 23 03/12/2023 CBC (INCL UDES DIFF/ PLT) absolute neutrophils 1075 cells /uL 1500-7 800 low Not Available [address], [address], 03/12/2023 16:06:14 03/04/20 23 03/12/2023 CBC (INCL UDES DIFF/ PLT) absolute lymphocytes 2842 cells /uL 850-39 00 normal Not Available [address] [place], [address], 03/12/2023 16:06:14 03/04/20 23 03/12/2023 CBC (INCL UDES DIFF/ PLT) absolute monocytes 271 cells /uL 200-95 0 normal Not Available [facility] [address] [address] [place], [address], 03/12/2023 16:06:14 03/04/20 23 03/12/2023 CBC (INCL UDES DIFF/ PLT) absolute eosinophils 82 cells /uL 15-500 normal Not Available [address] [place], [address], 03/12/2023 16:06:14 03/04/20 23 03/12/2023 CBC (INCL UDES DIFF/ PLT) absolute basophils 30 cells /uL 0-200 normal Not Available [address], [address], 03/12/2023 16:06:14 03/04/20 23 03/12/2023 CBC (INCL UDES DIFF/ PLT) neutrophils 25 % normal Not Available [address] [place], [address], 03/12/2023 16:06:14 03/04/20 23 03/12/2023 CBC (INCL UDES DIFF/ PLT) lymphocytes 66.1 % normal Not Available [facility] [address] [place], [address], 03/12/2023 16:06:14 03/04/20 23 03/12/2023 CBC (INCL UDES DIFF/ PLT) monocytes 6.3 % normal Not Available [facility] [address] [place], [address], 03/12/2023 16:06:14 03/04/20 23 03/12/2023 CBC (INCL UDES DIFF/ PLT) eosinophils 1.9 % normal Not Available [address], [address], 03/12/2023 16:06:14 03/04/20 23 03/12/2023 CBC (INCL UDES DIFF/ PLT) basophils 0.7 % normal Not Available [address], [address], 03/12/2023 16:06:14 03/04/20 23 03/12/2023 NARDA C DISEA SE COMPR EHENS KIP PANEL interpretati on No serol ogica l evide nce for narda c disea se is prese nt. Consi rigo IgA defic iency . Not Available [address], [address], 03/12/2023 16:06:15 03/04/20 23 03/12/2023 NARDA C DISEA SE COMPR EHENS KIP PANEL tissue transglutami nase Ab, IgA <1.0 U/mL Value Inter preta tion ----- ----- ----- ---- <15.0 Antib abraham not detec pal > or = 15.0 Antib abraham detec pal Not Available [address], [address], 03/12/2023 16:06:15 03/04/20 23 03/12/2023 NARDA C DISEA SE COMPR EHENS KIP PANEL immunoglobul in A 17 mg/dL 47-310 low Not Available [address], [address], 03/12/2023 16:06:15 03/04/20 23 03/12/2023 TISSU E TRANS GLUTA LELIA E AB, IGG tissue transglutami nase Ab, IgG <1.0 U/mL Value Inter preta tion ----- ----- ----- ---- <15.0 Antib abraham not detec pal > or = 15.0 Antib abraham detec pal Not Available [facility] [address] [place], [address], 03/12/2023 16:06:16 03/04/20 23 03/12/2023 JEFFREY SCR, [...] JEFFREY Patte rns (http s://d oi.or g/10. 9885/ ccl- 2017- 0052) For addit ional infor kem glover e refer to http: //[facility] brenda piper.Que stDia gnost ics.c om/fa q/FAQ 177 (This link is being provi ded for infor may nal/ educa richard l purpo ses only. ) Not Available [facility] [address] [place], [address], 03/12/2023 16:06:16 03/04/20 23 03/12/2023 JEFFREY SCR, IFA, W/REF L TITER /DORCAS FRANSISCA/R HEUMA TOID ARTHR ITIS PANEL 1 rheumatoid factor <14 IU/mL <14 normal Not Available [address], [address], 03/12/2023 16:06:16 03/04/20 23 03/12/2023 JEFFREY SCR, IFA, W/REF L TITER /DORCAS FRANSISCA/R HEUMA TOID ARTHR ITIS PANEL 1 cyclic citrullinate d peptide (ccp) Ab (IgG) <16 units normal Refer ence Range Negat kip: <20 Weak Posit kip: 20-39 Moder ate Posit kip: 40-59 Stron g Posit kip: >59 Not Available [address], [address], 03/12/2023 16:06:16 03/04/20 23 03/12/2023 JEFFREY SCR, IFA, W/REF L TITER /DORCAS FRANSISCA/R HEUMA TOID ARTHR ITIS PANEL 1 interpretati on There is no serol ogic evide nce for rheum atoid arthr itis. The RF and CCP tests each have a sensi tivit y for estab lishe d rheum atoid arthr itis of appro ximat tc 65-70 %. Not Available [address], [address], 03/12/2023 16:06:16 03/04/20 23 03/12/2023 THYRO ID PEROX IDASE ANTIB ODIES thyroid peroxidase antibodies 1 IU/mL <9 Not Available [address], [address], 03/12/2023 16:06:17 03/04/2003/12/2023 CORTI RACHNA, A.M. cortisol, A.M. 9.9 mcg/d L normal Refer ence Range 8 a.m. (7-9 a.m.) Speci men: 4.0-2 2.0 Not Available [address], [address], 03/12/2023 16:06:18 03/04/20 23 03/12/2023 VITAM IN [...] pg/mL will have sympt oms. Not Available [facility] [address] [place], [address], 03/12/2023 16:06:18 03/04/20 23 03/12/2023 VITAM IN B12/F OLATE , SERUM PANEL folate, serum 7.6 NG/mL normal Refer ence Range Low: <3.4 Borde rline : 3.4-5 .4 Zena l: >5.4 Not Available [facility] [address] [place], [address], 03/12/2023 16:06:18 03/04/20 23 03/12/2023 VITAM IN [...] /MS is recom toni d: order code 73805 (gabriel ents >2yrs ). See Note 1 Note 1 For addit ional infor matio n, pleas e refer to http: //[facility] brenda Gil stDia gnost ics.c om/fa q/FAQ 199 (This link is being provi ded for infor may reis/ rox belcher purpo ses only. ) Not Available [facility] [address] [address] [address], [place], [address], 03/12/2023 16:06:19 03/04/20 23 03/12/2023 TSH+F REE T4 TSH 2.59 mIU/L 0.40-4 .50 normal Not Available [facility] [address] [address] [place], [address], 03/12/2023 16:06:20 03/04/20 23 03/12/2023 TSH+F REE T4 T4, free 1.2 NG/dL 0.8-1. 8 normal Not Available [facility] [address] [address] [place], [address], 03/12/2023 16:06:20 03/04/20 23 03/12/2023 PANCR EATIC [...] subst ituti on thera py. Not Available [facility] [address] [address] [place], [address], 03/12/2023 16:06:20 10/28/19 24 10/28/2023 rapid strep group A, throa t STREP A negati ve Not Available [facility] [address], [place], [address], 10/28/2023 17:06:30 10/28/19 24 10/28/2023 rapid flu (A+B) Flu A negati ve Not Available [facility] [address], [place], [address], 10/28/2023 17:06:07 10/28/19 24 10/28/2023 rapid flu (A+B) Flu B negati ve Not Available [address], [place], [address], 10/28/2023 17:06:07 12/06/19 23 12/04/2022 DEXA No observ ation record ed. [place] [id number] [facility] [address], [place], [address], 12/09/2022 09:23:54 12/26/19 23 12/25/2022 CT, abdom en + pelvi s, w/o contr ast No observ ation record ed. [address], [place], [address], 12/25/2022 08:00:33 12/30/19 23 12/29/2022 CT, abdom en + pelvi s, w/o contr ast No observ ation record ed. [address], [place], [address], 12/30/2022 07:46:12 01/12/20 23 01/11/2023 CT, abdom en + pelvi s, w/o contr ast No observ ation record ed. [address], [place], [address], 01/13/2023 07:48:25 Result Notes None recorded. Problems Name Problem SNOMED Code Status Onset Date Resolution Date Notes Provider Name and Address Organization Details Recorded Time History of hypertens ion 656454870 Completed 202001/25/2021 Not Available 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 Not Available [facility] 3 22:45:51 Essential hypertens ion 17615685 Active 2020 Not Available [facility] 3 22:45:51 Pain of right shoulder joint 93855645549 913449 Active 2022 Not Available [facility] 3 22:45:51 Partial thickness rotator cuff tear 480359341 Active 2022 Not Available [facility] 3 22:45:51 Osteopeni a 410454823 Active 2022 Mariah Collier MD [address], [place], [address] , [facility] [employer] [facility] 3 09:24:03 Loose stool 948122750 Active 2022 Blessing Hillman MD [address], [place], [address] , [facility] [employer] [facility] 3 12:29:03 Fatigue 32817170 Active 2022 Blessing Hillman MD [address], [place], [address] , [facility] 3 12:31:48 Vitamin B12 deficienc y (non anemic) 81003219 Active 2022 Blessing Hillman MD [address], [place], [address] , [employer] [facility] 3 15:38:48 Cobalamin deficienc y 598116501 Active 2022 Mariah Collier MD [address], [place], [address] , [facility] 3 15:36:17 Vitamin D deficienc y 30225492 Active 2022 Mariah Collier MD [address], [place], [address] , [facility] [employer] [facility] 3 15:45:27 Gastroeso phageal reflux disease without esophagit is 426148142 Active 2022 Mariah Collier MD [address] [facility] [address], [place], [address] , [facility] [employer] [facility] 3 15:48:36 Generaliz ed acute body pains 199315876 Active 2023 FILI Mitchell, [facility] [employer] [facility] 4 17:06:25 Sore throat 320183359 Active 2023 FILI Mitchell, [facility] [employer] [facility] 4 17:06:34 Acute conjuncti vitis of left eye 86629526472 9105 Active 2023 Mariah Collier MD [address], [address] , [facility] [employer] [facility] 4 11:08:22 Notes:Some problems listed i n Document: #[id number] could not be added to this patient's chart. Please review this document and add these problems to the patient's chart manually as needed. Problem Notes None recorded. Procedures Surgical History Date Name Laterality Status Provider Name and Address Organization Details Recorded Time 12/10/19 23 colonoscopy completed Gabriella Saab LPN [facility] [employer] [facility] 12/11/2022 11:44:34 tonsilectomy/john oids completed Not Available [facility] 11/20/2022 22:43:30 resection of intestine for interposition completed Not Available [employer] 11/20/2022 22:43:30 Appendectomy completed Not Available [facility] 11/20/2022 22:43:30 Imaging Results None recorded. Procedure Notes None recorded. Medical Equipment None Reported. Allergies Allergen ID Allergen Name Allergen Category Reaction Reaction Severity Criticality Documentation Date Start Date Code Code System Note Provider Name and Address Organization Details Recorded Time 21408 Iodinated contrast media (substanc e) medicatio n Not available Not available Not available 02/24/2023 87263 2004 SNOMED LAW Dailey null, [place] - [facility] 3 12:09:13 Medications Name Sig Start Date Stop [...] administe red by the provider 05/22 completed [facility]: 0003- 0494- 20 Not Available Not Available [...] 20 mg by injection route. 05/22 completed [facility] 47253 -064- 01 Not Available Not Available Not Available BD Insulin Syringe Ultra-Fine 1 mL 31 gauge x 5/16 INJECT B12 SUBCUTANE OUS ONCE WEEKLY FOR 90 DAYS active Not Available Not Available No t Available [employer] COVID-19 Antigen Home Test kit active Not Available Not Available Not Available Vitals Date Recorded Body height Provider Name an d Address Organization Details Last Updated DateTime 10/28/2023 154.94 cm Isamar Vigil RN [facility] [employer] 10/28/2023 17:47:43 Date Recorded Body mass index (BMI) Body height Body weight Provider Name and Address Organization Details Last Updated DateTime 11/12/2022 23.6 kg/m2 154.94 cm 00414.05 g Not Available [facility] 11/20/2022 22:45:01 Date Recorded Body height Body mass index (BMI) Body weight Body temperature Respiratory rate Heart rate Systolic And Diastolic Provider Name and Address Organization Details Last Updated DateTime 3 154.94 cm 23.5 kg/m2 80272.1 7 g 97.6 [degF] 18 /min 69 /min 135/77 mm[Hg] LAW Dailey ME [employer] [facility] [employer] 3 12:08:53 Date Recorded Body height Body mass index (BMI) Body weight Heart rate Systolic And Diastolic Provider Name and Address Organization Details Last Updated DateTime 05/22/2023 154.94 cm 24.3 kg/m2 14221.26 g 64 /min 110/75 mm[Hg] Karen Miranda ME [employer] [facility] [employer] 05/22/2023 15:34:53 Date Recorded Body height Body mass index (BMI) Body weight Body temperature Heart rate Oxygen saturation Oxygen saturation in Arterial blood by Pulse oximetry Systolic And Diastolic Provider Name and Address Organization Details Last Updated DateTime 3 154.94 cm 23.4 kg/m2 28494.4 5 g 97.2 [degF] 87 /min 98 % 98 % 110/64 mm[Hg] Aki Mathews RN [facility] [employer] [facility] 15:26:15 Social History Question Answer Notes LastModified by [employer] Details LastModified Time Tobacco Smoking Status Never Smoker Hilary Corinne castanon, [facility] [employer] [facility] [employer] 08/21/2023 15:22:57 Do You Have An Advance Directive? No [id number] Information not available 11/20/2022 What Is Your Level Of Caffeine Consumption? Moderate [id number] Information not available 11/20/2022 What Type Of Diet Are You Following? REGULAR [id number] Information not available 11/20/2022 Are There Any Guns Present In Your Home? No Information not available 08/21/2023 What Was The Date Of Your Most Recent Tobacco Screening? 01/25/2021 Information not available 08/21/2023 Do You Use Sunscreen Routinely? Yes Information not available 08/21/2023 Sex: Unknown Functional Status Question Answer Note LastModified by [employer] Details LastModified Time What is your level of alcohol consumption? Occasional [id number] Information not available 11/20/2022 Mental Status None recorded. Family History Relationship Description Onset Age of this Age Resolved Age Notes LastModified by Organization Details LastModified Time Mother Disorder of thyroid gland [id number] Not available 11/20/2022 22:43:31 Mother Heart disease MIGRATION.121 [id number] Not available 11/20/2022 22:43:32 Mother Cirrhosis of liver frivastorres Not available 15:22:54 Father Malignant neoplasm of kidney frivastorres Not available 15:22:54 Father Essential hypertension frivastorres Not available 08/21/2023 15:22:54 Father Heart disease MIGRATION.717 [id number] Not available 11/20/2022 22:43:32 Sister Cerebrovascu lar accident 72 frivastorres Not available 08/21/2023 15:22:54 Brother Asthma MIGRATION.027 [id number] Not available 11/20/2022 22:43:32 Brother Alzheimer's disease frivastorres Not available 15:22:54 Medical History Condition Response BLINDNESS N RHEUMATIC FEVER N KIDNEY STONES N BLADDER PROBLEMS N MRSA N OTHER # 1 N POLIO N LUNG DISEASE/DISORDER N COPD N RADIATION / CHEMOTHERAPY N Other # 2 N BLOOD DISEASES N SURGERY N EAR OR HEARING PROBLEMS N MUMPS N BOWEL PROBLEMS N FEMALE PROBLEMS / INFECTIONS N DEPRESSION (INCLUDING POST ) N STROKE/TIA N THYROID DISEASE N ULCERS N BENIGN PROSTATIC HYPERPLASIA N MEASLES N CERVICALGIA N TB SKIN TEST N MYOCARDIAL INFARCTION N OBESITY N PARAPELGIA N GERD/NAUSEA N ANEURYSM N URINARY/BLADDER/KIDNEY PROBLEMS [...] GLAUCOMA N FOOT PROBLEM N DIVERTICULITIS N CHICKENPOX N SLEEP APNEA N ALLERGIES/HAYFEVER N INFECTIOUS DISEASE N HEART ARRHYTHMIA N PROSTATE N INSOMNIA N HIGH CHOLESTEROL / HYPERLIPIDEMIA N HYPERTHYROIDISM N EYE PROBLEMS N EATING DISORDER N EDEMA N CHRONIC PAIN SYNDROME N CAROTID BLOCKAGE N CONSTIPATION N BACK / NECK PROBLEMS N HAVE YOU BEEN HOSPITALIZED OR SEEN IN [facility] IN THE PAST YEAR ? N [...] DISORDER N ALZHEIMER'S DISEASE N PAIN N HERPES N DEMENTIA N HEADACHES/MIGRAINES N SEIZURES/EPILEPSY N VASCULAR DISEASE N PACEMAKER N DIZZINESS N HEART DISEASE/HEART PROBLEMS N KIDNEY DISEASE N DEVELOPMENTAL OR BEHAVIORAL DISORDERS N MULTIPLE SCLEROSIS N SCARLET FEVER N MENTAL DISORDER/ILLNESS N CARDIAC ARRHYTHMIA N CANCER: SPECIFY Y PNEUMONIA N ATRIAL FIBRILLATION N Gall Stones N PULMONARY EMBOLISM N AUTOIMMUNE DISEASE N Gynecological HistoryNo gynecological history recorded. Obstetrics History GPAL:G 0 P 0 0 0 0 Past Encounters Encounter ID Performer Location Encounter Start Date Encounter Closed Date Diagnosis/Indication Diagnosis SNOMED-CT Code Diagnosis ICD10 Code Diagnosis IMO Codes Diagnosis Note [id number] Mariah Collier MD [facility] Primary Care [facility] [address] [facility] [address] [place] [address] 01/25/2021 00:00:00 01/29/2021 17:37:48 [id number] Mariah Collier MD [facility] Primary Care [facility] [address] [facility] [address] [place] [address] 02/12/2021 00:00:00 02/12/2021 19:06:53 [id number] Mariah Collier MD [facility] Primary Care [facility] [address] [facility] [address] [place] [address] 08/05/2022 00:00:00 08/06/2022 08:10:19 [id number] Reji Funk MD [facility] [address] [place] [address] 10/10/2022 00:00:00 10/10/2022 13:45:14 [id number] Reji Funk MD [facility] [address] [place] [address] 11/12/2022 00:00:00 11/12/2022 16:02:47 [id number] Blessing Hillman MD [facility] [address] [place] [address] 02/24/2023 11:58:43 02/24/2023 12:38:29 Osteopenia 458418945 M85.80 Send for full parathyroi d and [...] optimize bone and immune health. Loose stool 790667827 R1 9.5 Send for elastase and fecal fat to screen for EPI and malabsorpt ion. Fatigue 28993120 R53.83 Will send for thyroid antibodies to [...] she chooses to go outside of the [facility] system to obtain labwork she was [...] ing. Thank you for this consultati on. [id number] Blessing Hillman MD [facility] [place] [address] [place] [address] 05/22/2023 15:24:58 05/22/2023 15:55:16 Osteopenia 779115259 M85.80 Parathyroi d and thyroid panel all normal and 24 hour urinary calcium did not suggest hypercalci uria. Vit D in range- recommende d 1200 mg of calcium in addition to 800 IU of vitamin D 3 for bone health in addition to daily weight bearing exercise. Vitamin B1 2 deficiency (non anemic) 95896909 E53.8 Trial on B12 injections as patient [...] answered and refills necessary at visit today. [id number] Mariah Collier MD [facility] Primary Care [address] [place] [address] 08/21/2023 15:20:42 08/21/2023 15:57:18 Cobalamin deficiency 882201532 E53.8 Adult heal th examination 017696087 Z00.00 Z13.220 Z79.899 Sees dragline oiler for paps Mammogram is upcoming DEXA 12/12-osteo penia repeat 2024 declines flu vaccine recommend covid booster recommend shingrix vaccine Fasting labs Essential hypertension 21580957 I10 stable Vitamin D deficiency 347 86998 E55.9 Gastroesop hageal reflux disease without esophagitis 513237487 K21.9 Avoid greasy/spi cy/acidic foodEat small, frequent mealsCall if any worsening symptoms including increased pain or blood in stools or if symptoms do not resolve in 14 daysok to continue famotidine 20 mg bidplan 90 day course of pantoprazo le [id number] Mariah Collier MD [facility] Primary Care [address] [place] [address] 10/28/2023 17:33:24 12/03/2023 17:38:48 Health Concerns Section Related Observation LastModified by Organization Muna ls LastModified Time None Recorded Concern Status LastModified by Organization Details LastModified Time None Recorded Advance Directives Directive N: Payers Insurance Date Sequence Insurance Name Policy Number Policy Palomares Covered Member ID Palomares Member ID Guarantor Name 12/04/2023 1 [facility] [id number] Aimee Ramon [id number] Aimee Ramon Notes Date Note Type Note Provider Name and Address Organization Details Recorded Time 02/24/2023 text/html 62 yo female comes in as referral by courtesy of Dr. [...] did mess up her shoulder helping with [email or web address]) and she went for therapy for a [...] weight on her midsection. Blessing Hillman MD [address] [facility], [facility] [address], [place], [address], [facility] [employer] 02/24/2023 13:15:38 05/22/2023 text/html ROS as noted in the HPI 63 yo female comes in for follow up in management of [...] pg/mLfolate normalTPO 1 IU/mlANA/RF negceliac negfecal fat hour urine calcium normal at 158 mg/24 hour Blessing Hillman MD [address], [facility] [address], [place], [address], [employer] 05/22/2023 21:04:20 08/21/2023 text/html ROS as noted in the HPI Here for wellness Had c-scope in November, in December had diverticulitis with perforation. She was scheduled for partial colectomy which was canceled. She had second opinion with [facility] who recommended no surgery. Currently treated with metronidazole and ciprofloxacin (last day). She was also recently dx with covid. Having daily heartburn, taking otc famotidine 20 mg bid, but has daily breakthrough reflux Mariah Collier MD [address], [place], [address], [employer] 08/21/2023 19:40:59 OBGyn Episode No OBEpisode recorded.
--- OUTSIDE RECORDS SUMMARY | 2025-06-22 18:08 | XMS_ITS | Clinical Summary ---
Author Organization [facility] [place] [facility] [address] [address] [address] [place] [address] Care Team Providers Care Subassembly Assembler Name Role Phone Manas Mathews MD Unavailable [phone] Marek Hernandes DO Unavailable [phone] Marce Manriquez MD Unavailable [phone] Tez Sweet MD Unavailable [phone] No, Physician Primary Care Provider [phone] Allergies Active Allergy Reactions Criticality Noted Date Comments Iodinated Contrast Media Nausea only Low 09/11/2017 Iodine Nausea only Low 01/06/2023 Shellfish Containing Products Nausea only Low 09/11 Medications lisinopril (PRINIVIL,ZESTR IL) 10 mg tablet Take 1.5 tablets (15 mg total) by mouth daily Active ergocalciferol (VITAMIN D) 50,000 unit capsule Take 1 capsule (50,000 Units total) by mouth once a week 06/13/2015 Active multivitamin with minerals (Multiple Vitamin-Mineral s) tablet Active pantoprazole DR (PROTONIX) 20 mg EC tablet Take one tablet by mouth daily 90 tablet 2 02/21/2025 Active Active Problems Problem Noted Date Diagnosed Date Bowel perforation 03/11/2023 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) Discharge Disposition: Discharge to home or self care 04/06/2025 Orders Only [facility] Medicine Neuro Sleep [address] [place] [address] Diana Muñoz NP LELIA (obstructive sleep apnea) (Primary Dx) 04/06/2025 Telephone [facility] Medicine Neuro Sleep [address] [place] [address] Diana Muñoz NP from Last 3 Months Immunizations Immunization Administration Dates Next Due Tdap 01/12/2019 Surgical History Surgery Date Site/Laterality Comments TONSILLECTOMY APPENDECTOMY BOWEL RESECTION BREAST BIOPSY 04/08/2013 Right ABDOMINAL SURGERY 03/22/2024 - 04/21/2024 ABDOMINAL SURGERY 11/10/2024 Medical History Medical History Date Comments Hypertension Croinn's palsy Neuroendocrine tumor (HCC) Family History Medical History Relation Name Comments [...] Passive Smoke Exposure: Never Smokeless Tobacco: Never Alcohol Use Standard Drinks/Week Comments Yes 2 (1 standard drink = 0.6 oz pur e alcohol) Comments No Sex and Gender Information Value Date Recorded Sex Assigned at Not on file 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 Gender Identity Not on file Sexual Orientation Not on file Obstetrics History Last Filed Vital Signs Vital Sign Reading Time Taken Comments Blood Pressure 121/81 06/06/2025 8:31 AM CDT Pulse 57 06/06/2025 8:31 AM CDT Temperature 36.3 C (97.4 F) 06/06/2025 8:31 AM CDT Respiratory Rate 18 06/06/2025 8:31 AM CDT Oxygen Saturation 98% 06/06/2025 8:31 AM CDT Inhaled Oxygen Concentration - - Weight 57.6 kg (127 lb) 06/06/2025 8:30 AM CDT Height 154.9 cm (5' 1) 01/27/2025 4:01 PM CDT Body Mass Index 24 01/27/2025 4:01 PM CDT Plan of Treatment Health Maintenance Due Date Last Done Comments Cervical Cancer Screening 1962 Colon Cancer Screening-Colonoscopy 1962 Depression Screening 1962 Hepatitis C Screening 1962 Hepatitis B Screening 1980 Regular Well Visit/Exam 18-64 1980 Pneumococcal vaccine <65 (1 of 2 - PCV) 1981 Zoster Vaccine (1 of 2) 1981 Covid-19 Vaccine (4 - 2024-2 6 season) 2025 10/09/2021, 11/27/2020, 10/30/2020 Influenza Vaccine (#1) 2025 Breast Cancer Screening-Mammogram 10/02/2025 10/02/2024, 10/02/2024, 09/27/2023, Additional history exists DTaP/Tdap/Td Vaccine (2 - Td or Tdap) 01/12/2029 01/12/2019 Procedures Procedure Name Priority Date/Time Associated Diagnosis Comments EGFR Routine 06/06/2025 8:14 AM CDT 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) DIFFERENTIAL AUTO Routine 06/06/2025 8:1 4 AM CDT 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) CBC WITH AUTO DIFFERENTIAL Routine 06/06/2025 8:14 AM CDT 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 73 m2 Comment: Interpretive Data Reference Interval Normal >/= 90 mL/min/1.73m2 Mildly decreased* 60 - 89 mL/min/1.73m2 Mildly to moderately decreased 45 - 59 mL/min/1.73m2 Moderately to severely decreased 30 - 44 mL/min/1.73m2 Severely decreased 15 - 29 mL/min/1.73m2 Kidney Failure < 15 mL/min/1.73m2 *Relative to young adult level Estimated glomerular filtration rate is determined by the 2020 CKD-EPI equation recommended by the National Kidney Foundation (A Unifying Approach to GFR Estimation: Recommendations of the NKF-ASK Task Force on Reassessing the Inclusion of Race in Diagnosing Kidney Disease, JASN 2020). The CKD-EPI equation should not be used for patients with unstable renal function and has not been validated in children and those over 70. Current interpretive data was last reviewed 2021. Testing performed by: [facility] [place] [address] Blood 06/06/2025 8:14 AM CDT 06/06/2025 8:21 AM CDT Marce Manriquez MD LAB BLOOD ORDERABLES Pamela simi Result [facility] [address] Department [place] [address] * Differential, auto (06/06/2025 8:14 AM CDT) Neutrophil abs 1.77 1.50 - 6.50 K/cumm Comment:Testing performed by : [facility] [place] [address] Imm gran abs 0.01 0.00 - 0.10 K/cumm CERNER Comment:Testing performed by : [facility] [place] [address] Lymphocyte abs 1.84 0.80 - 3.30 K/cumm CERNER Comment:Testing performed by : [facility] [place] [address] Monocyte abs 0.32 0.20 - 0.80 K/cumm CERNER Comment:Testing performed by : [facility] [place] [address] Eosinophil abs 0.14 0.00 - 0.50 K/cumm CERNER Comment:Testing performed by : [facility] [place] [address] Basophil abs 0.04 0.00 - 0.10 K/cumm CERNER Comment:Testing performed by : [facility] [place] [address] Neutrophil pct 42.9 % CERNER Comment: Interpretive Data Percent cell count reference ranges are not reported, since discordance with absolute values may lead to misinterpretation of CBC data. Current Interpretive Data was last revised on 2017. Testing performed by: [facility] [place] [address] Imm gran pct 0.2 % CERNER Comment: Interpretive Data Percent cell count reference ranges are not reported, since discordance with absolute values may lead to misinterpretation of CBC data. Current Interpretive Data was last revised on 2017. Testing performed by: [facility] [place] [address] Lymphocyte pct 44.7 % CERNER Comment: Interpretive Data Percent cell count reference ranges are not reported, since discordance with absolute values may lead to misinterpretation of CBC data. Current Interpretive Data was last revised on 2017. Testing performed by: [facility] [place] [address] Monocyte pct 7.8 % CERNER Comment: Interpretive Data Percent cell count reference ranges are not reported, since discordance with absolute values may lead to misinterpretation of CBC data. Current Interpretive Data was last revised on 2017. Testing performed by: [facility] [place] [address] Eosinophil pct 3.4 % CERNER Comment: Interpretive Data Percent cell count reference ranges are not reported, since discordance with absolute values may lead to misinterpretation of CBC data. Current Interpretive Data was last revised on 2017. Testing performed by: [facility] [place] [address] Basophil pct 1.0 % CERNER Comment: Interpretive Data Percent cell count reference ranges are not reported, since discordance with absolute values may lead to misinterpretation of CBC data. Current Interpretive Data was last revised on 2017. Testing performed by: [place] [address] Blood 06/06/2025 8:14 AM CDT 06/06/2025 8:21 AM CDT us Marce Manriquez MD LAB BLOOD ORDERABLES Pamela l Result [facility] [address] Department [place] [address] * CBC with auto differential (06/06/2025 8:14 AM CDT) WBC 4.12 3.80 - 9.90 K/cumm Comment:Testing performed by : [facility] [place] [address] Hgb 14.1 11.9 - 15.5 g/dL CERNER CH Comment:Testing performed by : [facility] [place] [address] Hct 42.1 35.6 - 45.5 % CERNER CH Comment:Testing performed by : [facility] [place] [address] Plt 277 150 - 400 K/cumm CERNER CH Comment:Testing performed by : [facility] [place] [address] MPV 9.5 9.1 - 12.3 fL CERNER CH Comment:Testing performed by : [facility] [place] [address] RBC 4.57 3.90 - 5.20 M/cumm CERNER CH Comment:Testing performed by : [facility] [place] [address] MCV 92.1 81.3 - 96.4 fL CERNER CH Comment:Testing performed by : [facility] [place] [address] MCH 30.9 27.1 - 33.3 pg CERNER CH Comment:Testing performed by : [facility] [place] [address] MCHC 33.5 32.3 - 35.7 g/dL CERNER CH Comment:Testing performed by : [facility] [place] [address] RDW CV 12.7 11.1 - 14.9 % CERNER CH Comment:Testing performed by : [facility] [place] [address] RDW SD 42.9 35.7 - 48.1 fL CERNER CH Comment:Testing performed by : [facility] [place] [address] NRBC abs 0.00 0.00 - 0.01 K/cumm CERNER CH Comment:Testing performed by : [facility] [place] [address] ANC Prelim 1.77 1.50 - 6.50 K/cumm CERNER CH Comment: Interpretive Data The rapid ANC is a preliminary automated count and may vary from the final ANC (Neut Abs) reported in the WBC differential that follows. Current interpretive data was last revised 2024. Testing performed by: [facility] [place] [address] Blood 06/06/2025 8:14 AM CDT 06/06/2025 8:21 AM CDT Marce Manriquez MD LAB BLOOD ORDERABLES Pamela l Result Performing Organization Address City/[facility]/ZIP Co de Phone Number [facility] FOREMAN [address] [place] [address] * Serotonin serum (06/06/2025 8:14 AM CDT) Pathologist [facility] Serotonin 121 <=230 ng/mL Chow ref Lab Comment: ADDITIONAL INFORMATION This test was developed and its performance characteristics determined by [facility] in a manner consistent with CLIA requirements. This test has not been cleared or approved by the U.S. Food and Drug Administration. Test Performed by: [facility] [place] [address] Electronic Equipment Repairmen: Sea Tolbert Ph.D.; CLIA# [id number] Blood 06/06/2025 8:14 AM CDT 06/06/2025 10:03 AM CDT Marce Manriquez MD LAB BLOOD ORDERABLES Pamela l Result Performing Organization Address City[facility]/ZIP Co de Phone Number [facility] FOREMAN [address] [place] [address] [facility] ref Lab * Comprehensive metabolic panel (06/06/2025 8:14 AM CDT) [facility] Sodium 140 135 - 145 mmol/L Comment:Testing performed by : [facility] [place] [address] Potassium, pl 4.1 3.3 - 4.9 mmol/L LAURA FOREMAN Comment:Testing performed by : [facility] [place] [address] Chloride 104 97 - 110 mmol/L CERNER CH Comment:Testing performed by : [facility] [place] [address] CO2 25 22 - 32 mmol/L CERNER CH Comment:Testing performed by : [facility] [place] [address] Anion gap 11 2 - 15 mmol/L CERNER CH Comment:Testing performed by : [facility] [place] [address] BUN 24 6 - 25 mg/dL CERNER CH Comment:Testing performed by : [facility] [place] [address] Creatinine 0.76 0.60 - 1.10 mg/dL CERNER CH Comment:Testing performed by : [facility] [place] [address] Glucose 99 70 - 199 mg/dL CERNER CH Comment: Interpretive Data Fasting glucose >/= 126 mg/dl is diagnostic for diabetes. Fasting is defined as no caloric intake for at least 8 hours. Fasting glucose between 100 mg/dl to 125 mg/dl is diagnostic of prediabetes. In a patient with classic symptoms of hyperglycemia or hyperglycemic crisis, a random glucose >/= 200 mg/dl is diagnostic for diabetes. In the absence of unequivocal hyperglycemia, results should be confirmed by repeat testing. The classification and Diagnosis of Diabetes Diabetes Care 202; 46: S19-S40. Current interpretive data was last revised 2022. Testing performed by: [facility] [place] [address] Calcium 9.1 8.5 - 10.3 mg/dL CERNER CH Comment:Testing performed by : [facility] [place] [address] Bilirubin, total 0.5 0.1 - 1.2 mg/dL CERNER CH Comment:Testing performed by : [facility] [place] [address] Protein, pl 7.2 6.5 - 8.5 g/dL CERNER CH Comment:Testing performed by : [facility] [place] [address] Albumin 4.5 3.5 - 5.0 g/dL CERNER CH Comment:Testing performed by : [facility] [place] [address] Alk phos 54 40 - 130 Units/L LAURA FOREMAN Comment:Testing performed by : [facility] [place] [address] ALT 15 7 - 45 Units/L LAURA FOREMAN Comment:Testing performed by : [facility] [place] [address] AST 20 10 - 45 Units/L LAURA Comment:Testing performed by : [facility] [place] [address] Blood 06/06/2025 8:14 AM CDT 06/06/2025 8:21 AM CDT Marce Manriquez MD LAB BLOOD ORDERABLES Pamela belcher Result [facility] [address] Department [place] [address] * CT chest without contrast (05/05/2025 10:30 AM CDT) Anatomical Region Laterality Modality Body N/A Computed Tomogra phy 05/05/2025 10:5 1 AM CDT Impressions 05/05/2025 10:51 AM CDT Previously visualized sub-4 mm pulmonary nodules have resolved on this examination, possibly representing therapeutic response to treatment versus resolution of inflammatory nodules. Continued follow-up may be considered. Electronically signed by: Marcial Acharya II, D.O. Narrative 05/05/2025 10:51 AM CDT EXAMINATION: Computed tomography of the chest without intravenous contrast HISTORY: Pulmonary nodules. TECHNIQUE: Transaxial computed tomographic images of the chest were obtained without intravenous contrast according to the standard protocol. COMPARISON: 01/14/2025. FINDINGS: Mild atelectasis in the bilateral lung bases. Previously visualized pulmonary nodules are no longer visualized on this examination. For example, nodule adjacent to the right major fissure, not visualized, series 4 image 75. There is a 1.1 cm left thyroid nodule, series 3 image 25. Atherosclerotic calcifications in the aorta and branch vessels. No pericardial effusion. Small hiatal hernia. Upper abdominal structures are unremarkable as seen. No acute osseous abnormality. Mild multilevel endplate changes in the visualized spine. Procedure Note Marcial Acharya II, DO - 05/05/2025 EXAMINATION: Computed tomography of the chest without intravenous contrast HISTORY: Pulmonary nodules. TECHNIQUE: Transaxial computed tomographic images of the chest were obtained without intravenous contrast according to the standard protocol. COMPARISON: 01/14/2025. FINDINGS: Mild atelectasis in the bilateral lung bases. Previously visualized pulmonary nodules are no longer visualized on this examination. For example, nodule adjacent to the right major fissure, not visualized, series 4 image 75. There is a 1.1 cm left thyroid nodule, series 3 image 25. Atherosclerotic calcifications in the aorta and branch vessels. No pericardial effusion. Small hiatal hernia. Upper abdominal structures are unremarkable as seen. No acute osseous abnormality. Mild multilevel endplate changes in the visualized spine. IMPRESSION: Previously visualized sub-4 mm pulmonary nodules have resolved on this examination, possibly representing therapeutic response to treatment versus resolution of inflammatory nodules. Continued follow-up may be considered. Electronically signed by: Marcial Acharya II, D.O. Marce Manriquez MD IMG CT PROCEDURES Final R esult from Last 3 Months Insurance [id number] CHOICE PLUS [facility] CHOICE PLUS [facility] CHOICE PLUS Care Teams Subassembly Assembler Relationship Specialty Start Date End Date No, Physician PCP - General 01/05/25 Manas Mathews MD General Surgery 12/02/18 Marek Hernandes DO Sanitary Aide Gastroenterology 12/22/20 Marce Manriquez MD [address] [facility] [place] [place] [facility] [address] [place] [address] Medical Oncologist Medical Oncology 12/25/20 Tez Sweet MD [phone] [place] [address] Surgeon Colon and Rectal Surgery 03/11/23
[2025-06-22 18:10] VITALS: BP 143/99; PULSE 84; RESP 16; TEMP 36.8; O2SAT 95
--- NOTE | 2025-06-22 18:14 | ECG_ITS ---
Test Date: 2025-06-22 18:19:54 Measurements Intervals Howe Rate: 70 P: 60 NC: 161 QRS: -14 QRSD: 104 T: 51 QT: 386 QTc: 417 Interpretive Statements SINUS RHYTHM POSSIBLE LEFT ATRIAL ENLARGEMENT INCOMPLETE RIGHT BUNDLE BRANCH BLOCK BORDERLINE ECG Compared to ECG 03/29/2024 09:00:57 HEART RATE HAS INCREASED Electronically Signed On 06-22-2025 18:39:00 CDT by Antonio Tejada D.O.
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
[2025-06-22 19:58] LABS: Hematocrit 39.2 % (37.0-47.0); Hemoglobin 13.0 g/dL (12.0-15.0); Immature Granulocyte Percent A 0.3 % (0-0.5); Lymphocytes Absolute Auto 2.28 K/mm3 (0.9-3.2); Mean Corpuscular HGB Conc 33.2 g/dl (32-36); Mean Corpuscular Hemoglobin 30.5 pg (26-34); Mean Corpuscular Volume 92.0 fl (80-100); Nucleated Red Blood Cells Absolute Auto 0.000 K/mm3 (0.0-0.012); Nucleated Red Blood Cells Perc 0.0 % (0.0-0.2); Platelet Count Result 262 k/mm3 (150-375); Red Blood Count 4.26 M/mm3 (4.2-5.4); White Blood Count 8.0 K/mm3 (4.5-10.0)
--- OUTSIDE RECORDS SUMMARY | 2025-06-22 20:04 | XMS_ITS | Clinical Summary ---
Author Organization [facility] [place] Address [address] [place] [address] Phone Care Team Providers Care Industrial Gas Servicer Name Role Phone Mariah Collier MD [...] file. Referring Provider: Araceli Rome MD [address] [facility] [place] [address] Other: Problem Noted Date Diagnosed Date Hay [...] Comments Blood Pressure 136/74 10/14/2013 1:32 PM FRAME SAMPLE AND PATTERN SUPERVISOR Pulse 72 10/14/2013 1:32 PM FRAME SAMPLE AND PATTERN SUPERVISOR Temperature - - Respiratory Rate - - Oxygen Saturation - - Inhaled Oxygen Concentration - - Weight 51.7 kg (114 lb) 10/14/2013 1:32 PM FRAME SAMPLE AND PATTERN SUPERVISOR Height 154.9 cm (5' 1) 10/14/2013 1:32 PM FRAME SAMPLE AND PATTERN SUPERVISOR Body Mass Index 21.54 10/14/2013 1:32 PM FRAME SAMPLE AND PATTERN SUPERVISOR Plan of Treatment Health Maintenance Due Date [...] OR WO CAD Routine 10/02/2024 9:05 AM FRAME SAMPLE AND PATTERN SUPERVISOR Visit for screening mammogram from Last 3 Months or Most Recently Relevant to Health Maintenance Results * MAMMO 3D DANNY SCREEN BILAT W OR WO CAD (10/02/2024 9:05 AM FRAME SAMPLE AND PATTERN SUPERVISOR) Anatomical Region Laterality Modality Breast Bilateral Mammography 10/02/2024 9:06 AM FRAME SAMPLE AND PATTERN SUPERVISOR Impressions 10/02/2024 12:09 PM FRAME SAMPLE AND PATTERN SUPERVISOR IMPRESSION: No suspicious findings to suggest malignancy in either breast. Annual mammography is recommended. OVERALL FINAL ASSESSMENT: BI-RADS CATEGORY 1: Negative DICTATION LOCATION: [facility] 10/02/2024 12:09 PM FRAME SAMPLE AND PATTERN SUPERVISOR BILATERAL SCREENING DIGITAL MAMMOGRAM WITH 3D TOMOSYNTHESIS [...] the interpretation of this examination. Magalie Cheema OTR TANKER TRUCK DRIVER MAMMO ORDERABLES Final Result from Last 3 Months or Most Recently Relevant to Health Maintenance [place] [address] [place] [address] [employer] [facility] [id number] Care Teams Industrial Gas Servicer Relationship Specialty Start Date End Date Mariah Collier MD [address] [phone] PCP - General Family Practice 06/26/22
--- OUTSIDE RECORDS SUMMARY | 2025-06-22 20:04 | XMS_ITS | Clinical Summary ---
Author Organization [facility] [address] [address] [address] [place] [address] Care Team Providers Care Two Needle Machine Operator Name Role Phone Manas Mathews MD Unavailable [phone] Marek Hernandes DO Unavailable [phone] Mrace Manriquez MD Unavailable Tez Sweet MD Unavailable [phone] No, Physician Primary Care Provider [phone] Allergies Active Allergy Reactions Criticality Noted Date [...] Description 06/06/2025 8:45 AM CDT Office Visit [facility] Medicine Oncology [address] [place] [phone] Marce Manriquez MD Neuroendocrine carcinoma of small bowel (HCC); 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) 06/06/2025 8:15 AM CDT Lab [facility] Lab [address] [place] [phone] Neuroendocrine carcinoma of small bowel (HCC); 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) 05/20/2025 Telephone [facility] Medicine Oncology [facility] [place] [phone] Jenni Laurent 05/05/2025 10:20 AM CDT - 05/05/2025 11:59 PM CDT Hospital Encounter [facility] [address] [place] [address] Neuroendocrine carcinoma of small bowel (HCC); 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) Discharge Disposition: Discharge to home or self care 04/06/2025 Orders Only [facility] Medicine Neuro Sleep [address] [place] [address] Diana Muñoz NP LELIA (obstructive sleep apnea) (Primary Dx) 04/06/2025 Telephone [facility] Medicine Neuro Sleep [address] [place] [address] Diana Muñoz NP from Last 3 Months Immunizations Immunization Administration Dates Next Due Tdap 01/12/2019 Surgical History Surgery Date Site/Laterality Comments TONSILLECTOMY APPENDECTOMY BOWEL RESECTION BREAST BIOPSY 04/08/2013 Right ABDOMINAL SURGERY 03/22/2024 - 04/21/2024 ABDOMINAL SURGERY 11/10/2024 Medical History Medical History Date Comments Hypertension Cronin's palsy Neuroendocrine tumor (HCC) Family History Medical [...] on file Legal Sex Female 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 Testing performed by: [facility] [place] [address] Blood 06/06/2025 8:14 AM CDT 06/06/2025 8:21 AM CDT Marce Manriquez MD LAB BLOOD ORDERABLES Pamela simi Result [facility] [address] Department [place] [address] * Differential, auto (06/06/2025 8:14 AM CDT) Neutrophil abs 1.77 1.50 - 6.50 K/cumm Comment:Testing performed by : [facility] [place] [address] Imm gran abs 0.01 0.00 - 0.10 K/cumm CERNER Comment:Testing performed by : [facility] [place] [address] Lymphocyte abs 1.84 0.80 - 3.30 K/cumm CERNER Comment:Testing performed by : [facility] [place] [address] Monocyte abs 0.32 0.20 - 0.80 K/cumm CERNER Comment:Testing performed by : [facility] [place] [address] Eosinophil abs 0.14 0.00 - 0.50 K/cumm CERNER Comment:Testing performed by : [facility] [place] [address] Basophil abs 0.04 0.00 - 0.10 K/cumm CERNER Comment:Testing performed by : [facility] [place] [address] Neutrophil pct 42.9 % CERNER Comment: Interpretive Data Percent cell count reference ranges are not reported, since discordance with absolute values may lead to misinterpretation of CBC data. Current Interpretive Data was last revised on 2017. Testing performed by: [facility] [place] [address] Imm gran pct 0.2 % CERNER Comment: Interpretive Data Percent cell count reference ranges are not reported, since discordance with absolute values may lead to misinterpretation of CBC data. Current Interpretive Data was last revised on 2017. Testing performed by: [facility] [place] [address] Lymphocyte pct 44.7 % CERNER Comment: Interpretive Data Percent cell count reference ranges are not reported, since discordance with absolute values may lead to misinterpretation of CBC data. Current Interpretive Data was last revised on 2017. Testing performed by: [facility] [place] [address] Monocyte pct 7.8 % CERNER Comment: Interpretive Data Percent cell count reference ranges are not reported, since discordance with absolute values may lead to misinterpretation of CBC data. Current Interpretive Data was last revised on 2017. Testing performed by: [facility] [place] [address] Eosinophil pct 3.4 % CERNER Comment: Interpretive Data Percent cell count reference ranges are not reported, since discordance with absolute values may lead to misinterpretation of CBC data. Current Interpretive Data was last revised on 2017. Testing performed by: [facility] [place] [address] Basophil pct 1.0 % CERNER Comment: Interpretive Data Percent cell count reference ranges are not reported, since discordance with absolute values may lead to misinterpretation of CBC data. Current Interpretive Data was last revised on 2017. Testing performed by: [place] [address] Blood 06/06/2025 8:14 AM CDT 06/06/2025 8:21 AM CDT us Marce Manriquez MD LAB BLOOD ORDERABLES Pamela l Result [facility] [address] Department [place] [address] * CBC with auto differential (06/06/2025 8:14 AM CDT) WBC 4.12 3.80 - 9.90 K/cumm Comment:Testing performed by : [facility] [place] [address] Hgb 14.1 11.9 - 15.5 g/dL CERNER CH Comment:Testing performed by : [facility] [place] [address] Hct 42.1 35.6 - 45.5 % CERNER CH Comment:Testing performed by : [facility] [place] [address] Plt 277 150 - 400 K/cumm CERNER CH Comment:Testing performed by : [facility] [place] [address] MPV 9.5 9.1 - 12.3 fL CERNER CH Comment:Testing performed by : [facility] [place] [address] RBC 4.57 3.90 - 5.20 M/cumm CERNER CH Comment:Testing performed by : [facility] [place] [address] MCV 92.1 81.3 - 96.4 fL CERNER CH Comment:Testing performed by : [facility] [place] [address] MCH 30.9 27.1 - 33.3 pg CERNER CH Comment:Testing performed by : [facility] [place] [address] MCHC 33.5 32.3 - 35.7 g/dL CERNER CH Comment:Testing performed by : [facility] [place] [address] RDW CV 12.7 11.1 - 14.9 % CERNER CH Comment:Testing performed by : [facility] [place] [address] RDW SD 42.9 35.7 - 48.1 fL CERNER CH Comment:Testing performed by : [facility] [place] [address] NRBC abs 0.00 0.00 - 0.01 K/cumm CERNER CH Comment:Testing performed by : [facility] [place] [address] ANC Prelim 1.77 1.50 - 6.50 K/cumm CERNER CH Comment: Interpretive Data The rapid ANC is a preliminary automated count and may vary from the final ANC (Neut Abs) reported in the WBC differential that follows. Current interpretive data was last revised 2024. Testing performed by: [facility] [place] [address] Blood 06/06/2025 8:14 AM CDT 06/06/2025 8:21 AM CDT Marce Manriquez MD LAB BLOOD ORDERABLES Pamela l Result Performing Organization Address City/[facility]/ZIP Co de Phone Number [facility] FOR[facility]AN [address] [place] [address] * Serotonin serum (06/06/2025 8:14 AM CDT) Pathologist [facility] Serotonin 121 <=230 ng/mL Chow ref Lab Comment: ADDITIONAL INFORMATION This test was developed and its performance characteristics determined by [facility] in a manner consistent with CLIA requirements. This test has not been cleared or approved by the U.S. Food and Drug Administration. Test Performed by: [facility] [address] Precision Farming Coordinator: Sea Tolbert Ph.D.; CLIA# [id number] Blood 06/06/2025 8:14 AM CDT 06/06/2025 10:03 AM CDT Marce Manriquez MD LAB BLOOD ORDERABLES Pamela l Result Performing Organization Address City/[facility]/ZIP Co de Phone Number [facility]URA FOREMAN [address] [place] [address] Chow ref Lab * Comprehensive metabolic panel (06/06/2025 8:14 AM CDT) [facility] Sodium 140 135 - 145 mmol/L Comment:Testing performed by : [facility] [place] [address] Potassium, pl 4.1 3.3 - 4.9 mmol/L LAURA FOREMAN Comment:Testing performed by : [facility] [place] [address] Chloride 104 97 - 110 mmol/L CERNER CH Comment:Testing performed by : [facility] [place] [address] CO2 25 22 - 32 mmol/L CERNER CH Comment:Testing performed by : [facility] [place] [address] Anion gap 11 2 - 15 mmol/L CERNER CH Comment:Testing performed by : [facility] [place] [address] BUN 24 6 - 25 mg/dL CERNER CH Comment:Testing performed by : [facility] [place] [address] Creatinine 0.76 0.60 - 1.10 mg/dL CERNER CH Comment:Testing performed by : [facility] [place] [address] Glucose 99 70 - 199 mg/dL CERNER [...] was last revised 2022. Testing performed by: [facility] [place] [address] Calcium 9.1 8.5 - 10.3 mg/dL CERNER CH Comment:Testing performed by : [facility] [place] [address] Bilirubin, total 0.5 0.1 - 1.2 mg/dL CERNER CH Comment:Testing performed by : [facility] [place] [address] Protein, pl 7.2 6.5 - 8.5 g/dL CERNER CH Comment:Testing performed by : [facility] [place] [address] Albumin 4.5 3.5 - 5.0 g/dL CERNER CH Comment:Testing performed by : [facility] [place] [address] Alk phos 54 40 - 130 Units/L LAURA FOREMAN Comment:Testing performed by : [facility] [place] [address] ALT 15 7 - 45 Units/L LAURA FOREMAN Comment:Testing performed by : [facility] [place] [address] AST 20 10 - 45 Units/L LAURA Comment:Testing performed by : [facility] [place] [address] Blood 06/06/2025 8:14 AM CDT 06/06/2025 8:21 AM CDT Marce Manriquez MD LAB BLOOD ORDERABLES Pamela belcher Result [facility] [address] [address] Department [place] [address] * CT chest without contrast (05/05/2025 10:30 [...] R esult from Last 3 Months Insurance [id number] PLUS [facility] CHOICE PLUS [facility] CHOICE PLUS Care Teams Two Needle Machine Operator Relationship Specialty Start Date End Date No, Physician PCP - General 01/05/25 Manas Mathews MD General Surgery 12/02/18 Marek Hernandes DO Home Manager Gastroenterology 12/22/20 Marce Manriquez MD [address] [facility], [address] [address] Medical Oncologist Medical Oncology 12/25/20 Tez Sweet MD [phone] [place] [address] Surgeon Colon and Rectal Surgery 03/11/23
[2025-06-22 20:07] LABS: Alanine Aminotransferase 16 U/L (6-35); Albumin Level 4.3 g/dL (3.5-5.1); Alkaline Phosphatase 60 U/L (38-126); Anion Gap 8 mmol/L (4-12); Aspartate Amino Transferase 25 U/L (14-36); Bilirubin,Total 0.4 mg/dL (0.2-1.3); Blood Urea Nitrogen 16 mg/dL (7-17); Calcium 8.9 mg/dL (8.4-10.2); Carbon Dioxide 23 mmol/L (22-30); Chloride 104 mmol/L (98-107); Estimated CRCL calculation 52 ml/min; Estimated Glomerular Filt Rate > 60; Glucose 96 mg/dL (65-110); Potassium 3.5 mmol/L (3.4-5.0); Sodium 135 mmol/L (137-145); Total Protein 7.4 g/dL (6.3-8.2)
[2025-06-22] MEDS: KETOROLAC 15 MG/ML VIAL (*BKC) IV PUSH (20:34)
[2025-06-22 20:42] LABS: Add Urine Microscopic? YES; Appearance Urine Clear (Clear); Glucose Urine UA Negative (Negative); Leukocyte Esterase Ur Trace LEU/UL (Negative); Nitrate Urine Negative (Negative); Non Pathogenic Casts 0-2; Specific Grav Ur 1.009 (1.001-1.035)
[2025-06-22 21:17] VITALS: BP 143/80; PULSE 80; RESP 20; O2SAT 98
== END 2025-06-22 21:18 | disposition home or self-care (01) ==
PROVIDERS: Emergency Provider Student in an Organized Health Care Education/Training Program
DX: S02.2XXA Fracture of nasal bones, initial encounter for closed fracture (principal); S50.812A Abrasion of left forearm, initial encounter; I10 Essential (primary) hypertension; Z85.060 Personal history of malignant carcinoid tumor of small intestine; Z90.49 Acquired absence of other specified parts of digestive tract; K44.9 Diaphragmatic hernia without obstruction or gangrene; M47.812 Spondylosis without myelopathy or radiculopathy, cervical region; Z79.899 Other long term (current) drug therapy; I45.10 Unspecified right bundle-branch block; R94.31 Abnormal electrocardiogram [ECG] [EKG]; V49.40XA Driver injured in collision with unspecified motor vehicles in traffic accident, initial encounter
CPT/HCPCS: 36415; 70450; 70486; 71250; 72125; 74176; 80053; 81001; 85025; 93005; 96374; 99284; J1885